=== PATIENT | female | born 1960 | race Caucasian/White ===

== ENCOUNTER 2018-10-18 09:00 | Outpatient (REF) | payer BC, SELFPAY ==
[2018-10-18 19:21] LABS: HCT 39.3 % (36.0-46.0); HGB 13.5 g/dL (12.0-15.5); Mean Corp. HGB Concentration 34.4 g/dL (32.0-36.0); Mean Corpuscular Hemoglobin 30.2 pg (27.0-33.0); Mean Corpuscular Volume 87.9 fL (80-95); Mean Platelet Volume 9.7 fL (8.0-11.0); Platelet Count 377 x1000/uL (130-400); RBC 4.47 m/cumm (4.00-5.20); RBC Distribution Width 13.1 % (11.7-14.6); White Blood Cell Count 4.04 k/cumm (4.4-10.8)
[2018-10-18 19:26] LABS: Bilirubin Negative (Negative); Blood Trace-intact (Negative); Clarity Clear; Glucose Negative (Negative); Ketones Negative (Negative); Leukocyte Esterase Negative (Negative); Nitrite Negative (Negative); Specific Gravity 1.015 (1.005-1.025); Urobilinogen 0.2 EU/dL (Up TO 0.2)
[2018-10-18 19:46] LABS: Bacteria Negative HPF (Negative); C & S Indicated? No; Casts Negative LPF (Negative); Crystals Negative HPF (Negative); Epithelial Cells Rare HPF (Negative); Mucus Negative (Negative); RBC 0-2 (0-2); WBC Negative HPF (0-5)
[2018-10-18 20:30] LABS: Anion Gap 7.3 mmol/L (3-11); BUN 14 mg/dL (7-18); CO2 30.7 mmol/L (21.0-32.0); CREATININE 0.82 mg/dL (0.55-1.02); Calcium 9.3 mg/dL (8.5-10.1); Chloride 95 mmol/L (98-107); Cholesterol 217 mg/dL (50-200); Glucose 93 mg/dL (70-100); HDL Cholesterol 117 mg/dL (40-60); LDL CHOLESTEROL 89 mg/dL (<100); Potassium 4.3 mmol/L (3.5-5.1); Sodium 133 mmol/L (136-145); Triglyceride 31 mg/dL (30-150)
[2018-10-18 21:10] LABS: Amylase 34 U/L (25-115); Lipase 85 U/L (73-393)
== END 2018-10-18 09:20 ==
LOC: NCHCN 09:00
PROVIDERS: PCP Physician Assistant Medical; Visit Provider Nurse Practitioner Family
DX: R10.9 Unspecified abdominal pain (principal); Z00.00 Encounter for general adult medical examination without abnormal findings
CPT/HCPCS: 80048; 80061; 83690; 83721; 85027; 81003; 81015; 82150

== ENCOUNTER 2019-07-10 14:26 | Outpatient (REF) | payer BC, SELFPAY ==
[2019-07-10 19:28] LABS: TSH (W/Ref FT4) 0.89 uIU/mL (0.36-3.74)
== END 2019-07-10 14:46 ==
LOC: NCHCN 14:26
PROVIDERS: PCP Physician Assistant Medical; Visit Provider Nurse Practitioner Family
DX: R00.2 Palpitations (principal)
CPT/HCPCS: 84443

== ENCOUNTER 2020-04-05 16:56 | Outpatient (REF) | payer BC, SELFPAY ==
[2020-04-05 20:00] LABS: HGB 12.5 g/dL (11.2-15.7); MCH 29.3 pg (27.0-33.0); MCHC 33.8 % (32.0-36.0); MCV 86.7 fL (80-95); MPV 9.9 fL (8.0-11.0); Platelet Count 375 10^3/uL (130-400); RBC 4.27 10^6/uL (3.93-5.22); RDW 13.1 % (11.7-14.6); RDW-SD 41.2 fL; WBC 6.78 10^3/uL (4.4-10.8)
[2020-04-05 20:32] LABS: TSH 0.72 uIU/mL (0.36-3.74)
[2020-04-05 20:55] LABS: ESR 9 mm/hr (0-30)
[2020-04-06 17:55] LABS: CRP, High Sensitivity 0.83 mg/L (See Note)
== END 2020-04-05 17:16 ==
LOC: NCHCN 16:56
PROVIDERS: PCP Physician Assistant Medical; Visit Provider Nurse Practitioner Family
DX: N64.4 Mastodynia (principal)
CPT/HCPCS: 85027; 85652; 86141; 84443

== ENCOUNTER 2020-10-21 15:14 | Outpatient (REF) | payer BC, SELFPAY ==
[2020-10-21 16:07] LABS: ALT 35 U/L (14-59); AST 23 U/L (15-37); Albumin 4.1 g/dL (3.4-5.0); Alkaline Phosphatase 88 U/L (46-116); Bilirubin, Direct 0.1 mg/dL (0.0-0.2); Bilirubin, Total 0.4 mg/dL (0.2-1.0); Total Protein 6.9 g/dL (6.4-8.2)
== END 2020-10-21 15:15 | disposition home or self-care (01) ==
LOC: NCHCN 15:14
PROVIDERS: PCP Physician Assistant Medical; Visit Provider Family Medicine
DX: R10.11 Right upper quadrant pain (principal)
CPT/HCPCS: 80076

== ENCOUNTER → 2022-05-26 00:33 | Outpatient (CLI) | payer BC, SELFPAY ==
--- OUTSIDE RECORDS SUMMARY | 2022-05-26 00:43 | XMS_ITS | Encounter Summary ---
:1960 Author Organization [facility] Address [address] [place] [address] Care Team Providers Name Role Phone Unavailable Primary Care Provider Unavailable Encounter Details Date Type Department Care Team Description 09/07/2000 Results Only [facility] - Baylee Gaffney MD conversion [address] [facility] [address] [facility] LAUREN [address] [place], [place] [id number] [place] [address] (Wo rk) Social History Tobacco Use Types Packs/Day Years Used Date Never Assessed Sex Assigned at Date Recorded Not on file documented as of this encounter Plan of Treatment Not on filedocumented as of this encounter Procedures Procedure Name Priority Date/Time Associated Diagnosis Comme nts CYTOPATHOLOGY Routine 09/07/2000 0:00 EST Results for this procedure are i n the results section . documented in this encounter Results CYTOPATHOLOGY (09/07/2000 0:00 EST) Pathology Report: CYTOPATHOLOGY REPORT [facility] Reports generated via electronic interface contain hina ginal data; however they are lacking the format of the original re port. Caution should be taken when reading/interpreting unfo rmatted reports. Name: ? BELEM HOLLIDAY ? Accession #: ? [id number] : ? 1960 (Age: 40) ??F ?Collect Date: ? 09/2000 Location: ? [facility] ? Receive Date : ? 09/11/2000 Provider: ?BAYLEE SERRA MD Copy to: ? Specimen/Source: ?ThinPrep Pap Test, Cervix/ Endocervix Last Menstrual Period: ? 09/04/00 Hormonal/Contraceptive Status: ? Yes ? SPECIMEN ADEQUACY ? Satisfactory for evaluation. GENERAL CATEGORIZATION ? Within Normal Limits ? Document reviewed and electronically signed by: ? MAURICE Gao(ASCP) ? Report Date: ??09/11/2000 13:02 End of Report Specimen Performing Organization Address City/State/ZIP Code Phon e Number [facility] [address] [phone] SERVICES [facility] [address] [place] [address] documented in this encounter Visit Diagnoses Not on filedocumented in this encounter
--- OUTSIDE RECORDS SUMMARY | 2022-05-26 00:43 | XMS_ITS | Encounter Summary ---
:1960 Author Organization [facility] [place] [address] Care Team Providers Name Role Phone Denis Hardy MD Primary Care Provider Encounter Details Date Type Department Care Team Description 03/27/2022 Ancillary Procedure Radiology Library at Denis Hardy MD [id number] [place] [phone] [address] [phone] Social History Tobacco Use Types Packs/Day Years Used Date Never Assessed Sex Assigned at Date Recorded Not on file documented as of this encounter Plan of Treatment Upcoming Encounters Date Type Specialty Care Team Description 06/14/2022 Office Visit Neurology Taylor Evans MD [facility] NEUROLOGY DEPT [place], [place] [address] (Wo rk) documented as of this encounter Procedures Procedure Name Priority Date/Time Associated Diagnosis Comme nts FILM LIBRARY Routine 03/27/2022 12:05 AM Results for this STORAGE ONLY CT EDT procedure ar e in HEAD the results section. documented in this encounter Results Film Library- Storage Only CT Head (03/27/2022 12:05 AM EDT) Specimen (Source) Anatomical Location Collection Method / Collectio n Time Received Time / Laterality Volume Narrative ROBIN DANIEL - 03/28/2022 11:31 AM EDT This exam is auto-finalizing. It's purpo se is for storage only. Denis Hardy MD IMG FILM LIBRARY ORDERABLES Performing Organization Address City/State/ZIP Code Phon e Number [facility] [place], [place] documented in this encounter Visit Diagnoses Not on filedocumented in this encounter Care Teams Seam Stay Stitcher Relationship Specialty Start Date End Date Denis Hardy MD PCP - General 06/28/10 03/27/[address] [place] [address] [place] [address] documented as of this encounter
--- OUTSIDE RECORDS SUMMARY | 2022-05-26 00:43 | XMS_ITS | Encounter Summary ---
:1960 Author Organization [facility] [place] [address] Care Team Providers Name Role Phone Sara Luke MANAGER OF PHOTOGRAPHY Primary Care Provider Encounter Details Date Type Department Care Team Description 03/29/2022 [facility]illary [facility] [address] [place] [phone] (Wo rk) Social History Tobacco Use Types Packs/Day Years Used Date Never Assessed Sex Assigned at Date Recorded Not on file documented as of this encounter Plan of Treatment Upcoming Encounters Date Type Specialty Care Team Description 06/14/2022 Office Visit Neurology Taylor Evans MD [facility] DR NEUROLOGY DEPT [place], [place] [address] (Wo rk) documented as of this encounter Procedures Procedure Name Priority Date/Time Associated Diagnosis Comme nts FILM LIBRARY Routine 03/29/2022 9:10 AM Results f or this STORAGE ONLY CT EDT procedure ar e in HEAD the results section. documented in this encounter Results Film Library- Storage Only CT Head (03/29/2022 9:10 AM EDT) Specimen (Source) Anatomical Location Collection Method / Collectio n Time Received Time / Laterality Volume Narrative MARÍA - 03/29/2022 9:10 AM EDT This exam is auto-finalizing. It's purpo se is for storage only. Sara Kiran Ti MANAGER OF PHOTOGRAPHY IMG FILM LIBRARY ORDERABLES Performing Organization Address City/State/ZIP Code Phon e Number [facility] [place], [place] documented in this encounter Visit Diagnoses Not on filedocumented in this encounter Care Teams Set And Exhibit Designer Relationship Specialty Start Date End Date Sara Luke APRN PCP - General Family Medicine 03/28/22 [address] [place] [address] documented as of this encounter
--- OUTSIDE RECORDS SUMMARY | 2022-05-26 00:43 | XMS_ITS | Encounter Summary ---
:1960 Author Organization [facility] Address [address] [place] [address] Care Team Providers Name Role Phone Unavailable Primary Care Provider Unavailable Encounter Details Date Type Department Care Team Description 11/30/2005 Results Only [facility] - Angie Chapman, conversion MEDIA EXECUTIVE [address] [place] [address] Social History Tobacco Use Types Packs/Day Years Used Date Never Assessed Sex Assigned at Date Recorded Not on file documented as of this encounter Plan of Treatment Not on filedocumented as of this encounter Procedures Procedure Name Priority Date/Time Associated Diagnosis Comme nts CYTOPATHOLOGY Routine 11/30/2005 0:00 EDT Results for this procedure are i n the results section . documented in this encounter Results CYTOPATHOLOGY (11/30/2005 0:00 EDT) Pathology Report: CYTOPATHOLOGY REPORT [facility] Reports generated via electronic interface contain hina ginal data; however they are lacking the format of the original re port. Caution should be taken when reading/interpreting unfo rmatted reports. Name: ? BELEM HOLLIDAY ? Accession #: ? [id number] : ? 1960 (Age: 45) ??F ?Collect Date: ? 11/05 Location: ? [facility] ? Receive Date : ? 12/04/2005 Provider: ?NUBIA RAMIREZ MEDIA EXECUTIVE Copy to: ? Specimen/Source: ? ThinPrep Pap Test, Cervix/Endocervix, processed on [employer] ThinPrep Imaging System, with manual evaluation Last Menstrual Period: ? Other: ? Additional clinical information: Previous paps WNL HPVA - HPV testing requested if ASC-US on the current ThinPrep Pap test. ? SPECIMEN ADEQUACY ? Satisfactory for Evaluation - transformation zone component present GENERAL CATEGORIZATION ? Negative for Intraepithelial Lesion or Malignan cy ? Document reviewed and electronically signed by: ? SANTANA Jimenez(ASCP) ? Report Date: ??12/05/2005 15:37 End of Report Specimen Performing Organization Address City/State/ZIP Code Phon e Number [facility] [address] [place] [address] SERVICES [facility] [address] [place] [address] documented in this encounter Visit Diagnoses Not on filedocumented in this encounter
--- OUTSIDE RECORDS SUMMARY | 2022-05-26 00:43 | XMS_ITS | Encounter Summary ---
:1960 Author Organization [facility] [place] [address] Care Team Providers Name Role Phone Sara Luke APRN Primary Care Provider Reason for Referral Consultation (Urgent) - Authorized Specialty Diagnoses / Procedures Referred By Contact Refer red To Contact Neurology Diagnoses Brain bleed ? stroke team Chris Pike MD [facility] Neurology [address] [address] [place] [address] Fax: Referral ID Status Reason Start Expiration Visits Visits Date Date Requested Authorized [id number] Authorized Consult, 03/28/2022 03/28/2023 6 6 Test & Treat PCP Updated and/or Approved Encounter Details Date Type Department Care Team Description 03/28/2022 Transcribe Orders eDH Incoming Referra ls Chris Pike, Brain bleed [phone] [address] [place], [place] [address] (Wo rk) Social History Tobacco Use Types Packs/Day Years Used Date Never Assessed Sex Assigned at Date Recorded Not on file documented as of this encounter Plan of Treatment Upcoming Encounters Date Type Specialty Care Team Description 06/14/2022 Office Visit Neurology Taylor Evans MD [facility] NEUROLOGY DEPT [place], [place] [address] (Wo rk) Scheduled Referrals Name Type Priority Associated Diagnoses Order S chedule Referral to Outpatient Referral STAT Brain bleed Ordered: Neurology 03/28/2022 documented as of this encounter Visit Diagnoses Diagnosis Brain bleed Intracerebral hemorrhage documented in this encounter Care Teams Insulation Board Back Tender Relationship Specialty Start Date End Date Sara Luke, PERSONNEL SPECIALIST PCP - General Family Medicine 03/28/[address] [place] [address] documented as of this encounter
--- OUTSIDE RECORDS SUMMARY | 2022-05-26 00:43 | XMS_ITS | Encounter Summary ---
:1960 Author Organization [facility] Address [address] [place] [address] Care Team Providers Name Role Phone Unavailable Primary Care Provider Unavailable Encounter Details Date Type Department Care Team Description 10/27/2010 Results Only [facility] Ty Gonsalez PA Laboratory Services - [facility] [address] [place] [address] 0 [facility] [place] [address] [phone] Social History Tobacco Use Types Packs/Day Years Used Date Never Assessed Sex Assigned at Date Recorded Not on file documented as of this encounter Plan of Treatment Not on filedocumented as of this encounter Procedures Procedure Name Priority Date/Time Associated Diagnosis Comme nts CYTOPATHOLOGY Routine 10/27/2010 0:00 EDT Results for this procedure are i n the results section . documented in this encounter Results CYTOPATHOLOGY (10/27/2010 0:00 EDT) Pathology Report: CYTOPATHOLOGY REPORT ? [facility] Reports generated via Veratect interface contain original data; ? however they are lacking the format of the original report. ? Caution should be taken when reading/interpreting unformatted reports. ? Name: ? Aleah HOLLIDAY CHERRIE ? Accession #: ? [id number] ? : ? 1960 (Age: 50) ??F ?Collect Date: ? 10/27/2010 ? Location: ? [facility] ? Receive Date: ? 10/31/2010 ? Provider: ? JONATHAN Bullock PA ? Copy to: ? CYTOLOGIC DIAGNOSIS: ? Urine, voided, cytolo gic evaluation: ? 1. ?Negative fo r malignant cells. ? 2. ? Vaginal contaminati on. ? Document reviewed and electr onically signed by: ? BAYRON DELGADO MD ? Report Date: ??11/01/2010 16 :37 ? By the signature above, the attending physician certifies that he/she has ? personally conducted a gross and/or microscopic examination of the described ? specimens and rendered or co nfirmed the above diagnosis. ? Specimen Type: ? Urine, Voided ? Clinical History: ? Hematuria ? Gross Description: ? 1 tube of Cytolyt was received and processed by cellular enhancement ? technique ? End of Report ? Specimen Performing Organization Address City/State/ZIP Code Phon e Number [facility] [address] [place] [address] SERVICES [facility] [address] [place] [address] documented in this encounter Visit Diagnoses Not on filedocumented in this encounter
--- OUTSIDE RECORDS SUMMARY | 2022-05-26 00:43 | XMS_ITS | Encounter Summary ---
:1960 Author Organization [facility] [place] [address] Care Team Providers Name Role Phone Sara Luke APRN Primary Care Provider Encounter Details Date Type Department Care Team Description 03/29/2022 Telehealth notes only [facility] Tele[facility], [place] [address] Social History Tobacco Use Types Packs/Day Years Used Date Never Assessed Sex Assigned at Date Recorded Not on file documented as of this encounter Plan of Treatment Upcoming Encounters Date Type Specialty Care Team Description 06/14/2022 Office Visit Neurology Taylor Evans MD [facility] NEUROLOGY DEPT [place], [place] [address] (Wo rk) documented as of this encounter Visit Diagnoses Not on filedocumented in this encounter Care Teams Copier Operator Relationship Specialty Start Date End Date Sara Luke APRN PCP - General Family Medicine 03/28/[address] [place] [address] documented as of this encounter
--- OUTSIDE RECORDS SUMMARY | 2022-05-26 00:43 | XMS_ITS | Encounter Summary ---
:1960 Author Organization [facility] [place] [address] Care Team Providers Name Role Phone Sara Luke APRN Primary Care Provider Encounter Details Date Type Department Care Team Description 03/28/2022 Telehealth notes only [facility] Telehealth, [place] [address] Social History Tobacco Use Types Packs/Day Years Used Date Never Assessed Sex Assigned at Date Recorded Not on file documented as of this encounter Plan of Treatment Upcoming Encounters Date Type Specialty Care Team Description 06/14/2022 Office Visit Neurology Taylor Evans MD [facility] NEUROLOGY DEPT [place], [place] [address] (Wo rk) documented as of this encounter Visit Diagnoses Not on filedocumented in this encounter Care Teams Behavior Therapist Relationship Specialty Start Date End Date Sara Luke APRN PCP - General Family Medicine 03/28/[address] [place] [address] documented as of this encounter
--- OUTSIDE RECORDS SUMMARY | 2022-05-26 00:43 | XMS_ITS | Encounter Summary ---
:1960 Author Organization [facility] [place] [address] Care Team Providers Name Role Phone Denis Hardy MD Primary Care Provider Encounter Details Date Type Department Care Team Description 03/27/2022 Ancillary Procedure Radiology Library at Denis Hardy MD [address] [place] [phone] [phone] Social History Tobacco Use Types Packs/Day Years Used Date Never Assessed Sex Assigned at Date Recorded Not on file documented as of this encounter Plan of Treatment Upcoming Encounters Date Type Specialty Care Team Description 06/14/2022 Office Visit Neurology Taylor Evans MD [facility] NEUROLOGY DEPT [place], [place] [address] (Wo rk) documented as of this encounter Procedures Procedure Name Priority Date/Time Associated Diagnosis Comme nts FILM LIBRARY Routine 03/27/2022 12:00 AM Results for this STORAGE ONLY MR EDT procedure ar e in HEAD the results section. documented in this encounter Results Film Library- Storage Only MR Head (03/27/2022 12:00 AM EDT) Specimen (Source) Anatomical Location Collection Method / Collectio n Time Received Time / Laterality Volume Narrative ROBIN DANIEL - 03/28/2022 8:47 AM EDT This exam is auto-finalizing. It's purpo se is for storage only. Denis Hardy MD IMG FILM LIBRARY ORDERABLES Performing Organization Address City/State/ZIP Code Phon e Number MAR[facility] [place], [place] documented in this encounter Visit Diagnoses Not on filedocumented in this encounter Care Teams Children'S Ministry Director Relationship Specialty Start Date End Date Denis Hardy MD PCP - General 06/28/10 03/27/[address] [place] [address] [place] [address] documented as of this encounter
--- OUTSIDE RECORDS SUMMARY | 2022-05-26 00:43 | XMS_ITS | Encounter Summary ---
:1960 Author Organization [facility] [place] [address] Care Team Providers Name Role Phone Denis Hardy MD Primary Care Provider Encounter Details Date Type Department Care Team Description 03/27/2022 Telehealth notes only TeleHealth Telehealth, [facility] [place] [address] Social History Tobacco Use Types Packs/Day Years Used Date Never Assessed Sex Assigned at Date Recorded Not on file documented as of this encounter Plan of Treatment Upcoming Encounters Date Type Specialty Care Team Description 06/14/2022 Office Visit Neurology Taylor Evans MD [facility] DR NEUROLOGY DEPT [place], [place] [address] (Wo rk) documented as of this encounter Visit Diagnoses Not on filedocumented in this encounter Care Teams Youth Care Worker Relationship Specialty Start Date End Date Denis Hardy MD PCP - General 06/28/10 03/27/[address] [place] [address] [place] [address] documented as of this encounter
--- OUTSIDE RECORDS SUMMARY | 2022-05-26 00:43 | XMS_ITS | Encounter Summary ---
:1960 Author Organization [facility] [place] [address] Care Team Providers Name Role Phone Sara Luke JELLY FILTER TENDER Primary Care Provider Encounter Details Date Type Department Care Team Description 03/28/2022 Ancillary Procedure [facility] [address] [place] [phone] (Wo rk) Social History Tobacco Use Types Packs/Day Years Used Date Never Assessed Sex Assigned at Date Recorded Not on file documented as of this encounter Plan of Treatment Upcoming Encounters Date Type Specialty Care Team Description 06/14/2022 Office Visit Neurology Taylor Evans MD [facility] DR NEUROLOGY DEPT [place], [place] [address] (Wo rk) documented as of this encounter Procedures Procedure Name Priority Date/Time Associated Diagnosis Comme nts FILM LIBRARY Routine 03/28/2022 12:00 AM Results for this STORAGE ONLY MR EDT procedure ar e in HEAD the results section. documented in this encounter Results Film Library- Storage Only MR Head (03/28/2022 12:00 AM EDT) Specimen (Source) Anatomical Location Collection Method / Collectio n Time Received Time / Laterality Volume Narrative [facility] - 03/29/2022 9:10 AM EDT This exam is auto-finalizing. It's purpo se is for storage only. Sara Kiran Ti JELLY FILTER TENDER IM FILM LIBRARY ORDERABLES Performing Organization Address City/State/ZIP Code Phon e Number [facility] [place], [place] documented in this encounter Visit Diagnoses Not on filedocumented in this encounter Care Teams Roundhouse Worker Relationship Specialty Start Date End Date Sara Luke APRN PCP - General Family Medicine 03/28/22 [address] [place] [address] documented as of this encounter
--- OUTSIDE RECORDS SUMMARY | 2022-05-26 00:43 | XMS_ITS | Encounter Summary ---
:1960 Author Organization [facility] Address [address] [place] [address] Care Team Providers Name Role Phone Unavailable Primary Care Provider Unavailable Encounter Details Date Type Department Care Team Description 12/24/2006 Results Only [facility] - Clinton Munoz MD conversion [address] [place] [address] Social History Tobacco Use Types Packs/Day Years Used Date Never Assessed Sex Assigned at Date Recorded Not on file documented as of this encounter Plan of Treatment Not on filedocumented as of this encounter Procedures Procedure Name Priority Date/Time Associated Diagnosis Comme nts CYTOPATHOLOGY Routine 12/24/2006 0:00 EDT Results for this procedure are i n the results section . documented in this encounter Results CYTOPATHOLOGY (12/24/2006 0:00 EDT) Pathology Report: CYTOPATHOLOGY REPORT [facility] Reports generated via electronic interface contain hina ginal data; however they are lacking the format of the original re port. Caution should be taken when reading/interpreting unfo rmatted reports. Name: ? BELEM HOLLIDAY ? Accession #: ? [id number] : ? 1960 (Age: 46) ??F ?Collect Date: ? 12/05 Location: ? [facility] ? Receive Date : ? 12/26/2006 Provider: ?CLINTON WAY MD Copy to: ? Specimen/Source: ? ThinPrep Pap Test, Cervix/Endocervix, processed on [employer] ThinPrep Imaging System, with manual evaluation Last Menstrual Period: ? Other: ? Additional clinical information: Previous paps wnl HPVDX - HPV testing requested regardless of diag nosis on current ThinPrep Pap test. ? SPECIMEN ADEQUACY ? Satisfactory for Evaluation - transformation zone component present GENERAL CATEGORIZATION ? Negative for Intraepithelial Lesion or Malignan cy ? Document reviewed and electronically signed by: ? SANTANA Christine(ASCP) ? Report Date: ??01/01/2007 10:04 End of Report Specimen Performing Organization Address City/State/ZIP Code Phon e Number [facility] [address] [place] [address] SERVICES [facility] [address] [place] [address] documented in this encounter Visit Diagnoses Not on filedocumented in this encounter
--- OUTSIDE RECORDS SUMMARY | 2022-05-26 00:43 | XMS_ITS | Encounter Summary ---
:1960 Author Organization [facility] Address [address] [place] [address] Care Team Providers Name Role Phone Unavailable Primary Care Provider Unavailable Encounter Details Date Type Department Care Team Description 11/22/2004 Results Only [facility] - Angie Chapman, conversion AGENT [address] [place] [address] Social History Tobacco Use Types Packs/Day Years Used Date Never Assessed Sex Assigned at Date Recorded Not on file documented as of this encounter Plan of Treatment Not on filedocumented as of this encounter Procedures Procedure Name Priority Date/Time Associated Diagnosis Comme nts CYTOPATHOLOGY Routine 11/22/2004 0:00 EDT Results for this procedure are i n the results section . documented in this encounter Results CYTOPATHOLOGY (11/22/2004 0:00 EDT) Pathology Report: CYTOPATHOLOGY REPORT [facility] Reports generated via electronic interface contain hina ginal data; however they are lacking the format of the original re port. Caution should be taken when reading/interpreting unfo rmatted reports. Name: ? BELEM HOLLIDAY ? Accession #: ? [id number] : ? 1960 (Age: 44) ??F ?Collect Date: ? 11/04 Location: ? [facility] ? Receive Date : ? 11/24/2004 Provider: ?NUBIA RAMIREZ AGENT Copy to: ? Specimen/Source: ?ThinPrep Pap Test, Cervix/ Endocervix Last Menstrual Period: ? 11/15/04 Hormonal/Contraceptive Status: ? Yes: Hormones Other: ? HPVA - HPV testing requested if ASC-US on the current ThinPrep Pap test. ? SPECIMEN ADEQUACY ? Satisfactory for Evaluation - transformation zone component absent - scant squamous epithelial component GENERAL CATEGORIZATION ? Negative for Intraepithelial Lesion or Malignan cy ? Document reviewed and electronically signed by: ? SANTANA Hurt(ASCP) ? Report Date: ??11/30/2004 09:11 End of Report Specimen Performing Organization Address City/State/ZIP Code Phon e Number [facility] [address] [place] [address] SERVICES [facility] [address] [place] [address] documented in this encounter Visit Diagnoses Not on filedocumented in this encounter
--- OUTSIDE RECORDS SUMMARY | 2022-05-26 00:43 | XMS_ITS | Clinical Summary ---
:1960 Author Organization [facility] [place] [address] Care Team Providers Name Role Phone Sara Luke APRN Primary Care Provider Encounters Date Type Specialty Care Team Description 04/24/2022 Telephone Neurology Grisel Evans MD Appo intment 03/29/2022 Telehealth notes only Telehealth Telehealth, Neurolo gy 03/29/2022 Ancillary Procedure Radiology Sara Luke AP RN 03/28/2022 Telehealth notes only Telehealth Telehealth, Neurolo gy 03/28/2022 Ancillary Procedure Radiology Denis Hardy MD 03/28/2022 Ancillary Procedure Radiology Sara Luke AP RN 03/28/2022 Transcribe Orders Primary Care Chris Pike MD B rain bleed 03/27/2022 Telehealth notes only Telehealth Telehealth, Neurolo gy 03/27/2022 Ancillary Procedure Radiology Denis Hardy MD 03/27/2022 Ancillary Procedure Denis Price MD 03/27/2022 Ancillary Procedure Radiology Denis Hardy MD from Last 3 Months Social History Tobacco Use Types Packs/Day Years Used Date Never Assessed Sex Assigned at Date Recorded Not on file Plan of Treatment Upcoming Encounters Date Type Specialty Care Team Description 06/14/2022 Office Visit Neurology Taylor Evans MD [facility] NEUROLOGY DEPT [place], [place] [address] (Wo rk) Health Maintenance Due Date Last Done Comments Covid-19 Vaccine (#1) 1960 HIV screen 1979 Hepatitis C Screening 1979 Tdap adult 1980 Tetanus vaccine 1980 HPV test 1991 PAP Smear 1991 Breast Cancer Share Decision Needed 2001 Colonoscopy 2006 Breast Cancer screening 2011 Zoster vaccine (1 of 2) 2011 Advance Directive 2016 Influenza (Flu) vaccine (1 of 1 - Influenza standard 04/06/2022 series) Procedures Procedure Name Priority Date/Time Associated Diagnosis Comme nts FILM LIBRARY Routine 03/29/2022 9:10 AM Results f or this STORAGE ONLY CT EDT procedure ar e in HEAD the results section. FILM LIBRARY Routine 03/28/2022 11:30 AM Results for this STORAGE ONLY CT EDT procedure ar e in HEAD the results section. FILM LIBRARY Routine 03/28/2022 12:00 AM Results for this STORAGE ONLY MR EDT procedure ar e in HEAD the results section. CT SCAN (SCAN) 03/28/2022 12:00 AM Result s for this EDT procedure are i n the results section. FILM LIBRARY Routine 03/27/2022 12:10 AM Results for this STORAGE ONLY CT EDT procedure ar e in HEAD the results section. FILM LIBRARY Routine 03/27/2022 12:05 AM Results for this STORAGE ONLY CT EDT procedure ar e in HEAD the results section. FILM LIBRARY Routine 03/27/2022 12:00 AM Results for this STORAGE ONLY MR EDT procedure ar e in HEAD the results section. MRI/MRA SCAN 03/27/2022 12:00 AM Results for this EDT procedure are i n the results section. CT SCAN (SCAN) 03/27/2022 12:00 AM Result s for this EDT procedure are i n the results section. CT SCAN (SCAN) 03/27/2022 12:00 AM Result s for this EDT procedure are i n the results section. from Last 3 Months Results Film Library- Storage Only CT Head (03/29/2022 9:10 AM EDT)Only the most recent of4 resultswithin the time period is included. Specimen (Source) Anatomical Location Collection Method / Collectio n Time Received Time / Laterality Volume Narrative [facility] - 03/29/2022 9:10 AM EDT This exam is auto-finalizing. It's purpo se is for storage only. Sara Luke APRN G FILM LIBRARY ORDERABLES Performing Organization Address City/State/ZIP Code Phon e Number [place], [place] SCAN DOC: CT SCAN (03/28/2022 12:00 AM EDT)Only the most recent of3 results within the time period is included. Narrative 03/28/2022 12:00 AM EDT This result has an attachment that is no t available. Ordered by an unspecified provider. Scanning Provider MEDIA MGR SCAN EXT ORDR/RSLT Film Library- Storage Only MR Head (03/28/2022 12:00 AM EDT)Only the most recent of2 resultswithin the time period is included. Specimen (Source) Anatomical Location Collection Method / Collectio n Time Received Time / Laterality Volume Narrative [facility] - 03/29/2022 9:10 AM EDT This exam is auto-finalizing. It's purpo se is for storage only. Sara Luke APRN IM FILM LIBRARY ORDERABLES Performing Organization Address City/State/ZIP Code Phon e Number [place], [place] SCAN DOC: MRI/MRA (03/27/2022 12:00 AM EDT) Narrative 03/27/2022 12:00 AM EDT This result has an attachment that is no t available. Ordered by an unspecified provider. Scanning Provider MEDIA MGR SCAN EXT ORDR/RSLT from Last 3 Months Insurance Payer Benefit Plan Subscriber ID Effective Dates Phone Address Type / Group [facility] [id number] 2022-Prese [phone] [address] [facility] [id number] Care Teams Events Specialist Relationship Specialty Start Date End Date Sara Luke APRN PCP - General Family Medicine 03/28/22 [address] [place] [address]
--- OUTSIDE RECORDS SUMMARY | 2022-05-26 00:43 | XMS_ITS | Encounter Summary ---
:1960 Author Organization [facility] Address [address] [place] [address] Care Team Providers Name Role Phone Unavailable Primary Care Provider Unavailable Encounter Details Date Type Department Care Team Description 09/11/2001 Results Only [facility] - Baylee Gaffney MD conversion [address] [facility] [address] [place], [place] [id number] [place] [address] (Wo rk) Social History Tobacco Use Types Packs/Day Years Used Date Never Assessed Sex Assigned at Date Recorded Not on file documented as of this encounter Plan of Treatment Not on filedocumented as of this encounter Procedures Procedure Name Priority Date/Time Associated Diagnosis Comme nts CYTOPATHOLOGY Routine 09/11/2001 0:00 EST Results for this procedure are i n the results section . documented in this encounter Results CYTOPATHOLOGY (09/11/2001 0:00 EST) Pathology Report: CYTOPATHOLOGY REPORT [facility] Reports generated via electronic interface contain hina ginal data; however they are lacking the format of the original re port. Caution should be taken when reading/interpreting unfo rmatted reports. Name: ? BELEM HOLLIDAY ? Accession #: ? [id number] : ? 1960 (Age: 41) ??F ?Collect Date: ? 01/2002 Location: ? [facility] ? Receive Date : ? 09/13/2001 Provider: ?BAYLEE SERRA MD Copy to: ? Specimen/Source: ?ThinPrep Pap Test, Cervix/ Endocervix Last Menstrual Period: ? 09/03/01 Hormonal/Contraceptive Status: ? Yes Other: ? Client ID#: [id number] ? SPECIMEN ADEQUACY ? Satisfactory for Evaluation - transformation zone component present GENERAL CATEGORIZATION ? Negative for Intraepithelial Lesion or Malignan cy ? Document reviewed and electronically signed by: ? SANTANA Thakkar(ASCP) ? Report Date: ??09/16/2001 14:52 End of Report Specimen Performing Organization Address City/State/ZIP Code Phon e Number [facility] [address] [place] [address] SERVICES [facility] [address] [place] [address] documented in this encounter Visit Diagnoses Not on filedocumented in this encounter
--- OUTSIDE RECORDS SUMMARY | 2022-05-26 00:43 | XMS_ITS | Encounter Summary ---
:1960 Author Organization [facility] Address [address] [place] [address] Care Team Providers Name Role Phone Fidencio Gonsalez Primary Care Provider Reason for Visit (Routine/Next Available) - Receiving Office to Obtain Authorization Specialty Diagnoses / Procedures Referred By Contact Refer red To Contact Procedures Unknown, Provider, CT OUTSIDE IMAGES NEURO Phone: Referral ID Status Reason Start Expiration Visits Visits Date Date Requested Authorized [id number] Receiving Office 03/27/2022 1 1 to Obtain Authorization Encounter Details Date Type Department Care Team Description 03/27/2022 Hospital Encounter [facility] Secondary Reads [place] Social History Tobacco Use Types Packs/Day Years Used Date Never Assessed Sex Assigned at Date Recorded Not on file documented as of this encounter Discharge Disposition Disposition Code Departure Means Destination Home or Self Care documented in this encounter Plan of Treatment Not on filedocumented as of this encounter Procedures Procedure Name Priority Date/Time Associated Diagnosis Comme nts CT OUTSIDE IMAGES Routine 03/27/2022 14:52 Result s for this NEURO EDT procedure are i n the results section. documented in this encounter Results CT OUTSIDE IMAGES NEURO (03/27/2022 14:52 EDT) Specimen Narrative 03/27/2022 14:52 EDT This is a non-reportable exam. documented in this encounter Visit Diagnoses Not on filedocumented in this encounter Care Teams Supply Chain Generalist Relationship Specialty Start Date End Date Fidencio Gonsalez PA PCP - General 11/01/[address] [place] [address] documented as of this encounter
--- OUTSIDE RECORDS SUMMARY | 2022-05-26 00:43 | XMS_ITS | Encounter Summary ---
:1960 Author Organization [facility] [place] [address] Care Team Providers Name Role Phone Sara Luke APRN Primary Care Provider Encounter Details Date Type Department Care Team Description 03/28/2022 Ancillary Procedure Radiology Library at Denis Hardy MD [id number] [place] [phone] Social History Tobacco Use Types Packs/Day Years Used Date Never Assessed Sex Assigned at Date Recorded Not on file documented as of this encounter Plan of Treatment Upcoming Encounters Date Type Specialty Care Team Description 06/14/2022 Office Visit Neurology Taylor Evans MD [facility] NEUROLOGY DEPT [place], [place] [address] (Wo rk) documented as of this encounter Procedures Procedure Name Priority Date/Time Associated Diagnosis Comme nts FILM LIBRARY Routine 03/28/2022 11:30 AM Results for this STORAGE ONLY CT EDT procedure ar e in HEAD the results section. documented in this encounter Results Film Library- Storage Only CT Head (03/28/2022 11:30 AM EDT) Specimen (Source) Anatomical Location Collection Method / Collectio n Time Received Time / Laterality Volume Narrative ROBIN DANIEL - 03/28/2022 11:30 AM EDT This exam is auto-finalizing. It's purpo se is for storage only. Denis Hardy MD IM FILM LIBRARY ORDERABLES Performing Organization Address City/State/ZIP Code Phon e Number [place], [place] documented in this encounter Visit Diagnoses Not on filedocumented in this encounter Care Teams Jackhammer Splitter Operator Relationship Specialty Start Date End Date Sara Luke APRN PCP - General Family Medicine 03/28/22 [address] [place] [address] documented as of this encounter
--- OUTSIDE RECORDS SUMMARY | 2022-05-26 00:43 | XMS_ITS | Encounter Summary ---
:1960 Author Organization [facility] Address [address] [place] [address] Care Team Providers Name Role Phone Fidencio Gonsalez Primary Care Provider Encounter Details Date Type Department Care Team Description 04/06/2020 Lab Requisition [facility] Outr Resulting Lab, Pathology & Laboratory Provider [facility] [address] [place] [address] Social History Tobacco Use Types Packs/Day Years Used Date Never Assessed Sex Assigned at Date Recorded Not on file documented as of this encounter Plan of Treatment Not on filedocumented as of this encounter Procedures Procedure Name Priority Date/Time Associated Comments Diagnosis HIGH SENSITIVITY Routine 04/05/2020 16:30 Results for this C-REACTIVE PROTEIN EDT procedure are in (CARDIOVASCULAR the results DISEASE) section. documented in this encounter Results HIGH SENSITIVITY C-REACTIVE PROTEIN (CARDIOVASCULAR DISEASE) (04/05/2020 16:30 EDT) High Sensitivity 0.83 See Note [facility] CRP Comment: mg/L [facility] Reference Range: SERVICES ??Source: [place] Hear t Association Clinical Practice Recommendations, 2003 ??Low Risk: ? <1.0 mg/L ??Average Risk: ?? 1.0 - 3.0 mg/L ??High Risk: ?>3.0 mg/L ??Indeterminate*: >10.0 mg/L ??*May be an indication of another source of inflamma tion or infection Specimen Blood - Venous blood (substance) Performing Organization Address City/State/ZIP Code Phon e Number [facility] [address] [place] [address] SERVICES documented in this encounter Visit Diagnoses Not on filedocumented in this encounter Care Teams Fnp Relationship Specialty Start Date End Date Fidencio Gonsalez PA PCP - General 11/01/[address] [place] [address] documented as of this encounter
--- OUTSIDE RECORDS SUMMARY | 2022-05-26 00:43 | XMS_ITS | Encounter Summary ---
:1960 Author Organization [facility] Address [address] [place] [address] Care Team Providers Name Role Phone Fidencio Gonsalez Primary Care Provider Reason for Visit (Routine/Next Available) - Receiving Office to Obtain Authorization Specialty Diagnoses / Procedures Referred By Contact Refer red To Contact Procedures Unknown, Provider, CT OUTSIDE IMAGES NEURO Phone: Referral ID Status Reason Start Expiration Visits Visits Date Date Requested Authorized [id number] Receiving Office 03/27/2022 1 1 to Obtain Authorization Encounter Details Date Type Department Care Team Description 03/27/2022 Hospital Encounter [facility] Secondary Reads [place] Social History Tobacco [...] Comme nts CT OUTSIDE IMAGES Routine 03/27/2022 14:51 Result s for this NEURO EDT procedure are i n the results section. documented in this encounter Results CT OUTSIDE IMAGES NEURO (03/27/2022 14:51 EDT) Specimen Narrative 03/27/2022 14:51 EDT This is a non-reportable exam. documented in this encounter Visit Diagnoses Not on filedocumented in this encounter Care Teams Gelatin Maker Utility Relationship Specialty Start Date End Date Fidencio Gonsalez PA PCP - General 11/01/[address] [place] [address] documented as of this encounter
--- OUTSIDE RECORDS SUMMARY | 2022-05-26 00:43 | XMS_ITS | Encounter Summary ---
:1960 Author Organization [facility] Address [address] [place] [address] Care Team Providers Name Role Phone Unavailable Primary Care Provider Unavailable Encounter Details Date Type Department Care Team Description 10/22/2002 Results Only [facility] - Angie Chapman, conversion PACKING MACHINE TENDER [address] [place] [address] Social History Tobacco Use Types Packs/Day Years Used Date Never Assessed Sex Assigned at Date Recorded Not on file documented as of this encounter Plan of Treatment Not on filedocumented as of this encounter Procedures Procedure Name Priority Date/Time Associated Diagnosis Comme nts CYTOPATHOLOGY Routine 10/22/2002 0:00 EST Results for this procedure are i n the results section . documented in this encounter Results CYTOPATHOLOGY (10/22/2002 0:00 EST) Pathology Report: CYTOPATHOLOGY REPORT [facility] Reports generated via electronic interface contain hina ginal data; however they are lacking the format of the original re port. Caution should be taken when reading/interpreting unfo rmatted reports. Name: ? BELEM HOLLIDAY ? Accession #: ? [id number] : ? 1960 (Age: 42) ??F ?Collect Date: ? 10/04 Location: ? [facility] ? Receive Date : ? 10/24/2002 Provider: ?NUBIA RAMIREZ PACKING MACHINE TENDER Copy to: ? Specimen/Source: ?ThinPrep Pap Test, Cervix/ Endocervix Last Menstrual Period: ? 09/30/02 Hormonal/Contraceptive Status: ? Yes Other: ? HPVA - HPV testing requested if ASC-US on the current ThinPrep Pap test. ? SPECIMEN ADEQUACY ? Satisfactory for Evaluation - transformation zone component present GENERAL CATEGORIZATION ? Negative for Intraepithelial Lesion or Malignan cy ? Document reviewed and electronically signed by: ? SANTANA Hurt(ASCP) ? Report Date: ??10/28/2002 10:30 End of Report Specimen Performing Organization Address City/State/ZIP Code Phon e Number [facility] [address] [place] [phone] SERVICES [facility] [address] [place] [address] documented in this encounter Visit Diagnoses Not on filedocumented in this encounter
--- NOTE | 2022-05-26 13:00 | DI.MRI_ITS ---
Exam(s) MR BRAIN WO/W EXAM: MR BRAIN WO/W CLINICAL HISTORY: F/U INTRACRANIAL HEMORRHAGE, I62.9 TECHNIQUE: Multiplanar multisequence MRI of the brain was performed. Both noninfused and contrast i nfused sequences were performed. IV Contrast injected was 12 cc Dotarem. COMPARISON: CT CT HEAD STROKE PROTOCOL from 03/27/2022 MR MR MRV HEAD ANGIO WO CONTRAST from 03/27/2022 MR MR BRAIN WO CONTRAST from 03/27/[address] CTA HEAD/NECK W/ AND/OR WO CONT from 03/27/2022 MR MR BRAIN W/ CONTRAST from 03/28/2022 FINDINGS: CEREBRAL PARENCHYMA: There are stable appearance of the previously described small area of hemorrhage in the upper vermis of the cerebellum. This was 1st evident on CT scan of 03/27/2022. There is no prominent surrounding edema. There is no abnormal enhancement evident in this region nor elsewhere i n the brain. No other areas of hemorrhage. No ring enhancing lesions. No abnormal meningeal enhanc ement, focal nor diffuse. Ventricles are not enlarged or shifted. Mild periventricular signal abnor mality is unchanged from prior study. Largest of these is above the posterior aspect the left latera l ventricle and measures approximately 10 x 5 millimeters. Also without enhancement this region. There is no significant focal signal abnormality in the cerebellar hemispheres nor within the yvonne, m idbrain, and thalami. There is no abnormal signal abnormality in the periventricular white matter. There are no ring enhancing lesions in the brain. There is no abnormal meningeal enhancement. PITUITARY GLAND: No mass nor parasellar abnormality. No obvious abnormality in the cavernous sinuses. FLOW VOIDS: The expected flow void are noted. No evidence of obvious aneurysm nor obvious vascular ma lformation. PARANASAL SINUSES: The visualized paranasal sinuses appear unremarkable. ORBITS: No obvious abnormal findings. IMPRESSION: 1. Stable appearance of the previously described small area of hemorrhage in the vermis of the cerebe llum. No new areas of hemorrhage. 2. Other findings as above, also stable. No ring enhancing lesions in the brain and no abnormal meni ngeal enhancement, focal nor diffuse. DATA REPOSITORY:
[2022-05-26 13:05] LABS: CREATININE 0.8 mg/dL (0.55-1.02); Estimated GFR 83.78 (mL/min/1.73m2)
[2022-05-26] MEDS: Normal Saline Flush 10 ML SYR IVP (13:16)
== END ==
PROVIDERS: PCP Physician Assistant Medical; Visit Provider Nurse Practitioner Family
DX: I62.9 Nontraumatic intracranial hemorrhage, unspecified (principal)
CPT/HCPCS: 70553; 82565

== ENCOUNTER 2022-09-07 16:23 | Outpatient (REF) | payer BC, SELFPAY ==
[2022-09-07 19:09] LABS: Bilirubin Negative (Negative); Blood Small (Negative); Clarity Clear (Clear); Glucose Negative (Negative); Ketones Negative (Negative); Leukocyte Esterase Negative (Negative); Nitrite Negative (Negative); Specific Gravity 1.025 (1.005-1.025); Urobilinogen 0.2 EU/dL (Up TO 0.2); WBC Negative HPF (0-5)
[2022-09-07 19:10] LABS: Bacteria Rare HPF (Negative); C & S Indicated? No; Casts Negative LPF (Negative); Crystals Negative HPF (Negative); Epithelial Cells Rare HPF (Negative); Mucus Negative (Negative)
== END 2022-09-07 16:24 | disposition home or self-care (01) ==
LOC: NCHCN 16:23
PROVIDERS: PCP Nurse Practitioner Family; Visit Provider Nurse Practitioner Family
DX: R31.9 Hematuria, unspecified (principal); R10.9 Unspecified abdominal pain
CPT/HCPCS: 81003; 81015

== ENCOUNTER 2022-09-14 16:06 | Outpatient (REF) | payer BC, SELFPAY ==
[2022-09-14 18:45] LABS: Anion Gap 6.7 mmol/L (3-11); BUN 17 mg/dL (7-18); CO2 28.3 mmol/L (21.0-32.0); CREATININE 0.8 mg/dL (0.55-1.02); Calcium 9.4 mg/dL (8.5-10.1); Chloride 99 mmol/L (98-107); Estimated GFR 83.78 (mL/min/1.73m2); Glucose 94 mg/dL (74-106); Potassium 4.7 mmol/L (3.5-5.1); Sodium 134 mmol/L (136-145)
== END 2022-09-14 16:07 | disposition home or self-care (01) ==
LOC: NCHCN 16:06
PROVIDERS: PCP Nurse Practitioner Family; Visit Provider Nurse Practitioner Family
DX: E87.1 Hypo-osmolality and hyponatremia (principal)
CPT/HCPCS: 80048

== ENCOUNTER 2022-09-27 15:53 | Outpatient (REF) | payer BC, SELFPAY ==
[2022-09-27 21:25] LABS: Anion Gap 6.1 mmol/L (3-11); BUN 18 mg/dL (7-18); CO2 31.9 mmol/L (21.0-32.0); CREATININE 0.8 mg/dL (0.55-1.02); Calcium 9.7 mg/dL (8.5-10.1); Chloride 99 mmol/L (98-107); Estimated GFR 83.78 (mL/min/1.73m2); Glucose 69 mg/dL (74-106); Potassium 4.4 mmol/L (3.5-5.1); Sodium 137 mmol/L (136-145); TSH 0.62 uIU/mL (0.36-3.74)
== END 2022-09-27 15:54 | disposition home or self-care (01) ==
LOC: NCHCN 15:53
PROVIDERS: PCP Nurse Practitioner Family; Visit Provider Nurse Practitioner Family
DX: E87.1 Hypo-osmolality and hyponatremia (principal)
CPT/HCPCS: 80048; 84443

== ENCOUNTER 2023-03-20 16:26 | Outpatient (REF) | payer BC, SELFPAY ==
[2023-03-20 21:01] LABS: Anion Gap 8.7 mmol/L (3-11); BUN 13 mg/dL (7-18); CO2 29.3 mmol/L (21.0-32.0); CREATININE 0.9 mg/dL (0.55-1.02); Calcium 9.4 mg/dL (8.5-10.1); Chloride 97 mmol/L (98-107); Estimated GFR 72.28 (mL/min/1.73m2); Glucose 94 mg/dL (74-106); Potassium 4.2 mmol/L (3.5-5.1); Sodium 135 mmol/L (136-145)
== END 2023-03-20 16:27 | disposition home or self-care (01) ==
LOC: NCHCN 16:26
PROVIDERS: PCP Nurse Practitioner Family; Visit Provider Nurse Practitioner Family
DX: E87.1 Hypo-osmolality and hyponatremia (principal)
CPT/HCPCS: 80048

== ENCOUNTER 2023-05-08 16:44 | Outpatient (REF) | payer BC, SELFPAY ==
[2023-05-08 20:10] LABS: Anion Gap 7.2 mmol/L (3-11); BUN 15 mg/dL (7-18); CO2 28.8 mmol/L (21.0-32.0); CREATININE 0.9 mg/dL (0.55-1.02); Calcium 9.2 mg/dL (8.5-10.1); Chloride 99 mmol/L (98-107); Estimated GFR 72.28 (mL/min/1.73m2); Glucose 94 mg/dL (74-106); Sodium 135 mmol/L (136-145)
== END 2023-05-08 16:45 | disposition home or self-care (01) ==
LOC: NCHCN 16:44
PROVIDERS: PCP Nurse Practitioner Family; Visit Provider Nurse Practitioner Family
DX: E87.1 Hypo-osmolality and hyponatremia (principal)
CPT/HCPCS: 80048

== ENCOUNTER 2024-04-08 18:27 | Outpatient (REF) | payer BC, SELFPAY ==
--- OUTSIDE RECORDS SUMMARY | 2024-04-08 18:32 | XMS_ITS | Encounter Summary ---
Author Organization [facility] Address [facility] [place] [address] Care Team Providers Care Environmental Health And Safety Manager Name Role Phone SaravananSara arellano BRIGIDO Primary Care Provider [phone] Encounter Details Date Type Department Care Team (Latest Contact Info) Description 07/06/2023 Travel Social History Tobacco Use Types Packs/Day Years Used Date Smoking Tobacco: Never Smokeless Tobacco: Never Alcohol Use Standard Drinks/Week Comments Yes 0 (1 standard drink = 0.6 oz pur e alcohol) occassionally Overall Financial Resource Strain (CARDIA) Answe r Date Recorded How hard is it for you to pa y for the very basics like food, housing, medical care, and heating? Not very hard 05/27/2023 Hunger Vital Sign Answer Date Recorded Within the past 12 months, y ou worried that your food would run out before you got the money to buy more. Never true 05/27/20 23 Within the past 12 months, t he food you bought just didn't last and you didn't have money to get more. Never true 05/27/2023 PRAPARE - Transportation Answer Date Re corded In the past 12 months, has l ack of transportation kept you from medical appointments or from getting medications? No 05/07 In the past 12 months, has l ack of transportation kept you from meetings, work, or from getting things needed for daily living? No 05/27/2023 Housing Stability Vital Sign Answer Shmuel e Recorded In the last 12 months, was t here a time when you were not able to pay the mortgage or rent on time? No 05/27/2023 In the last 12 months, how many places have you lived? 1 05/27/2023 In the last 12 months, was t here a time when you did not have a steady place to sleep or slept in a custodial (including now)? No 05/27/2023 Sex and Gender Information Value Date Recorded Sex Assigned at Not on file Gender Identity Not on file Sexual Orientation Not on file documented as of this encounter Plan of Treatment Not on file documented as of this encounter Visit Diagnoses Not on filedocumented in this encounter Care Teams Environmental Health And Safety Manager Relationship Specialty Start Date End Date Sara Luke APRN [address] [place] [address] PCP - General Family Medicine 03/28/22 documented as of this encounter
--- OUTSIDE RECORDS SUMMARY | 2024-04-08 18:32 | XMS_ITS | Encounter Summary ---
Author Organization [facility] Address [address] [place] [address] Care Team Providers Care Director Of Operations Home Health Name Role Phone Fidencio Gonsalez Primary Care Provider [phone] Reason for Visit * (Routine/Next Available) - Receiving Office to Obtain Authorization Specialty Diagnoses / Procedures Referred By Rajiv holcomb Referred To Contact Procedures CT OUTSIDE IMAGES NEURO Unknown, Provider, Referral ID Status Reason Start Date Expiration Date Visits Requested Visits Authorized [id number] Receiving Office to Obtain Authorization 03/27/2022 1 1 Encounter Details Date Type Department Care Team (Latest Contact Info) Description 03/27/2022 14:52 EDT - 03/27/2022 23:59 EDT Hospital Encounter [facility] Secondary Reads [place] Discharge Disposition: Home or Self Care Social History Tobacco Use Types Packs/Day Years Used Date Smoking Tobacco: Never Assessed Sex and Gender Information Value Date Recorded Sex Assigned at Not on file Gender Identity Not on file Sexual Orientation Not on file documented as of this encounter Discharge Disposition Disposition Code Departure Means Destination Home or Self Care documented in this encounter Plan of Treatment Not on file documented as of this encounter Procedures Procedure Name Priority Date/Time Associated Diagnosis Comments CT OUTSIDE IMAGES NEURO Routine 03/27/2022 14:52 EDT documented in this encounter Results * CT OUTSIDE IMAGES NEURO (03/27/2022 14:52 EDT) Narrative 03/27/2022 14:52 EDT This is a non-reportable exam. Provider Unknown MD CERVANTES OTHER IMAGING OR DERABLES documented in this encounter Visit Diagnoses Not on filedocumented in this encounter Care Teams Director Of Operations Home Health Relationship Specialty Start Date End Date Fidencio Gonsalez PA [address] [place] [address] PCP - General 11/01/10 documented as of this encounter
--- OUTSIDE RECORDS SUMMARY | 2024-04-08 18:32 | XMS_ITS | Encounter Summary ---
Author Organization [facility] Address [facility] [place] [address] Care Team Providers Care Patient Navigator Name Role Phone Ti Sara Beck APRN Primary Care Provider [phone] Reason for Referral * Diagnostic Test (Routine) - New Request Specialty Diagnoses / Procedures Referred By Rajiv holcomb Referred To Contact Radiology Diagnoses Arteriovenous malformation of brain Procedures CT Angiogram [place] Jose Manuel Guerrier MD [facility] [address] Referral ID Status Reason Start Date Expiration Date Visits Requested Visits Authorized [id number] New Request Specialty Service Requested 01/24/2024 07/25/2025 1 1 Encounter Details Date Type Department Care Team (Latest Contact Info) Description 01/17/2024 4:30 PM EDT Office Visit Radiation Oncology at [place] [phone] Jose Manuel Guerrier MD [facility] [place] [address] Arteriovenous malformation of brain Social History Tobacco Use Types Packs/Day Years [...] place to sleep or slept in a long term (including now)? No 05/27/2023 Sex and Gender Information Value Date Recorded Sex Assigned at Not on file Gender Identity Not on file Sexual Orientation Not on file documented as of this encounter Last Filed Vital Signs Vital Sign Reading Time Taken Comments Blood Pressure 142/82 01/17/2024 4:15 PM EDT Pulse 66 01/17/2024 4:15 PM EDT Temperature - - Respiratory Rate 16 01/17/2024 4:15 PM EDT Oxygen Saturation 97% 01/17/2024 4:15 PM EDT Inhaled Oxygen Concentration - - Weight 62.1 kg (136 lb 12.8 oz) 01/17/2024 4:15 PM EDT no shoes Height - - Body Mass Index 22.76 11/15/2022 2:05 PM EDT documented in this encounter Progress Notes * Jose Manuel Guerrier MD - 01/17/2024 4:30 PM EDT Images from the original note were not included. [facility] Medicine Radiation Oncology Radiation Oncology Follow-Up Report n Patient identifiers/demographics: Name: Belem Macias Date of : Primary oncologist: N/a Primary care physician: Sara Luke APRN Chief complaint/reason for visit: Cerebellar arteriovenous malformation n Clinical history/background: Treatment History: 07/07/2023 SRS for small cerebellar arteriovenous malformation Interval History: Belem Macias is seen today for in-person follow-up appointment. She is doing well. She hashad no problems after the SRS procedure in July. No reoccurence of headaches or other neurological symptoms. MRA done today that does not identify and residual nidus at the location of the AMV. I have personally reviewed the imaging studies referenced above. Medications/Allergies: Current Outpatient Medications: Bacillus coagulans/inulin (PROBIOTIC WITH PREBIOTIC ORAL), Take by mouth., Disp: , Rfl: polyethylene glycoL (Miralax) 17 gram oral powder packet, Take 17 g by mouth daily as needed., Disp: , Rfl: [id number] triamcinolone acetonide 0.1% cream, Apply topically as needed. Apply to affected area as directed by study team., Disp: , Rfl: UNABLE TO FIND, Smart Greens chew, Disp: , Rfl: propylene glycol/peg 400/PF (SYSTANE, PF, OPHT), Apply to eye daily., Disp: , Rfl: fluticasone propionate (Flonase) 50 mcg/actuation [place], Suspension, by Each Nare route as needed.,Disp: , Rfl: TURMERIC ORAL, Take 1 tablet by mouth daily., Disp: , Rfl: ergocalciferol, vitamin D2, (VITAMIN D ORAL), Take 1 tablet by mouth daily., Disp: , Rfl: vitamin B complex (VITAMINS B COMPLEX ORAL), Take 1 tablet by mouth daily., Disp: , Rfl: buPROPion SR (Wellbutrin SR) 150 mg tablet sustained-release 12 hr, Take 150 mg by mouth 2 times daily., Disp: , Rfl: omeprazole (PriLOSEC) 20 mg Capsule, Delayed Release(E.C.), Take 20 mg by mouth daily., Disp: , Rfl: Sodium Fluoride-Pot Nitrate (Fluoridex Sensitivity Relief) 1.1-5 % Paste, BRUSH TEETH AT NIGHT SWISH FOR 30 SECONDS THEN EXPECTORATE, Disp: , Rfl: EVENING PRIMROSE OIL ORAL, Take by mouth 2 times daily., Disp: , Rfl: GARLIC ORAL, Take 1 tablet by mouth daily., Disp: , Rfl: Allergies Allergen Reactions Amoxicillin Other reaction(s): swelling of face, tongue swollen Bactrim [Sulfamethoxazole-Trimethoprim] Penicillins Sulfa (Sulfonamide Antibiotics) Other reaction(s): pt doesn't remember Physical Exam: No data found. NAD NCAT Neuro exam is non-focal Performance status: KPS 90-100% ECOG 0 Fully active, able to carry on all pre-disease performance without restriction n Summary/Recommendations: Impression: Belem Macias is 6 mo s/p SRS for a small cerebellar AVM. She tolerated the treatment without problems. Today's MRA cannot identify the nidus. This could mean that it is resolved, or that it is too small to be seen. It is early for complete obliteration, typically this should take at least a year. Plan: CTA in 1 year and FU in clinic with me afterward. If that is reassuring then will discuss utility of confirmatory angiogram with Dr. Shaw. Jose Manuel Guerrier MD [facility] Radiation Oncology National Cancer [place] (NCI) Comprehensive Cancer Center [employer] Commission on Cancer (ACS Enrique) Accredited Cancer Program [employer] (ACR) Accredited Radiation Oncology Program documented in this encounter Plan of Treatment Scheduled Orders Name Type Priority Associated Diagnoses Orde r Schedule CT Angiogram [place] Imaging Routine Arteriovenous malformation of brain Expected: 01/23/2025, Expires: 07/25/2025 documented as of this encounter Visit Diagnoses Diagnosis 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
--- OUTSIDE RECORDS SUMMARY | 2024-04-08 18:32 | XMS_ITS | Clinical Summary ---
Author Organization [facility] Address [address] [place] [address] Care Team Providers Care Child Adolescent Care Name Role Phone Fidencio Gonsalez Primary Care Provider [phone] Social History Tobacco Use Types Packs/Day Years Used Date Smoking Tobacco: Never Assessed Sex and Gender Information Value Date Recorded Sex Assigned at Not on file Gender Identity Not on file Sexual Orientation Not on file Plan of Treatment Health Maintenance Due Date Last Done Comments Hepatitis C Screen 1960 RSV Immunization ( o r 60+ Years) (1 - 1-dose 60+ series) 2021 COVID-19 Vaccine ( season) 2023 Care Teams Child Adolescent Care Relationship Specialty Start Date End Date Fidencio Gonsalez PA [address] [place] [address] PCP - General 11/01/10
--- OUTSIDE RECORDS SUMMARY | 2024-04-08 18:32 | XMS_ITS | Encounter Summary ---
Author Organization [facility] Address [address] [place] [address] Care Team Providers Care Production Shift Supervisor Name Role Phone Unavailable Primary Care Provider Unavailabl e Encounter Details Date Type Department Care Team (Late st Contact Info) Description 12/24/2006 Results Only [facility] - Maple conversion [address] [place] [address] MD Social History Tobacco Use Types Packs/Day Years Used Date Smoking Tobacco: Never Assessed Sex and Gender Information Value Date Recorded Sex Assigned at Not on file Gender Identity Not on file Sexual Orientation Not on file documented as of this encounter Plan of Treatment Not on file documented as of this encounter Procedures Procedure Name Priority Date/Time Associated Diagnosis Comments CYTOPATHOLOGY Routine 12/24/2006 0:00 EDT documented in this encounter Results * CYTOPATHOLOGY (12/24/2006 0:00 EDT) Pathology Report: CYTOPATHOLOGY REPORT Reports generated via electronic interface contain original data; however they are lacking the format of the original report. Caution should be taken when reading/interpreti ng unformatted reports. Name: ? BELEM HOLLIDAY ? Accession #: ? [id number] : ? 1960 (Age: 46) ??F ?Collect Date: ? 12/24/2006 Location: ? [facility] ? Receive Date: ? 12/26/2006 Provider: ?CLINTON WAY MD Copy to: ? Specimen/Source: ?ThinPrep Pap Test, Cervix/Endocervix, processed on [employer] ThinPrep Imaging System, with manual evaluation Last Menstrual Period: ? Other: ? Additional clinical information: Previous paps wnl HPVDX - HPV testing requested regardless of diagnosis on current ThinPrep Pap test. ? SPECIMEN ADEQUACY ? Satisfactory for Evaluation - transformation zone component present GENERAL CATEGORIZATION ? Negative for Intraepithelial Lesion or Malignancy ? Document reviewed and electronically signed by: ? SANTANA Christine(ASCP) ? Report Date: ??01/01/2007 10:04 End of Report RADHA OROURKE 12/24/2006 12/26/[address] MD PATHOLOGY ORDERABLES RADHA OROURKE [address] [place] [address] documented in this encounter Visit Diagnoses Not on filedocumented in this encounter
--- OUTSIDE RECORDS SUMMARY | 2024-04-08 18:32 | XMS_ITS | Encounter Summary ---
Author Organization [facility] Address [facility] [place] [address] Care Team Providers Care Pharmacy Cashier Name Role Phone Saravananadan Sara Kiran FOFANA Primary Care Provider [phone] Reason for Referral * Diagnostic Test (Routine) - Closed Specialty Diagnoses / Procedures Referred By Contac t Referred To Contact Radiology Diagnoses Arteriovenous malformation of brain Procedures MRI Angiogram Head wo Contrast (Generic) MRI Angiogram Head wwo Contrast Jose Manuel Guerrier MD [facility] [place] [address] [place] [address] Referral ID Status Reason Start Date Expiration Date V isits Requested Visits Authorized [id number] Closed Specialty Service Requested 07/06/2023 01/04/2025 1 1 Reason for Visit * Reason Comments Procedure SRS Encounter Details Date Type Department Care Team (Latest Contact Info) Description 07/06/2023 3:15 PM EST Procedure visit [place] [address] Jose Manuel Guerrier MD [facility] [place] [address] Arteriovenous malformation of brain Social History Tobacco [...] place to sleep or slept in a alf (including now)? No 05/27/2023 Sex and Gender Information Value Date Recorded Sex Assigned at Not on file Gender Identity Not on file Sexual Orientation Not on file documented as of this encounter Last Filed Vital Signs Vital Sign Reading Time Taken Comments Blood Pressure 128/88 07/06/2023 2:56 PM EST Pulse 70 07/06/2023 2:56 PM EST Temperature 36.2 ??C (97.1 ??F) 07/06/2023 2:56 PM ES T Respiratory Rate - - Oxygen Saturation 97% 07/06/2023 2:56 PM EST Inhaled Oxygen Concentration - - Weight 61.2 kg (135 lb) 07/06/2023 2:56 PM EST Height - - Body Mass Index 22.47 11/15/2022 2:05 PM EDT documented in this encounter Progress Notes * Jose Manuel Guerrier MD - 07/06/2023 3:15 PM EST Images from the original note were not included. [facility] Medicine Radiation Oncology Radiation Oncology Stereotactic Radiosurgery (SRS) Procedure Note n Patient identifiers/demographics: Name: Belem Macias Date of : 1960 Chief complaint/reason for visit: Cerebellar Arteriovenous Malformation n Treatment details: Treatment intent: Curative/definitive Treatment site: Brain Treatment technique Stereotactic Radiosurgery (SRS) Technical details: Course: C1_BRAIN Treatment Site: SRS [id number] Ref. ID: [id number] Energy: 10X-FFF Dose/Fx (cGy): 2,000 #Fx: Dose Correction (cGy): 0 Total Dose (cGy): 2,000 Start Date: 07/06/2023 End Date: 07/06/2023 Elapsed Days: 0 n Procedure details: Ms. Kristina Macias was in the radiation oncology clinic today for stereotactic radiosurgery (SRS) totreat the above diagnosis. she was evaluated pre- treatment in the clinic including a physical examination, and has no contraindications for proceeding with treatment. she was brought to the treatment area and name and were verified as was the site of treatment. she was secured to the treatment table with the previously fashioned aquaplast head immobilizer (ie ope-face mask) per usual routine. IGRT was accomplished with CBCT pre- and intra- fraction as needed. she was monitored continuously with the Vision RT system for excessive motion. A member of our physics team was present to assist with interpretation of positioning data from the VisionRT system as it pertains to Ms. Kristina Macias's specific treatmentplan. Treatment was successfully delivered. I was personally present/supervising for the critical portions of the procedure. n Plan images: Site/Target: Cerebellar AVM Rx: 18Gy 1 fractions Treatment progress: Complete n Follow-up/plan: 6 months with MRA + contrast Asked to call the clinic with any questions/concerns in the meantime Jose Manuel Guerrier MD [facility] Radiation Oncology National Cancer [place] (NCI) Comprehensive Cancer Center [employer] Commission on Cancer (ACS Enrique) Accredited Cancer Program [employer] (ACR) Accredited Radiation Oncology Program documented in this encounter Plan of Treatment Not on file documented as of this encounter Results * MRI Angiogram Head wo Contrast (Generic) (01/17/2024 2:35 PM EDT) [employer] Signature WORKSTATION ID [id number] RAD Anatomical Region Laterality Modality Head Magnetic Resonan ce Impressions 01/18/2024 4:34 PM EDT Normal study. No specific evidence for AVM. Thank you for letting us participate in the care of this patient. ??If you are a health care provider and have any questions regarding this report, please contact the number below. ??For patients who have questions please contact the health child care associate that requested your imaging first. ? 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 3-D MIP reconstructions were created. COMPARISON: MRA head 06/20/23 FINDINGS: No aneurysm, vascular malformation, significant arterial stenosis, arterial cut off, or other significant arterial abnormality. 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 3-D MIP reconstructions were created. COMPARISON: MRA head 06/20/23 FINDINGS: No aneurysm, vascular malformation, significant arterial stenosis,arterial cut off, or other significant arterial abnormality. IMPRESSION Normal study. No specific evidence for AVM. Thank you for letting us participate in the care of this patient. If youare a health care provider and have any questions regarding this report,please contact the number below. For patients who have questions please contactthe health child care associate that requested your imaging first. 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
--- OUTSIDE RECORDS SUMMARY | 2024-04-08 18:32 | XMS_ITS | Encounter Summary ---
Author Organization [facility] Address [address] [place] [address] Care Team Providers Care Film Librarian Name Role Phone Fidencio Gonsalez Primary Care Provider [phone] Reason for Visit * (Routine/Next Available) - Receiving Office to Obtain Authorization Specialty Diagnoses / Procedures Referred By Rajiv holcomb Referred To Contact Procedures CT OUTSIDE IMAGES NEURO Unknown, Provider, Referral ID Status Reason Start Date Expiration Date Visits Requested Visits Authorized [id number] Receiving Office to Obtain Authorization 03/27/2022 1 1 Encounter Details Date Type Department Care Team (Latest Contact Info) Description 03/27/2022 14:51 EDT Hospital Encounter [facility] Secondary Reads [place] Discharge Disposition: Home [...] Comments CT OUTSIDE IMAGES NEURO Routine 03/27/2022 14:51 EDT documented in this encounter Results * CT OUTSIDE IMAGES NEURO (03/27/2022 14:51 EDT) Narrative 03/27/2022 14:51 EDT This is a non-reportable exam. Provider Unknown MD CERVANTES OTHER IMAGING OR DERABLES documented in this encounter Visit Diagnoses Not on filedocumented in this encounter Care Teams Film Librarian Relationship Specialty Start Date End Date Fidencio Gonsalez PA [address] [place] [address] PCP - General 11/01/10 documented as of this encounter
--- OUTSIDE RECORDS SUMMARY | 2024-04-08 18:32 | XMS_ITS | Encounter Summary ---
Author Organization [facility] Address [address] [place] [address] Care Team Providers Care Conservation Educator Name Role Phone Unavailable Primary Care Provider Unavailabl e Encounter Details Date Type Department Care Team (Late st Contact Info) Description 09/11/2001 Results Only [facility] - Maple conversion [address] [place] [address] Baylee Ren MD [address] [place] [address] [address] [place], [place] [id number] Social History Tobacco Use Types Packs/Day Years Used Date Smoking Tobacco: Never Assessed Sex and Gender Information Value Date Recorded Sex Assigned at Not on file Gender Identity Not on file Sexual Orientation Not on file documented as of this encounter Plan of Treatment Not on file documented as of this encounter Procedures Procedure Name Priority Date/Time Associated Diagnosis Comments CYTOPATHOLOGY Routine 09/11/2001 0:00 EST documented in this encounter Results * CYTOPATHOLOGY (09/11/2001 0:00 EST) Pathology Report: CYTOPATHOLOGY REPORT Reports generated via electronic interface contain original data; however they are lacking the format of the original report. Caution should be taken when reading/interpreti ng unformatted reports. Name: ? BELEM HOLLIDAY ? Accession #: ? [id number] : ? 1960 (Age: 41) ??F ?Collect Date: ? 09/11/2001 Location: ? [facility] ? Receive Date: ? 09/13/2001 Provider: ?BAYLEE REN MD Copy to: ? Specimen/Source: ?ThinPrep Pap Test, Cervix/Endocervix Last Menstrual Period: ? 09/03/01 Hormonal/Contracep tive Status: ? Yes Other: ? Client ID#: [id number] ? SPECIMEN ADEQUACY ? Satisfactory for Evaluation - transformation zone component present GENERAL CATEGORIZATION ? Negative for Intraepithelial Lesion or Malignancy ? Document reviewed and electronically signed by: ? SANTANA Thakkar(ASCP) ? Report Date: ??09/16/2001 14:52 End of Report RADHA OROURKE 09/11/2001 09/13/2001 Baylee Ren MD PATHOLOGY ORDERABLES RADHA OROURKE [address] [place] [address] documented in this encounter Visit Diagnoses Not on filedocumented in this encounter
--- OUTSIDE RECORDS SUMMARY | 2024-04-08 18:32 | XMS_ITS | Encounter Summary ---
Author Organization [facility] Address [address] [place] [address] Care Team Providers Care Journeyman Patternmaker Name Role Phone Fidencio Gonsalez Primary Care Provider [phone] Encounter Details Date Type Department Care Team (Late st Contact Info) Description 10/16/2022 Lab Requisition [facility] Pathology & Laboratory Medicine - [facility] [address] [place] [address] Michael Flanagan MD [address] [place] [phone] Encounter for other general examination Social History Tobacco Use Types Packs/Day Years Used Date Smoking Tobacco: Never Assessed Sex and Gender Information Value Date Recorded Sex Assigned at Not on file Gender Identity Not on file Sexual Orientation Not on file documented as of this encounter Plan of Treatment Not on file documented as of this encounter Procedures Procedure Name Priority Date/Time Associated Diagnosis Comments NON PIERCING SPECIALIST/FNA CYTOLOGY Today 10/16/2022 8:50 EDT documented in this encounter Results * NON PIERCING SPECIALIST/FNA CYTOLOGY (10/16/2022 8:50 EDT) Note to Patient The following pathology results have been interpreted by your pathologist and may be available to you before your health provider has had the opportunity to review them. Please allow time for your provider to receive these results and explore management options, if applicable. 10/18/2022 16:44 EDT [facility] Final Diagnosis URINE, BARBOTAGE, CYTOLOGIC EVALUATION: - Negative for high grade urothelial carcinoma. - Urothelial cells with reactive and degenerative changes and inflammatory cells present. 10/18/2022 16:44 EDT [facility] Attestation By the signature below, the attending physician certifies that they have personally conducted a gross and/or microscopic examination of the described specimens and rendered or confirmed the above diagnosis. 10/18/2022 16:44 EDT [facility] at 1644 Clinical History Chronic microcopic hematuria; negative cystoscopy. 10/18/2022 16:44 EDT [facility] Gross Description A. 100cc's of clear pale yellow fluid (cytoly added) were received and processed by selective cellular enhancement technique. 10/18/2022 16:44 EDT [facility] Performing Lab [facility] 10/18/2022 16:44 T [facility] Scanned Images 10/18/2022 16:44 T [facility] ZZUNK URINE SPECIMEN / Unknown 10/16/2022 8:50 EDT 10/17/2022 6:27 EDT Michael Flanagan MD PATHOLOGY ORDERABLES Performing Organization Address City/State/[facility] Co de Phone Number [facility] [address] [place] [address] documented in this encounter Visit Diagnoses Diagnosis Encounter for other general examination documented in this encounter Care Teams Journeyman Patternmaker Relationship Specialty Start Date End Date Fidencio Gonsalez PA [address] [place] [address] PCP - General 11/01/10 documented as of this encounter
--- OUTSIDE RECORDS SUMMARY | 2024-04-08 18:32 | XMS_ITS | Encounter Summary ---
Author Organization [facility] Address [facility] [place] [address] Care Team Providers Care Computer Forwarding System Markup Clerk Name Role Phone Sara Luke BRIGIDO Primary Care Provider [phone] Encounter Details Date Type Department Care Team (Latest Contact Info) Description 01/10/2024 Travel Social History Tobacco Use Types Packs/Day [...] place to sleep or slept in a jail (including now)? No 05/27/2023 Sex and Gender Information Value Date Recorded Sex Assigned at Not on file Gender Identity Not on file Sexual Orientation Not on file documented as of this encounter Plan of Treatment Not on file documented as of this encounter Visit Diagnoses Not on filedocumented in this encounter Care Teams Computer Forwarding System Markup Clerk Relationship Specialty Start Date End Date Sara Luke APRN [address] [place] [id number] PCP - General Family Medicine 03/28/22 documented as of this encounter
--- OUTSIDE RECORDS SUMMARY | 2024-04-08 18:32 | XMS_ITS | Continuity of Care Document ---
Author Organization [facility] Address [address] [place] [address] Assessment Encounter Date Assessment Date Assessment LastModified by Organization Details LastModified Time 04/08/2024 04/08/2024 The total time devoted to today's encounter, including both the jcpn-lu-cozu time with the patient and/or family/caregi jacob and vgk-zipp-nu-f magdaleno time I personally spent is 30 minutes. Not available 04/08/2024 16:59:25 Plan of Treatment Reminders Order Date Submit Date Provider Last Modified By Organization Details Last Modified Time Details Appointments Acute 30 2023 04:30P M Not available Not available Not available Lab CBC 2023 024 [facility] (Registration ), [address] [place] [address] [place], [address], 04/08/2024 17:05:22 BMP, serum or plasma 2023 024 [facility] (Registration ), [address] [place] [address] [place], [address], 04/08/2024 17:15:32 Referral None recorded . Procedures None recorded . Surgeries None recorded . Imaging None recorded . Medication Orders None recorded . Patient TargetsNo targets recorded. Patient Instructions Encounter Date Encounter Id Patient Instructions Last Modified By Organization Details Last Modified Time 04/08/2024 [id number] Someone will clint l you tomorrow with the results of your lab work. If you feel worse, return to the clinic or seek medical help. Stay on the clindamycin for now, let us know if you develop severe diarrhea. Ok to stay our of work if needed, we will give you a note Follow up with dentist glenys Not available 04/08/2024 16:47:41 Reason for Referral None Reported. Problems Name Problem SNOMED Code Status Onset Date Resolution Date Notes Provider Name and Address Organization Details Recorded Time Anxiety 30857374 Active 200403/20/20 23 - Comments only - Sara Coronado [employer] - Feeling a little bit more down lately, isn't sure if related to returnin g to work or family stressor s. Has been on bupropio n x 15 years. declines referral for counseli ng at this time, will let me know if sx don't improve on return to work. Problem Code: F41.8; Problem Code Type: ICD-10; Not Available [facility] 3 04:32:36 Allergic rhinitis 23757406 Active 2002 Problem Code: J30.9; Problem Code Type: ICD-10; Not Available [facility] 3 04:32:36 Acquired absence of cervix and uterus 732786418 Active 2007 Problem Code: Z90.710; Problem Code Type: ICD-10; Not Available [facility] 3 04:32:36 Acute sinusiti s 82742448 Completed 201401/26/2015 Problem Code: J01.90; Problem Code Type: ICD-10; Not Available [facility] 3 04:32:36 Verruca vulgaris 37309474 Completed 201401/26/2015 Problem Code: B07.9; Problem Code Type: ICD-10; Not Available [facility] 3 04:32:36 Pain 45470946 Completed 201602/19/2017 Problem Code: R52; Problem Code Type: ICD-10; Not Available [facility] 3 04:32:37 Fatigue 65342105 Active 201605/08/20 23 - Comments only - Sara Coronado [employer] - s/p episode of signfica nt fatigue yesterda y, with associat ed brain fog and difficul ty getting tasks done. Feeling signific antly better today after treating herself with some gatorade last night and this morning. Of note [place] does have a 9 mm tangle of abnormal vessels in the region of the posterio r superior cerebell um found on CT arterior gram 3 and hx of cerebell ar hemorrag e. As sx are signific antly improved will hold off on imaging at this time but [place] is aware to have low threshol d for ER visit with any increase in symptoms . She has zoom consult with neurosalix cerrato on . Will check bmp today as she has hx of hyponatr emia. Problem Code: R53.83; Problem Code Type: ICD-10; Not Available [facility] 4 05:35:36 Irritabl e bowel syndrome 08228130 Active 201604/20/20 22 - Comments only - Sara Chute [employer] - Chronic, no change, currentl y using probioti c and digestiv e enzymes. Colonosc opy due 07/05/20 23 Problem Code: K58.9; Problem Code Type: ICD-10; Not Available [facility] 3 04:32:37 Acute pharyngi tis 052649580 Completed 201607/20/2017 Problem Code: J02.9; Problem Code Type: ICD-10; Not Available [facility] 3 04:32:37 Disorder of respirat ory system 87311286 Completed 201709/24/2017 09/03/19 18 - Comments only - Kaylyn Wade [employer] - Duration of 12 days. Wheezing /rhonchi . Will rx. Doxy and Proair. Medicati ons reviewed with patient. F/U if not improvin g or if worsenin g. The patient is in good understa nding and agreemen t with the plan of care. 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 Recheck as needed. Problem Code: L25.9; Problem Code Type: ICD-10; Not Available [facility] 3 04:32:37 Acute maxillar y sinusiti s 19384351 Completed 201701/31/2018 01/18/20 18 - Comments only - Kaylyn Wade [employer] - Will treat with Z-pack. Given previous sensitiv ity of skin in sunlight on Doxycycl ine will avoid that for now, she would really rather not be unable to go outside this weekend with the warm nice weather. I told [place] if she gets another infectio n we will need to get a CT of her sinuses, given ongoing issues with allergie s, epistaxi s with cautery, and sinus infectio ns. She agrees. Problem Code: J01.00; Problem Code Type: ICD-10; Not Available [facility] 3 04:32:37 Adult health examinat ion Active 2017 Problem Code: Z00.00; Problem Code Type: ICD-10; Not Available [facility] 3 04:32:38 Breast signs and symptoms 055757671 Completed 201707/09/2018 06/18/20 18 - Comments only - Kaylyn Wade [employer] - One episode of breast heavines s (left) and tingling that resolved and has not returned . Wonders if there was a stress componen t as she was very worried about her having a cardiove rsion at that time. She also had some left pinky finger tingling when driving, one episode, that also resovled . She will monitor for any recurren ce or worsenin g symptoms and follow-u p PRN. She was reassure d and is comforta ble with the plan of care. Problem Code: N64.59; Problem Code Type: ICD-10; Not Available [facility] 3 04:32:38 Gastroes ophageal reflux disease without esophagi tis 841720975 Active 201708/10/19 23 - Comments only - Sara Coronado [employer] - Chronic reflux, unable to d/c her omeprazo le, would likely benefit from upper GI and is due for colonosc opy in 2022. Will refer to Dr. Velázquez or Dr. Álvarez. Problem Code: K21.9; Problem Code Type: ICD-10; Not Available [facility] 3 04:32:38 Raynaud' s disease 712940996 Active 201710/22/19 21 - Comments only - Megan Borja MD - Discusse d manageme nt strategi es. Problem Code: I73.00; Problem Code Type: ICD-10; Not Available [facility] 3 04:32:38 Acute conjunct ivitis of left eye 12569591799 9105 Completed 201810/03/2018 08/26/19 19 - Comments only - Rolando Graf PA-C - Most likely irritant conjunct ivitis from eye makeup. Recommen d 0 therapy. Overall has improved . Follow-u p as needed. No eye/visi on symptoms . Problem Code: H10.32; Problem Code Type: ICD-10; Not Available [facility] 3 04:32:38 Chronic sinusiti s 64644322 Completed 201812/12/2018 11/29/19 19 - Comments only - Kaylyn Wade [employer] - Start antibiot ics. Hold Flonase until noseblee ds resolve, if they do not she may need cautery again. She will let me know. Problem Code: J32.9; Problem Code Type: ICD-10; Not Available [facility] 3 04:32:38 Palpitat ions 86697356 Active 201807/19/20 19 - Comments only - Kaylyn Wade [employer] - Intermit tent, not new, EKG normal today. Check TSH. If persisti ng, will have her wear a holter. Problem Code: R00.2; Problem Code Type: ICD-10; Not Available [facility] 3 04:32:38 Family history of breast cancer 283834159 Active 2019 Problem Code: Z80.3; Problem Code Type: ICD-10; Not Available [facility] 3 04:32:39 Actinic keratosi s 842215612 Active 201906/29/20 20 - Comments only - Kaylyn Wade [employer] - Consent obtained , liquid nitrogen applied in a three freeze thaw fashion. Tolerate d well. If this does not take care of it she can come back and we can treat it again. If it still persists would recommen d excision . Problem Code: L57.0; Problem Code Type: ICD-10; Not Available [facility] 3 04:32:39 Melanocy tic nevus 330581576 Completed 202011/03/2020 10/22/19 21 - Comments only - Megan Borja MD - After review of options and obtainin g informed consent, shave biopsy tool used to excise lesion on posterio r neck. Sample not sent to patholog y due to very low suspicio n for malignan cy or precance meena lesion. Routine wound care reviewed . Problem Code: D22.9; Problem Code Type: ICD-10; Not Available [facility] 3 04:32:39 Lymphade nopathy 30081889 Completed 202011/03/2020 10/22/19 21 - Comments only - Megan Borja MD - Nonworri some., possibly mildly enlarged lymph node in posterio r neck region. Advised monitori ng and recheck if it seems to be getting larger Problem Code: R59.9; Problem Code Type: ICD-10; Not Available [facility] 3 04:32:39 Increase d frequenc y of urinatio n 793459986 Active 202004/20/20 22 - Comments only - Sara Coronado [employer] - Persists , discusse d Kimberlis and medicati on managmen t for OAB, she declines at this time Problem Code: R35.0; Problem Code Type: ICD-10; Not Available [facility] 3 04:32:39 Chest pain 18819851 Completed 202007/02/2021 Problem Code: R07.89; Problem Code Type: ICD-10; Not Available [facility] 3 04:32:39 Headache 10130705 Active 202006/27/20 21 - Comments only - Sara Coronado [employer] - Early am and unilater al left sided headache . Neuro exam intact, will check CT scan to be sure nhot missing another process. Problem Code: R51.9; Problem Code Type: ICD-10; Not Available [facility] 3 04:32:39 Low back pain 101118214 Active 2021 Problem Code: M54.59; Problem Code Type: ICD-10; Not Available [facility] 3 04:32:40 Paresthe thanh 16968740 Active 202101/06/20 22 - Comments only - Sara Coronado [employer] - Numbness , tingling under left eye and left side of face. Seems likely to be related to recent extensiv e dental work, less likely trigemin al neuralgi a as no associat ed shock like pain or ZAPATA. Recommen d continue to monitor if no gradual improvem ent or sx increase to RTC Problem Code: R20.2; Problem Code Type: ICD-10; Not Available [facility] 3 04:32:40 Screenin g for malignan t neoplasm of breast Completed 202103/08/2022 Problem Code: Z12.39; Problem Code Type: ICD-10; Not Available [facility] 3 04:32:40 Cerebral hemorrha ge 220016309 Active 202103/20/20 23 - Comments only - Sara Coronado [employer] - Has ov with neuro in [facility] for follow up. WIll be having CT angiogra m as well. No return of sx or signific ant ZAPATA Problem Code: I61.4; Problem Code Type: ICD-10; Not Available [facility] 3 04:32:40 Spontane ous intracra nial hemorrha ge 121806606 Active 2021 Problem Code: I62.9; Problem Code Type: ICD-10; Not Available [facility] 3 04:32:40 Screenin g for malignan t neoplasm of colon Active 2022 Problem Code: Z12.11; Problem Code Type: ICD-10; Not Available [facility] 3 04:32:40 Abdomina l pain 07576253 Active 02/02/ 2023 Problem Code: R10.9; Problem Code Type: ICD-10; Not Available [facility] 3 04:32:40 Blood in urine 34468195 Active 202209/14/19 23 - Comments only - Sara Coronado [employer] - Hx of complete hysterec berenice. Reports hematuri a in the past that has not ever been evaluate d. Recent CT showed no renal abnormal ities, no calculi. Refer to Dr. Flanagan Problem Code: R31.9; Problem Code Type: ICD-10; Not Available [facility] 3 04:32:41 Closed fracture lumbar vertebra , wedge 689612039 Active 2022 Problem Code: S32.010A ; Problem Code Type: ICD-10; Not Available [facility] 3 04:32:41 Hypo-osm olality and or hyponatr emia 820805691 Active 202203/20/20 23 - Comments only - Sara Coronado [employer] - will recheck sodium, bmp Problem Code: E87.1; Problem Code Type: ICD-10; Not Available [facility] 3 04:32:41 Diarrhea 27528038 Active 202203/20/20 23 - Comments only - Sara Coronado [employer] - Recurren t persista nt. [place] had difficul ty followin g the mesalami ne taper and due to an resurgen ce of symptoms started daily dosing of mesalami ne 9 days ago with an improvem ent in symptoms . Will restart taper, continui ng daily dosing x 5 more days to make a total of two weeks, then decrease as directed . Will also refer back to Dr. Velázquez for persista nt diarrhea . Stool studies negative except for lactofer rin positive Problem Code: R19.7; Problem Code Type: ICD-10; Not Available [facility] 3 04:32:41 Pain of left eye 97017594757 9104 Completed 201904/05/2020 Problem Code: H57.12; Problem Code Type: ICD-10; Not Available [facility] 3 04:32:41 Sleep disorder 81536537 Completed 201609/03/2017 Problem Code: G47.9; Problem Code Type: ICD-10; Not Available [facility] 3 04:32:42 Shoulder joint pain 403704100 Completed 201405/31/2017 Problem Code: M25.519; Problem Code Type: ICD-10; Not Available [facility] 3 04:32:42 Collagen ous colitis 40825128 Completed 200705/31/2017 Not Available [facility] 3 04:32:42 Pain of breast 81251980 Completed 201804/05/2020 Problem Code: N64.4; Problem Code Type: ICD-10; Not Available [facility] 3 04:32:42 Right upper quadrant pain 317690008 Completed 202008/10/2022 Problem Code: R10.11; Problem Code Type: ICD-10; Not Available [facility] 3 04:32:42 Jaw pain 326639663 Completed 201405/31/2017 Problem Code: R68.84; Problem Code Type: ICD-10; Not Available [facility] 3 04:32:42 Acquired absence of cervix and uterus 176967111 Completed 201605/31/2017 Problem Code: Z90.710; Problem Code Type: ICD-10; Not Available [facility] 3 04:32:43 Pain of breast 62247087 Completed 201904/05/2020 Problem Code: N64.4; Problem Code Type: ICD-10; Not Available [facility] 3 04:32:43 Pain of breast 48328318 Completed 201908/10/2022 Problem Code: N64.4; Problem Code Type: ICD-10; Not Available [facility] 3 04:32:43 Ligation of bilatera l fallopia n tubes Completed 200205/31/2017 Not Available [facility] 3 04:32:43 Disorder of nail 45976611 Completed 201706/26/2018 12/25/19 18 - Comments only - Rolando Graf PA-C - Posttrau matic nail abnormal ity left great toe. Referral to podiatry . Patient would like to keep her nail for cosmetic reasons. Problem Code: L60.9; Problem Code Type: ICD-10; Not Available [facility] 3 04:32:43 Bleeding from nose 588756183 Completed 201701/17/2018 Problem Code: R04.0; Problem Code Type: ICD-10; Not Available [facility] 3 04:32:44 Abdomina l pain 69403102 Completed 201501/15/2023 Problem Code: R10.9; Problem Code Type: ICD-10; Not Available [facility] 3 04:32:44 Chronic rhinitis 20740601 Completed 200205/02/2023 05/31/20 17 - Comments only - Kaylyn Poginminerva [employer] - Refilled Flonase. Patient uses more during season changes and in the winter. Not Available [facility] 3 04:32:44 Dyspareu bakari 28112164 Completed 202008/10/2022 Problem Code: N94.10; Problem Code Type: ICD-10; Not Available [facility] 3 04:32:44 Depressi ve disorder 56373382 Completed 200405/02/2023 Not Available [facility] 3 04:32:44 Elevated blood-pr essure reading without diagnosi s of hyperten royer 267897200 Completed 202004/20/2022 Problem Code: R03.0; Problem Code Type: ICD-10; Not Available [facility] 3 04:32:45 Hyperlip idemia screenin g Completed 202108/10/2022 Problem Code: Z13.220; Problem Code Type: ICD-10; Not Available [facility] 3 04:32:45 Disorder of skin and/or subcutan eous tissue 49503146 Completed 201704/05/2020 Problem Code: L98.8; Problem Code Type: ICD-10; Not Available [facility] 3 04:32:45 Abnormal weight loss 523078455 Completed 202104/20/2022 Problem Code: R63.4; Problem Code Type: ICD-10; Not Available [facility] 3 04:32:45 Adult health examinat ion Completed 201601/17/2018 Problem Code: Z00.00; Problem Code Type: ICD-10; Not Available [facility] 3 04:32:45 Disorder of eye region 986413596 Completed 202004/20/2022 Problem Code: H57.9; Problem Code Type: ICD-10; Not Available [facility] 3 04:32:46 Adult health examinat ion Completed 201808/10/2022 Problem Code: Z00.00; Problem Code Type: ICD-10; Not Available [facility] 3 04:32:46 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 4 15:49:36 Infectio n of tooth 869859325 Active [address], [facility] [address] , [facility]. 4 16:45:27 Nausea 952994658 Active [address], [facility] [address] , [facility]. 4 16:45:47 Notes:*Problem Name: Laparos c.hysterectomy,bso 07/08 *Problem Status: inactive *Comments: *Problem Code: 68.9 *Problem Code Type: ICD-9 *Note Date: 05/08/2008 Problem Notes None recorded. Medical Equipment None Reported. Allergies Allergen ID Allergen Name Allergen Category Reaction Reaction Severity Criticality Documentation Date Start Date Code Code System Note Provider Name and Address Organization Details Recorded Time 53731 Medicinal product containin g penicilli n and acting as antibacte rial agent (product) medicatio n rash Not available Not available 08/17/20232022 68591 05 SNOMED Aller gyCod e: '8340 61'; Aller gyNam e: 'PENI CILLI N'; Aller gyCon ceptT ype: 'RX Norm' ; Aller gyRea ction : 'Rash , Short ness of Breat h,'; Not Available [facility] 05:09:59 Medications Name Sig Start Date Stop Date Status Note LastModified by Organization Details LastModified Time Miralax 17 gram/dose oral powder 17 gram by mouth once a day 03/20 completed Not Available Not Available Not Available bupropion HCl SR 150 mg tablet,12 hr sustained -release TAKE ONE TABLET BY MOUTH TWICE A DAY active Not Available Not Available No t Available clindamyc in HCl 300 mg capsule TAKE ONE CAPSULE BY MOUTH EVERY 8 HOURS FOR 7 DAYS UNTIL GONE active Not Available Not Available No t Available evening primrose oil 500 mg capsule Take 1 capsule twice a day 2018 active Not Available Not Available Not Avai lable Vitamin C 500 mg tablet 1 qd 05/31 completed Not Available Not Available Not Available azithromy nani 250 mg tablet Take two tablets by mouth now then one each day for four days 12/03 completed Not Available Not Available Not Available senna 8.6 mg tablet take 3 tablets at bedtime 2016 active Not Available Not Available Not Avai lable Flonase 50 mcg/DOSE nasal inhaler 2 SPRAY daily 11/20 completed Not Available Not Available Not Available Pyridium 200 mg tablet 1 TAB TID 10/18 completed Not Available Not Available Not Available Wellbutri n SR 100 mg tablet, 12 hr sustained -release Take 1 by mouth twice daily 03/03 completed Not Available Not Available Not Available triamcino lone acetonide 0.1 % topical cream APPLY TO AFFECTED AREA TWICE A DAY 2019 active Not Available Not Available Not Avai lable Aerochamb er MV spacer use with inhaler 10/18 completed Not Available Not Available Not Available garlic 500 mg capsule Take 1 capsule by mouth single dose 01/22 completed Not Available Not Available Not Available estradiol 1 mg tablet Take 1 tab by mouth daily 01/15 completed Not Available Not Available Not Available dicyclomi ne 20 mg tablet Take 1 tablet by mouth four times a day From Dr Velázquez 08/29 completed Not Available Not Available Not Available garlic 1 mg capsule Take 2 tablet by mouth daily 08/22 completed Not Available Not Available Not Available Premarin 0.3 mg tablet 1 qd 06/17 completed Not Available Not Available Not Available Valtrex 1 gram tablet 1 tablet by mouth three times a day 08/10 completed Not Available Not Available Not Available omeprazol e 20 mg capsule,d elayed release TAKE ONE CAPSULE BY MOUTH EVERY DAY active Not Available Not Available No t Available Aspir-81 mg tablet,de layed release take 1 tab daily 06/29 completed Not Available Not Available Not Available Nasonex 50 mcg/actua tion [place] 2 sprays each nare daily 2014 active Not Available Not Available Not Avai lable fluocinon jodie 0.05 % topical solution apply bid 06/28 completed Not Available Not Available Not Available Cipro 250 mg tablet 1 tab BID 10/19 completed Not Available Not Available Not Available fluticaso ne propionat e 50 mcg/actua tion nasal spray,karely pension SPRAY TWO SPRAYS IN EACH NOSTRIL EVERY DAY active Not Available Not Available No t Available Ambien 5 mg tablet 1 TAB QHS 06/17 completed Not Available Not Available Not Available doxycycli ne hyclate 100 mg tablet Take one tablet twice daily 09/13 completed Not Available Not Available Not Available loratadin e 10 mg tablet 1tab qd 07/05 completed Not Available Not Available Not Available Flexeril 10 mg tablet 1 TAB at bedtime 07/05 completed Not Available Not Available Not Available Flax Seed Oil 1,000 mg capsule 1 qd 08/12 completed Not Available Not Available Not Available Vitamin D3 25 mcg (1,000 unit) tablet Take 1 capsule by mouth daily 08/22 completed Not Available Not Available Not Available cyclobenz aprine 5 mg tablet TAKE ONE TABLET BY MOUTH THREE TIMES A DAY NEEDED FOR MUSCLE SPASM 03/03 completed pt reports not taking Not Available Not Available Not Available Fish Oil 1,000 mg capsule Take 1 capsule daily 08/22 completed Not Available Not Available Not Available Cinnamon 500 mg capsule Take 2 capsule by mouth once a day 01/22 completed Not Available Not Available Not Available mesalamin e 1,000 mg rectal supposito ry Insert 1 supposit ory into rectum once a day x 5 more days, then 3 x weekly for four weeks, then decrease by one capsule weekly until gone 05/08 completed Not Available Not Available Not Available magnesium 1TAB daily 08/12 completed Not Available Not Available Not Available evening primrose oil take one capsule twice daily 2018 active Not Available Not Available Not Avai lable garlic 2012 active Not Available Not Available Not Avai lable Fish Oil 1 qd 2010 active Not Available Not Available Not Avai lable Vitamin D 1 qd 09/03 completed Not Available Not Available Not Available Estrace 2012 active Not Available Not Available Not Avai lable B Complex 1 qd qd 06/28 completed Not Available Not Available Not Available Multivita min-Senior Android Software Engineer als 1TAB daily 08/12 completed Not Available Not Available Not Available Cinnamon 2012 active Not Available Not Available Not Avai lable sodium fluoride 1.1 %-potassi um nitrate 5 % dental paste BRUSH TEETH EVERY EVENING, SWISH FOR 30 SECONDS, THEN EXPECTOR ATE active Not Available Not Available No t Available ProAir HFA 90 mcg/actua tion aerosol inhaler 2 inhalati ons every 4-6 hours 12/24 completed Not Available Not Available Not Available NAC 600 mg capsule Take 2 capsule by mouth twice a day Take two capsules po Q AM with two addition al capsules in the afternoo n/early evening PRN for mood 08/10 completed Not Available Not Available Not Available omeprazol e 20 mg tablet,de layed release Take 1 by mouth daily 09/23 completed Not Available Not Available Not Available vitamin B12 500 mcg-folic acid 400 mcg tablet Take 1 tablet by mouth single dose active Not Available Not Available No t Available Vitamin D3 125 mcg (5,000 unit) tablet Take 1 tablet by mouth once a day active Not Available Not Available No t Available chromium picolinat e 1,000 mcg tablet Take 1 tablet by mouth daily 2016 active Not Available Not Available Not Avai lable Linzess 145 mcg capsule take 1 tablet daily 09/03 completed Not Available Not Available Not Available Probiotic 5 billion cell sprinkle capsule Take 1 capsule by mouth daily 2017 active Not Available Not Available Not Avai lable turmeric 450 mg-turmer ic root extract 50 mg capsule Take 1 capsule by mouth once a day 01/22 completed Not Available Not Available Not Available cannabidi ol (CBD) oral oil 06/29 completed Not Available Not Available Not Available calcium acetate 667 mg tablet Take 1 tablet by mouth once a day 1200mg active Not Available Not Available No t Available Vitals Date Recorded Body height Oxygen saturation Oxygen saturation in Arterial blood by Pulse oximetry Heart rate Body temperature Systolic blood pressure Diastolic blood pressure Provider Name and Address Organization Details Last Updated DateTime 4 161.925 cm 97 % 97 % 83 /min 98 [degF] 122 mm[Hg] 86 mm[Hg] Cyrus Cotter RN [place] - [facility] 4 16:25:15 Social History None recorded. Functional Status None recorded. Mental Status None recorded. Family History Relationship Description Onset Age of this Age Resolved Age Notes Brother Family history of Hypertension Brother Family history of di abetes mellitus type 1 Father Family history of Hypertension Father Family history of he art failure Mother Family history of hyperthyroidism Mother Family history of br east cancer 1 gene mutation Notes:*Problem: FAMILY HX: M other and father both living, age 68. Father has high BP and a pacemaker. Mother has thyroid problems. She has one brother who has diabetes. 11/28/04 Family History: Father living, age 70, has a pace maker and bypass, high BP. Mother living, age 70 is hypothyroid, she has a brother w/ diabetes and high BP. 07/12/07 FAMILY HX: Parents living, 72 or 73. Father has had a CABG and mother in good health. There s no cancers or bowel problems except for a grandmother that had constipation. Medical History No medical history recorded. Gynecological HistoryNo gynecological history recorded. Obstetrics History GPAL:G 0 P 0 0 0 0 Immunizations Vaccine Type Date Status Provider Name and Address Organization Details Recorded Time Td (adult), 2 Lf tetanus toxoid, preservative free, adsorbed 01/15/2018 completed Not Available [facility] 06/15/2023 06:16:36 Tdap 05/06/2008 completed Not Available [facility] 06:16:36 Td(adult) unspecified formulation 06/06/1999 completed Not Available [facility] 06/15/2023 06:16:36 Influenza, split virus, quadrivalent, PF 05/28/2015 completed Not Available [facility] 06/15/2023 06:16:36 Influenza, split virus, quadrivalent, preservative 05/06/2018 completed Not Available [facility] 06/15/2023 06:16:36 Influenza, split virus, quadrivalent, preservative 05/31/2017 completed Not Available [facility] 06/15/2023 06:16:36 zoster recombinant 05/06/2018 completed Not Available [facility] 06/15/2023 06:16:36 zoster recombinant 07/08/2018 completed Not Available [facility] 06/15/2023 06:16:37 COVID-19, mRNA, LNP-S, PF, 100 mcg/0.5mL dose or 50 mcg/0.25mL dose 06/02/2021 completed Not Available [facility] 06/15/20 06:16:37 SARS-COV-2 (COVID-19) vaccine, UNSPECIFIED 10/13/2020 completed Not Available [facility] 06/15/2023 06:16:37 Hep B, unspecified formulation 12/14/2001 completed Not Available [facility] 06/15/2023 06:16:37 Hep B, unspecified formulation 05/29/2001 completed Not Available [facility] 06/15/2023 06:16:37 Hep B, unspecified formulation 07/03/2001 completed Not Available [facility] 06/15/2023 06:16:37 influenza, unspecified formulation 05/06/2020 completed Not Available [facility] 06/15/2023 06:16:37 influenza, unspecified formulation 05/22/2016 completed Not Available [facility] 06/15/2023 06:16:37 influenza, unspecified formulation 05/23/2019 completed Not Available [facility] 06/15/2023 06:16:37 influenza, unspecified formulation 06/02/2021 completed Not Available [facility] 06/15/2023 06:16:37 Influenza, split virus, quadrivalent, PF 05/08/2023 completed Not Available [facility] 08/17/2023 05:33:20 Past Encounters Encounter ID Performer Location Encounter Start Date Encounter Closed Date Diagnosis/Indication Diagnosis SNOMED-CT Code Diagnosis ICD10 Code [id number] [address] [address] 04/08/2024 16:17:56 04/08/2024 16:58:06 Infection of tooth 057513245 K04.7 Nausea 040354956 R11.0 Hypo-osmol ality and or hyponatremia 773282723 E87.1 Health Concerns Section Related Observation LastModified by Organization Detai ls LastModified Time None Recorded Concern Status LastModified by Organization Details LastModified Time None Recorded Payers Encounter Date Sequence Insurance Name Policy Number Policy Robles Covered Member ID Robles Member ID Guarantor Name 04/08/2024 1 [place] [facility] [id number] Belem Macias [id number] Belem Macias Notes Date Note Type Note Provider Name and Address Organization Details Recorded Time 04/08/2024 text/html HPI Notes: cc le ft lower jaw pain, nausea, ZAPATA, not feeling well dentist on 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 Nothing severe. Also having fatigue neck pain is better, scalp tenderness has improved No fever or chills, no diarrhea, no belly pain Missed work today and is considering staying out tomorrow. Wonders about low sodium. Has been urinating a lot, appetite is decreased, yesterday ate small rolls, two slices of pizza, popcorn, today had [place] muffin and left over pizza, amara CORONADO, [employer] [address], [place], [address], [facility], [facility]. 04/08/2024 17:02:55 OBGyn Episode No OBEpisode recorded.
--- OUTSIDE RECORDS SUMMARY | 2024-04-08 18:32 | XMS_ITS | Encounter Summary ---
Author Organization [facility] Address [place] [address] Care Team Providers Care Rn Cardiac Cath Name Role Phone Saravananadan Sara Beck APRN Primary Care Provider [phone] Reason for Referral * Diagnostic Test (Routine) - Closed Specialty Diagnoses / Procedures Referred By Rajiv t Referred To Contact Radiology Diagnoses Arteriovenous malformation of brain Procedures MRI Venogram Head W Contrast Jose Manuel Guerrier MD [facility] [address] [place] [address] [place] [address] Referral ID Status Reason Start Date Expiration Date V isits Requested Visits Authorized [id number] Closed Specialty Service Requested 01/06/2024 07/07/2025 1 1 * Diagnostic Test (Routine) - Closed Specialty Diagnoses / Procedures Referred By Contac t Referred To Contact Radiology Diagnoses Arteriovenous malformation of brain Procedures MRI Angiogram Head wo Contrast (Generic) MRI Angiogram Head wwo Contrast Jose Manuel Guerrier MD [facility] [place] [address] [place] [address] Referral ID Status Reason Start Date Expiration Date V isits Requested Visits Authorized [id number] Closed Specialty Service Requested 07/06/2023 01/04/2025 1 1 Reason for Visit * Diagnostic Test (Routine) - Closed Specialty Diagnoses / Procedures Referred By Contac t Referred To Contact Radiology Diagnoses Arteriovenous malformation of brain Procedures MRI Angiogram Head wo Contrast (Generic) MRI Angiogram Head wwo Contrast Jose Manuel Guerrier MD [facility] [address] [facility] [place] [address] Referral ID Status Reason Start Date Expiration Date V isits Requested Visits Authorized [id number] Closed Specialty Service Requested 07/06/2023 01/04/2025 1 1 Encounter Details Date Type Department Care Team (Latest Contact Info) Description 01/17/2024 1:21 PM EDT - 01/17/2024 11:59 PM EDT Hospital [place] [address] Jose Manuel Guerrier MD [facility] RAD[facility] [address] Arteriovenous malformation of brain Discharge Disposition: Home Social History Tobacco Use Types Packs/Day Years [...] place to sleep or slept in a usp (including now)? No 05/27/2023 Sex and Gender Information Value Date Recorded Sex Assigned at Not on file Gender Identity Not on file Sexual Orientation Not on file documented as of this encounter Medications at Time of Discharge Medication Sig Dispensed Refills Start Date End Date Bacillus coagulans/inulin (PROBIOTIC WITH PREBIOTIC ORAL) Take by mouth. polyethylene glycoL (Miralax) 17 gram oral powder packet Take 17 g by mouth daily as needed. [id number] triamcinolone acetonide 0.1% cream Apply topically as needed. Apply to affected area as directed by study team. UNABLE TO FIND Smart Greens chew propylene glycol/peg 400/PF (SYSTANE, PF, OPHT) Apply to eye daily. fluticasone propionate (Flonase) 50 mcg/actuation [place], Suspension by Each Nare route as needed. 08/22/2022 EVENING PRIMROSE OIL ORAL Take by mouth 2 times daily. 09/06/2022 TURMERIC ORAL Take 1 tablet by mouth daily. ergocalciferol, vitamin D2, (VITAMIN D ORAL) Take 1 tablet by mouth daily. GARLIC ORAL Take 1 tablet by mouth daily. vitamin B complex (VITAMINS B COMPLEX ORAL) Take 1 tablet by mouth daily. buPROPion SR (Wellbutrin SR) 150 mg tablet sustained-release 12 hr Take 150 mg by mouth 2 times daily. 05/23/2022 omeprazole (PriLOSEC) 20 mg Capsule, Delayed Release(E.C.) Take 20 mg by mouth daily. 05/02/2022 Sodium Fluoride-Pot Nitrate (Fluoridex Sensitivity Relief) 1.1-5 % Paste BRUSH TEETH AT NIGHT SWISH FOR 30 SECONDS THEN EXPECTORATE 01/20/2022 documented as of this encounter Plan of Treatment Not on file documented as of this encounter Procedures Procedure Name Priority Date/Time Associated Diagnosis Comments MR VENOGRAM HEAD W CONTRAST Routine 01/17/2024 2:35 PM EDT Arteriovenous malformation of brain MRI HEAD ANGIOGRAM WO CONTRAST Routine 01/17/2024 2:35 PM EDT Arteriovenous malformation of brain documented in this encounter Results * MRI Venogram Head W Contrast (01/17/2024 2:35 PM EDT) WORKSTATION ID [id number] RAD Anatomical Region Laterality Modality Head Magnetic Resonan ce Impressions 01/18/2024 4:52 PM EDT No evidence of arterial venous malformation. Thank you for letting us participate in the care of this patient. ??If you are a health care provider and have any questions regarding this report, please contact the number below. ??For patients who have questions please contact the health resident care provider that requested your imaging first. ? Electronically signed by: Subhash Mitchell MD, [facility] ([phone]), at 01/18/2024 4:52 PM Narrative 01/18/2024 4:52 PM EDT EXAMINATION: MRI VENOGRAM HEAD W CONTRAST CLINICAL HISTORY: AVM TECHNIQUE: Vestibular images were obtained without contrast. MRV images were then obtained after the intravenous injection of 12 mL of Dotarem. COMPARISON: None FINDINGS: Normal variant arachnoid granulation in the midportion of each transverse sinus which mildly narrows each sinus. The remainder of the dural venous sinuses and visualized deep cerebral veins are patent. The SWI images show no intracranial hemorrhage. Procedure Note Subhash Mitchell MD - 01/18/2024 EXAMINATION: MRI VENOGRAM HEAD W CONTRAST CLINICAL HISTORY: AVM TECHNIQUE: Vestibular images were obtained without contrast. MRV images were thenobtained after the intravenous injection of 12 mL of Dotarem. COMPARISON: None FINDINGS: Normal variant arachnoid granulation in the midportion of each transversesinus which mildly narrows each sinus. The remainder of the dural venous sinusesand visualized deep cerebral veins are patent. The SWI images show no intracranial hemorrhage. IMPRESSION No evidence of arterial venous malformation. Thank you for letting us participate in the care of this patient. If youare a health care provider and have any questions regarding this report,please contact the number below. For patients who have questions please contactthe health resident care provider that requested your imaging first. Electronically signed by: Subhash Mitchell MD, [facility]([phone]), at 01/18/2024 4:52 PM Jose Manuel Guerrier MD IMG MRI ORDERABLES * MRI Angiogram Head wo Contrast (Generic) (01/17/2024 2:35 PM EDT) VitalsGuard WORKSTATION ID [id number] RAD Anatomical Region Laterality Modality Head Magnetic Resonan ce Impressions 01/18/2024 4:34 PM EDT Normal study. No specific evidence for AVM. Thank you for letting us participate in the care of this patient. ??If you are a health care provider and have any questions regarding this report, please contact the number below. ??For patients who have questions please contact the health resident care provider that requested your imaging first. ? Electronically signed by: Subhash Mitchell MD, [facility] ([phone]), at 01/18/2024 4:34 PM Narrative 01/18/2024 4:34 [...] patients who have questions please contactthe health resident care provider that requested your imaging first. 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 documented in this encounter Administered Medications Inactive Administered Medications - up to 3 most recent administrations Medication Order MAR Action Action Date Dose Rate Site gadoterate meglumine (Dotarem) (0.5 mMol/mL) injection solution 0-100 mL 0-100 mL, Intravenous, ONCE PRN, 1 dose, Starting on Katey 01/17/24 at 1403, Until Katey 01/17/24 at 1404, Per Protocol, Radiology Contrast, Routine Given 01/17/2024 2:04 PM EDT 12 mLs documented in this encounter Care Teams Rn Cardiac Cath Relationship Specialty Start Date End Date Sara Luke APRN [address] [place] [id number] PCP - General Family Medicine 03/28/22 documented as of this encounter
--- OUTSIDE RECORDS SUMMARY | 2024-04-08 18:32 | XMS_ITS | Encounter Summary ---
Author Organization [facility] Address [address] [place] [address] Care Team Providers Care Truck Repair Supervisor Name Role Phone Fidencio Gonsalez Primary Care Provider [phone] Encounter Details Date Type Department Care Team (Late st Contact Info) Description 04/06/2020 Lab Requisition [facility] - [address] [address] Outr Resulting Lab, Provider Social History Tobacco Use Types Packs/Day Years Used Date Smoking Tobacco: Never Assessed Sex and Gender Information Value Date Recorded Sex Assigned at Not on file Gender Identity Not on file Sexual Orientation Not on file documented as of this encounter Plan of Treatment Not on file documented as of this encounter Procedures Procedure Name Priority Date/Time Associated Diagnosis Comments HIGH SENSITIVITY C-REACTIVE PROTEIN (CARDIOVASCULAR DISEASE) Routine 04/05/2020 16:30 EDT documented in this encounter Results * HIGH SENSITIVITY C-REACTIVE PROTEIN (CARDIOVASCULAR DISEASE) (04/05/2020 16:30 EDT) High Sensitivity CRP 0.83 See Note mg/L 04/06/2020 17:[address] [facility] Comment: Reference Range: ??Source: The [place] [employer] Clinical Practice Recommendations, 2003 ??Low Risk: ? <1.0 mg/L ??Average Risk: ?? 1.0 - 3.0 mg/L ??High Risk: ?>3.0 mg/L ??Indeterminate*: >10.0 mg/L ??*May be an indication of another source of inflammation or infection Blood VENOUS BLOOD / Unknown 04/05/2020 16:30 EDT 04/06/2020 17:33 EDT Provider Outr Resulting Lab CHEMISTRY & BLOOD GAS ORDERABLES [facility] [address] [place] [address] documented in this encounter Visit Diagnoses Not on filedocumented in this encounter Care Teams Truck Repair Supervisor Relationship Specialty Start Date End Date Fidencio Gonsalez PA [address] [place] [id number] PCP - General 11/01/10 documented as of this encounter
--- OUTSIDE RECORDS SUMMARY | 2024-04-08 18:32 | XMS_ITS | Encounter Summary ---
Author Organization [facility] Address [address] [place] [address] Care Team Providers Care Choke Reamer Name Role Phone Unavailable Primary Care Provider Unavailabl e Encounter Details Date Type Department Care Team (Late st Contact Info) Description 11/04/2003 Results Only [facility] - [facility] [address] [place] [address] Nubia Ramirez, DIRECTOR MEDIA Social History Tobacco Use Types Packs/Day Years Used Date Smoking Tobacco: Never Assessed Sex and Gender Information Value Date Recorded Sex Assigned at Not on file Gender Identity Not on file Sexual Orientation Not on file documented as of this encounter Plan of Treatment Not on file documented as of this encounter Procedures Procedure Name Priority Date/Time Associated Diagnosis Comments CYTOPATHOLOGY Routine 11/04/2003 0:00 EST documented in this encounter Results * CYTOPATHOLOGY (11/04/2003 0:00 EST) Pathology Report: CYTOPATHOLOGY REPORT Reports generated via electronic interface contain original data; however they are lacking the format of the original report. Caution should be taken when reading/interpreti ng unformatted reports. Name: ? BELEM HOLLIDAY ? Accession #: ? [id number] : ? 1960 (Age: 43) ??F ?Collect Date: ? 11/04/2003 Location: ? [facility] ? Receive Date: ? 11/09/2003 Provider: ?NUBIA RAMIREZ APRN Copy to: ? Specimen/Source: ?ThinPrep Pap Test, Cervix/Endocervix Last Menstrual Period: ? 10/27/03 Hormonal/Contracep tive Status: ? Yes Other: ? HPVA - HPV testing requested if ASC-US on the current ThinPrep Pap test. ? SPECIMEN ADEQUACY ? Satisfactory for Evaluation - transformation zone component present GENERAL CATEGORIZATION ? Negative for Intraepithelial Lesion or Malignancy ? Document reviewed and electronically signed by: ? SANTANA Christine(ASCP) ? Report Date: ??11/11/2003 08:35 End of Report RADHA OROURKE 11/04/2003 11/09/2003 Nubia Ramirez APRN PATHOLOGY ORDER CHAVA RADHA OROURKE [address] [place] [address] documented in this encounter Visit Diagnoses Not on filedocumented in this encounter
--- OUTSIDE RECORDS SUMMARY | 2024-04-08 18:32 | XMS_ITS | Encounter Summary ---
Author Organization [facility] Address [facility] [place] [address] Care Team Providers Care Stained Glass Artist Name Role Phone SaravananSara arellano BRIGIDO Primary Care Provider [phone] Encounter Details Date Type Department Care Team (Latest Contact Info) Description 01/17/2024 Travel Social History Tobacco Use Types Packs/Day [...] place to sleep or slept in a group home (including now)? No 05/27/2023 Sex and Gender Information Value Date Recorded Sex Assigned at Not on file Gender Identity Not on file Sexual Orientation Not on file documented as of this encounter Plan of Treatment Not on file documented as of this encounter Visit Diagnoses Not on filedocumented in this encounter Care Teams Stained Glass Artist Relationship Specialty Start Date End Date Sara Luke APRN [address] [place] [id number] PCP - General Family Medicine 03/28/22 documented as of this encounter
--- OUTSIDE RECORDS SUMMARY | 2024-04-08 18:32 | XMS_ITS | Encounter Summary ---
Author Organization [facility] Address [address] [place] [address] Care Team Providers Care Machine Operator Replanter Name Role Phone Unavailable Primary Care Provider Unavailabl e Encounter Details Date Type Department Care Team (Late st Contact Info) Description 10/22/2002 Results Only [facility] - [facility] [address] [place] [address] Nubia Ramirez, CLOUD SOLUTIONS ARCHITECT Social History Tobacco Use Types Packs/Day Years Used Date Smoking Tobacco: Never Assessed Sex and Gender Information Value Date Recorded Sex Assigned at Not on file Gender Identity Not on file Sexual Orientation Not on file documented as of this encounter Plan of Treatment Not on file documented as of this encounter Procedures Procedure Name Priority Date/Time Associated Diagnosis Comments CYTOPATHOLOGY Routine 10/22/2002 0:00 EST documented in this encounter Results * CYTOPATHOLOGY (10/22/2002 0:00 EST) Pathology Report: CYTOPATHOLOGY REPORT Reports generated via electronic interface contain original data; however they are lacking the format of the original report. Caution should be taken when reading/interpreti ng unformatted reports. Name: ? BELEM HOLLIDAY ? Accession #: ? [id number] : ? 1960 (Age: 42) ??F ?Collect Date: ? 10/22/2002 Location: ? [facility] ? Receive Date: ? 10/24/2002 Provider: ?NUBIA RAMIREZ CLOUD SOLUTIONS ARCHITECT Copy to: ? Specimen/Source: ?ThinPrep Pap Test, Cervix/Endocervix Last Menstrual Period: ? 09/30/02 Hormonal/Contracep tive Status: ? Yes Other: ? HPVA - HPV testing requested if ASC-US on the current ThinPrep Pap test. ? SPECIMEN ADEQUACY ? Satisfactory for Evaluation - transformation zone component present GENERAL CATEGORIZATION ? Negative for Intraepithelial Lesion or Malignancy ? Document reviewed and electronically signed by: ? SANTANA Hurt(ASCP) ? Report Date: ??10/28/2002 10:30 End of Report RADHA OROURKE 10/22/2002 10/24/2002 Nubia Ramirez CLOUD SOLUTIONS ARCHITECT PATHOLOGY ORDER CHAVA RADHA OROURKE [address] [place] [address] documented in this encounter Visit Diagnoses Not on filedocumented in this encounter
--- OUTSIDE RECORDS SUMMARY | 2024-04-08 18:32 | XMS_ITS | Encounter Summary ---
Author Organization [facility] Address [address] [place] [address] Care Team Providers Care Program Management Manager Name Role Phone Unavailable Primary Care Provider Unavailabl e Encounter Details Date Type Department Care Team (Late st Contact Info) Description 11/22/2004 Results Only [facility] - Maple conversion [address] [place] [address] Nubia Ramirez, STRATE[employer]IC BUSINESS DEVELOPMENT Social History Tobacco Use Types Packs/Day Years Used Date Smoking Tobacco: Never Assessed Sex and Gender Information Value Date Recorded Sex Assigned at Not on file Gender Identity Not on file Sexual Orientation Not on file documented as of this encounter Plan of Treatment Not on file documented as of this encounter Procedures Procedure Name Priority Date/Time Associated Diagnosis Comments CYTOPATHOLOGY Routine 11/22/2004 0:00 EDT documented in this encounter Results * CYTOPATHOLOGY (11/22/2004 0:00 EDT) Pathology Report: CYTOPATHOLOGY REPORT Reports generated via electronic interface contain original data; however they are lacking the format of the original report. Caution should be taken when reading/interpreti ng unformatted reports. Name: ? BELEM HOLLIDAY ? Accession #: ? [id number] : ? 1960 (Age: 44) ??F ?Collect Date: ? 11/22/2004 Location: ? [facility] ? Receive Date: ? 11/24/2004 Provider: ?NUBIA RAMIREZ APRN Copy to: ? Specimen/Source: ?ThinPrep Pap Test, Cervix/Endocervix Last Menstrual Period: ? 11/15/04 Hormonal/Contracep tive Status: ? Yes: Hormones Other: ? HPVA - HPV testing requested if ASC-US on the current ThinPrep Pap test. ? SPECIMEN ADEQUACY ? Satisfactory for Evaluation - transformation zone component absent - scant squamous epithelial component GENERAL CATEGORIZATION ? Negative for Intraepithelial Lesion or Malignancy ? Document reviewed and electronically signed by: ? SANTANA Hurt(ASCP) ? Report Date: ??11/30/2004 09:11 End of Report RADHA OROURKE 11/22/2004 11/24/2004 Nubia Ramirez APRN PATHOLOGY ORDER CHAVA RADHA OROURKE [address] [place] [address] documented in this encounter Visit Diagnoses Not on filedocumented in this encounter
--- OUTSIDE RECORDS SUMMARY | 2024-04-08 18:32 | XMS_ITS | Clinical Summary ---
Author Organization [facility] Address [facility] [place] [address] Care Team Providers Care Tooth Cutter Spur Name Role Phone Ti Sara Beck APRN Primary Care Provider [phone] Allergies Active Allergy Reactions Criticality Noted Date Comments Amoxicillin 09/20/2022 Other reaction(s): swelling of face, tongue swollen Sulfamethoxazole-Trimethopri m 06/14/2022 Penicillins 06/14/2022 Sulfa (Sulfonamide Antibiotics) 09/20/2022 Other reaction(s): pt doesn't remember Medications Medication Sig Dispensed Refills Start Date End Date Status buPROPion SR (Wellbutrin SR) 150 mg tablet sustained-release 12 hr Take 150 mg by mouth 2 times daily. 05/23/2022 Active omeprazole (PriLOSEC) 20 mg Capsule, Delayed Release(E.C.) Take 20 mg by mouth daily. 05/02/2022 Active Sodium Fluoride-Pot Nitrate (Fluoridex Sensitivity Relief) 1.1-5 % Paste BRUSH TEETH AT NIGHT SWISH FOR 30 SECONDS THEN EXPECTORATE 01/20/2022 Active fluticasone propionate (Flonase) 50 mcg/actuation Romeo, Suspension by Each Nare route as needed. 08/22/2022 Active EVENING PRIMROSE OIL ORAL Take by mouth 2 times daily. 09/06/2022 Active TURMERIC ORAL Take 1 tablet by mouth daily. Active ergocalciferol, vitamin D2, (VITAMIN D ORAL) Take 1 tablet by mouth daily. Active GARLIC ORAL Take 1 tablet by mouth daily. Active vitamin B complex (VITAMINS B COMPLEX ORAL) Take 1 tablet by mouth daily. Active Bacillus coagulans/inulin (PROBIOTIC WITH PREBIOTIC ORAL) Take by mouth. Activ e polyethylene glycoL (Miralax) 17 gram oral powder packet Take 17 g by mouth daily as needed. Active [id number] triamcinolone acetonide 0.1% cream Apply topically as needed. Apply to affected area as directed by study team. Active UNABLE TO FIND Smart Greens chew Act eddie propylene glycol/peg 400/PF (SYSTANE, PF, OPHT) Apply to eye daily. 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 No 05/27/2023 Sex and Gender Information Value Date Recorded Sex Assigned at Not on file Gender Identity Not on file Sexual Orientation Not on file Last Filed Vital Signs Vital Sign Reading Time Taken Comments Blood Pressure 142/82 01/17/2024 4:15 PM EDT Pulse 66 01/17/2024 4:15 PM EDT Temperature 36.2 ??C (97.1 ??F) 07/06/2023 2:56 PM ES T Respiratory Rate 16 01/17/2024 4:15 PM EDT Oxygen Saturation 97% 01/17/2024 4:15 PM EDT Inhaled Oxygen Concentration - - Weight 62.1 kg (136 lb 12.8 oz) 01/17/2024 4:15 PM EDT no shoes Height 165.1 cm (5' 5) 11/15/2022 2:05 PM EDT Body Mass Index 22.76 11/15/2022 2:05 PM EDT Plan of Treatment Health Maintenance Due Date Last Done Comments CT Colonography 1960 Colonoscopy 1960 Colorectal Cancer Screening 1960 FIT DNA 1961 FIT 1961 Sigmoidoscopy (10 year) with FIT yearly 1961 Sigmoidoscopy 1960 HIV screen 1979 Hepatitis C Screening 1979 Tdap adult 1980 Tetanus vaccine 1980 HPV test 1991 PAP Smear 1991 Breast Cancer Share Decision Needed 2001 Breast Cancer screening 2001 Zoster vaccine (1 of 2) 2011 Advance Directive 2016 Covid-19 Vaccine ( season) 2023 Influenza (Flu) vaccine (1 o f 1 - Influenza standard series) 04/06/2024 Procedures Procedure Name Priority Date/Time Associated Diagnosis Comments MR VENOGRAM HEAD W CONTRAST Routine 01/17/2024 2:35 PM EDT Arteriovenous malformation of brain MRI HEAD ANGIOGRAM WO CONTRAST Routine 01/17/2024 2:35 PM EDT Arteriovenous malformation of brain from Last 3 Months Results * MRI Venogram Head W Contrast (01/17/2024 2:35 PM EDT) [facility] WORKSTATION ID [id number] RAD Anatomical Region Laterality Modality Head Magnetic Resonan ce Impressions 01/18/2024 4:52 PM EDT No evidence of arterial venous malformation. Thank you for letting us participate in the care of this patient. ??If you are a health care provider and have any questions regarding this report, please contact the number below. ??For patients who have questions please contact the health manager respiratory care that requested your imaging first. ? Electronically signed by: Subhash Mitchell MD, [facility] ([phone]), at 01/18/2024 4:52 PM Narrative 01/18/2024 4:52 [...] patients who have questions please contactthe health manager respiratory care that requested your imaging first. Electronically signed by: Subhash Mitchell MD, [facility]([phone]), at 01/18/2024 4:52 PM Jose Manuel Guerrier MD IMG MRI ORDERABLES * MRI Angiogram Head wo Contrast (Generic) (01/17/2024 2:35 PM EDT) [facility] [facility] WORKSTATION ID [id number] RAD Anatomical Region Laterality Modality Head Magnetic Resonan ce Impressions 01/18/2024 4:34 PM EDT Normal study. No specific evidence for AVM. Thank you for letting us participate in the care of this patient. ??If you are a health care provider and have any questions regarding this report, please contact the number below. ??For patients who have questions please contact the health manager respiratory care that requested your imaging first. ? Electronically signed by: Subhash Mitchell MD, [facility] ([phone]), at 01/18/2024 4:34 PM Narrative 01/18/2024 4:34 [...] patients who have questions please contactthe health manager respiratory care that requested your imaging first. Electronically signed by: Subhash Mitchell MD, [facility]([phone]), at 01/18/2024 4:34 PM Jose Manuel Guerrier MD IMG MRI ORDERABLES from Last 3 Months Advance Directives * Attempt Cardiopulmonary Resuscitation - Inpatient (Latest Code Status on File) Date Activated Date Inactivated Comments 04/27/2023 9:00 AM 04/28/2023 4:34 AM Question Answer Comments Code Status decision made by: Patient Care Teams Tooth Cutter Spur Relationship Specialty Start Date End Date Sara Luke APRN [address] [address] PCP - General Family Medicine 03/28/22
--- OUTSIDE RECORDS SUMMARY | 2024-04-08 18:32 | XMS_ITS | Encounter Summary ---
Author Organization [facility] Address [address] [place] [address] Care Team Providers Care Extruder Operator Helper Name Role Phone Unavailable Primary Care Provider Unavailabl e Encounter Details Date Type Department Care Team (Late st Contact Info) Description 10/27/2010 Results Only [facility] ([facility] [address], [place] [address] Jonathan Gonslaez PA [address] [place], [place] [id number] Social History Tobacco Use Types Packs/Day Years Used Date Smoking Tobacco: Never Assessed Sex and Gender Information Value Date Recorded Sex Assigned at Not on file Gender Identity Not on file Sexual Orientation Not on file documented as of this encounter Plan of Treatment Not on file documented as of this encounter Procedures Procedure Name Priority Date/Time Associated Diagnosis Comments CYTOPATHOLOGY Routine 10/27/2010 0:00 EDT documented in this encounter Results * CYTOPATHOLOGY (10/27/2010 0:00 EDT) Pathology Report: CYTOPATHOLOGY REPORT ? Reports generated via electronic interface contain original data; ? however they are lacking the format of the original report. ? Caution should be taken when reading/interpreti ng unformatted reports. ? Name: ? MIYA, GRAYSON ? Accession #: ? [id number] ? : ? 1960 (Age: 50) ??F ?Collect Date: ? 10/27/2010 ? Location: ? [facility] ? Receive Date: ? 10/31/2010 ? Provider: ? JONATHAN LONTINE PA ? Copy to: ? CYTOLOGIC DIAGNOSIS: ? Urine, voided, cytologic evaluation: ? 1. ?Negative for malignant cells. ? 2. ? Vaginal contamination. ? Document reviewed and electronically signed by: ? BAYRON DELGADO MD ? Report Date: ??11/01/2010 16:37 ? By the signature above, the attending physician certifies that he/she has ? personally conducted a gross and/or microscopic examination of the described ? specimens and rendered or confirmed the above diagnosis. ? Specimen Type: ? Urine, Voided ? Clinical History: ? Hematuria ? Gross Description: ? 1 tube of Cytolyt was received and processed by cellular enhancement ? technique ? End of Report ? RADHA OROURKE 10/27/2010 10/31/2010 10: 06 EDT Jonathan STRATTON PATHOLOGY ORDERABLES RADHA OROURKE [address] [place] [address] documented in this encounter Visit Diagnoses Not on filedocumented in this encounter
--- OUTSIDE RECORDS SUMMARY | 2024-04-08 18:32 | XMS_ITS | Encounter Summary ---
Author Organization [facility] Address [address] [place] [address] Care Team Providers Care Buffing Machine Operator Semiautomatic Name Role Phone Unavailable Primary Care Provider Unavailabl e Encounter Details Date Type Department Care Team (Late st Contact Info) Description 09/07/2000 Results Only [facility] - Maple conversion [address] [place] [address] Baylee Ren MD [address] [place] [address] [address] [place], [place] [id number] Social History Tobacco Use Types Packs/Day Years Used Date Smoking Tobacco: Never Assessed Sex and Gender Information Value Date Recorded Sex Assigned at Not on file Gender Identity Not on file Sexual Orientation Not on file documented as of this encounter Plan of Treatment Not on file documented as of this encounter Procedures Procedure Name Priority Date/Time Associated Diagnosis Comments CYTOPATHOLOGY Routine 09/07/2000 0:00 EST documented in this encounter Results * CYTOPATHOLOGY (09/07/2000 0:00 EST) Pathology Report: CYTOPATHOLOGY REPORT Reports generated via electronic interface contain original data; however they are lacking the format of the original report. Caution should be taken when reading/interpreti ng unformatted reports. Name: ? BELEM HOLLIDAY ? Accession #: ? [id number] : ? 1960 (Age: 40) ??F ?Collect Date: ? 09/07/2000 Location: ? [facility] ? Receive Date: ? 09/11/2000 Provider: ?BAYLEE REN MD Copy to: ? Specimen/Source: ?ThinPrep Pap Test, Cervix/Endocervix Last Menstrual Period: ? 09/04/00 Hormonal/Contracep tive Status: ? Yes ? SPECIMEN ADEQUACY ? Satisfactory for evaluation. GENERAL CATEGORIZATION ? Within Normal Limits ? Document reviewed and electronically signed by: ? MAURICE Gao(ASCP) ? Report Date: ??09/11/2000 13:02 End of Report RADHA OROURKE 09/07/2000 09/11/2000 Baylee Ren MD PATHOLOGY ORDERABLES RADHA OROURKE [address] [place] [address] documented in this encounter Visit Diagnoses Not on filedocumented in this encounter
--- OUTSIDE RECORDS SUMMARY | 2024-04-08 18:32 | XMS_ITS | Encounter Summary ---
Author Organization [facility] Address [address] [place] [address] Care Team Providers Care Cop Winder Name Role Phone Unavailable Primary Care Provider Unavailabl e Encounter Details Date Type Department Care Team (Late st Contact Info) Description 11/30/2005 Results Only [facility] - Maple conversion [address] [place] [address] Nubia Ramirez, TIRE CENTER SUPERVISOR Social History Tobacco Use Types Packs/Day Years Used Date Smoking Tobacco: Never Assessed Sex and Gender Information Value Date Recorded Sex Assigned at Not on file Gender Identity Not on file Sexual Orientation Not on file documented as of this encounter Plan of Treatment Not on file documented as of this encounter Procedures Procedure Name Priority Date/Time Associated Diagnosis Comments CYTOPATHOLOGY Routine 11/30/2005 0:00 EDT documented in this encounter Results * CYTOPATHOLOGY (11/30/2005 0:00 EDT) Pathology Report: CYTOPATHOLOGY REPORT Reports generated via electronic interface contain original data; however they are lacking the format of the original report. Caution should be taken when reading/interpreti ng unformatted reports. Name: ? BELEM HOLLIDAY ? Accession #: ? [id number] : ? 1960 (Age: 45) ??F ?Collect Date: ? 11/30/2005 Location: ? [facility] ? Receive Date: ? 12/04/2005 Provider: ?NUBIA RAMIREZ APRN Copy to: ? Specimen/Source: ?ThinPrep Pap Test, Cervix/Endocervix, processed on [employer] ThinPrep Imaging System, with manual evaluation Last [...] Report Date: ??12/05/2005 15:37 End of Report RADHA OROURKE 11/30/2005 12/04/2005 Nubia Ramirez APRN PATHOLOGY ORDER CHAVA RADHA OROURKE [address] [place] [address] documented in this encounter Visit Diagnoses Not on filedocumented in this encounter
--- OUTSIDE RECORDS SUMMARY | 2024-04-08 18:32 | XMS_ITS | Data Portability ---
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 left over pizza, ravioli OUMAR Samson [address], [place], [address], [facility], [facility]. 04/08/2024 17:02:55 OBGyn Episode No OBEpisode recorded.
--- OUTSIDE RECORDS SUMMARY | 2024-04-08 18:32 | XMS_ITS | Continuity of Care Document ---
Author Organization [place] [facility] Address [address] [place] [address] Assessment No assessment recorded. Plan of Treatment Reminders Order Date Submit Date Provider Last Modified By Organization Details Last Modified Time Details Appointments Acute 30 2023 04:30P M Not available Not available Not available Lab None recorded. Referral None recorded. Procedures None recorded. Surgeries None recorded. Imaging MAMMO, screening , bilateral [address] [facility], [address], [place], [address], 04/02/2024 08:20:02 Medication Orders None recorded. Patient TargetsNo targets recorded. Patient Instructions Encounter Date Encounter Id Patient Instructions Last Modified By Organization Details Last Modified Time 03/03/2024 [id number] Please let me kn ow if no continued improvement in your symptoms. We will do some lab work. I think your symptoms are musculoskeletal and should continue to improve I ordered mammogram you should be hearing from [facility] to have that scheduled Not available 03/03/2024 15:54:59 Reason for Referral None Reported. Problems Name Problem SNOMED Code Status Onset Date Resolution Date Notes Provider Name and Address Organization Details Recorded Time Anxiety 53609933 Active 200403/20/20 23 - Comments only - Sara Luke [employer] - Feeling a little bit more down lately, isn't sure if related to returnin g to work or family stressor s. Has been on bupropio n x 15 years. declines referral for counseli inocencia at this time, will let me know if sx don't improve on return to work. Problem Code: F41.8; Problem Code Type: ICD-10; Not Available [facility] 3 04:32:36 Allergic rhinitis 46142860 Active 2002 Problem Code: J30.9; Problem Code Type: ICD-10; Not Available [facility] 3 04:32:36 Acquired absence of cervix and uterus 324267336 Active 2007 Problem Code: Z90.710; Problem Code Type: ICD-10; Not Available [facility] 3 04:32:36 Acute sinusiti s 27896790 Completed 201401/26/2015 Problem Code: J01.90; Problem Code Type: ICD-10; Not Available [facility] 3 04:32:36 Verruca vulgaris 11284837 Completed 201401/26/2015 Problem Code: B07.9; Problem Code Type: ICD-10; Not Available [facility] 3 04:32:36 Pain 41482683 Completed 201602/19/2017 Problem Code: R52; Problem Code Type: ICD-10; Not Available [facility] 3 04:32:37 Fatigue 55952240 Active 201605/08/20 23 - Comments only - Sara Luke [employer] - s/p episode of signfica nt fatigue [...] R53.83; Problem Code Type: ICD-10; Not Available [facility] 4 05:35:36 Irritabl e bowel syndrome 06249794 Active 201604/20/20 22 - Comments only - Sara Luke [employer] - Chronic, no change, currentl y using probioti c and digestiv e enzymes. Colonosc opy due 07/05/20 Problem Code: K58.9; Problem Code Type: ICD-10; Not Available [facility] 3 04:32:37 Acute pharyngi tis 991859173 Completed 201607/20/2017 Problem Code: J02.9; Problem Code Type: ICD-10; Not Available [facility] 3 04:32:37 Disorder of respirat ory system 03052060 Completed 201709/24/2017 09/03/19 18 - Comments only - Kaylyn Wade [employer] - Duration of 12 days. Wheezing /rhonchi . Will rx. Doxy and Proair. Medicati ons reviewed with patient. F/U if not improvin g or if worsenin g. The patient is in good understa nding and agreemen t with the plan of care. Problem Code: J98.8; Problem Code Type: ICD-10; Not Available [facility] 3 04:32:37 Onychomy cosis due to dermatop hyte 618047724 Active 2017 Problem Code: B35.1; Problem Code Type: ICD-10; Not Available [facility] 3 04:32:37 Contact dermatit is 09444187 Completed 201702/04/2018 12/25/19 18 - Comments only - Rolando Graf PA-C - Continue d topical steroids . Recheck as needed. Problem Code: L25.9; Problem Code Type: ICD-10; Not Available [facility] 3 04:32:37 Acute maxillar y sinusiti s 04580920 Completed 201701/31/2018 01/18/20 18 - Comments only - Kaylyn Wade [employer] - Will treat with Z-pack. Given previous [...] J01.00; Problem Code Type: ICD-10; Not Available [facility] 3 04:32:37 Adult health examinat ion Active 2017 Problem Code: Z00.00; Problem Code Type: ICD-10; Not Available [facility] 3 04:32:38 Breast signs and symptoms 937278300 Completed 201707/09/2018 06/18/20 18 - Comments only - Kaylyn Wade [employer] - One episode of breast heavines s [...] N64.59; Problem Code Type: ICD-10; Not Available [facility] 3 04:32:38 Gastroes ophageal reflux disease without esophagi tis 488663244 Active 201708/10/19 23 - Comments only - Sara Luke [employer] - Chronic reflux, unable to d/c her omeprazo le, would likely benefit from upper GI and is due for colonosc opy in 2022. Will refer to Dr. Velázquez or Dr. Álvarez. Problem Code: K21.9; Problem Code Type: ICD-10; Not Available [facility] 3 04:32:38 Raynaud' s disease 215817072 Active 201710/22/19 21 - Comments only - Megan Borja MD - Discusse d manageme nt strategi es. Problem Code: I73.00; Problem Code Type: ICD-10; Not Available [facility] 3 04:32:38 Acute conjunct ivitis of left eye 68798491184 9105 Completed 201810/03/2018 08/26/19 19 - Comments only - Rolando Graf PA-C - Most likely irritant conjunct ivitis from eye makeup. Recommen d 0 therapy. Overall has improved . Follow-u p as needed. No eye/visi on symptoms . Problem Code: H10.32; Problem Code Type: ICD-10; Not Available [facility] 3 04:32:38 Chronic sinusiti s 99932099 Completed 201812/12/2018 11/29/19 19 - Comments only - Kaylyn Wade [employer] - Start antibiot ics. Hold Flonase until noseblee ds resolve, if they do not she may need cautery again. She will let me know. Problem Code: J32.9; Problem Code Type: ICD-10; Not Available [facility] 3 04:32:38 Palpitat ions 07740192 Active 201807/19/20 19 - Comments only - Kaylyn Wade [employer] - Intermit tent, not new, EKG normal today. Check TSH. If persisti ng, will have her wear a holter. Problem Code: R00.2; Problem Code Type: ICD-10; Not Available [facility] 3 04:32:38 Family history of breast cancer 580376388 Active 2019 Problem Code: Z80.3; Problem Code Type: ICD-10; Not Available [facility] 3 04:32:39 Actinic keratosi s 705387370 Active 201906/29/20 20 - Comments only - Kaylyn Wade [employer] - Consent obtained , liquid nitrogen applied in a three freeze thaw fashion. Tolerate d well. If this does not take care of it she can come back and we can treat it again. If it still persists would recommen d excision . Problem Code: L57.0; Problem Code Type: ICD-10; Not Available [facility] 3 04:32:39 Melanocy tic nevus 170315992 Completed 202011/03/2020 10/22/19 21 - Comments only [...] D22.9; Problem Code Type: ICD-10; Not Available [facility] 3 04:32:39 Lymphade nopathy 13491882 Completed 202011/03/2020 10/22/19 21 - Comments only - Megan Borja MD - Nonworri some., possibly mildly enlarged lymph node in posterio r neck region. Advised monitori ng and recheck if it seems to be getting larger Problem Code: R59.9; Problem Code Type: ICD-10; Not Available [facility] 3 04:32:39 Increase d frequenc y of urinatio n 042075731 Active 202004/20/20 22 - Comments only - Sara Ti [employer] - Persists , discusse lisa Norton and medicati on managmen t for OAB, she declines at this time Problem Code: R35.0; Problem Code Type: ICD-10; Not Available [facility] 3 04:32:39 Chest pain 32552887 Completed 202007/02/2021 Problem Code: R07.89; Problem Code Type: ICD-10; Not Available [facility] 3 04:32:39 Headache 21793206 Active 202006/27/20 21 - Comments only - Sara Saravanante [employer] - Early am and unilater al left sided headache . Neuro exam intact, will check CT scan to be sure nhot missing another process. Problem Code: R51.9; Problem Code Type: ICD-10; Not Available [facility] 3 04:32:39 Low back pain 252462305 Active 2021 Problem Code: M54.59; Problem Code Type: ICD-10; Not Available [facility] 3 04:32:40 Paresthe thanh 76792857 Active 202101/06/20 22 - Comments only - Sara Chute [employer] - Numbness , tingling under left eye and left side of face. Seems likely to be related to recent extensiv e dental work, less likely trigemin al neuralgi a as no associat ed shock like pain or ZAPATA. Recommen d continue to monitor if no gradual improvem ent or sx increase to RTC Problem Code: R20.2; Problem Code Type: ICD-10; Not Available [facility] 3 04:32:40 Screenin g for malignan t neoplasm of breast Completed 202103/08/2022 Problem Code: Z12.39; Problem Code Type: ICD-10; Not Available [facility] 3 04:32:40 Cerebral hemorrha ge 398812140 Active 202103/20/20 23 - Comments only - Sara Luke [employer] - [facility]. WIll be having CT angiogra m as well. No return of sx or signific ant ZAPATA Problem Code: I61.4; Problem Code Type: ICD-10; Not Available [facility] 3 04:32:40 Spontane ous intracra nial hemorrha ge 390018227 Active 2021 Problem Code: I62.9; Problem Code Type: ICD-10; Not Available [facility] 3 04:32:40 Screenin g for malignan t neoplasm of colon Active 2022 Problem Code: Z12.11; Problem Code Type: ICD-10; Not Available [facility] 3 04:32:40 Abdomina l pain 16588657 Active 2022 Problem Code: R10.9; Problem Code Type: ICD-10; Not Available [facility] 3 04:32:40 Blood in urine 94824569 Active 202209/14/19 23 - Comments only - Sara Luke [employer] - Hx of complete hysterec berenice. Reports hematuri a in the past that has not ever been evaluate d. Recent CT showed no renal abnormal ities, no calculi. Refer to Dr. Flanagan Problem Code: R31.9; Problem Code Type: ICD-10; Not Available [facility] 3 04:32:41 Closed fracture lumbar vertebra , wedge 069240905 Active 2022 Problem Code: S32.010A ; Problem Code Type: ICD-10; Not Available [facility] 3 04:32:41 Hypo-osm olality and or hyponatr emia 264624008 Active 202203/20/20 23 - Comments only - Sara Luke [employer] - will recheck sodium, bmp Problem Code: E87.1; Problem Code Type: ICD-10; Not Available [facility] 3 04:32:41 Diarrhea 41713083 Active 202203/20/20 23 - Comments only - Sara Luke [employer] - Recurren t persista nt. [place] had [...] R19.7; Problem Code Type: ICD-10; Not Available [facility] 3 04:32:41 Pain of left eye 65619154761 9104 Completed 201904/05/2020 Problem Code: H57.12; Problem Code Type: ICD-10; Not Available [facility] 3 04:32:41 Sleep disorder 86193603 Completed 201609/03/2017 Problem Code: G47.9; Problem Code Type: ICD-10; Not Available [facility] 3 04:32:42 Shoulder joint pain 781697238 Completed 201405/31/2017 Problem Code: M25.519; Problem Code Type: ICD-10; Not Available [facility] 3 04:32:42 Collagen ous colitis 18129342 Completed 200705/31/2017 Not Available [facility] 3 04:32:42 Pain of breast 88864512 Completed 201804/05/2020 Problem Code: N64.4; Problem Code Type: ICD-10; Not Available [facility] 3 04:32:42 Right upper quadrant pain 194333608 Completed 202008/10/2022 Problem Code: R10.11; Problem Code Type: ICD-10; Not Available [facility] 3 04:32:42 Jaw pain 303969815 Completed 201405/31/2017 Problem Code: R68.84; Problem Code Type: ICD-10; Not Available [facility] 3 04:32:42 Acquired absence of cervix and uterus 887582141 Completed 201605/31/2017 Problem Code: Z90.710; Problem Code Type: ICD-10; Not Available [facility] 3 04:32:43 Pain of breast 67589809 Completed 201904/05/2020 Problem Code: N64.4; Problem Code Type: ICD-10; Not Available [facility] 3 04:32:43 Pain of breast 23407003 Completed 201908/10/2022 Problem Code: N64.4; Problem Code Type: ICD-10; Not Available [facility] 3 04:32:43 Ligation of bilatera l fallopia n tubes Completed 200205/31/2017 Not Available [facility] 3 04:32:43 Disorder of nail 66049225 Completed 201706/26/2018 12/25/19 18 - Comments only - Rolando Graf PA-C - Posttrau matic nail abnormal ity left great toe. Referral to podiatry . Patient would like to keep her nail for cosmetic reasons. Problem Code: L60.9; Problem Code Type: ICD-10; Not Available [facility] 3 04:32:43 Bleeding from nose 767346281 Completed 201701/17/2018 Problem Code: R04.0; Problem Code Type: ICD-10; Not Available [facility] 3 04:32:44 Abdomina l pain 07842442 Completed 201501/15/2023 Problem Code: R10.9; Problem Code Type: ICD-10; Not Available [facility] 3 04:32:44 Chronic rhinitis 57788146 Completed 200205/02/2023 05/31/20 17 - Comments only - Kaylyn Wade [employer] - Refilled Flonase. Patient uses more during season changes and in the winter. Not Available [facility] 3 04:32:44 Dyspareu bakari 62127275 Completed 202008/10/2022 Problem Code: N94.10; Problem Code Type: ICD-10; Not Available [facility] 3 04:32:44 Depressi ve disorder 19611860 Completed 200405/02/2023 Not Available [facility] 3 04:32:44 Elevated blood-pr essure reading without diagnosi s of hyperten royer 257229316 Completed 202004/20/2022 Problem Code: R03.0; Problem Code Type: ICD-10; Not Available [facility] 3 04:32:45 Hyperlip idemia screenin g Completed 202108/10/2022 Problem Code: Z13.220; Problem Code Type: ICD-10; Not Available [facility] 3 04:32:45 Disorder of skin and/or subcutan eous tissue 31875217 Completed 201704/05/2020 Problem Code: L98.8; Problem Code Type: ICD-10; Not Available [facility] 3 04:32:45 Abnormal weight loss 172412109 Completed 202104/20/2022 Problem Code: R63.4; Problem Code Type: ICD-10; Not Available [facility] 3 04:32:45 Adult health examinat ion Completed 201601/17/2018 Problem Code: Z00.00; Problem Code Type: ICD-10; Not Available [facility] 3 04:32:45 Disorder of eye region 642830624 Completed 202004/20/2022 Problem Code: H57.9; Problem Code Type: ICD-10; Not Available [facility] 3 04:32:46 Adult health examinat ion Completed 201808/10/2022 Problem Code: Z00.00; Problem Code Type: ICD-10; Not Available [facility] 3 04:32:46 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 Problem Code: Q27.9; Problem Code Type: ICD-10; Not Available [facility] 4 05:35:36 Lumbar radiculo shukri 416350070 Active [address], [facility] [address] [place] [address] 4 14:57:52 Muscle pain 89572638 Active [address], [facility] [address] [place] [address] 4 15:49:36 Infectio n of tooth 131246741 Active [address], [facility] [address] [place] [address] 4 16:45:27 Nausea 255464538 Active [address], [facility] [address] [place] [address] 4 16:45:47 Notes:*Problem Name: Laparos c.hysterectomy,bso 02/10 *Problem Status: inactive *Comments: *Problem Code: 68.9 *Problem Code Type: ICD-9 *Note Date: 05/08/2008 Problem Notes None recorded. Medical Equipment None Reported. Allergies Allergen ID Allergen Name Allergen Category Reaction Reaction Severity Criticality Documentation Date Start Date Code Code System Note Provider Name and Address Organization Details Recorded Time 00450 Medicinal product containin g penicilli n and acting as antibacte rial agent (product) medicatio n rash Not available Not available 08/17/20232022 33948 05 SNOMED Aller gyCod e: '8340 61'; Aller gyNam e: 'PENI CILLI N'; Aller gyCon ceptT ype: 'RX Norm' ; Aller gyRea ction : 'Rash , Short ness of Breat h,'; Not Available [facility] 4 05:09:59 Medications Name Sig Start [...] Available Not Available Nasonex 50 mcg/actua tion [place] 2 sprays each nare daily 2014 active [...] Not Available Not Available Not Available Mult[employer] min[employer] als 1TAB daily 08/12 completed Not Available [...] Updated DateTime 4 161.925 cm 23.4 kg/m2 68576.4 1 g 95 % 95 % 89 /min 104 mm[Hg] 66 mm[Hg] ELENI MADDOX MA [facility] 4 15:22:50 Social History None recorded. Functional Status None [...] preservative free, adsorbed 01/15/2018 completed Not Available [facility] 06/15/2023 06:16:36 Tdap 05/06/2008 completed Not Available [facility] 06:16:36 Td(adult) unspecified formulation 06/06/1999 completed Not Available [facility] 06/15/2023 06:16:36 Influenza, split virus, quadrivalent, PF 05/28/2015 completed Not Available [facility] 06/15/2023 06:16:36 Influenza, split virus, quadrivalent, preservative 05/06/2018 completed Not Available [facility] 06/15/2023 06:16:36 Influenza, split virus, quadrivalent, preservative 05/31/2017 completed Not Available [facility] 06/15/2023 06:16:36 zoster recombinant 05/06/2018 completed Not Available [facility] 06/15/2023 06:16:36 zoster recombinant 07/08/2018 completed Not Available [facility] 06/15/2023 06:16:37 COVID-19, mRNA, LNP-S, PF, 100 mcg/0.5mL dose or 50 mcg/0.25mL dose 06/02/2021 completed Not Available [facility] 06/15/20 06:16:37 SARS-COV-2 (COVID-19) vaccine, UNSPECIFIED 10/13/2020 completed Not Available [facility] 06/15/2023 06:16:37 Hep B, unspecified formulation 12/14/2001 completed Not Available [facility] 06/15/2023 06:16:37 Hep B, unspecified formulation 05/29/2001 completed Not Available [facility] 06/15/2023 06:16:37 Hep B, unspecified formulation 07/03/2001 completed Not Available [facility] 06/15/2023 06:16:37 influenza, unspecified formulation 05/06/2020 completed Not Available [facility] 06/15/2023 06:16:37 influenza, unspecified formulation 05/22/2016 completed Not Available [facility] 06/15/2023 06:16:37 influenza, unspecified formulation 05/23/2019 completed Not Available [facility] 06/15/2023 06:16:37 influenza, unspecified formulation 06/02/2021 completed Not Available [facility] 06/15/2023 06:16:37 Influenza, split virus, quadrivalent, PF 05/08/2023 completed Not Available [facility] 08/17/2023 05:33:20 Past Encounters Encounter ID Performer Location Encounter Start Date Encounter Closed Date Diagnosis/Indication Diagnosis SNOMED-CT Code Diagnosis ICD10 Code [id number] OUMAR ALICEA [facility] [address] [place] [address] 03/03/2024 15:17:58 03/03/2024 15:58:58 Muscle pain 14573240 M79.10 Screening mammography 24 634143 Z12.31 Health Concerns Section Related Observation LastModified by Organization Detai ls LastModified Time None Recorded Concern Status LastModified by Organization Details LastModified Time None Recorded Payers Encounter Date Sequence Insurance Name Policy Number Policy Robles Covered Member ID Robles Member ID Guarantor Name 03/03/2024 1 [place] [facility] [id number] Belem Macias [id number] Belem Refugio Macias Notes Date Note Type Note Provider Name and Address Organization Details Recorded Time 03/03/2024 text/html HPI Notes: cc Axillary and [...] in 6 months, has been following with [facility] Back pain has been ok OUMAR ALICEA [address], [place], [address], [place] - [facility], [facility]. 03/03/2024 16:11:34 OBGyn Episode No OBEpisode recorded.
--- OUTSIDE RECORDS SUMMARY | 2024-04-08 18:32 | XMS_ITS | Encounter Summary ---
Author Organization [facility] Address [address] [place] [address] Care Team Providers Care Fixture Builder Name Role Phone Fidencio Gonsalez Primary Care Provider [phone] Encounter Details Date Type Department Care Team (Late st Contact Info) Description 10/16/2022 Lab Requisition [facility] Pathology & Laboratory Medicine - [facility] [address] [place] [address] Fred Velázquez MD [address] [place] [id number] Encounter for other general examination Social History [...] Procedure Name Priority Date/Time Associated Diagnosis Comments SURGICAL PATHOLOGY Today 10/16/2022 8:43 EDT documented in this encounter Results * SURGICAL PATHOLOGY (10/16/2022 8:43 EDT) Note to Patient The following pathology results have been interpreted by your pathologist and may be available to you before your health provider has had the opportunity to review them. Please allow time for your provider to receive these results and explore management options, if applicable. 10/20/2022 13:00 EDT [facility] Final Diagnosis A. STOMACH, BIOPSY: - Hyperplastic / inflammatory polyp - Mild focal reactive inflammatory atypia - Negative for dysplasia 10/20/2022 13:00 [facility] Diagnosis Comment This case was seen in consultation with Dr. Flako Adams who concurs. 10/20/2022 13:00 [facility] Attestation By the signature below, the attending physician certifies that they have 1) personally conducted a gross and/or microscopic examination of the described specimen(s), and/or personally interpreted the results of laboratory testing of the described specimen(s), and 2) personally rendered or confirmed the above diagnosis. 10/20/2022 13:00 [facility] at 1300 Clinical History GERD, colon screening; gastric polyps, internal hemorrhoids 10/20/2022 13:00 [facility] Gross Description A. Received in formalin labelled with proper patient identification (initials B, J) and gastric polyp biopsy are 2 last tissue fragments (0.5 x 0.2 x 0.1 cm in aggregate). Entirely submitted in A1. CHAYITO LEVIN(ASCP) 10/17/2022 9:14 10/20/2022 13:00 [facility] Performing Lab [facility] 10/20/2022 13:00 [facility] Scanned Images 10/20/2022 13:00 [facility] Tissue SPECIMEN FROM STOMACH OBTAINED BY TOTAL GASTRECTOMY / Unknown 10/16/2022 8:43 EDT 10/17/2022 8:08 EDT Fred Velázquez MD PATHOLOGY ORDERA GENA [facility] [address] [place] [address] documented in this encounter Visit Diagnoses Diagnosis Encounter for other general examination documented in this encounter Care Teams Fixture Builder Relationship Specialty Start Date End Date Fidencio Gonsalez PA [address] [place] [address] PCP - General 11/01/10 documented as of this encounter
--- OUTSIDE RECORDS SUMMARY | 2024-04-08 18:32 | XMS_ITS | Encounter Summary ---
Author Organization [facility] Address [address] [place] [address] Care Team Providers Care Fiber Optic Splicer Name Role Phone Fidencio Gonsalez Primary Care Provider [phone] Encounter Details Date Type Department Care Team (Late st Contact Info) Description 01/15/2023 Lab Requisition [facility] Pathology & Laboratory Medicine - [facility] [address] [place] [address] Outr Resulting Lab, Provider Social History Tobacco [...] Procedure Name Priority Date/Time Associated Diagnosis Comments FECAL BACTERIAL PATHOGENS BY PCR Routine 01/15/2023 17:30 EDT OVA/PARASITE EXAM Routine 01/15/2023 17: 30 EDT documented in this encounter Results * OVA/PARASITE EXAM (01/15/2023 17:30 EDT) Parasite No ova and parasites seen. 01/17/2023 12:03 EDT [facility] Feces SPECIMEN FROM RECTUM / Unknown 01/15/2023 17:30 EDT 01/16/2023 22:39 EDT Narrative [facility] - 01/17/2023 12:03 EDT (If Cryptosporidium, Cyclospora, or Microsporidium are suspected, specific tests must be requested.) Single negative specimen does not rule out the possibility of a parasitic infection. Provider Outr Resulting Lab MICROBIOLOGY - GENERAL ORDERABLES Performing Organization Address [facility] Co de Phone Number [facility] [address] [place] [address] * FECAL BACTERIAL PATHOGENS BY PCR (01/15/2023 17:30 EDT) Salmonella PCR Negative Negative 01/17/2023 11:52 EDT [facility] Shigella/Enteroin vasive E. coli Negative Negative 01/17/2023 11:52 EDT [facility] HN LAB CAMPYLOBACTER PCR Negative Negative 01/17/2023 11:52 EDT [facility] Shiga Toxin PCR Negative Negative 11:52 EDT [facility] Feces SPECIMEN FROM RECTUM / Unknown 01/15/2023 17:30 EDT 01/16/2023 22:39 EDT Provider Outr Resulting Lab MICROBIOLOGY - GENERAL ORDERABLES Performing Organization Address [facility] de Phone Number [facility] [address] [place] [address] documented in this encounter Visit Diagnoses Not on filedocumented in this encounter Care Teams Fiber Optic Splicer Relationship Specialty Start Date End Date Fidencoi Gonsalez PA [address] [place] [id number] PCP - General 11/01/10 documented as of this encounter
--- OUTSIDE RECORDS SUMMARY | 2024-04-08 18:32 | XMS_ITS | Encounter Summary ---
Author Organization [facility] Address [address] [place] [address] Care Team Providers Care Overnight Houseperson Name Role Phone Unavailable Primary Care Provider Unavailabl e Encounter Details Date Type Department Care Team (Late st Contact Info) Description 12/25/2006 Results Only [facility] [address] [place] [address] Clinton Covington MD Social History Tobacco Use Types Packs/Day Years Used Date Smoking Tobacco: Never Assessed Sex and Gender Information Value Date Recorded Sex Assigned at Not on file Gender Identity Not on file Sexual Orientation Not on file documented as of this encounter Plan of Treatment Not on file documented as of this encounter Procedures Procedure Name Priority Date/Time Associated Diagnosis Comments HPV DETECTION, HIGH RISK TYPES Routine 12/25/2006 22:41 EDT documented in this encounter Results * HUMAN PAPILLOMA VIRUS DNA TEST (12/25/2006 22:41 EDT) Specimen Description Cervix, ThinPrep vial [facility] Result Negative for HPV types 16, 18, 31, 33, 35, 39, 45, 51, 52, 56, 58, 59, and 68. [facility] Report Status Final [id number] [facility] 12/25/2006 22:4 1 EDT 01/01/2007 22:41 EDT Clinton Covington MD MICROBIOLOGY - GENER AL ORDERABLES [facility] [address] [place] [address] documented in this encounter Visit Diagnoses Not on filedocumented in this encounter
--- OUTSIDE RECORDS SUMMARY | 2024-04-08 18:32 | XMS_ITS | Referral Summary ---
Author Organization [facility] Address [address] [place] [address] Care Team Providers Care Middleware Systems Architect Name Role Phone Fidencio Gonsalez Primary Care Provider [phone] Social History Tobacco Use Types Packs/Day Years Used Date Smoking Tobacco: Never Assessed Sex and Gender Information Value Date Recorded Sex Assigned at Not on file Gender Identity Not on file Sexual Orientation Not on file Plan of Treatment Not on file Care Teams Middleware Systems Architect Relationship Specialty Start Date End Date Fidencio Gonsalez PA [address] [place] [id number] PCP - General 11/01/10
--- OUTSIDE RECORDS SUMMARY | 2024-04-08 18:33 | XMS_ITS | Encounter Summary ---
[place] [address] Care Team Providers Care Conservation Worker Name Role Phone Sara Luke BRIGIDO Primary Care Provider [phone] Reason for Referral * Consultation (Urgent) - Closed Specialty Diagnoses / Procedures Referred By Contchadwick t Referred To Contact Neurology Diagnoses Brain bleed ? stroke team Chris Pike MD [address] [place] [address] [facility] [address] [place] [phone] Referral ID Status Reason Start Date Expiration Date V isits Requested Visits Authorized [id number] Closed Consult, Test & Treat PCP Updated and/or Approved 03/28/2022 03/28/2023 6 6 Encounter Details Date Type Department Care Team (Late st Contact Info) Description 03/28/2022 Transcribe Orders eDH Incoming Referrals [phone] Chris Pike MD [address] [place] [id number] Brain bleed Social History Tobacco Use Types Packs/Day Years Used Date Smoking Tobacco: Never Assessed Sex and Gender Information Value Date Recorded Sex Assigned at Not on file Gender Identity Not on file Sexual Orientation Not on file documented as of this encounter Plan of Treatment Scheduled Referrals Name Type Priority Associated Diagnoses Orde r Schedule Referral to Neurology Outpatient Referral STAT Brain bleed Ordered: 03/28/2022 documented as of this encounter Visit Diagnoses Diagnosis Brain bleed Intracerebral hemorrhage documented in this encounter Care Teams Conservation Worker Relationship Specialty Start Date End Date Sara Luke, BRIGIDO [address] [place] [id number] PCP - General Family Medicine 03/28/22 documented as of this encounter
--- OUTSIDE RECORDS SUMMARY | 2024-04-08 18:33 | XMS_ITS | Encounter Summary ---
Author Organization [facility] [place] [address] Care Team Providers Care Reel Hooker Name Role Phone Sara Luke APRN Primary Care Provider [phone] Encounter Details Date Type Department Care Team (Late st Contact Info) Description 09/07/2022 9:10 PM EST Ancillary [place] [phone] Sara Luke APRN [address] [place] [address] Social History Tobacco Use Types Packs/Day Years Used Date Smoking Tobacco: Never Smokeless Tobacco: Never Alcohol Use Standard Drinks/Week Comments Yes 0 (1 standard drink = 0.6 oz pur e alcohol) occassionally Sex and Gender Information Value Date Recorded Sex Assigned at Not on file Gender Identity Not on file Sexual Orientation Not on file documented as of this encounter Plan of Treatment Not on file documented as of this encounter Procedures Procedure Name Priority Date/Time Associated Diagnosis Comments FILM LIBRARY STORAGE ONLY CT SPINE Routine 09/07/2022 9:03 PM EST documented in this encounter Results * Film Library- Storage Only CT Spine (09/07/2022 9:03 PM EST) Narrative [facility] - 09/07/2022 9:03 PM EST This exam is auto-finalizing. It's purpose is for storage only. Sara Luke APRN IMG FILM LIBRARY O RDERABLES [facility] [place] documented in this encounter Visit Diagnoses Not on filedocumented in this encounter Care Teams Reel Hooker Relationship Specialty Start Date End Date Sara Luke, BRIGIDO [address] [place] [id number] PCP - General Family Medicine 03/28/22 documented as of this encounter
--- OUTSIDE RECORDS SUMMARY | 2024-04-08 18:33 | XMS_ITS | Encounter Summary ---
Author [facility] [place] [address] Care Team Providers Care Panel Cutter Name Role Phone Denis Hardy MD Primary Care Provider [phone] Encounter Details Date Type Department Care Team (Late st Contact Info) Description 03/27/2022 12:05 AM EDT Ancillary Procedure [place] [phone] Denis Hardy MD [address] [place] [id number] Social History Tobacco Use Types Packs/Day Years [...] Diagnosis Comments FILM LIBRARY STORAGE ONLY CT HEAD Routine 03/27/2022 12:05 AM EDT documented in this encounter Results * Film Library- Storage Only CT Head (03/27/2022 12:05 AM EDT) Narrative [facility] - 03/28/2022 11:31 AM EDT This exam is auto-finalizing. It's purpose is for storage only. Denis Hardy MD G FILM LIBRARY ORD ERABLES [place], [place] documented in this encounter Visit Diagnoses Not on filedocumented in this encounter Care Teams Panel Cutter Relationship Specialty Start Date End Date Denis Hardy MD [address] [place] [address] [place] [address] PCP - General 06/28/10 03/27/22 documented as of this encounter
--- OUTSIDE RECORDS SUMMARY | 2024-04-08 18:33 | XMS_ITS | Encounter Summary ---
Author Organization [facility] Address [facility] [place] [address] Care Team Providers Care Byproducts Pump Operator Name Role Phone Ti Sara Beck APRN Primary Care Provider [phone] Encounter Details Date Type Department Care Team (Late st Contact Info) Description 04/30/2023 Telephone Neurosurgery at [facility] [place] [phone] Skye Miranda DIRECTOR OF SPECIAL EVENTS [facility] [place] [address] Social History Tobacco Use Types Packs/Day Years [...] place to sleep or slept in a senior living (including now)? No 05/27/2023 Sex and Gender Information Value Date Recorded Sex Assigned at Not on file Gender Identity Not on file Sexual Orientation Not on file documented as of this encounter Miscellaneous Notes * Telephone Encounter - Beba Alfonso - 04/30/2023 9:08 AM EDT Called pt scheduled Televideo visit for 05/10 with Belem Agosto - 04/27/23 Skye Miranda APRN Sent: Sat April 28, 2023 8:56 AM To: P [facility] Neurosurgery Cloth Mercerizer Back Tender Message Can you please set up a new patient consult (telehealth would be best unless patient prefers other)with AM to discuss treatment of cerebellar AVM? Thanks! documented in this encounter Plan of Treatment Not on file documented as of this encounter Visit Diagnoses Not on filedocumented in this encounter Care Teams Byproducts Pump Operator Relationship Specialty Start Date End Date Sara Luke APRN [address] [place] [id number] PCP - General Family Medicine 03/28/22 documented as of this encounter
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
--- OUTSIDE RECORDS SUMMARY | 2024-04-08 18:33 | XMS_ITS | Encounter Summary ---
Author Organization [facility] Address [facility] [address] Care Team Providers Care Manager Audit Name Role Phone SaravananSara arellano Kiran FOFANA Primary Care Provider [phone]- [phone] Reason for Referral * Diagnostic Test (Routine) - Closed Specialty Diagnoses / Procedures Referred By Contac t Referred To Contact Radiology Diagnoses Arteriovenous malformation of brain Procedures MRI Angiogram Head wo Contrast (Generic) Jose Manuel Guerrier MD [facility] [place] [address] [facility] Rad Mri [address] [place] [address] Referral ID Status Reason Start Date Expiration Date V isits Requested Visits Authorized [id number] Closed Specialty Service Requested 05/28/2023 11/26/2024 1 1 Reason for Visit * Diagnostic Test (Routine) - Closed Specialty Diagnoses / Procedures Referred By Contac t Referred To Contact Radiology Diagnoses Arteriovenous malformation of brain Procedures MRI Angiogram Head wo Contrast (Generic) Jose Manuel Guerrier MD [facility] [place] [address] [facility] Rad Mri [address] [place] [address] Referral ID Status Reason Start Date Expiration Date V isits Requested Visits Authorized [id number] Closed Specialty Service Requested 05/28/2023 11/26/2024 1 1 Encounter Details Date Type Department Care Team (Latest Contact Info) Description 06/20/2023 12:42 PM EST - 06/20/2023 11:59 PM EST Hospital Encounter Radiology MRI at [facility] [address] Jose Manuel Guerrier MD [facility] [place] [address] Arteriovenous malformation of brain Discharge Disposition: Home [...] place to sleep or slept in a fpc (including now)? No 05/27/2023 Sex and Gender [...] 17 g by mouth daily as needed. [id number] triamcinolone acetonide 0.1% cream Apply topically as needed. Apply to affected area as directed by study team. UNABLE TO FIND Smart Greens chew propylene glycol/peg 400/PF (SYSTANE, PF, OPHT) Apply to eye daily. fluticasone propionate (Flonase) 50 mcg/actuation [place], Suspension by Each Nare route as needed. [...] Procedure Name Priority Date/Time Associated Diagnosis Comments MRI HEAD ANGIOGRAM WO CONTRAST Routine 06/20/2023 1:11 PM EST Arteriovenous malformation of brain documented in this encounter Results * MRI Angiogram Head wo Contrast (Generic) (06/20/2023 1:11 PM EST) Anatomical Region Laterality Modality Head Magnetic Resonan ce Impressions 06/21/2023 9:24 AM EST Subtle increased vascular density in the subarachnoid space along the superior surface of the cerebellar vermis, the site of arteriovenous shunting on catheter angiography. No intracerebral nidus is evident. Pial fistula should be considered as an alternative to the diagnosis of arteriovenous malformation. Thank you for letting us participate in the care of this patient. ??If you are a health care provider and have any questions regarding this report, please contact the number below. ??For patients who have questions please contact the health coronary care unit nurse that requested your imaging first. ? Narrative 06/21/2023 9:24 AM EST EXAMINATION: MRI ANGIOGRAM HEAD WO CONTRAST (GENERIC) CLINICAL HISTORY: AVM, cerebral; small cerebellar vermis AVM; for assistance with treatment planning for SRS small cerebellar vermis AVM; for assistance with treatment planning for SRS TECHNIQUE: MRA of the head performed without contrast. 3-D MIP reconstructions were created. COMPARISON: Cerebral angiogram of 04/27/2023. MRI of 05/26/2022 FINDINGS: There is subtle increased density of vascular structures about the site of the fistulous connection along the upper aspect of the cerebellum. No parenchymal nidus is identified on this MRA. There is no aneurysm or intracranial stenosis. Procedure Note Isaiah Orozco MD - 06/21/2023 EXAMINATION: MRI ANGIOGRAM HEAD WO CONTRAST (GENERIC) CLINICAL HISTORY: AVM, cerebral; small cerebellar vermis AVM; forassistance with treatment planning for SRS small cerebellar vermis AVM; for assistance with treatment planning forSRS TECHNIQUE: MRA of the head performed without contrast. 3-D MIP reconstructions were created. COMPARISON: Cerebral angiogram of 04/27/2023. MRI of 05/26/2022 FINDINGS: There is subtle increased density of vascular structures about the site ofthe fistulous connection along the upper aspect of the cerebellum. Noparenchymal nidus is identified on this MRA. There is no aneurysm or intracranialstenosis. IMPRESSION Subtle increased vascular density in the subarachnoid space along thesuperior surface of the cerebellar vermis, the site of arteriovenous shunting oncatheter angiography. No intracerebral nidus is evident. Pial fistula should be considered as an alternative to the diagnosis of arteriovenousmalformation. Thank you for letting us participate in the care of this patient. If youare a health care provider and have any questions regarding this report,please contact the number below. For patients who have questions please contactthe health coronary care unit nurse that requested your imaging first. 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
--- OUTSIDE RECORDS SUMMARY | 2024-04-08 18:33 | XMS_ITS | Encounter Summary ---
Author Organization Formerly [facility] [place] [address] Care Team Providers Care Neon Pumper Name Role Phone Sara Luke APRN Primary Care Provider +1- [phone] Encounter Details Date Type Department Care Team (Late st Contact Info) Description 03/29/2022 1:45 PM EDT Telehealth [place] [address] Telehealth, Neurology None Social History Tobacco Use Types Packs/Day Years Used Date Smoking Tobacco: Never Assessed Sex and Gender Information Value Date Recorded Sex Assigned at Not on file Gender Identity Not on file Sexual Orientation Not on file documented as of this encounter Plan of Treatment Not on file documented as of this encounter Visit Diagnoses Not on filedocumented in this encounter Care Teams Neon Pumper Relationship Specialty Start Date End Date Sara Luke APRN [address] [facility] [place] [address] PCP - General Family Medicine 03/28/22 documented as of this encounter
--- OUTSIDE RECORDS SUMMARY | 2024-04-08 18:33 | XMS_ITS | Encounter Summary ---
Author Organization [facility] [place] [address] Care Team Providers Care As400 Consultant Name Role Phone Sara Luke APRN Primary Care Provider +1- [phone] Encounter Details Date Type Department Care Team (Late st Contact Info) Description 09/04/2022 Ancillary Procedure [place] [address] Sara Luke APRN [address] [place] [address] Social History Tobacco Use Types Packs/Day Years [...] Associated Diagnosis Comments FILM LIBRARY STORAGE ONLY DX SPINE Routine 09/04/2022 12:00 AM EST documented in this encounter Results * Film Library- Storage Only DX Spine (09/04/2022 12:00 AM EST) Narrative [facility] - 09/11/2022 3:00 PM EST This exam is auto-finalizing. It's purpose is for storage only. Sara Luke APRN IMG FILM LIBRARY O RDERABLES [facility] [place] documented in this encounter Visit Diagnoses Not on filedocumented in this encounter Care Teams As400 Consultant Relationship Specialty Start Date End Date Sara Luke APRN [address] [place] [id number] PCP - General Family Medicine 03/28/22 documented as of this encounter
--- OUTSIDE RECORDS SUMMARY | 2024-04-08 18:33 | XMS_ITS | Encounter Summary ---
Author [facility] [place] [address] Care Team Providers Care E Commerce Strategist Name Role Phone Saravananadan Sara Kiarn FOFANA Primary Care Provider +1- [phone] Reason for Referral * Consultation (Routine) - Closed Specialty Diagnoses / Procedures Referred By Contac t Referred To Contact Radiation Oncology Diagnoses Arteriovenous malformation of brain Cheyenne Shaw MD [facility] [place] [address] Jose Manuel Guerrier MD [facility] [place] [address] Referral ID Status Reason Start Date Expiration Date V isits Requested Visits Authorized [id number] Closed Consult, Test & Treat 05/17/2023 05/16/2024 1 1 Encounter Details Date Type Department Care Team (Late st Contact Info) Description 05/10/2023 10:00 AM EDT TH Visit (TeleHealth) [place] [address] Cheyenne Shaw MD [facility] [place] [address] Arteriovenous malformation of brain Social History Tobacco [...] on file documented as of this encounter Progress Notes * Cheyenne Shaw MD - 05/10/2023 10:00 AM EDT Cerebrovascular & Neurosurgery Telehealth Note Patient Belem Macias 1960 DATE OF VISIT: 05/10/2023 MODALITY: Virtual RELEVANT HISTORY: Belem Macias is a 63 y.o. woman referred by Dr. Hartman for evaluation for AVM treatment, SRS versus surgical resection. She had a cerebellar hemorrhage in March 2022. She got a severe, acute onset headache driving home from [place]. She did not have any balance or coordination problems. She has recovered well from the hemorrhage. 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 The case was discussed at cerebrovascular case conference and SRS > surgical resection was recommended, final decision pending discussion with the patient today. PAST MEDICAL HISTORY: History reviewed. No pertinent past medical history. PAST SURGICAL HISTORY: Past Surgical History: Procedure Laterality Date IR ARTERIOGRAM CEREBRAL 04/27/2023 IR Arteriogram Cerebral 04/27/2023 Yung Hartman MD [facility] INTERVENTIONL RAD RELEVANT FINDINGS ON TELE-NEUROLOGIC EXAMINATION: Well-appearing, NAD Speech fluent without dysarthria or aphasia Asks and answers questions appropriately Face symmetric, moves symmetrically Moves all visible extremities without apparent deficit CURRENT MEDICATIONS: Sodium Fluoride-Pot Nitrate, buPROPion SR, cinnamon bark, cyclobenzaprine, ergocalciferol (vitamin D2), evening primrose oil, fluticasone propionate, garlic, omeprazole, polyethylene glycoL, turmeric, and vitamin B complex IMAGING & STUDIES PERSONALLY INTERPRETED: Cerebral angiogram 04/27/2023: as per HPI ASSESSMENT & PLAN: Problem List Items Addressed This Visit Arteriovenous malformation of brain The patient and I had a prolonged discussion during this visit regarding the management options forher diagnosed AVM, which I would grade as a Spetzler- Bennett Grade 1, 1 point(s) for size, 0 point for eloquence, and 0 point(s) for deep venous drainage. These lesions carry a rupture risk of 2-4% yearly. If the AVM ruptures, the risk of neurologic injury, which could be severe and permanent, or is significant. As with all AVMs, the options for management are 1) observation, 2) open surgical resection, or 3) stereotactic radiosurgery. Endovascular embolization can be used as an adjunct therapy for surgery or SRS, but has not been shown to treat these lesions when used alone. We discussed that observation is not recommended for lesions that have previously hemorrhaged, and that I recommend treatment. We discussed the options of SRS and surgical resection, the expected course of each and relative risks and benefits. She is an active person who would like to minimize recovery time, so SRS fits her goals best. I will refer her to radiation oncology for consultation. She has already h ad a 3D angiogram that we will use for SRS planning. The patient understands to contact neurosurgery or seek emergent help with any acute worsening of neurologic symptoms. PLAN SUMMARY: Radiation oncology referral for SRS to AVM I spent a total of 60 minutes in the care of this patient today including review of prior notes, review of prior images, interval history, physical exam as outlined above, personal review and independent interpretation of studies outlined above, patient counseling, documentation in the medical record, and coordination of care. -- 05/10/2023 10:14 AM Cheyenne Shaw MD Open cerebrovascular and endovascular neurosurgery attending Section of Neurosurgery Department of Surgery [facility] Please note that due to the virtual nature of the visit, no vital signs were obtained and physical examination is limited. 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
--- OUTSIDE RECORDS SUMMARY | 2024-04-08 18:33 | XMS_ITS | Encounter Summary ---
Author Organization [facility] [place] [address] Care Team Providers Care Machine Set Up Operator Name Role Phone Sara Luke APRN Primary Care Provider +1- [phone] Encounter Details Date Type Department Care Team (Late st Contact Info) Description 09/07/2022 Ancillary Procedure [place] [id number] Sara Luke APRN [address] [place] [address] Social History Tobacco Use Types Packs/Day Years [...] FILM LIBRARY STORAGE ONLY DX SPINE Routine 09/07/2022 12:00 AM EST documented in this encounter Results * Film Library- Storage Only DX Spine (09/07/2022 12:00 AM EST) Narrative [facility] - 09/11/2022 3:00 PM EST This exam is auto-finalizing. It's purpose is for storage only. Sara Luke APRN IMG FILM LIBRARY O RDERABLES [facility] RAD [place], [place] documented in this encounter Visit Diagnoses Not on filedocumented in this encounter Care Teams Machine Set Up Operator Relationship Specialty Start Date End Date Sara Luke APRN [address] [place] [id number] PCP - General Family Medicine 03/28/22 documented as of this encounter
--- OUTSIDE RECORDS SUMMARY | 2024-04-08 18:33 | XMS_ITS | Encounter Summary ---
Author Organization [place] [address] Care Team Providers Care Jewel Hole Cornerer Name Role Phone Sara Luke APRN Primary Care Provider +1- [phone] Encounter Details Date Type Department Care Team (Latest Contact Info) Description 04/27/2023 Travel Social History Tobacco Use Types Packs/Day [...] on filedocumented in this encounter Care Teams Jewel Hole Cornerer Relationship Specialty Start Date End Date Sara Luke APRN [address] [facility] [place] [address] PCP - General Family Medicine 03/28/22 documented as of this encounter
--- OUTSIDE RECORDS SUMMARY | 2024-04-08 18:33 | XMS_ITS | Encounter Summary ---
Author Organization [facility] [place] [address] Care Team Providers Care Medical Liaison Name Role Phone Sara Luke APRN Primary Care Provider +1- [phone] Encounter Details Date Type Department Care Team (Late st Contact Info) Description 03/29/2022 9:15 AM EDT Ancillary Procedure [place] [address] Sara uLke APRN [address] [place] [address] Social History Tobacco Use Types Packs/Day Years [...] FILM LIBRARY STORAGE ONLY CT HEAD Routine 03/29/2022 9:10 AM EDT documented in this encounter Results * Film Library- Storage Only CT Head (03/29/2022 9:10 AM EDT) Narrative [facility] - 03/29/2022 9:10 AM EDT This exam is auto-finalizing. It's purpose is for storage only. Sara Luke PEARL RESTORER IMG FILM LIBRARY O RDERABLES [place], [place] documented in this encounter Visit Diagnoses Not on filedocumented in this encounter Care Teams Medical Liaison Relationship Specialty Start Date End Date Sara Luke APRN [address] [place] [address] PCP - General Family Medicine 03/28/22 documented as of this encounter
--- OUTSIDE RECORDS SUMMARY | 2024-04-08 18:33 | XMS_ITS | Encounter Summary ---
Author Organization [facility] [place] [address] Care Team Providers Care Truck Manager Name Role Phone Ti Sara Beck APRN Primary Care Provider +1- [phone] Reason for Visit * Reason Onset Date Comments Referral 11/16/2022 Encounter Details Date Type Department Care Team (Late st Contact Info) Description 11/16/2022 Telephone Neurosurgery at [facility] [place] [phone] Adrian Duckworth WEIGHER ALLOY [facility] [place] [address] Referral Social History Tobacco Use Types Packs/Day Years [...] encounter Miscellaneous Notes * Telephone Encounter - Judy Fernandez - 11/16/2022 3:33 PM EDT Sent PT referral to [facility] through eD Closing encounter * Telephone Encounter - Don Donis - 11/16/2022 3:19 PM EDT Patient returned call. Patient provided new facility contact information. [facility] Physical Therapy * Telephone Encounter - Beba Alfonso - 11/16/2022 8:40 AM EDT LMOM for patient asking where she would like her Physical Therapy referral faxed to then Fax referral and most recent office note. [facility] are no [facility] offering [facility] they had to close this service down on 10/04. Belem Azar - 11/15/22 Adrian Duckworth APRN Sent: SunNovember 15, 2022 ??2:50 PM To: P [facility] Neurosurgery Room Manager ?? Message [facility] [place], [place] documented in this encounter Plan of Treatment Not on file documented as of this encounter Visit Diagnoses Not on filedocumented in this encounter Care Teams Truck Manager Relationship Specialty Start Date End Date Sara Luke, WEIGHER ALLOY [address] [place] [address] PCP - General Family Medicine 03/28/22 documented as of this encounter
--- OUTSIDE RECORDS SUMMARY | 2024-04-08 18:33 | XMS_ITS | Encounter Summary ---
Author Organization [facility] [place] [address] Care Team Providers Care College Hire Name Role Phone Sara Luke APRN Primary Care Provider +1- [phone] Encounter Details Date Type Department Care Team (Late st Contact Info) Description 03/28/2022 11:35 AM EDT Ancillary Procedure [place] [address] Denis Hardy MD [address] [place] [address] Social History Tobacco Use Types Packs/Day Years [...] FILM LIBRARY STORAGE ONLY CT HEAD Routine 03/28/2022 11:30 AM EDT documented in this encounter Results * Film Library- Storage Only CT Head (03/28/2022 11:30 AM EDT) Narrative [facility] - 03/28/2022 11:30 AM EDT This exam is auto-finalizing. It's purpose is for storage only. Denis Hardy MD G FILM LIBRARY ORD ERABLES [place], [place] documented in this encounter Visit Diagnoses Not on filedocumented in this encounter Care Teams College Hire Relationship Specialty Start Date End Date Sara Luke APRN [address] [place] [address] PCP - General Family Medicine 03/28/22 documented as of this encounter
--- OUTSIDE RECORDS SUMMARY | 2024-04-08 18:33 | XMS_ITS | Encounter Summary ---
Author Organization [facility] [place] [address] Care Team Providers Care Funeral Home Makeup Artist Name Role Phone Sara Luke APRN Primary Care Provider +1- [phone] Encounter Details Date Type Department Care Team (Late st Contact Info) Description 09/08/2022 Ancillary Procedure [place] [phone] Sara Luke APRN [address] [place] [address] Social History Tobacco Use Types Packs/Day Years [...] Associated Diagnosis Comments FILM LIBRARY STORAGE ONLY MR SPINE Routine 09/08/2022 12:00 AM EST documented in this encounter Results * Film Library- Storage Only MR Spine (09/08/2022 12:00 AM EST) Narrative [facility] - 09/11/2022 2:59 PM EST This exam is auto-finalizing. It's purpose is for storage only. Sara Luke APRN IMG FILM LIBRARY O RDERABLES DH RAD [place], [place] documented in this encounter Visit Diagnoses Not on filedocumented in this encounter Care Teams Funeral Home Makeup Artist Relationship Specialty Start Date End Date Sara Luke APRN [address] [place] [phone] PCP - General Family Medicine 03/28/22 documented as of this encounter
--- OUTSIDE RECORDS SUMMARY | 2024-04-08 18:33 | XMS_ITS | Encounter Summary ---
Author Organization [facility] Address [facility] [place] [address] Care Team Providers Care Recruiting Operations Consultant Name Role Phone Sara Luke APRN Primary Care Provider +1- [phone] Encounter Details Date Type Department Care Team (Late st Contact Info) Description 05/26/2022 Ancillary Procedure [place] [address] Grisel Evans MD [facility] [place] [address] Social History Tobacco Use Types Packs/Day Years [...] Diagnosis Comments FILM LIBRARY STORAGE ONLY MR HEAD Routine 05/26/2022 12:00 AM EDT documented in this encounter Results * Film Library- Storage Only MR Head (05/26/2022 12:00 AM EDT) Narrative [facility] - 05/30/2022 7:14 AM EDT This exam is auto-finalizing. It's purpose is for storage only. Grisel Evans MD IMG FILM LIBRARY O RDERABLES [place], [place] documented in this encounter Visit Diagnoses Not on filedocumented in this encounter Care Teams Recruiting Operations Consultant Relationship Specialty Start Date End Date Sara Luke APRN [address] [place] [address] PCP - General Family Medicine 03/28/22 documented as of this encounter
--- OUTSIDE RECORDS SUMMARY | 2024-04-08 18:33 | XMS_ITS | Encounter Summary ---
Author Organization [facility] Address [facility] [place] [address] Care Team Providers Care Tray Delivery Aide Name Role Phone SaravananSara arellano BRIGIDO Primary Care Provider +1- [phone] Encounter Details Date Type Department Care Team (Latest Contact Info) Description 06/20/2023 Travel Social History Tobacco Use Types Packs/Day [...] place to sleep or slept in a detention (including now)? No 05/27/2023 Sex and Gender Information Value Date Recorded Sex Assigned at Not on file Gender Identity Not on file Sexual Orientation Not on file documented as of this encounter Plan of Treatment Not on file documented as of this encounter Visit Diagnoses Not on filedocumented in this encounter Care Teams Tray Delivery Aide Relationship Specialty Start Date End Date Sara Luke APRN [address] [place] [address] PCP - General Family Medicine 03/28/22 documented as of this encounter
--- OUTSIDE RECORDS SUMMARY | 2024-04-08 18:33 | XMS_ITS | Encounter Summary ---
Author Organization [facility] Address [facility] [place] [address] Care Team Providers Care Correction Worker Name Role Phone Saravananadan Sarajodie Beck APRN Primary Care Provider +1- [phone] Encounter Details Date Type Department Care Team (Latest Contact Info) Description 06/20/2023 11:00 AM EST Ancillary Procedure [place] [address] Jose Manuel Guerrier MD [facility] [address] Arteriovenous malformation of precerebral vessels Social History Tobacco Use Types Packs/Day Years [...] as of this encounter Plan of Treatment Pending Results Name Type Priority Associated Diagnoses Date /Time Film Library Radiation Oncology Studies Imaging Storage Only Routine Arteriovenous malformation of precerebral vessels 06/20/2023 11:44 AM EST documented as of this encounter Visit Diagnoses Diagnosis 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 documented in this encounter Administered Medications Inactive Administered Medications - up to 3 most recent administrations Medication Order MAR Action Action Date Dose Rate Site iohexoL (Omnipaque) (300 mg/mL) solution 100 mL 100 mL, Intravenous, ONCE PRN, 1 dose, Starting on Sun06/20/23 at 1100, Until Sun06/20/23 at 1131, Per Protocol, Warning Vesicant/Irritant Medication , Routine Given 06/20/2023 11:31 AM EST 100 mLs Left Arm documented in this encounter Care Teams Correction Worker Relationship Specialty Start Date End Date Sara Luke APRN [address] [place] [id number] PCP - General Family Medicine 03/28/22 documented as of this encounter
--- OUTSIDE RECORDS SUMMARY | 2024-04-08 18:33 | XMS_ITS | Encounter Summary ---
Author Organization [facility] [place] [address] Care Team Providers Care Manager Gyn Name Role Phone SaravananSara arellano BRIGIDO Primary Care Provider +1- [phone] Encounter Details Date Type Department Care Team (Late st Contact Info) Description 04/17/2023 Notes Only Neurosurgery at [facility] [place] [address] Skye Miranda APRN [place] [address] Social History Tobacco Use Types Packs/Day Years Used Date Smoking Tobacco: Never Smokeless Tobacco: Never Alcohol Use Standard Drinks/Week Comments Yes 0 (1 standard drink = 0.6 oz pur e alcohol) occassionally Sex and Gender Information Value Date Recorded Sex Assigned at Not on file Gender Identity Not on file Sexual Orientation Not on file documented as of this encounter Progress Notes * Skye Miranda APRN - 04/17/2023 9:10 AM EDT NEURORADIOLOGY BRIEF PRE-PROCEDURE NOTE Name: Belem Macias Date of : 1960 Referring provider: Skye Miranda APRN Indication: Idiopathic cerebellar intraparenchymal hemorrhage Planned Procedure: diagnostic cerebral angiogram, Dr. Shaw Chief Complaint/HPI: Belem Macias is a 63 y.o. female Allergies: Allergies Allergen Reactions Amoxicillin Other reaction(s): swelling of face, tongue swollen Bactrim [Sulfamethoxazole-Trimethoprim] Penicillins Sulfa (Sulfonamide Antibiotics) Other reaction(s): pt doesn't remember Medications: Current Outpatient Medications: fluticasone propionate (Flonase) 50 mcg/actuation [place], Suspension, by Each Nare route as needed.,Disp: , Rfl: cinnamon bark 500 mg Capsule, Take 1,000 mg by mouth daily., Disp: , Rfl: cyclobenzaprine (Flexeril) 5 mg Tablet, Take 5 mg by mouth daily., Disp: , Rfl: EVENING PRIMROSE OIL ORAL, Take by mouth 2 times daily., Disp: , Rfl: polyethylene glycoL (Miralax) 17 gram oral powder packet, Take 17 g by mouth daily., Disp: , Rfl: TURMERIC ORAL, Take 1 tablet by mouth daily., Disp: , Rfl: ergocalciferol, vitamin D2, (VITAMIN D ORAL), Take 1 tablet by mouth daily., Disp: , Rfl: GARLIC ORAL, Take [...] 30 SECONDS THEN EXPECTORATE, Disp: , Rfl: Labs: No results found for: PLATELET, CREATININE Imaging: in edh Assessment: 63 y.o. female with the above history. No contraindications to procedure. Labs to be performed day of procedure: platelets Medications to discontinue: none Position: supine Sedation: moderate Additional medications for procedure: Lidocaine 1% Consent: day of procedure Skye Miranda APRN 04/17/2023 9:11 AM documented in this encounter Plan of Treatment Not on file documented as of this encounter Results * (ABNORMAL) Platelet count (04/27/2023 8:04 AM EDT) Platelet 469(H) 145 - 357 x10(3)/mc L [facility] Immature Plt % 1.7 0.0 - 7.4 % [facility] Comment: Limitation of the Immature Platelet Fraction (IPF)-May be less reliable when the platelet count is less than 80c538/uL due to statistical imprecision. The IPF value provides an assessment of the Bone Marrow production status. ??It is useful in differentiating Thrombocytopenia caused by platelet destruction/consumption versus decreased production. It also helps to determine the imminent release of platelets and can be therefore a helpful parameter in Chemotherapy and Bone marrow transplant patients. ELEVATED IPF value: ?? When the bone marrow is in a state of over production such as when increased destruction and consumption are the underlying issue. ?? When the marrow is recovering post chemotherapy or bone marrow transplant. LOW to NORMAL IPF value: ?? When the bone marrow in not responding and is in a decreased state of production. References: [employer] The Clinical Value of the Immature Platelet Fraction (IPF) in Cell Recovery Document Number [id number] 01/2011 [employer] The Role of the Immature Platelet Fraction (IPF) in the Differential Diagnosis of Thrombocytopenia, Document [id number] V05/07/19 P05/14 Blood 04/27/2023 8:04 AM EDT 04/27/2023 8:44 AM EDT Narrative Resulting Agency Comment Spec In Lab Skye Miranda RAIL SPECIALIST HEMATOLOGY ORDERABLE S Performing Organization Address City/State/[facility] Co de Phone Number [facility] [place] [address] documented in this encounter Visit Diagnoses Diagnosis Intracranial bleed Unspecified intracranial hemorrhage documented in this encounter Care Teams Manager Gyn Relationship Specialty Start Date End Date Sara Luke APRN [address] [place] [address] PCP - General Family Medicine 03/28/22 documented as of this encounter
--- OUTSIDE RECORDS SUMMARY | 2024-04-08 18:33 | XMS_ITS | Encounter Summary ---
[place] [address] Care Team Providers Care Flat Knitter Helper Name Role Phone Sara Luke APRN Primary Care Provider [phone]- [phone] Reason for Referral * Diagnostic Test (Routine) - Closed Specialty Diagnoses / Procedures Referred By Contac t Referred To Contact Radiology Diagnoses Intracranial bleed Procedures IR Arteriogram Cerebral Skye Miranda [facility] [place] [address] [place] [address] Referral ID Status Reason Start Date Expiration Date V isits Requested Visits Authorized [id number] Closed Specialty Service Requested 01/24/2023 07/26/2024 1 1 Reason for Visit * Diagnostic Test (Routine) - Closed Specialty Diagnoses / Procedures Referred By Contac t Referred To Contact Radiology Diagnoses Intracranial bleed Procedures IR Arteriogram Cerebral Skye Miranda [facility] [place] [address] [place] [address] Referral ID Status Reason Start Date Expiration Date V isits Requested Visits Authorized [id number] Closed Specialty Service Requested 01/24/2023 07/26/2024 1 1 Encounter Details Date Type Department Care Team (Latest Contact Info) Description 04/27/2023 8:12 AM EDT - 04/27/2023 11:59 PM EDT Hospital Encounter Radiology at [facility], [place] [address] Skye Miranda APRN [facility] [place] [address] Intracranial bleed Discharge Disposition: Home Social History Tobacco Use [...] Sign Reading Time Taken Comments Blood Pressure 115/62 04/27/2023 1:45 PM EDT Pulse 73 04/27/2023 10:50 AM EDT Temperature 36.2 ??C (97.2 ??F) 04/27/2023 11:06 AM E DT Respiratory Rate 18 04/27/2023 1:45 PM EDT Oxygen Saturation 99% 04/27/2023 1:45 PM EDT Inhaled Oxygen Concentration - - Weight - - Height - - Body Mass Index - - documented in this encounter Discharge Instructions * Discharge Instructions* Eric Salguero LPN - 04/27/2023 9:54 AM EDT Radial Artery Instructions Procedure: Cerbral angiogram Puncture Site: right radial Date: @DATE@ 1. At home we advise you to rest quietly in bed or on the couch until the next morning. You may getup and walk around but keep your activity to a minimum. DO NOT USE WRIST OF AFFECTED SIDE TO PUSH YOURSELF UP IN BED OR CHAIR TO SHIFT POSITION FOR 12 HOURS POST PROCEDURE. 2. Resume your previous diet. Drink 6-8 ounces of fluid per hour for the next 8 hours. Avoid alcoholic or caffeinated beverages for 24 hours. If you are a diabetic and take Metformin or Janumet or the combination med's that include Metformin, DO NOT take for 2 days after the procedure. 3. Avoid strenuous activity for the next 48 hours, particularly in the next 24 hours. Do not lift anything for the next 48 hours or engage in any sports activity for 48 hours. You may engage in sexual activity after 48 hours. Problems to watch for: 1. If you develop bleeding at the puncture site, put direct pressure on the site for 15 minutes andcall your doctor. Call for help. If the bleeding persists, reapply firm pressure, call 911 for an ambulance and go to your local Emergency Department. 2. If you notice a sudden change in the feeling (numbness, tingling and/or pain) of your hand on the side of the puncture call your doctor. 3. You may develop a bruise and swelling at the catheter insertion site. If you develop a bulge, you may have bleeding inside. Contact your doctor or the Radiology/Vascular Department here. Report signs of infection (redness, swelling, discharge, soreness, or fever) to your doctor. 4. Leave the bandage on for 24-48 hours. A little spot of blood at the catheter insertion site is normal. A small lump or bruise under the skin is normal. They generally disappear in 3-4 days. You may shower the following day after the procedure. You should NOT swim or tub bathe for 48 hours. 5. Expect some mild tenderness over the catheter insertion area. You will notice this after the local anesthetic wears off. This should improve during the 24-48 hours after the procedure. Take tylenol if needed. Contact your doctor is the discomfort worsens. 6. Watch for signs for infection at the catheter site for the first few days at home. Signs include: Redness, swelling with increased soreness, yellow, green or brown fowl smelling drainage. If you think you may have these symptoms, take your temperature, then call your doctor. 7. You have received medication during your procedure to help lessen anxiety and keep you comfortable and which affects judgement and reaction time. We recommend that you do not drive, operate equipment, sign any important documents, or smoke unattended for 24 hours following your procedure. Because of the sedation please be careful on stairs, as you may be unsteady on your feet. You may return to work with the above restrictions on . The limb where the catheter was inserted should look and feel normal in color, sensation, and temperature. If your arm/hand becomes cool, pale, blue or changing color with numbess and tingling, CALL YOUR DOCTOR. If you have any questions or concerns, please call Interventional Radiology Department at until 6pm. After 6pm, or on weekends or hoildays, clint and ask for the Radiologyresident retention manager. OR Peripheral IV site -- slight redness, or tenderness is normal, you can use a warm compress. If tenderness and redness increases or foul drainage occurs, please contact your M. D. Revised 05/22/19 documented in this encounter Medications at Time of Discharge Medication Sig Dispensed Refills Start Date End Date fluticasone propionate (Flonase) 50 mcg/actuation [place], Suspension by Each Nare route as needed. [...] SWISH FOR 30 SECONDS THEN EXPECTORATE 01/20/2022 cinnamon bark 500 mg Capsule Take 1,000 mg by mouth daily. 09/06/2022 05/17/2023 cyclobenzaprine (Flexeril) 5 mg Tablet Take 5 mg by mouth daily. 09/15/2022 05/17/2023 polyethylene glycoL (Miralax) 17 gram oral powder packet Take 17 g by mouth daily. 05/17/2023 documented as of this encounter Progress Notes * Zac Tobar RN - 04/27/2023 9:21 AM EDT ANGIO NURSING DATABASE Name: Belem Macias Date of : 1960 AGE: 63 y.o. Address: [address] [address] (home) Mobile: Telephone Information: Referring Provider: Skye Miranda REASON FOR VISIT: Order Questions Answers Where will study be performed? [facility] Radiology [120] Is the patient on anticoagulant / antiplatelet therapy ? No Reason for exam and clinical history: intracranial hemorrhage, unknown cause, delayed angiogram to evaluate further Exam/Procedure requested: diagnostic cerebral angiogram, Dr. Hartman Does patient require sedation? IV Please ensure a History and Physical exam is completed within 30 days of the Radiology Procedure OK Labs to be performed day of procedure: Platelet count Medications to discontinue: none Position: supine Sedation: moderate Additional medications for procedure: Lidocaine 1%, radial access Consent: day of procedure Allergies Allergen Reactions Amoxicillin Other reaction(s): swelling of face, tongue swollen Bactrim [Sulfamethoxazole-Trimethoprim] Penicillins Sulfa (Sulfonamide Antibiotics) Other reaction(s): pt doesn't remember Pertinent PMH: Patient Active Problem List Diagnosis Code History of depression Z86.59 Intracranial bleed I62.9 0920 to procedure room IR 1 via stretcher. Onto table Supine. All monitors, O2, safety strap in place. Meds per protocol. Date/Procedure Meds Given/Comments 919 Cerebral Angiogram --Right Radial TR band 11 mls air local, 1 mg Versed, 50 mcg Fentanyl, Heparin 3000units, nitroglycerin 200mcg, verapamil 2.5mg, Zofran 4mg documented in this encounter H&P Notes * Skye Miranda APRN - 04/26/2023 5:08 PM EDT NEURORADIOLOGY BRIEF PRE-PROCEDURE NOTE Name: Belem Macias Date of : 1960 Indication: Idiopathic intracranial hemorrhage Planned Procedure: diagnostic cerebral angiogram Chief Complaint/HPI: Belem Macias is a 63 y.o. female Current Outpatient Medications: fluticasone propionate (Flonase) 50 mcg/actuation [place], Suspension, by Each Nare route as needed.,Disp: [...] 30 SECONDS THEN EXPECTORATE, Disp: , Rfl: Allergies Allergen Reactions Amoxicillin Other reaction(s): swelling of face, tongue swollen Bactrim [Sulfamethoxazole-Trimethoprim] Penicillins Sulfa (Sulfonamide Antibiotics) Other reaction(s): pt doesn't remember Physical Exam: A&Ox3, in NAD. HR reg, s1/s2 RR reg, nonlabored, symmetric chest expansion, lungs CTA. BS active x4, soft, nondistended Fluent speech Face symmetric, tongue midline EOMs full Finger to nose smooth and accurate UE/LE strength full No pronator drift Light touch sensation intact ASA/Mallampati: ASA II, Mallampati II Labs: Platelets Date Value Ref Range Status 04/27/2023 469 (H) 145 - 357 x10(3)/mcL Final Assessment: 63 y.o. female with the above history. No contraindications to procedure. Position: supine Prophylaxis: n/a Pathology: n/a Sedation: moderate Additional medications for procedure: radial access Consent: day of procedure Skye Miranda APRN 04/26/2023 5:09 PM documented in this encounter Miscellaneous Notes * Brief Op Note - Yung Hartman MD - 04/27/2023 10:58 AM EDT INTERVENTIONAL RADIOLOGY BRIEF PROCEDURE NOTE Patient Name: Belem Macias : 1960 Case Date: 04/27/2023 Operators: Attending: Yung Hartman MD All Staff: Staff Role Yung Hartman MD Attending Zac Tobar housekeeper hospital Nurse Jaswant Miner, housekeeper hospital Nurse Mary Ann Martell Driver Engineer Post-operative diagnosis/Indication: Intracranial bleed Name of Procedure Performed: Cerebral angiogram Description of the procedure: Right radial access (5fr) Angiography of L ICA, L ECA, R ICA, R ECA, R vertebral artery Findings of the procedure: Small superior cerebellar AVM EBL: <10 mL Specimens: None Complications: No immediate Plan/Disposition: Angio recovery per protocol. 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 Thank you for letting us participate in the care of this patient. ??If you are a health care provider and have any questions regarding this report, please contact the number below. ??For patients who have questions please contact the health career coach that requested your imaging first. ? Narrative 04/27/2023 1:27 PM EDT EXAMINATION: IR ARTERIOGRAM CEREBRAL CLINICAL HISTORY: intracranial hemorrhage, unknown cause, delayed angiogram to evaluate further; Exam/Procedure requested: diagnostic cerebral angiogram, Dr. Hartman OPERATORS: Dr. Yung Hartman. I, Yung Hartman, was present for the entire procedure. PROCEDURE: 1. Cerebral angiogram. ANESTHESIA: Moderate sedation provided with split doses of Versed and fentanyl administered during continuous monitoring of patient vital signs by angiography nursing. I was present during the intraservice time as documented by the IR Nurse. EBL: <20 ml CONTRAST: Approximately 65 mL Visipaque-320. RADIATION EXPOSURE: A-plane 150 mGy; B plane 62 mGy. MATERIALS: 5 [place] glide sheath slender, Krishna 2 5 [place] glide catheter, 0.035 inch Glidewire. TECHNIQUE: The patient was brought to the angiography suite. The right wrist was sterilely prepped and draped. With ultrasound guidance, the right radial artery was accessed and the 5 [place] glide sheath placed, and double flushed. Spasmolytic cocktail containing 2.5 mg verapamil, and 200 mcg nitroglycerin, and 3000 units of heparin was hemodiluted and slowly injected. Roadmap angiogram of the brachial bifurcation was performed. The Krishna 2 glide catheter was positioned in the lateral subclavian artery, double flushed, and connected to continuous heparinized saline fusion. Catheter tip was directed to the descending aorta using the Glidewire, and Krishna shape formed in the arch. The left common carotid artery, left internal carotid artery, left external carotid artery, right common carotid artery, right internal carotid artery, right external carotid artery, and right vertebral artery were selected and biplane angiogram performed. Sheath was removed with TR band applied for hemostasis. FINDINGS: LEFT COMMON CAROTID ARTERY ROADMAP INJECTION: Visualized common carotid, carotid bifurcation, and cervical ICA are normal in caliber. LEFT INTERNAL CAROTID ARTERY INJECTION: Intracranial internal carotid artery is normal in caliber. MCA, MATEUS, and branches are normal. No evidence of aneurysm or vascular malformation. LEFT EXTERNAL CAROTID ARTERY INJECTION: External carotid artery branches are normal. No evidence of fistula or vascular malformation. RIGHT ??COMMON CAROTID ARTERY ROADMAP INJECTION: Visualized common carotid, carotid bifurcation, and cervical ICA are normal in caliber. RIGHT INTERNAL CAROTID ARTERY INJECTION: Intracranial internal carotid artery is normal in caliber. MCA, MATEUS, and branches are normal. No evidence of aneurysm or vascular malformation. RIGHT EXTERNAL CAROTID ARTERY INJECTION: External carotid artery branches are normal. No evidence of fistula or vascular malformation. RIGHT VERTEBRAL ARTERY INJECTION: There is an approximately 9 mm tangle of abnormal vessels in the region of the posterior superior cerebellum supplied primarily via superior cerebellar artery branches. Transient is superficial and extends ventricular and right transverse sinus. There is no nodule or feeding vessel aneurysm identified. Procedure Note Yung Hartman MD - 04/27/2023 EXAMINATION: IR ARTERIOGRAM CEREBRAL CLINICAL HISTORY: intracranial hemorrhage, unknown cause, delayedangiogram to evaluate further; Exam/Procedure requested: diagnostic cerebral angiogram,Dr. Hartman OPERATORS: Dr. Yung Hartman. I, Yung Hartman, was present for theentire procedure. PROCEDURE: 1. Cerebral angiogram. ANESTHESIA: Moderate sedation provided with split doses of Versed andfentanyl administered during continuous monitoring of patient vital signs byangiography nursing. I was present during the intraservice time as documented by theIR Nurse. EBL: <20 ml CONTRAST: Approximately 65 mL Visipaque-320. RADIATION EXPOSURE: A-plane 150 mGy; B plane 62 mGy. MATERIALS: 5 [place] glide sheath slender, Krishna 2 5 [place] glidecatheter, 0.035 inch Glidewire. TECHNIQUE: The patient was brought to the angiography suite. The rightwrist was sterilely prepped and draped. With ultrasound guidance, the right radialartery was accessed and the 5 [place] glide sheath placed, and double flushed. Spasmolytic cocktail containing 2.5 mg verapamil, and 200 mcgnitroglycerin, and 3000 units of heparin was hemodiluted and slowly injected. Roadmapangiogram of the brachial bifurcation was performed. The Krishna 2 glide catheter was positioned in the lateral subclavian artery, double flushed, and connectedto continuous heparinized saline fusion. Catheter tip was directed to the descending aorta using the Glidewire, and Krishna shape formed in thearch. The left common carotid artery, left internal carotid artery, left externalcarotid artery, right common carotid artery, right internal carotid artery,right external carotid artery, and right vertebral artery were selected andbiplane angiogram performed. Sheath was removed with TR band applied forhemostasis. FINDINGS: LEFT COMMON CAROTID ARTERY ROADMAP INJECTION: Visualized common carotid,carotid bifurcation, and cervical ICA are normal in caliber. LEFT INTERNAL CAROTID ARTERY INJECTION: Intracranial internal carotidartery is normal in caliber. MCA, MATEUS, and branches are normal. No evidence ofaneurysm or vascular malformation. LEFT EXTERNAL CAROTID ARTERY INJECTION: External carotid artery branchesare normal. No evidence of fistula or vascular malformation. RIGHT COMMON CAROTID ARTERY ROADMAP INJECTION: Visualized commoncarotid, carotid bifurcation, and cervical ICA are normal in caliber. RIGHT INTERNAL CAROTID ARTERY INJECTION: Intracranial internal carotidartery is normal in caliber. MCA, MATEUS, and branches are normal. No evidence ofaneurysm or vascular malformation. RIGHT EXTERNAL CAROTID ARTERY INJECTION: External carotid artery branchesare normal. No evidence of fistula or vascular malformation. RIGHT VERTEBRAL ARTERY INJECTION: There is an approximately 9 mm tangleof abnormal vessels in the region of the posterior superior cerebellumsupplied primarily via superior cerebellar artery branches. Transient issuperficial and extends ventricular and right transverse sinus. There is no nodule orfeeding vessel aneurysm identified. 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 Thank you for letting us participate in the care of this patient. If youare a health care provider and have any questions regarding this report,please contact the number below. For patients who have questions please contactthe health career coach that requested your imaging first. Skye Miranda AQUACULTURE DIRECTOR IMG IR ORDERABLES documented in this encounter Visit Diagnoses Diagnosis Intracranial bleed Unspecified intracranial hemorrhage documented in this encounter Administered Medications Inactive Administered Medications - up to 3 most recent administrations Medication Order MAR Action Action Date Dose Rate Site fentaNYL (pf) (50 mcg/mL) multi-dose injection 25-50 mcg 25-50 mcg, Intravenous, EVERY 3 MIN PRN, Starting on Sun04/27/23 at 0835, Until Sun04/27/23 at 1400, Pain, per unit protocol, For use in Interventional Radiology (IR) only for procedural sedation with direct provider supervision and verbal order. - Start dose: 50 mcg (reduce dose to 25 mcg if history of sedation sensitivity). - Titration dose: 25-50 mcg IV, (based on patient response) every 3 minutes PRN to maintain procedural pain less than 2 per Pain Scale. Maximum dose: 50 mcg/dose, 250 mcg/hour, Angio/IR (Intra-Procedure), Routine Given 04/27/2023 9:59 AM EDT 25 mcg Given 04/27/2023 9:29 AM EDT 25 mcg heparin (porcine) (1,000 units/mL) injection 3,000 Units 3,000 Units, Intra-arterial, ONCE, 1 dose, On Sun04/27/23 at 0900, For radial artery access. For use in Interventional Radiology (IR) only for procedure with direct provider supervision and verbal order., Angio/IR (Intra-Procedure), Routine Given 04/27/2023 9:00 AM EDT 3,000 Units midazolam (pf) (Versed) (1 mg/mL) multi-dose injection 0.5-1 mg 0.5-1 mg, Intravenous, EVERY 3 MIN PRN, Starting on Sun04/27/23 at 0835, Until Sun04/27/23 at 1400, Sedation, For use in Interventional Radiology (IR) only for procedural sedation with direct provider supervision and verbal order. - Start dose: 1 mg (Reduce dose to 0.5 mg if history of sedation sensitivity). - Titration dose: 0.5 mg - 1 mg (based on patient response) every 3 minutes PRN to obtain RASS score of -3. Maximum dose: 1 mg/dose, 5 mg/hour., Angio/IR (Intra-Procedure), Routine Given 04/27/2023 9:29 AM EDT 1 mg nitroGLYcerin 100 mcg/mL intracoronary dilution 200 mcg 200 mcg, Intra-arterial, ONCE, 1 dose, On Sun04/27/23 at 0900, For radial artery access. For use in Interventional Radiology (IR) only for procedure with direct provider supervision and verbal order., Angio/IR (Intra-Procedure), Routine Given 04/27/2023 9:00 AM EDT 200 mcg ondansetron (pf) (Zofran) (2 mg/mL) injection 4 mg 4 mg, Intravenous, ONCE PRN, 1 dose, Starting on Sun04/27/23 at 0835, Until Sun04/27/23 at 1057, Nausea, May repeat 4 mg dose 15 minutes after first dose, for unrelieved nausea, for a total of 2 doses., Angio/IR (Intra-Procedure) Given 04/27/2023 10:57 AM EDT 4 mg verapamiL (Isoptin) (2.5 mg/mL) injection 2.5 mg 2.5 mg, Intra-arterial, ONCE, 1 dose, On Sun04/27/23 at 0900, Administer over 2 Minutes, For radial artery access. For use in Interventional Radiology (IR) only for procedure with direct provider supervision and verbal order., Angio/IR (Intra-Procedure) Given 04/27/2023 9:00 AM EDT 2.5 mg 30 m L/hr documented in this encounter Care Teams Flat Knitter Helper Relationship Specialty Start Date End Date Sara Luke, AQUACULTURE DIRECTOR [address] [address] PCP - General Family Medicine 03/28/22 documented as of this encounter
--- OUTSIDE RECORDS SUMMARY | 2024-04-08 18:33 | XMS_ITS | Encounter Summary ---
[place] [address] Care Team Providers Care Mold Car Pusher Name Role Phone Sara Luke APRN Primary Care Provider [phone] Encounter Details Date Type Department Care Team (Latest Contact Info) Description 06/14/2022 Travel Social History Tobacco Use Types Packs/Day [...] on filedocumented in this encounter Care Teams Mold Car Pusher Relationship Specialty Start Date End Date Sara Luke APRN [address] [place] [address] PCP - General Family Medicine 03/28/22 documented as of this encounter
--- OUTSIDE RECORDS SUMMARY | 2024-04-08 18:33 | XMS_ITS | Encounter Summary ---
Author Organization [facility] [place] [address] Care Team Providers Care Web Operations Lead Name Role Phone Denis Hardy MD Primary Care Provider [phone] Encounter Details Date Type Department Care Team (Late st Contact Info) Description 03/27/2022 11:35 AM EDT Telehealth [place] [id number] Telehealth, Neurology None Social History Tobacco Use [...] on filedocumented in this encounter Care Teams Web Operations Lead Relationship Specialty Start Date End Date Denis Hardy MD [address] [place] [address] [place] [address] PCP - General 06/28/10 03/27/22 documented as of this encounter
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
--- OUTSIDE RECORDS SUMMARY | 2024-04-08 18:33 | XMS_ITS | Encounter Summary ---
Author Organization [facility] [place] [address] Care Team Providers Care Pulp Grinder Name Role Phone Sara Luke APRN Primary Care Provider +1- [phone] Encounter Details Date Type Department Care Team (Late st Contact Info) Description 03/28/2022 12:55 PM EDT Telehealth [place] [address] Telehealth, Neurology None Social History Tobacco Use [...] on filedocumented in this encounter Care Teams Pulp Grinder Relationship Specialty Start Date End Date Sara Luke APRN [address] [facility] [place] [address] PCP - General Family Medicine 03/28/22 documented as of this encounter
--- OUTSIDE RECORDS SUMMARY | 2024-04-08 18:33 | XMS_ITS | Encounter Summary ---
[place] [address] Care Team Providers Care Maple Syrup Maker Name Role Phone Sara Luke BRIGIDO Primary Care Provider +1- [phone] Encounter Details Date Type Department Care Team (Latest Contact Info) Description 04/27/2023 8:05 AM EDT Laboratory Appointment Lab [address] [place] [id number] Intracranial bleed Social History Tobacco Use Types Packs/Day [...] Procedure Name Priority Date/Time Associated Diagnosis Comments HC VENIPUNCTURE STAT 04/27/2023 8:04 AM EDT Intracranial bleed documented in this encounter Results * (ABNORMAL) Platelet count (04/27/2023 8:04 AM EDT) Platelet 469(H) 145 - 357 x10(3)/mc L [facility] Immature Plt % 1.7 0.0 - 7.4 % [facility] Comment: Limitation of the Immature Platelet Fraction (IPF)-May be less reliable when the platelet count is less than 79w878/uL due to statistical imprecision. The IPF value [...] in a decreased state of production. References: [employer] The Clinical Value of the Immature Platelet Fraction (IPF) in Cell Recovery Document Number 10-1143 01/2011 [employer] The Role of the Immature Platelet Fraction (IPF) in the Differential Diagnosis of Thrombocytopenia, Document MKT-10-1209 V05 P012/17 Blood 04/27/2023 8:04 AM EDT 04/27/2023 8:44 AM EDT Narrative Resulting Agency Comment Spec In Lab Skye Miranda [facility] [place] [address] documented in this encounter Visit Diagnoses Diagnosis Intracranial bleed Unspecified intracranial hemorrhage documented in this encounter Care Teams Maple Syrup Maker Relationship Specialty Start Date End Date Sara Luke APRN [address] [place] [address] PCP - General Family Medicine 03/28/22 documented as of this encounter
--- OUTSIDE RECORDS SUMMARY | 2024-04-08 18:33 | XMS_ITS | Encounter Summary ---
Author Organization [facility] [place] [address] Care Team Providers Care Composition Stone Applicator Name Role Phone Sara Luke BRIGIDO Primary Care Provider +1- [phone] Reason for Visit * Reason Onset Date Comments Appointment 05/17/2023 Encounter Details Date Type Department Care Team (Late st Contact Info) Description 05/17/2023 Telephone [place] [phone] Beba Alfonso Appointment Social History Tobacco Use Types Packs/Day Years [...] * Telephone Encounter - Beba Alfonso - 05/17/2023 2:[address] Shaw, Your office note from 05/10 is not completed yet so I am not sure what the next steps are. See note below from patient and let me know, I am happy to assist. Thank you, Beba ~~~~~~~~~~~~~~~~~~~~~~~~~~~~~~~~~~ Source Subject Topic Belem Azar [[id number]] (Patient) Belem Azar [[id number]] (Patient) Specialty Dept CRMs - Generic Call Summary: Questions SelfSpecialist: Valeria Relationship (if other than patient-full name): Self Reason for Call: Patient states they were advised by Dr. Shaw that they would get a call to schedule a telehealth appointment or office visit with Dr. Shaw, schedule a mask fitting, and start radiation treatment. Patient they are concerned they have not heard back yet. This rep did not find note with scheduling advisement. Please call to assist. documented in this encounter Plan of Treatment Not on file documented as of this encounter Visit Diagnoses Not on filedocumented in this encounter Care Teams Composition Stone Applicator Relationship Specialty Start Date End Date Sara Luke, BRIGIDO [address] [place] [address] PCP - General Family Medicine 03/28/22 documented as of this encounter
--- OUTSIDE RECORDS SUMMARY | 2024-04-08 18:33 | XMS_ITS | Encounter Summary ---
Author Organization [facility] [place] [address] Care Team Providers Care Health Outcomes Liaison Name Role Phone Sara Luke APRN Primary Care Provider +1- [phone] Encounter Details Date Type Department Care Team (Late st Contact Info) Description 09/07/2022 9:05 PM EST Ancillary Procedure [place] [phone] Sara Luke APRN [address] [place] [address] Social History Tobacco Use Types Packs/Day Years [...] Diagnosis Comments FILM LIBRARY STORAGE ONLY CT ABDOMEN AND PELVIS Routine 09/07/2022 9:03 PM EST documented in this encounter Results * Film Library- Storage Only CT Abdomen & Pelvis (09/07/2022 9:03 PM EST) Narrative [facility] - 09/07/2022 9:03 PM EST This exam is auto-finalizing. It's purpose is for storage only. Sara H Chute SOAP WORKER IMG FILM LIBRARY O RDERABLES [facility] [place], [place] documented in this encounter Visit Diagnoses Not on filedocumented in this encounter Care Teams Health Outcomes Liaison Relationship Specialty Start Date End Date Sara Luke, BRIGIDO [address] [place] [address] PCP - General Family Medicine 03/28/22 documented as of this encounter
--- OUTSIDE RECORDS SUMMARY | 2024-04-08 18:33 | XMS_ITS | Encounter Summary ---
Author Organization [facility] Address [facility] [place] [address] Care Team Providers Care Baller Tender Name Role Phone Sara Luke APRN Primary Care Provider +1- [phone] Encounter Details Date Type Department Care Team (Late st Contact Info) Description 12/13/2022 Notes Only Radiology at [facility] [place] [address] [facility] [place] [address] Social History Tobacco Use Types Packs/Day Years [...] Progress Notes * Skye Miranda APRN - 12/13/2022 11:59 PM EDT Case reviewed at CV rounds. Recommendation for cerebral angiogram. documented in this encounter Plan of Treatment Not on file documented as of this encounter Visit Diagnoses Not on filedocumented in this encounter Care Teams Baller Tender Relationship Specialty Start Date End Date Sara Luke APRN [address] [place], [place] [address] PCP - General Family Medicine 03/28/22 documented as of this encounter
--- OUTSIDE RECORDS SUMMARY | 2024-04-08 18:33 | XMS_ITS | Encounter Summary ---
Author Organization [facility] Address [facility] [place] [address] Care Team Providers Care Payroll Consultant Name Role Phone Sara Luke APRN Primary Care Provider +1- [phone] Reason for Referral * Physical Therapy (Routine) - Closed Specialty Diagnoses / Procedures Referred By Contac t Referred To Contact Diagnoses T12 compression fracture, with routine healing, subsequent encounter Adrian Duckworth APRN [facility] [address] Rehab, [address] [place] [address] Referral ID Status Reason Start Date Expiration Date V isits Requested Visits Authorized [id number] Closed Evaluate and Treat 11/15/2022 05/14/2023 12 12 Encounter Details Date Type Department Care Team (Late st Contact Info) Description 11/15/2022 2:20 PM EDT Office [place] [address] Adrian Duckworth [employer] [facility] [place] [address] T12 compression fracture, with routine healing, subsequent encounter Social History Tobacco Use Types Packs/Day [...] Sign Reading Time Taken Comments Blood Pressure 132/71 11/15/2022 2:05 PM EDT Pulse 73 11/15/2022 2:05 PM EDT Temperature 36.3 ??C (97.3 ??F) 11/15/2022 2:05 PM ED T Respiratory Rate 17 11/15/2022 2:05 PM EDT Oxygen Saturation 100% 11/15/2022 2:05 PM EDT Inhaled Oxygen Concentration - - Weight 63.9 kg (140 lb 14 oz) 11/15/2022 2:05 PM EDT Height 165.1 cm (5' 5) 11/15/2022 2:05 PM EDT Body Mass Index 23.44 11/15/2022 2:05 PM EDT documented in this encounter Progress Notes * Adrian Duckworth APRN - 11/15/2022 2:20 PM EDT Images from the original note were not included. NEUROSURGERY OFFICE VISIT Name: Belem Macias : 1960 PCP: Sara Luke APRN REF: Sara Luke Date of Service: 11/15/2022 CHIEF COMPLAINT: Traumatic T12 burst fracture HISTORY: Belem Macias is a 62 y.o. female being seen today for follow up regarding her T12 burst fracture. At her last visit she was feel very well and wanted to increase her activity. Patient presents with her to the clinic for follow-up regarding her T12 burst fracture. Shereports that she is unable to go back to work and has been increasing her activity. She has not hadany worsening of pain with the increase in activity. She does still have some aching in her mid lower back but reports that this is much improved from previous appointment. She denies any numbness tingling or weakness. IMAGING & OTHER RESULTS: No new imaging PHYSICAL EXAM: BP 132/71 (BP Location (NBP): Left arm, Patient Position: Sitting, BP Cuff Sizes: Adult (25-34 cm)) Pulse 73 Temp 36.3 ??C (97.3 ??F) (Temporal) Resp 17 Ht 165.1 cm (5' 5) Wt 63.9 kg (140 lb 14 oz) SpO2 100% BMI 23.44 kg/m?? Awake, alert, answers questions appropriately. Motor: Normal muscle bulk and tone. STRENGTH R L REFLEXES R L Shoulder abduction 5 5 Biceps 2 2 Elbow flexion 5 5 Brachiorad. 2 2 Elbow extension 5 5 Triceps 2 2 Wrist dorsiflexion 5 5 Finger abduction 5 5 Patella 2 2 Rn Night 5 5 Ankle 2 2 Hip flexion 5 5 Knee flexion 5 5 PATHOLOGIC Knee extension 5 5 REFLEXES R L Ankle dorsiflexion 5 5 Hdz's Absent Absent Ankle plantarflexion 5 5 Extensor hallucis 5 5 Clonus None None Sensation: Grossly intact to light touch in all four extremities. Gait: Independent and stable. PLAN: Patient's recovery has been following the typical curve. Her pain has been slowly improving and shehas been able to slowly increase her activity. She can now start to lift weight and do more intensive exercises. However, I did recommend avoiding high impact exercises like jumping until approximately 6 months. Patient requested physical therapy which I think is reasonable at this time so it has been ordered. Patient can follow-up as needed with new or worsening symptoms. Adrian Duckworth APRN Nurse Practitioner [facility] Department of Neurosurgery documented in this encounter Plan of Treatment Scheduled Referrals Name Type Priority Associated Diagnoses Orde r Schedule Referral to Physical Therapy Outpatient Referral Routine T12 compression fracture, with routine healing, subsequent encounter Ordered: 11/15/2022 documented as of this encounter Visit Diagnoses Diagnosis T12 compression fracture, with routine healing, subsequent encounter documented in this encounter Care Teams Payroll Consultant Relationship Specialty Start Date End Date Sara Luke APRN [address] [place] [address] PCP - General Family Medicine 03/28/22 documented as of this encounter
--- OUTSIDE RECORDS SUMMARY | 2024-04-08 18:33 | XMS_ITS | Encounter Summary ---
Author Organization [facility] Address [facility] [place] [address] Care Team Providers Care Technical Support Analyst Name Role Phone Sara Luke APRN Primary Care Provider +1- [phone] Encounter Details Date Type Department Care Team (Late st Contact Info) Description 09/21/2022 Telephone Neurosurgery at [facility] [place] [phone] Skye Miranda APRN [facility] [place] [address] Social History Tobacco Use Types Packs/Day Years [...] encounter Miscellaneous Notes * Telephone Encounter - Skye Miranda APRN - 09/21/2022 3:12 PM EST Called Belem and left message on identified voicemail. Have asked Dr. Evans whether diagnostic cerebral angiogram is needed, following Belem's visit with her on 06/14/22. documented in this encounter Plan of Treatment Not on file documented as of this encounter Visit Diagnoses Not on filedocumented in this encounter Care Teams Technical Support Analyst Relationship Specialty Start Date End Date Sara Luke APRN [address] [place] [address] PCP - General Family Medicine 03/28/22 documented as of this encounter
--- OUTSIDE RECORDS SUMMARY | 2024-04-08 18:33 | XMS_ITS | Encounter Summary ---
Author Organization [facility] [place] [address] Care Team Providers Care Chief Arson Division Name Role Phone Denis Hardy MD Primary Care Provider [phone] Encounter Details Date Type Department Care Team (Late st Contact Info) Description 03/27/2022 12:10 AM EDT Ancillary Procedure [place] [phone] Denis Hardy MD [address] [place] [id number] Social History Tobacco Use Types Packs/Day Years [...] LIBRARY STORAGE ONLY CT HEAD Routine 03/27/2022 12:10 AM EDT documented in this encounter Results * Film Library- Storage Only CT Head (03/27/2022 12:10 AM EDT) Narrative [facility] - 03/28/2022 11:32 AM EDT This exam is auto-finalizing. It's purpose is for storage only. Denis Hardy MD G FILM LIBRARY ORD ERABLES [place], [place] documented in this encounter Visit Diagnoses Not on filedocumented in this encounter Care Teams Chief Arson Division Relationship Specialty Start Date End Date Denis Hardy MD [address] [place] [address] [place] [address] PCP - General 06/28/10 03/27/22 documented as of this encounter
--- OUTSIDE RECORDS SUMMARY | 2024-04-08 18:33 | XMS_ITS | Encounter Summary ---
Author Organization Formerly [facility] [place] [address] Care Team Providers Care Clinical Services Director Name Role Phone Saravananadan Sarajodie Beck APRN Primary Care Provider +1- [phone] Reason for Referral * Diagnostic Test (Routine) - Closed Specialty Diagnoses / Procedures Referred By Contac t Referred To Contact Radiology Diagnoses Arteriovenous malformation of brain Procedures MRI Angiogram Head wo Contrast (Generic) Jose Manuel Guerrier MD [facility] [place] [address] [facility] Rad Mri [address] [place] [phone] Referral ID Status Reason Start Date Expiration Date V isits Requested Visits Authorized [id number] Closed Specialty Service Requested 05/28/2023 11/26/2024 1 1 * Consultation (Routine) - Closed Specialty Diagnoses / Procedures Referred By Contac t Referred To Contact Radiation Oncology Diagnoses Arteriovenous malformation of brain Procedures Simulation for Radiation Therapy Planning Jose Manuel Guerrier MD [facility] [place] [address] [facility] [place] [address] Referral ID Status Reason Start Date Expiration Date V isits Requested Visits Authorized [id number] Closed Consult, Test & Treat 06/20/2023 12/19/2023 1 1 Reason for Visit * Consultation (Routine) - Closed Specialty Diagnoses / Procedures Referred By Contchadwick t Referred To Contact Radiation Oncology Diagnoses Arteriovenous malformation of brain Cheyenne Shaw MD [facility] [place] [address] Jose Manuel Guerrier MD [facility] [place] [address] Referral ID Status Reason Start Date Expiration Date V isits Requested Visits Authorized [id number] Closed Consult, Test & Treat 05/17/2023 05/16/2024 1 1 Encounter Details Date Type Department Care Team (Latest Contact Info) Description 05/28/2023 1:30 PM EDT Office Visit Radiation Oncology at [address] [address] Jose Manuel Guerrier MD [facility] [place] [address] Arteriovenous malformation of brain Social History Tobacco [...] place to sleep or slept in a nursing home (including now)? No 05/27/2023 Sex and Gender Information Value Date Recorded Sex Assigned at Not on file Gender Identity Not on file Sexual Orientation Not on file documented as of this encounter Last Filed Vital Signs Vital Sign Reading Time Taken Comments Blood Pressure 138/80 05/28/2023 1:23 PM EDT Pulse 78 05/28/2023 1:23 PM EDT Temperature 36.7 ??C (98.1 ??F) 05/28/2023 1:23 PM ED T Respiratory Rate 18 05/28/2023 1:23 PM EDT Oxygen Saturation 100% 05/28/2023 1:23 PM EDT Inhaled Oxygen Concentration - - Weight 63.2 kg (139 lb 6.4 oz) 05/28/2023 1:23 P M EDT Height - - Body Mass Index 23.2 11/15/2022 2:05 PM EDT documented in this encounter Progress Notes * Hanane Luther RN - 05/28/2023 1:30 PM EDT RADIATION ONCOLOGY NURSING INITIAL NURSING ASSESSMENT IDENTIFICATION: Belem Macias is a 63 y.o. year-old female with history of cerebral hemorrhage,cerebellar arteriovenous malformation. PRESENTING SYMPTOMS/CHIEF COMPLAINT: Here today for NPW. Smoking History: none Drug History: none Alcohol History: occasional Family History of Cancer: Mother with lung, blood and breast cancer. REVIEW OF SYSTEMS: Review of Systems - Oncology 05/27/2023 1:41 PM REVIEW OF SYSTEMS Constitutional Fatigue, lack of energy Ear / nose / throat / mouth None of the above Eyes Dry eyes Respiratory None of the above Cardiovascular None of the above Gastrointestinal Constipation Abdominal pain Feeling bloated Skin, hair None of the above Musculoskeletal None of the above Neurological Numbness, tingling Hematologic / Lymphatic Easy bruising or bleeding Genitourinary Frequent urination IN THE PAST 12 MONTHS HAVE YOU: Fallen more than one time? No Injured yourself as result of the fall? No Experienced difficulty with walking/problems with balance? No Do you use any assistive devices? No Any history of collagen vascular diseases:No Any Implanted Devices/Hardware: No If yes please put alert in ARIA patient summary Prior Radiotherapy: No Prior Chemotherapy: No Prior Hormone Therapy: No LEARNING ASSESSMENT REVIEWED: Yes ADVANCED DIRECTIVE: PAIN ASSESSMENT: 0 out of 10 *eD-H Adult PCS Flow Sheet if 4 or above SOCIAL ASSESSMENT: See EDH social assessment information entered. Support Systems: Here alone today. Lives with spouse. Barriers to treatment: None identified. Referrals/Interventions: CORPORATE DIRECTOR per routine RADIATION SPECIFIC TEACHING: [facility] Radiation Therapy and You Site specific teaching : To be done by nursing on day of simulation. Other: PLAN: Per Dr. Guerrier * Jose Manuel Guerrier MD - 05/28/2023 1:30 PM EDT Images from the original note were not included. [facility] Radiation Oncology Radiation Oncology Consultation Report n Patient identifiers/demographics: Name: Belem Macias Date of : 1960 Referring physician/service: [place] [address] Primary oncologist: N/A Primary care physician: Sara Luke APRN [address] [address] Chief complaint/reason for visit: Cerebellar Arteriovenous Malformation n Clinical history/background: Belem Macias is seen for a in person consultation in the radiation oncology clinic. Belem experience acute onset of severe headache in 03/2022 while driving home from [place], [place]. She describes headache has feeling like a vice was squeezing her head. Two days later she reportedthe symptoms (which had improved) to her PCP who referred her to the local ED. CT scan in the ED showed evidence of a small acute hemorrhage in her cerebellar vermis. She was admitted to the hospitalfor observation for 3 days and eventually discharged home with no physical manifestations of the bleeding event. She had a cerebral angiogram on 04/27/2023 that showed: There is an approximately 9 mm tangle of abnormal vessels in the region of the posterior superior cerebellum supplied primarily via superior cerebellar artery branches. She has no significant past medical history other than life-long history of headaches and pressure feeling behind her left eye. She does not take any anti- platelet agents or anti-coagulants. She lives in [place], [place]. 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 I have personally reviewed the imaging studies referenced above. Review of systems: I reviewed and agree with the nursing review of systems accompanying this encounter. The remainder of the comprehensive review of systems was negative with the exception of the pertinent positives and negatives noted above. Medications/Allergies: Current Outpatient Medications on File Prior to Visit Medication Sig Dispense Refill Bacillus coagulans/inulin (PROBIOTIC WITH PREBIOTIC ORAL) Take by mouth. polyethylene glycoL (Miralax) 17 gram oral powder packet Take 17 g by mouth daily as needed. UNABLE TO FIND Smart Greens chew propylene glycol/peg 400/PF (SYSTANE, PF, OPHT) Apply to eye daily. fluticasone propionate (Flonase) 50 mcg/actuation [place], Suspension by Each Nare route as needed. TURMERIC ORAL Take 1 tablet by mouth daily. ergocalciferol, vitamin D2, (VITAMIN D ORAL) Take 1 tablet by mouth daily. vitamin B complex (VITAMINS B COMPLEX ORAL) Take 1 tablet by mouth daily. buPROPion SR (Wellbutrin SR) 150 mg tablet sustained-release 12 hr Take 150 mg by mouth 2 times daily. omeprazole (PriLOSEC) 20 mg Capsule, Delayed Release(E.C.) Take 20 mg by mouth daily. Sodium Fluoride-Pot Nitrate (Fluoridex Sensitivity Relief) 1.1-5 % Paste BRUSH TEETH AT NIGHT SWISHFOR 30 SECONDS THEN EXPECTORATE [id number] triamcinolone acetonide 0.1% cream Apply topically as needed. Apply to affected area as directed by study team. EVENING PRIMROSE OIL ORAL Take by mouth 2 times daily. GARLIC ORAL Take 1 tablet by mouth daily. No current facility-administered medications on file prior to visit. Allergies Allergen Reactions Amoxicillin Other reaction(s): swelling of face, tongue swollen Bactrim [Sulfamethoxazole-Trimethoprim] Penicillins Sulfa (Sulfonamide Antibiotics) Other reaction(s): pt doesn't remember Physical Exam: Patient Vitals for the past 24 hrs: Temp Pulse Resp BP SpO2 05/28/23 1323 36.7 ??C (98.1 ??F) 78 18 138/80 100 % Comfortable, NAD NCAT PERRL, symmetric face, normal speech Gait/station normal Performance status: KPS 90-100% ECOG 0 Fully active, able to carry on all pre-disease performance without restriction n Summary/Recommendations: Impression: Belem Macias is a 63 y.o. female with with a small cerebellar vermis arteriovenous malformation. The AVM is small (~9 mm diameter), with superficial venous drainage, and in non-eloquent brain: Spetzler-Bennett Gr 1. She has no physical manifestations/consequences from the previous bleeding event in 03/2022. She met with Dr. Shaw re: treatment options, and both open surgical removal and stereotactic radiosurgery (SRS) were offered as treatments. Ms. Kristina Macias is favoring SRS due to lack of need for recovery period and need to miss time at work. Regarding radiosurgery treatment, treatment would be expected to be a single treatment approximately 20Gy. It is expected that there is ~90% chance of nidus obliteration/closure w/in the first 24-36 months after treatment; there could be a need for additional treatment if closure is not complete. The likelihood of acute/transient side effects/complication is relative low and includes headaches and small risk of seizures. Late complications related to scar tissue/brain necrosis is also low. Plan: She is wanting to proceed with SRS for treatment. She has no particular time limitations upcoming and would like to proceed with treatment planning KRYS and defer treatment until after Thanksgiving. Thank you for allowing me to participate in the care of Belem Macias. Jose Manuel Guerrier MD [facility] Radiation Oncology National [employer] [place] (NCI) [facility] [employer] Commission on Cancer (ACS Enrique) Accredited Cancer Program [employer] (ACR) Accredited Radiation Oncology Program documented in this encounter Plan of Treatment Scheduled Orders Name Type Priority Associated Diagnoses Orde r Schedule Simulation for Radiation Therapy Planning Radiation Oncology Routine Arteriovenous malformation of brain Expected: 05/28/2023, Expires: 11/27/2023 documented as of this encounter Results * [...] who have questions please contact the health direct support professional caregiver that requested your imaging first. ? Narrative [...] patients who have questions please contactthe health direct support professional caregiver that requested your imaging first. 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
--- OUTSIDE RECORDS SUMMARY | 2024-04-08 18:33 | XMS_ITS | Encounter Summary ---
Author Organization [facility] Address [facility] [place] [address] Care Team Providers Care Superintendent Track Name Role Phone Saravananadan Sarajodie Beck APRN Primary Care Provider [phone]- [phone] Reason for Visit * Reason Onset Date Comments Appointment 04/24/2022 Encounter Details Date Type Department Care Team (Late st Contact Info) Description 04/24/2022 [place] [id number] Grisel Evans MD [facility] [place] [address] Appointment Social History Tobacco Use Types Packs/Day Years Used Date Smoking Tobacco: Never Assessed Sex and Gender Information Value Date Recorded Sex Assigned at Not on file Gender Identity Not on file Sexual Orientation Not on file documented as of this encounter Miscellaneous Notes * Telephone Encounter - Rocío Love RN - 04/24/2022 4:16 PM EDT Nurse returned call, PCP office will review neurology telehealth consult and ask PCP to order imaging for end may at local facility * Telephone Encounter - Rocío Love RN - 04/24/2022 11:36 AM EDT Call placed to PCP office, awaiting call back from nursing. Will see about having PCP arrange MRI prior to appt * Telephone Encounter - Precious Santillan - 04/24/2022 8:11 AM EDT Copied from [facility] #[id number]. Topic: Specialty Dept CRMs - Generic Call >> Apr 21, 2022 12:14 PM Don Donis wrote: Specialist: Grisel Evans MD Relationship (if other than patient-full name): patient Reason for Call: Patient inquiring if new imaging might be prudent. Patient states that patient does not want to make the trip just for a how are you feeling appointment. Please call to advise. documented in this encounter Plan of Treatment Not on file documented as of this encounter Visit Diagnoses Not on filedocumented in this encounter Care Teams Superintendent Track Relationship Specialty Start Date End Date Sara Luke, BRIGIDO [address] [place] [address] PCP - General Family Medicine 03/28/22 documented as of this encounter
--- OUTSIDE RECORDS SUMMARY | 2024-04-08 18:33 | XMS_ITS | Encounter Summary ---
Author Organization [facility] [place] [address] Care Team Providers Care Pet Caretaker Name Role Phone Sara Luke APRN Primary Care Provider [phone]- [phone] Encounter Details Date Type Department Care Team (Late st Contact Info) Description 03/28/2022 Ancillary Procedure [place] [address] Sara Luke APRN [address] [place] [address] Social History Tobacco Use Types Packs/Day Years [...] FILM LIBRARY STORAGE ONLY MR HEAD Routine 03/28/2022 12:00 AM EDT documented in this encounter Results * Film Library- Storage Only MR Head (03/28/2022 12:00 AM EDT) Narrative [facility] - 03/29/2022 9:10 AM EDT This exam is auto-finalizing. It's purpose is for storage only. Sara Luke CAREGIVERS NON MEDICAL IMG FILM LIBRARY O RDERABLES [facility] RAD [place], [place] documented in this encounter Visit Diagnoses Not on filedocumented in this encounter Care Teams Pet Caretaker Relationship Specialty Start Date End Date Sara Luke APRN [address] [place] [address] PCP - General Family Medicine 03/28/22 documented as of this encounter
--- OUTSIDE RECORDS SUMMARY | 2024-04-08 18:33 | XMS_ITS | Encounter Summary ---
Author Organization [facility] [place] [address] Care Team Providers Care Tumblers Supervisor Name Role Phone Denis Hardy MD Primary Care Provider [phone] Encounter Details Date Type Department Care Team (Late st Contact Info) Description 03/27/2022 Ancillary Procedure [place] [phone] Denis Hardy MD [address] [place] [address] Social History Tobacco Use Types Packs/Day Years [...] FILM LIBRARY STORAGE ONLY MR HEAD Routine 03/27/2022 12:00 AM EDT documented in this encounter Results * Film Library- Storage Only MR Head (03/27/2022 12:00 AM EDT) Narrative [facility] - 03/28/2022 8:47 AM EDT This exam is auto-finalizing. It's purpose is for storage only. Denis Hardy MD IMG FILM LIBRARY ORD ERABLES [place], [place] documented in this encounter Visit Diagnoses Not on filedocumented in this encounter Care Teams Tumblers Supervisor Relationship Specialty Start Date End Date Denis Hardy MD [address] [place] [address] [place] [address] PCP - General 06/28/10 03/27/22 documented as of this encounter
--- OUTSIDE RECORDS SUMMARY | 2024-04-08 18:33 | XMS_ITS | Encounter Summary ---
Author Organization [facility] Address [facility] [place] [address] Care Team Providers Care Lead Vulcanizing Operator Name Role Phone SaravananSara arellano BRIGIDO Primary Care Provider +1- [phone] Encounter Details Date Type Department Care Team (Latest Contact Info) Description 06/18/2023 Travel Social History Tobacco Use Types Packs/Day [...] on filedocumented in this encounter Care Teams Lead Vulcanizing Operator Relationship Specialty Start Date End Date Sara Luke APRN [address] [place] [address] PCP - General Family Medicine 03/28/22 documented as of this encounter
--- OUTSIDE RECORDS SUMMARY | 2024-04-08 18:33 | XMS_ITS | Encounter Summary ---
[place] [address] Care Team Providers Care Director Of Enterprise Strategy Name Role Phone Sara Luke APRN Primary Care Provider [phone]- [phone] Reason for Referral * Consultation (Routine) - Closed Specialty Diagnoses / Procedures Referred By Contac t Referred To Contact Neurosurgery Diagnoses Compression fracture of L1 vertebra, initial encounter Sara Luke APRN [address] [place] [address] [facility] Neurosurgery [address] [place] [phone] Referral ID Status Reason Start Date Expiration Date V isits Requested Visits Authorized [id number] Closed Consult, Test & Treat PCP Updated and/or Approved 09/12/2022 09/12/2023 6 6 Encounter Details Date Type Department Care Team (Late st Contact Info) Description 09/12/2022 Transcribe Orders eDH Incoming Referrals [phone] Sara Luke APRN [address] [place], [place] [id number] Compression fracture of L1 vertebra, initial encounter Social History Tobacco Use Types [...] Referrals Name Type Priority Associated Diagnoses Order Schedule Referral to Neurosurgery Outpatient Referral Routine Compression fracture of L1 vertebra, initial encounter Ordered: 09/12/2022 documented as of this encounter Visit Diagnoses Diagnosis Compression fracture of L1 vertebra, initial encounter documented in this encounter Care Teams Director Of Enterprise Strategy Relationship Specialty Start Date End Date Sara Luke APRN [address] [place] [address] PCP - General Family Medicine 03/28/22 documented as of this encounter
--- OUTSIDE RECORDS SUMMARY | 2024-04-08 18:33 | XMS_ITS | Encounter Summary ---
Author Organization [facility] [place] [address] Care Team Providers Care Electric Meter Tester Name Role Phone Ti Sara Beck APRN Primary Care Provider [phone]- [phone] Encounter Details Date Type Department Care Team (Late st Contact Info) Description 09/21/2022 Telephone Neurosurgery at [facility] [place] [address] Adrian Duckworth APRN [facility] [place] [address] Social History Tobacco Use Types Packs/Day Years [...] * Telephone Encounter - Beba Alfonso - 09/21/2022 9:46 AM EST Called pt and Scheduled for 11/15 with Belem Quezada - 09/20/22 Adrian Duckworth APRN Sent: SunSeptember 20, 2022 ??4:47 PM To: P [facility] Neurosurgery [place] ?? Message Pt needs f/u at 3 months post-accident. Should be in about 2 more months thank yo documented in this encounter Plan of Treatment Not on file documented as of this encounter Visit Diagnoses Not on filedocumented in this encounter Care Teams Electric Meter Tester Relationship Specialty Start Date End Date Sara Luke APRN [address] [place] [address] PCP - General Family Medicine 03/28/22 documented as of this encounter
--- OUTSIDE RECORDS SUMMARY | 2024-04-08 18:33 | XMS_ITS | Encounter Summary ---
Author Organization [facility] Address [facility] [place] [address] Care Team Providers Care Back Winder Name Role Phone SaravananSara arellano BRIGIDO Primary Care Provider +1- [phone] Encounter Details Date Type Department Care Team (Latest Contact Info) Description 06/13/2023 Travel Social History Tobacco Use Types Packs/Day [...] on filedocumented in this encounter Care Teams Back Winder Relationship Specialty Start Date End Date Sara uLke APRN [address] [place] [address] PCP - General Family Medicine 03/28/22 documented as of this encounter
--- OUTSIDE RECORDS SUMMARY | 2024-04-08 18:33 | XMS_ITS | Encounter Summary ---
[place] [address] Care Team Providers Care Sales Consultant Name Role Phone Sara Luke APRN Primary Care Provider [phone] Reason for Referral * Consultation (KRYS) - Duplicate Referral Specialty Diagnoses / Procedures Referred By Contchadwick t Referred To Contact [facility] Diagnoses Other low back pain Sara Luke APRN [address] [place] [address] [facility] [place] [address] Referral ID Status Reason Start Date Expiration Date Visits Requested Visits Authorized [id number] Duplicate Referral Consult, Test & Treat PCP Updated and/or Approved 09/12/2022 09/12/2023 6 6 Encounter Details Date Type Department Care Team (Late st Contact Info) Description 09/12/2022 Transcribe Orders eDH Incoming Referrals [phone] Sara Luke APRN [address] [place], [place] [id number] Other low back pain Social History Tobacco Use Types Packs/Day Years [...] Priority Associated Diagnoses Order Schedule Referral to Pain Management Outpatient Referral Urgent Other low back pain Ordered: 09/12/2022 documented as of this encounter Visit Diagnoses Diagnosis Other low back pain documented in this encounter Care Teams Sales Consultant Relationship Specialty Start Date End Date Sara Luke APRN [address] [place] [id number] PCP - General Family Medicine 03/28/22 documented as of this encounter
--- OUTSIDE RECORDS SUMMARY | 2024-04-08 18:33 | XMS_ITS | Encounter Summary ---
Author Organization [facility] Address [facility] [place] [address] Care Team Providers Care Patternmaker Plaster And Plastic Name Role Phone SaravananSara arellano BRIGIDO Primary Care Provider +1- [phone] Encounter Details Date Type Department Care Team (Late st Contact Info) Description 06/18/2023 Orders Only Radiation Oncology at [facility] [place] [address] Jose Manuel Guerrier MD [facility] [address] [place] [address] Arteriovenous malformation of brain Social History Tobacco [...] place to sleep or slept in a fci (including now)? 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
--- OUTSIDE RECORDS SUMMARY | 2024-04-08 18:33 | XMS_ITS | Encounter Summary ---
Author Organization [facility] [place] [address] Care Team Providers Care Director Epidemiology Name Role Phone Saravananadan Sara Beck APRN Primary Care Provider +1- [phone] Reason for Visit * Reason Comments Simulation * Consultation (Routine) - Closed Specialty Diagnoses / Procedures Referred By Contac t Referred To Contact Radiation Oncology Diagnoses Arteriovenous malformation of brain Procedures Simulation for Radiation Therapy Planning Jose Manuel Guerrier MD [facility] [place] [address] [facility] [place] [address] Referral ID Status Reason Start Date Expiration Date V isits Requested Visits Authorized [id number] Closed Consult, Test & Treat 06/20/2023 12/19/2023 1 1 Encounter Details Date Type Department Care Team (Latest Contact Info) Description 06/20/2023 11:00 AM EST Ancillary Appointment [place] [address] Jose Manuel Guerrier MD [facility] [place] [address] Arteriovenous malformation of brain Social [...] place to sleep or slept in a [facility] (including now)? No 05/27/2023 Sex and Gender Information Value Date Recorded Sex Assigned at Not on file Gender Identity Not on file Sexual Orientation Not on file documented as of this encounter Last Filed Vital Signs Vital Sign Reading Time Taken Comments Blood Pressure 124/64 06/20/2023 9:45 AM EST Pulse 73 06/20/2023 9:45 AM EST Temperature 36.2 ??C (97.1 ??F) 06/20/2023 9:45 AM ES T Respiratory Rate - - Oxygen Saturation 100% 06/20/2023 9:45 AM EST Inhaled Oxygen Concentration - - Weight 61.2 kg (135 lb) 06/20/2023 9:45 AM EST Height - - Body Mass Index 22.47 11/15/2022 2:05 PM EDT documented in this encounter Patient Instructions * Patient Instructions* Jacquelyn Lima RN - 06/20/2023 11:00 AM EST General instructions for Radiation therapy Radiation Oncology Team Radiation Oncologist -The doctor who will direct all aspects of your radiation treatments Nurse Practitioner - They assist your doctor in treating your side effects and with follow up appointments. Registered Nurse - They assist you in learning about your radiation treatments and things you can do to help manage the side effects. Chlorine Plant Operator - They take the doctors radiation prescription and customize it into doses (or days of treatments) specific for you. Physicist - They make sure all the machines are operating correctly and double check calculations for your treatment. Radiation Technologists - They operate the machines which deliver your radiation. You see them daily and they schedule your treatments. Simulation CT/ Planning Session- Your first step after deciding to start radiation treatments is done on a special CT scanner in radiation oncology. The images obtained are used to plan your treatments. This may be scheduled in a separate visit. This usually takes between 30 minutes to one hour. You may need an IV for contrast. Ifso our nurse will let you know that day along with any other special instructions. During this visit we may alissa your skin with a tiny ???tattoos?? , take pictures or make special molds or masks to help us place you in the exact treatment position every day. After this session it takes up to two weeks for your plan to be developed and checked by your doctor, the dosimetrists and the physicist. Skin Care - Your nurse/physician will provide you with the necessary creams and supplies as you need them during your treatments. Please make sure to keep the treatment area clean and dry. Be sure to notice if your clothing rubs or digs into the treatment area and try to wear clothes which are less abrasive, like cotton or loose fitting. Do not use harsh soaps, ointments, deodorants or tapes in the treatment area unless directed by your nurse or doctor. Keep the treatment area out of the sun during treatments. General precautions- DO NOT USE heating pads, hot water bottles, hot poultices, heat lamps, heat in any form, or ice packs to the area of your body being treated. It is common to start feeling fatigue after a few weeks of being treated. You can help minimize this by getting regular exercise or walking and getting plenty of rest. In general a well balanced diet is recommended. The international relations teacher and nurse will inform you of any special diet requirements. Avoid shaving the treatment area with a razor. If you must shave use an electric razor. Your Radiation Oncologist: Jose Manuel Guerrier MD Our Contact numbers Section of Radiation Oncology Our normal business hours are: Sunday - Sunday: 8:00 AM to 5:00 PM [facility]: [facility]: If you have questions about your radiation appointments please ask to speak to one of our secretarystaff. If you have questions for a nurse/doctor about radiation treatments, radiation side effects or you are not feeling well it is best to call early in the day. This allows a nurse to return your call by5 PM the same day. If you call after 4 PM, a nurse will return your call by 5 PM the following day unless it is emergent. If you experience any of the following you need to seek emergency care immediately by calling 911 1. Sudden and unexpected breathing difficulty without any exertion 2. Sudden onset of chest pain 3. Sudden onset of severe pain or uncontrolled pain 4. Sudden onset of severe weakness and/or unable to ambulate 5. Sudden new onset of a seizure 6. Fall resulting in injury A Radiation Oncology doctor is slot floorperson after our normal hours and on weekends. To call for urgent medical issues from radiation treatments that can not wait until normal businesshours: Call for either location and have the venetian blind machine operator page the Radiation Oncologist slot floorperson. documented in this encounter Progress Notes * Jacquelyn Lima RN - 06/20/2023 11:00 AM EST Section of Radiation Oncology Contrast Information Safety Questions 1. Has the patient ever had an x-ray study before which involved injection of a contrast agent or x-ray dye? yes If yes, did the patient have any reaction to the injection? no If yes, please describe the reaction: n/a 2. Is the patient allergic to any foods, medicines, or other substances? yes Allergies Allergen Reactions Amoxicillin Other reaction(s): swelling of face, tongue swollen Bactrim [Sulfamethoxazole-Trimethoprim] Penicillins Sulfa (Sulfonamide Antibiotics) Other reaction(s): pt doesn't remember 3. Has the patient received any contrast within the past 48 hours? no 4. Does the patient have any procedures scheduled in the next 48 hours? no 5. Does the patient have a history of renal/kidney problems or kidney surgery? no 6. Does the patient have diabetes? no 7. Does the patient have high blood pressure? no 8. Is the patient currently being treated for gout? no 9. If the answer to any of the questions #5-8 was yes, has the patient had a creatinine level and eGFR drawn within the past 45 days? yes If no, when will it be drawn? 06/19/23 @ [facility] Creatinine 0.77 A creatinine less than or equal to 1.6 and a eGFR of 45 or greater OK; to proceed with IV contrast. If the creatinine is greater than 1.6 and the eGFR is less than 45, consult with the ordering provider. If an eGFR is less than 30, IV contrast should not be administered and another contrast agent may be ordered by the provider (Visipaque). 10. Is the patient currently taking any of the following medications? (Actoplus Met, Avandamet, Glucovance, Janumet, Jendadueto, Kombiglyze, Metaglip, PrandiMet, Glugophage, Glumetza, Riomet, Metformin) [x} No If yes, when was last dose taken? 9. If patient is on any of the medications in question #10, consult with the ordering provider if the patient needs to stop the medication and if they will require further lab studies. Answers submitted by the patient for this visit: (Submitted on 06/19/2023) Distress: 8 (Submitted on 06/19/2023) Distress - Practical Problems: None of the Above Distress - Emotional Problems: Worry or anxiety, Fear Distress - Physical Problems: Sleep, Fatigue * Jacquelyn Lima RN - 06/20/2023 11:00 AM EST Images from the original note were not included. 06/19/2023 Cancer Distress Distress 8 Distress - money None of the above Distress - emotional Worry or anxiety Fear Distress - symptoms Sleep Fatigue What kind of help I do not need help Contains possible sensitive information. Consider removing from the progress note or alissa the note as sensitive. 06/19/2023 Social Determinants of Health (SDoH v3) What kind of help? I do not need help Patient here for simulation today so she can be treated with SRS for her AVM. Explained the procedure today, s/e of xrt and xrt instructions given to reduce worry and nervousness. Also seen by Dr. Adkins to sign consent. Referrals made today None. Patient declined referral. Jacquelyn Lima RN Answers submitted by the patient for this visit: (Submitted on 06/19/2023) Distress: 8 (Submitted on 06/19/2023) Distress - Practical Problems: None of the Above Distress - Emotional Problems: Worry or anxiety, Fear Distress - Physical Problems: Sleep, Fatigue * Jose Manuel Guerrier MD - 06/20/2023 11:00 AM EST Images from the original note were not included. [facility] Medicine Radiation Oncology Radiation Oncology Simulation/Treatment Planning Note nPatient identifiers/demographics: Name: Belem Macias Date of : 1960 Chief complaint/reason for visit: Cerebellar arteriovenous malformation nProcedure detail: Simulation for SRS (stereotactic radiosurgery; 1 fraction intracranial) planning was performed successfully. Treatment start will be scheduled shortly. 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
--- OUTSIDE RECORDS SUMMARY | 2024-04-08 18:33 | XMS_ITS | Encounter Summary ---
[place] [address] Care Team Providers Care Top Flavor Attendant Name Role Phone Sara Luke APRN Primary Care Provider +1- [phone] Encounter Details Date Type Department Care Team (Latest Contact Info) Description 09/20/2022 Travel Social History Tobacco Use Types Packs/Day [...] on filedocumented in this encounter Care Teams Top Flavor Attendant Relationship Specialty Start Date End Date Sara Luke APRN [address] [facility] [address] PCP - General Family Medicine 03/28/22 documented as of this encounter
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
--- OUTSIDE RECORDS SUMMARY | 2024-04-08 18:33 | XMS_ITS | Encounter Summary ---
[place] [address] Care Team Providers Care Life Care Planner Name Role Phone Sara Luke APRN Primary Care Provider +1- [phone] Encounter Details Date Type Department Care Team (Latest Contact Info) Description 04/20/2023 Travel Social History Tobacco Use Types Packs/Day [...] on filedocumented in this encounter Care Teams Life Care Planner Relationship Specialty Start Date End Date Sara Luke APRN [address] [place] [address] PCP - General Family Medicine 03/28/22 documented as of this encounter
--- OUTSIDE RECORDS SUMMARY | 2024-04-08 18:33 | XMS_ITS | Encounter Summary ---
Author Organization [facility] Address [facility] [place] [address] Care Team Providers Care Pinion Staker Name Role Phone SaravananSara arellano BRIGIDO Primary Care Provider +1- [phone] Encounter Details Date Type Department Care Team (Latest Contact Info) Description 06/30/2023 Travel Social History Tobacco Use Types Packs/Day [...] place to sleep or slept in a residential (including now)? No 05/27/2023 Sex and Gender Information Value Date Recorded Sex Assigned at Not on file Gender Identity Not on file Sexual Orientation Not on file documented as of this encounter Plan of Treatment Not on file documented as of this encounter Visit Diagnoses Not on filedocumented in this encounter Care Teams Pinion Staker Relationship Specialty Start Date End Date Sara Luke APRN [address] [place] [address] PCP - General Family Medicine 03/28/22 documented as of this encounter
--- OUTSIDE RECORDS SUMMARY | 2024-04-08 18:33 | XMS_ITS | Encounter Summary ---
Author Organization [facility] Address [facility] [place] [address] Care Team Providers Care Mortgage Banker Name Role Phone Sara Luke APRN Primary Care Provider +1- [phone] Encounter Details Date Type Department Care Team (Late st Contact Info) Description 01/31/2023 Orders Only Radiology at [facility] [place] [address] Skye Miranda, FIRE SPRINKLER DESIGNER [facility] [place] [address] Social History Tobacco Use Types Packs/Day Years [...] on filedocumented in this encounter Care Teams Mortgage Banker Relationship Specialty Start Date End Date Sara Luke APRN [address] [place] [address] PCP - General Family Medicine 03/28/22 documented as of this encounter
--- OUTSIDE RECORDS SUMMARY | 2024-04-08 18:33 | XMS_ITS | Encounter Summary ---
Author Organization [facility] [place] [place] [address] Care Team Providers Care Distribution Systems Serviceperson Name Role Phone Saravananadan Sara Kiran FOFANA Primary Care Provider +1- [phone] Encounter Details Date Type Department Care Team (Late st Contact Info) Description 09/26/2022 [place] [id number] Kim Rose RN Social History Tobacco Use Types Packs/Day Years [...] encounter Miscellaneous Notes * Telephone Encounter - Kim Rose RN - 09/26/2022 12:21 PM EST Copied from [facility] #[id number]. Topic: Specialty Dept CRMs - Generic Call >> Sep 26, 2022 9:27 AM Олег Haryd wrote: Specialist: Adrian Duckworth APRN Relationship (if other than patient-full name): Belem Macias, patient Reason for Call: Belem Macias, patient, stated she would like to speak with the nurse regarding the diagnostic cerebral angiogram procedure. Patient stated what is the next step or is therea next step? Patient stated she can be reached at [phone] anytime to discuss. documented in this encounter Plan of Treatment Not on file documented as of this encounter Visit Diagnoses Not on filedocumented in this encounter Care Teams Distribution Systems Serviceperson Relationship Specialty Start Date End Date Sara Luke APRN [address] [place] [address] PCP - General Family Medicine 03/28/22 documented as of this encounter
--- OUTSIDE RECORDS SUMMARY | 2024-04-08 18:33 | XMS_ITS | Encounter Summary ---
Author Organization [facility] Address [facility] [place] [address] Care Team Providers Care Environmental Services Attendant Name Role Phone Sara Luke BRIGIDO Primary Care Provider [phone]- [phone] Reason for Visit * Consultation (Urgent) - Closed Specialty Diagnoses / Procedures Referred By Contac t Referred To Contact Neurology Diagnoses Brain bleed ? stroke team Chris Pike MD [address] [place] [address] [place] [address] [facility] Neu[facility] [address] [place] [address] Referral ID Status Reason Start Date Expiration Date V isits Requested Visits Authorized [id number] Closed Consult, Test & Treat PCP Updated and/or Approved 03/28/2022 03/28/2023 6 6 Encounter Details Date Type Department Care Team (Late st Contact Info) Description 06/14/2022 10:30 AM EST Office [place] [id number] Grisel Evans MD [facility] [place] [address] Intracranial bleed Social History Tobacco Use Types [...] Sign Reading Time Taken Comments Blood Pressure 136/83 06/14/2022 10:28 AM EST pt anxious, missed exit thought she would be late Pulse 78 06/14/2022 10:28 AM EST Temperature - - Respiratory Rate - - Oxygen Saturation - - Inhaled Oxygen Concentration - - Weight 59.9 kg (132 lb) 06/14/2022 10:2 8 AM EST Height 165.1 cm (5' 5) 06/14/2022 10:2 8 AM EST Body Mass Index 21.97 06/14/2022 10:28 AM EST documented in this encounter Progress Notes * Grisel Evans MD - 06/14/2022 10:30 AM EST Cerebrovascular Disease and Stroke Program Department of Neurology [place] [id number] t: [phone] / f: [phone] Date of Appointment: 06/14/2022 Patient: Belem Macias PCP: BRIGIDO Clifford MD [address] [place] [place] [address] I have been asked to seeBelem Macias in consultation by Dr. 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 Migraines hysterectomy Interval History: Repeat events or new symptoms: no Hospital readmissions/ED visits since discharge: no Residual deficits: no Ongoing rehab: no See further assessment scales below, completed and reviewed this visit. Assessment Scales and Questionnaires No flowsheet data found. No flowsheet data found. No flowsheet data found. No flowsheet data found. No flowsheet data found. No flowsheet data found. No flowsheet data found. Patient Active Problem List Diagnosis Code ??? History of depression Z86.59 Allergies Allergen Reactions ??? Bactrim [Sulfamethoxazole-Trimethoprim] ??? Penicillins Outpatient Medications Marked as Taking for the 06/14/22 encounter (Office Visit) with Grisel Evans MD Medication Sig Dispense Refill ??? buPROPion SR (Wellbutrin SR) 150 mg tablet sustained-release 12 hr Take 150 mg by mouth 2 timesdaily. ??? omeprazole (PriLOSEC) 20 mg Capsule, Delayed Release(E.C.) Take 20 mg by mouth daily. ??? Sodium Fluoride-Pot Nitrate (Fluoridex Sensitivity Relief) 1.1-5 % Paste BRUSH TEETH AT NIGHT SWISH FOR 30 SECONDS THEN EXPECTORATE EXAM: Vitals: 06/14/22 1028 BP: 136/83 Pulse: 78 Weight: 59.9 kg (132 lb) Height: 165.1 cm (5' 5) Well appearing patient, nontoxic. Higher cortical function, namely attention, concentration, orientation, judgment, fund of knowledge, remote and recent memory was intact as assessed by conversation today. Her speech was fluent/articulate, with no word finding difficulties, no dysarthria or paraphas ic errors. No facial weakness. Strength is symmetric in all extremieites. Gait normal. NIH Stroke Scale: (bold applicable choices) NIH Stroke Scale at Initial Evaluation: 1.a. Level of consciousness: 0-Alert 1-Not alert, but arousable with minimal stimulation 2-Not alert, requires repeat stimulation to attend 3-Coma 1.b. Ask patient the month and their age: 0-Answers both correctly 1-Answers one correctly 2-Both incorrect 1.c. Ask patient to open and close eyes: 0-Obeys both correctly 1-Obeys one correctly 2-Both incorrect 2. Best gaze (horizontal eye movement): 0-Normal 1-Partial gaze palsy 2-Forced deviation 3. Visual field testin-No visual field loss 1-Partial hemianopia 2-Complete hemianopia 3-Bilateral hemianopia (blind including cortical blindness) 4. Facial paresis (Ask patient to show teeth or raise eyebrows and close eyes tightly): 0-Normal symmetrical movement 1-Minor paralysis (flattened nasolabial fold, asymmetry on smiling) 2-Partial paralysis (total or near paralysis of lower face) 3-Complete paralysis of one or both sides (absence of facial movement in the upper and lower face) 5. Motor function right arm: 0-Normal (extends arm 90 degrees for 10 seconds without drift) 1-Drift 2-Some effort against gravity 3-No effort against gravity 4-No movement UT-Untestable (Joint fused or limb amputated) 5. Motor function- left arm: 0-Normal (extends arm 90 degrees for 10 seconds without drift) 1-Drift 2-Some effort against gravity 3-No effort against gravity (but baseline) 4-No movement UT-Untestable (Joint fused or limb amputated) 6. Motor function right le-Normal (extends leg 30 degrees for 5 seconds without drift) 1-Drift 2-Some effort against gravity 3-No effort against gravity 4-No movement UT-Untestable (Joint fused or limb amputated) 6. Motor function-left le-Normal (extends leg 30 degrees for 5 seconds without drift) 1-Drift 2-Some effort against gravity 3-No effort against gravity 4-No movement UT-Untestable (Joint fused or limb amputated) 7. Limb ataxia: 0-No ataxia 1-Present in one limb 2-Present in two limbs 8. Sensory (Use pinprick to test arms, legs, trunk and face compare side to side): 0-Normal 1-Mild to moderate decrease in sensation 2-Severe to total sensory loss 9. Best language (describe picture, name items, read sentences): 0-No aphasia 1-Mild to moderate aphasia 2-Severe aphasia 3-Mute 10. Dysarthria (read several words): 0-Normal articulation 1-Mild to moderate slurring of words 2-Near unintelligible or unable to speak UT-Intubated or other physical barrier 11. Extinction and inattention: 0-Normal 1-Inattention or extinction to bilateral simultaneous in one of the sensory modalities 2-Severe vidhi-inattention or vidhi-inattention to more than one modality TOTAL SCORE: 0 Modified Ravalli Scale (MRS) 0: No symptoms at all 1: No significant disability despite symptoms; able to carry out all usual duties and activities 2: Slight disability; unable to carry out all previous activities, but able to look after own affairs without assistance 3: Moderate disability; requiring some help, but able to walk without assistance 4: Moderate disability; unable to walk without assistance and unable to attend to own bodily needs without assistance 5: Severe disability; bedridden, incontinent and requiring constant nursing care and attention 6: Data and records reviewed: ?? Lipids Lipid Panel ?? Last 3 Hemoglobin A1Cs No results found for: HA1C Clinical Impression and recommendations: Belem Macias is a 62 y.o.female with hx of unprovoked small vermian intraparenchymal bleed. Will review available images with neurointervention and decide on need for further diagnostic testwith DSA. Modifiable Risk Factors in Secondary Stroke Prevention Risk Factor Treatment Goals Hypertension Patients with hypertension: <140/90 mm Hg; 10-mm Hg reduction in systolic BP and 5-mm Hg reduction in diastolic BP from baseline Patients with diabetes mellitus or renal disease: <130/80 mm Hg; 10-mm Hg reduction in systolic BP and 5-mm Hg reduction in diastolic BP from baseline Patients without hypertension: <120/80 mm Hg; 10-mm Hg reduction in systolic BP and 5-mm Hg reduction in diastolic BP from baseline Dyslipidemia Atherosclerotic stroke or TIA: low-density lipoprotein (LDL) cholesterol level <70 mg/dl or 50% reduction in LDL cholesterol level from baseline Nonatherosclerotic stroke or TIA: per National Cholesterol Education Program (NCEP) Adult TreatmentPanel III (ATP-III) goals Diabetes Mellitus HgA1c level <7% Cigarette Smoking Complete cessation Alcohol Consumption Men: two or fewer drinks per day Non woman: one or fewer drinks per day Physical Activity At least 30 minutes of moderate intensity physical exercise 1- 3 times per week Diet Low-fat, low-sodium, and Mediterranean or Dietary Approaches to Stop Hypertension diets (diabetic diet when applicable) Obesity Goal body mass index of 18.5-25 kg/m2 ??? Disposition: Return to clinic in 3 months. Education provided today covered: patient-specific vascular risk factors, cause of the TIA/stroke, prognosis and risk of recurrence, medications for TIA/stroke prevention, potential side effects of these medications, management of modifiable risk factors including heart healthy diet, increased physical activity, maintaining smoke free status, moderation in alcohol, weight management, blood pressure, glucose and cholesterol control, warning signs of stroke, plan to contact EMS in event of recurrent symptoms. Results of diagnostic studies were reviewed. Compliance with treatment and regular follow- up with PCP was emphasized. On the day of this encounter, I the medical provider spent a total of at least 70 minutes providingthis patient's care. This includes time spent [id number] with the patient performing evaluation, examination, and counseling . It also includes non [id number]-[id number] time preparing to see the patient, reviewing the chart, coordinating care, and documenting clinical information in the electronic healthrecord. documented in this encounter Plan of Treatment Not on file documented as of this encounter Visit Diagnoses Diagnosis Intracranial bleed Unspecified intracranial hemorrhage documented in this encounter Care Teams Environmental Services Attendant Relationship Specialty Start Date End Date Sara Luke APRN [address] [place] [address] PCP - General Family Medicine 03/28/22 documented as of this encounter
--- OUTSIDE RECORDS SUMMARY | 2024-04-08 18:33 | XMS_ITS | Encounter Summary ---
[place] [address] Care Team Providers Care Wooden Furniture Polisher Name Role Phone Sara Luke APRN Primary Care Provider [phone]- [phone] Reason for Referral * Diagnostic Test (Routine) - Closed Specialty Diagnoses / Procedures Referred By Rajiv t Referred To Contact Radiology Diagnoses Intracranial bleed Procedures IR Arteriogram Cerebral Skye Miranda APRN [facility] [place] [address] [place] [address] Referral ID Status Reason Start Date Expiration Date V isits Requested Visits Authorized [id number] Closed Specialty Service Requested 01/24/2023 07/26/2024 1 1 Encounter Details Date Type Department Care Team (Late st Contact Info) Description 01/16/2023 [place] [address] Kim Rose RN Social History Tobacco Use [...] Telephone Encounter - Skye Miranda APRN - 01/24/2023 5:15 PM EDT NEURORADIOLOGY BRIEF PRE-PROCEDURE NOTE Name: Belem Macias Date of : 1960 Referring provider: Skye Miranda APRN Indication: idiopathic intracranial hemorrhage Planned Procedure: diagnostic cerebral angiogram Chief Complaint/HPI: Belem Macias is a 62 y.o. female Allergies: Allergies Allergen Reactions ??? Amoxicillin Other reaction(s): swelling of face, tongue swollen ??? Bactrim [Sulfamethoxazole-Trimethoprim] ??? Penicillins ??? Sulfa (Sulfonamide Antibiotics) Other reaction(s): pt doesn't remember Medications: Current Outpatient Medications: ??? fluticasone propionate (Flonase) 50 mcg/actuation [place], Suspension, by Each Nare route as needed., Disp: , Rfl: ??? cinnamon bark 500 mg Capsule, Take 1,000 mg by mouth daily., Disp: , Rfl: ??? cyclobenzaprine (Flexeril) 5 mg Tablet, Take 5 mg by mouth daily., Disp: , Rfl: ??? EVENING PRIMROSE OIL ORAL, Take by mouth 2 times daily., Disp: , Rfl: ??? polyethylene glycoL (Miralax) 17 gram oral powder packet, Take 17 g by mouth daily., Disp: , Rfl: ??? TURMERIC ORAL, Take 1 tablet by mouth daily., Disp: , Rfl: ??? ergocalciferol, vitamin D2, (VITAMIN D ORAL), Take 1 tablet by mouth daily., Disp: , Rfl: ??? GARLIC ORAL, Take 1 tablet by mouth daily., Disp: , Rfl: ??? vitamin B complex (VITAMINS B COMPLEX ORAL), Take 1 tablet by mouth daily., Disp: , Rfl: ??? buPROPion SR (Wellbutrin SR) 150 mg tablet sustained-release 12 hr, Take 150 mg by mouth 2 times daily., Disp: , Rfl: ??? omeprazole (PriLOSEC) 20 mg Capsule, Delayed Release(E.C.), Take 20 mg by mouth daily., Disp: ,Rfl: ??? Sodium Fluoride-Pot Nitrate (Fluoridex Sensitivity Relief) 1.1-5 % Paste, BRUSH TEETH AT NIGHT SWISH FOR 30 SECONDS THEN EXPECTORATE, Disp: , Rfl: Labs: No results found for: PLATELET, CREATININE Imaging: in edh Assessment: 62 y.o. female without contraindication to proceed. Labs to be performed day of procedure: Platelet count Medications to discontinue: none Position: supine Sedation: moderate Additional medications for procedure: Lidocaine 1%, radial access Consent: day of procedure Skye Miranda APRN 01/24/2023 5:15 PM * Telephone Encounter - Kim Rose RN - 01/16/2023 4:45 PM EDT Copied from [facility] #[id number]. Topic: Specialty Dept CRMs - Generic Call >> Jan 16, 2023 3:34 PM Tara Becker wrote: Specialist: Skye Miranda APRN Relationship (if other than patient-full name): Reason for Call: See patient message dated 12.15.22. Patient has decided to go ahead with the cerebral angiogram. Can be reached at [phone]. documented in this encounter Plan of Treatment Not on file documented as of this encounter Results * IR Arteriogram Cerebral [...] who have questions please contact the health critical care unit nurse that requested your imaging first. ? Electronically signed by: Yung Hartman MD, [facility] ([phone]), at 04/27/2023 1:27 PM Narrative 04/27/2023 1:27 PM EDT EXAMINATION: IR [...] mGy; B plane 62 mGy. MATERIALS: 5 Andorran glide sheath slender, Krishna 2 5 Andorran glide catheter, 0.035 inch Glidewire. TECHNIQUE: The patient was brought to the angiography suite. The right wrist was sterilely prepped and draped. With ultrasound guidance, the right radial artery was accessed and the 5 Andorran glide sheath placed, and double flushed. Spasmolytic [...] mGy; B plane 62 mGy. MATERIALS: 5 Andorran glide sheath slender, Krishna 2 5 Andorran glidecatheter, 0.035 inch Glidewire. TECHNIQUE: The patient was brought to the angiography suite. The rightwrist was sterilely prepped and draped. With ultrasound guidance, the right radialartery was accessed and the 5 Andorran glide sheath placed, and double flushed. Spasmolytic [...] patients who have questions please contactthe health critical care unit nurse that requested your imaging first. Electronically signed by: Yung Hartman MD, [facility]([phone]), at 04/27/2023 1:27 PM Skye Miranda APRN IMG IR ORDERABLES documented in this encounter Visit Diagnoses Diagnosis Intracranial bleed Unspecified intracranial hemorrhage Intracranial bleed Unspecified intracranial hemorrhage documented in this encounter Care Teams Wooden Furniture Polisher Relationship Specialty Start Date End Date Sara Luke APRN [address] [place] [address] PCP - General Family Medicine 03/28/22 documented as of this encounter
--- OUTSIDE RECORDS SUMMARY | 2024-04-08 18:33 | XMS_ITS | Encounter Summary ---
Author Organization [facility] Address [facility] [place] [address] Care Team Providers Care Computer Discovery Teacher Name Role Phone SaravananSara arellano BRIGIDO Primary Care Provider +1- [phone] Encounter Details Date Type Department Care Team (Latest Contact Info) Description 05/27/2023 Travel Social History Tobacco Use Types Packs/Day [...] place to sleep or slept in a chcf (including now)? No 05/27/2023 Sex and Gender Information Value Date Recorded Sex Assigned at Not on file Gender Identity Not on file Sexual Orientation Not on file documented as of this encounter Plan of Treatment Not on file documented as of this encounter Visit Diagnoses Not on filedocumented in this encounter Care Teams Computer Discovery Teacher Relationship Specialty Start Date End Date Sara Luke APRN [address] [place] [address] PCP - General Family Medicine 03/28/22 documented as of this encounter
[2024-04-08 19:42] LABS: HCT 37.8 % (36.0-46.0); HGB 12.5 g/dL (11.2-15.7); MCH 28.8 pg (27.0-33.0); MCHC 33.1 % (32.0-36.0); MCV 87 fL (80-95); MPV 9.1 fL (8.0-11.0); Platelet Count 479 10^3/uL (130-400); RBC 4.34 10^6/uL (3.93-5.22); RDW 12.4 % (11.7-14.6); RDW-SD 40.1 fL; WBC 9.08 10^3/uL (4.4-10.8)
[2024-04-08 19:52] LABS: Anion Gap 4.6 mmol/L (3-11); BUN 15 mg/dL (7-18); CO2 29.4 mmol/L (21.0-32.0); CREATININE 0.9 mg/dL (0.55-1.02); Calcium 9.3 mg/dL (8.5-10.1); Chloride 95 mmol/L (98-107); Estimated GFR 71.83 (mL/min/1.73m2); Glucose 79 mg/dL (74-106); Sodium 129 mmol/L (136-145)
== END 2024-04-08 18:28 | disposition home or self-care (01) ==
LOC: NCHCN 18:27
PROVIDERS: PCP Nurse Practitioner Family; Visit Provider Nurse Practitioner Family
DX: K04.1 Necrosis of pulp (principal); E87.1 Hypo-osmolality and hyponatremia
CPT/HCPCS: 80048; 85027

== ENCOUNTER 2024-09-04 15:12 | Outpatient (REF) | payer BC, SELFPAY ==
--- OUTSIDE RECORDS SUMMARY | 2024-09-04 15:15 | XMS_ITS | Continuity of Care Document ---
Author Organization [facility] Address [address] [place] [address] Care Team Providers Care Line Clearance Foreman Name Role Phone Sara Luke Primary Care Physician [phone] Encounter [facility]_[place] Date(s): 09/04/22 - 09/04/22 [facility] [address] [place] [address] Discharge Disposition: Home or Self Care Attending Physician: Sara Luke TELETYPESETTER MONITOR Admitting Physician: Sara Luke TELETYPESETTER MONITOR Referring Physician: Sara Luke TELETYPESETTER MONITOR Allergies, Adverse Reactions, Alerts Substance Reaction Severity Status amoxicillin tongue swollen swelling of face Unknown Active sulfa drugs pt doesn't remember Unknown Active Assessment and Plan Future Appointments Immunizations Given and Recorded Vaccine Date Status Refusal Reason tetanus-diphth toxoids (Td) adult/adol 08/06/00 Re corded rubella virus vaccine 08/06/00 Recorded varicella virus vaccine 08/06/00 Recorded Medications omeprazole 20 mg oral delayed release capsule 20 mg = 1 cap, Oral, Daily, # 30 cap, 0 Refill(s) Start Date: 03/27/22 Status: Ordered Wellbutrin SR 150 mg/12 hours oral tablet, extended release 150 mg = 1 tab, Oral, BID, 0 Refill(s) Start Date: 03/27/22 Status: Ordered Problem List Condition Confirmation Course Effective Dates Status Health St atus Informant GERD without esophagitis Confirmed Active Social History Social History Type Response Tobacco Never tobacco user T obacco Use:. Sex Female Patient Care team information Personnel Name: Sara Luke TELETYPESETTER MONITOR Address: Address: [address] [place] [address]
--- OUTSIDE RECORDS SUMMARY | 2024-09-04 15:15 | XMS_ITS | Continuity of Care Document ---
Author Organization [facility] Address [address] [place] [address] Care Team Providers Care Fretted Instrument Maker Hand Name Role Phone Sara Luke Primary Care Physician Encounter [facility] Date(s): 09/19/22 - 09/19/22 [facility] [address] [place] [address] Discharge Disposition: Home or Self Care Attending Physician: Sara Luke CUT OUT STITCHER Admitting Physician: Sara Luke CUT OUT STITCHER Referring Physician: Sara Luke CUT OUT STITCHER Allergies, Adverse Reactions, Alerts Substance Reaction Severity Status amoxicillin tongue swollen swelling of face Unknown Active sulfa drugs pt doesn't remember Unknown Active Assessment and Plan Future Appointments Immunizations Given and Recorded Vaccine Date Status Refusal Reason tetanus-diphth toxoids (Td) adult/adol 08/06/00 Re corded rubella virus vaccine 08/06/00 Recorded varicella virus vaccine 08/06/00 Recorded Medications Acidophilus Probiotic Blend oral capsule 0 Refill(s) Start Date: 09/06/22 Status: Ordered BuPROPion (Eqv-Wellbutrin SR) 150 mg/12 hours oral tablet, extended release 180 EA, TAKE ONE TABLET BY MOUTH TWICE A DAY, 0 Refill(s) Start Date: 09/06/22 Status: Ordered chromium picolinate 1000 mcg oral tablet 1,000 mcg = 1 tab, Oral, Daily, # 90 tab, 0 Refill(s) Start Date: 09/06/22 Status: Ordered cinnamon 500 mg oral capsule 1,000 mg 2 cap, Oral, BID, # 100 cap, 0 Refill(s) Start Date: 09/06/22 Status: Ordered cyclobenzaprine 5 mg oral tablet 5 mg = 1 tab, Oral, TID, PRN as needed for muscle spasm, # 30 tab, 0 Refill(s) Start Date: 09/08/22 Status: Ordered evening primrose 0 Refill(s) Start Date: 09/06/22 Status: Ordered fluticasone 50 mcg/inh nasal spray 2 sprays, Nasal - Both Sides, BID, PRN allergy symptoms, 16 g, USE 2 SPRAYS INTO BOTH NOSTRILS ONCEDAILY, 0 Refill(s) Start Date: 09/06/22 Status: Ordered garlic oral capsule 0 Refill(s) Start Date: 09/06/22 Status: Ordered omeprazole 20 mg oral delayed release capsule 20 mg = 1 cap, Oral, Daily, # 30 cap, 0 Refill(s) Start Date: 03/27/22 Status: Ordered senna 8.6 mg oral tablet 17.2 mg = 2 tab, Oral, every day at bedtime, PRN as needed for constipation, # 100 tab, 0 Refill(s) Start Date: 09/06/22 Status: Ordered Turmeric 0 Refill(s) Start Date: 09/06/22 Status: Ordered Vitamin B12 0 Refill(s) Start Date: 09/06/22 Status: Ordered Problem List Condition Confirmation Course Effective Dates Status Health St atus Informant Bloating Confirmed Active Actinic keratosis Confirmed Active Cerebellar hemorrhage Confirmed Active Chronic rhinitis Confirmed Active Constipation Confirmed Active Decrease in height Confirmed Active Loss of muscle tone of bladder Confirmed Active GERD without esophagitis Confirmed Active Increased frequency of urination Confirmed Active Intracranial hemorrhage Confirmed Active IBS (irritable bowel syndrome) Confirmed Active Long-term current use of drug therapy Confirmed Active Menopause present Confirmed Active Depression with anxiety Confirmed Active Palpitations Confirmed Active Paresthesia Confirmed Active Raynauds disease Confirmed Active Thyroid disorder screening Confirmed Active Procedures Procedure Date Related Diagnosis Body Site Status Hysterectomy 1 02/11/08 Completed CS - section 08/05/89 Com pleted Tubal ligation 08/05/89 Completed Tonsillectomy 2 Completed 1LAVH,BSO 2Age 9 Results Laboratory List Name Date Basic Metabolic Panel 09/19/22 Most recent to oldest [Reference Range]: 1 BUN [7-18 mg/dL] 22 mg/dL *HI* (09/19/22 3:21 PM) Glucose Level [74-106 mg/dL] 95 mg/dL (09/19/22 3:21 PM) Potassium Level [3.5-5.1 mmol/L] 4.2 mmo l/L (09/19/22 3:21 PM) Sodium Level [136-145 mmol/L] 134 mmol/L *LOW* (09/19/22 3:21 PM) Calcium Level [8.5-10.1 mg/dL] 8.9 mg/dL (09/19/22 3:21 PM) CO2 [21-32 mmol/L] 31 mmol/L (09/19/22 3:21 PM) eGFR Non-AA [>=60] 76 (09/19/22 3:21 PM) eGFR AA [>=60] 76 (09/19/22 3:21 PM) Chloride Level [98-107 mmol/L] 97 mmol/L *LOW* (09/19/22 3:21 PM) Creatinine Level [0.55-1.02 mg/dL] 0.87 mg/dL (09/19/22 3:21 PM) Social History Social History Type Response Tobacco Never tobacco user T obacco Use:. Sex Female Patient Care team information Care Team Personnel Name: Sara Luke CUT OUT STITCHER Position: PowerChart View Only Member Role: Primary Care Physician Address: Address: [address] [place], [place] [id number] [place] [address] Name: Haily Yoon CUT OUT STITCHER Position: Physician Member Role: Nurse Practitioner Address: Address: [address] [place] [address]- Care Team Related Persons Name: KHALIDA WEBB Address: Home Name: BENNY MCGEE Address: Home Name: CHRISTINA BAL Address: Home [address], [phone] Name: DAVE ASHLEY Address: Home [address] [facility], [id number]
--- OUTSIDE RECORDS SUMMARY | 2024-09-04 15:15 | XMS_ITS | Continuity of Care Document ---
Author Organization [facility] Address [address] [place] [address] Care Team Providers Care Roving Teller Name Role Phone Sara Luke Primary Care Physician Encounter [facility] [id number] Date(s): 01/15/23 - 01/15/23 [facility] [address] [place] [address] Discharge Disposition: Home or Self Care Attending Physician: Sara Luke SITE ENGINEER Admitting Physician: Sara Luke SITE ENGINEER Allergies, Adverse Reactions, Alerts Substance Reaction Severity Status amoxicillin tongue swollen swelling of face Unknown Active sulfa drugs pt doesn't remember Unknown Active Assessment and Plan Future Appointments Diagnostic Tests Pending * Clostridium Difficile 01/15/23 * Fecal Bacterial Pathogens by PCR [facility] 01/15/23 * Lactoferrin, Fecal by [facility] 01/15/23 * Ova/Parasite Exam [facility] 01/15/23 Immunizations Given and Recorded Vaccine Date Status [...] Procedure Date Related Diagnosis Body Site Status Colonoscopy 1 10/15/22 Completed Hysterectomy 2 02/11/08 Completed CS - section 08/05/89 Com pleted Tubal ligation 08/05/89 Completed Tonsillectomy 3 Completed 89 yr cb 2LAVH,BSO 3Age 9 Social History Social History Type Response Tobacco Never tobacco user T obacco Use:. Sex Female Patient Care team information Care Team Personnel Name: Sara Luke SITE ENGINEER Position: PowerChart View Only Member Role: Primary Care Physician Address: Address: [address] [place] [address]- Name: Haily Yoon SITE ENGINEER Position: Physician Member Role: Nurse Practitioner Address: Address: [address] [place] [address]- Care Team Related Persons Name: KHALIDA WEBB Address: Home Name: BENNY MCGEE Address: Home Name: CHRISTINA BAL Address: Home [address] [id number]
--- OUTSIDE RECORDS SUMMARY | 2024-09-04 15:15 | XMS_ITS | Continuity of Care Document ---
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 Name Role Phone Sara Luke Primary Care Physician [phone] Encounter [facility] Date(s): 04/12/24 - 04/12/24 [facility] [address] [place] [address] Encounter Diagnosis Headache disorder(Discharge Diagnosis) - 04/12/24 Discharge Disposition: Home or Self Care Attending Physician: Jenae Miles MD Admitting Physician: Jenae Miles MD Allergies, Adverse Reactions, Alerts Substance Criticality Severity Reaction Reaction Severity Status amoxicillin Unable to assess criticality Unknown tongue swollen swelling of face Active Bactrim Unable to assess criticality Unknown Active sulfa drugs Unable to assess criticality Unknown pt doesn't remember Active Assessment and Plan Extracted from: Title:ED Provider Note Author:Ayad Richards MD Date:04/12/24 Assessment/Plan 1.??Headache disorder??R51.9 Ordered: predniSONE 20 mg oral tablet, 40 mg = 2 tab, Oral, Daily, X 5 days, # 10 tab, 0 Refill(s), 04/17/24 19:49:00 EDT, Pharmacy: [id number], 165, cm, 10/16/22 7:11:00 EDT, Height, 64.6, kg, 09/07/22 22:17:00 EST, Weight Dosing Imitrex 50 mg oral tablet, 50 mg = 1 tab, Oral, Daily, PRN as needed for migraine headache, may repeat dose after 2 hours up to a maximum of 200 mg in 24 hours, X 5 days, # 18 tab, 0 Refill(s), 04/17/24 19:49:00 EDT, Pharmacy: [id number], 165, cm, 10/16/22 7:11:00 EDT... Discharge Patient, 04/12/24 19:49:00 EDT, Home Independently, Constant Indicator ?? Orders: Lyme Antibody [facility], Blood, Routine, 04/12/24 19:44:00 EDT, Once, Nurse collect Patient Education General Headache Without Cause Migraine Headache Follow Up With When Contact Information Sara Luke NP In [address] [place] [phone] ?? Additional Instructions: Diagnostic Tests Pending * Lyme Antibody [facility] 04/12/24 Immunizations Given and Recorded Vaccine Date Status [...] 0 Refill(s) Start Date: 09/06/22 Status: Ordered dicyclomine 20 mg oral tablet 20 mg = 1 tab, Oral, QID, # 56 tab, 0 Refill(s), Pharmacy: [id number], 165, cm, 09/07/22 22:17:00 EST, Height/Length Dosing, 64.6, kg, 09/07/22 22:17:00 EST, Weight Dosing Start Date: 05/01/23 Stop Date: 05/15/23 Status: Ordered fluticasone 50 mcg/inh nasal spray 2 sprays, Nasal - Both Sides, BID, PRN allergy symptoms, 16 g, USE 2 SPRAYS INTO BOTH NOSTRILS ONCEDAILY, 0 Refill(s) Start Date: 09/06/22 Status: Ordered Imitrex 50 mg oral tablet 50 mg = 1 tab, Oral, Daily, PRN as needed for migraine headache, may repeat dose after 2 hours up to a maximum of 200 mg in 24 hours, X 5 days, # 18 tab, 0 Refill(s), 04/17/24 6:49:00 PM CDT, Pharmacy: [id number], 165, cm, 10/16/22 7:11:00 EDT, Height, 64.6, kg, 09/07/22 22:17:00 EST, Weight Dosing Start Date: 04/12/24 Stop Date: 04/17/24 Status: Ordered omeprazole 20 mg oral delayed release capsule 20 mg = 1 cap, Oral, Daily, # 30 cap, 0 Refill(s) Start Date: 03/27/22 Status: Ordered predniSONE 20 mg oral tablet 40 mg = 2 tab, Oral, Daily, X 5 days, # 10 tab, 0 Refill(s), 04/17/24 6:49:00 PM CDT, Pharmacy: [id number], 165, cm, 10/16/22 7:11:00 EDT, Height, 64.6, kg, 09/07/22 22:17:00 EST, Weight Dosing Start Date: 04/12/24 Stop Date: 04/17/24 Status: Ordered Turmeric 0 Refill(s) Start Date: 09/06/22 Status: Ordered Problem List Condition Confirmation Course Effective Dates Status Health St atus Informant Bloating Confirmed Active Actinic keratosis Confirmed Active Cerebellar hemorrhage Confirmed Active Chronic rhinitis Confirmed Active Constipation Confirmed Active Decrease in height Confirmed Active Loss of muscle tone of bladder Confirmed Active Abdominal cramping Confirmed Active GERD without esophagitis Confirmed Active [...] Completed 89 yr cb 2LAVH,BSO 3Age 9 Results Laboratory List Name Date C-Reactive Protein (CRP) 04/12/24 CBC w/ Diff 04/12/24 Comprehensive Metabolic Panel 04/12/24 ESR Alcor (Sedimentation Rate) 04/12/24 .Manual Differential ([facility]) 04/12/24 Most recent to oldest [Reference Range]: 1 WBC [5.0-10.0 x10^3/mcL] 9.5 x10^3/mcL (04/12/24 6:01 PM) RBC [4.1-5.3 x10^6/mcL] 4.6 x10^6/mcL (04/12/24 6:01 PM) Segs Man [40-75 %] 85 % *HI* (04/12/24 6:01 PM) Lymph Man [20-50 %] 7 % *LOW* (04/12/24 6:01 PM) [place] Man [2-15 %] 8 % (04/12/24 6:01 PM) Eos Man [1-6 %] 0 % *LOW* (04/12/24 6:01 PM) BUN [7-18 mg/dL] 9 mg/dL (04/12/24 6:01 PM) Glucose Level [74-106 mg/dL] 130 mg/dL *HI* (04/12/24 6:01 PM) Potassium Level [3.5-5.1 mmol/L] 3.4 mmo l/L *LOW* (04/12/24 6:01 PM) MCV [80.0-96.0 fL] 84.3 fL (04/12/24 6:01 PM) RBC Morph Normal (04/12/24 6:01 PM) CRP [<=10.0 mg/L] 37.4 mg/L *HI* (04/12/24 6:01 PM) AST [15-37 unit/L] 15 unit/L (04/12/24 6:01 PM) ALT [14-59 unit/L] 27 unit/L (04/12/24 6:01 PM) MCHC [31.0-35.0 g/dL] 34.8 g/dL (04/12/24 PM) Sodium Level [136-145 mmol/L] 131 mmol/L *LOW* (04/12/24 PM) Hct [37.0-47.0 %] 38.8 % (04/12/24 PM) Calcium Level [8.5-10.1 mg/dL] 9.0 mg/dL (04/12/24 PM) Albumin Level [3.4-5.0 g/dL] 3.4 g/dL (04/12/24 PM) Protein Total [6.4-8.2 g/dL] 7.2 g/dL (04/12/24 PM) MCH [26.0-32.0 pg] 29.3 pg (04/12/24 PM) Bilirubin Total [0.2-1.0 mg/dL] 0.4 mg/d L (04/12/24 PM) Hgb [12.0-16.0 g/dL] 13.5 g/dL (04/12/24 PM) Alk Phos [46-146 unit/L] 124 unit/L (04/12/24 PM) Band Man [0-5 %] 0 % (04/12/24 PM) Platelets [130-450 x10^3/mcL] 502 x10^3/ mcL *HI* (04/12/24 PM) CO2 [21-32 mmol/L] 31 mmol/L (04/12/24 PM) eGFR Non-AA [>=60] 99 (04/12/24: PM) eGFR AA [>=60] 99 (04/12/24: PM) Chloride Level [98-107 mmol/L] 93 mmol/L *LOW* (04/12/24 PM) RDW-CV [11.5-14.5 %] 12.4 % (04/12/24 PM) Slide Review Man Diff (04/12/24 PM) Abs Neut Man 8.1 x10^3/mcL *NA* (04/12/24 PM) Creatinine Level [0.55-1.02 mg/dL] 0.64 mg/dL (04/12/24 6:01 PM) miniiSED ESR [0-30 mm/hr] 39 mm/hr *HI* (04/12/24 6:01 PM) Baso Man [0-1 %] 0 % (04/12/24 6:01 PM) Vital Signs Most recent to oldest [Reference Range]: 1 2 3 Peripheral Pulse Rate [60-100 bpm] 82 bpm (04/12/24:30 PM) 75 bpm (04/12/24 6:13 PM) 96 bpm (04/12/24:05 PM) Respiratory Rate [12-24 br/min] 16 br/min (04/12/24:05 PM) Blood Pressure [90-140/60-90 mmHg] 106/75mmHg (04/12/24:30 PM) 110/82mmHg (04/12/24:13 PM) 124/81mmHg (04/12/24:05 PM) Mean Arterial Pressure, Cuff [65-140 mmHg] 95 mmHg (04/12/24:05 PM) Weight Estimated 59.87 kg (04/12/24 5:05 PM) Body Mass Index Estimated 22.53 kg/m2 (04/12/24 5:05 PM) Height/Length Estimated 163 cm (04/12/24:05 PM) Social History Social History Type Response Tobacco Never tobacco user T obacco Use:. Sex Female Sex Representation Female (finding) Hospital Discharge Instructions Patient Education 04/12/2024 18:48:36 General Headache Without Cause General Headache A headache is pain or discomfort felt around the head or neck area. There are many causes and typesof headaches. A few common types include: ??? Tension headaches. ??? Migraine headaches. ??? Cluster headaches. ??? Chronic daily headaches. Sometimes, the specific cause of a headache may not be found. Follow these instructions at home: Watch your condition for any changes. Let your health care provider know about them. Take these steps to help with your condition: Managing pain ??? Take ebkn-baw-udbnrgp and prescription medicines only as told by your health care provider. Treatment may include medicines for pain that are taken by mouth or applied to the skin. ??? Lie down in a dark, quiet room when you have a headache. ??? Keep lights dim if bright lights bother you or make your headaches worse. ??? If directed, put ice on your head and neck area: ??? Put ice in a plastic bag. ??? Place a towel between your skin and the bag. ??? Leave the ice on for 20 minutes, 2???3 times per day. ??? Remove the ice if your skin turns bright red. This is very important. If you cannot feel pain, heat, or cold, you have a greater risk of damage to the area. ??? If directed, apply heat to the affected area. Use the heat source that your health care provider recommends, such as a moist heat pack or a heating pad. ??? Place a towel between your skin and the heat source. ??? Leave the heat on for 20???30 minutes. ??? Remove the heat if your skin turns bright red. This is especially important if you are unable to feel pain, heat, or cold. You have a greater risk of getting burned. Eating and drinking ??? Eat meals on a regular schedule. ??? If you drink alcohol: ??? Limit how much you have to: ??? 0???1 drink a day for women who are not . ??? 0???2 drinks a day for men. ??? Know how much alcohol is in a drink. In the [place] one drink equals one 12 oz bottle of beer (355 mL), one 5 oz glass of wine (148 mL), or one 1?? oz glass of hard liquor (44 mL). ??? Stop drinking caffeine, or decrease the amount of caffeine you drink. ??? Drink enough fluid to keep your urine pale yellow. General instructions ??? Keep a headache journal to help find out what may trigger your headaches. For example, write down: ??? What you eat and drink. ??? How much sleep you get. ??? Any change to your diet or medicines. ??? Try massage or other relaxation techniques. ??? Limit stress. ??? Sit up straight, and do not tense your muscles. ??? Do not use any products that contain nicotine or tobacco. These products include cigarettes, chewing tobacco, and vaping devices, such as e-cigarettes. If you need help quitting, ask your health care provider. ??? Exercise regularly as told by your health care provider. ??? Sleep on a regular schedule. Get 7???9 hours of sleep each night, or the amount recommended by your health care provider. ??? Keep all follow-up visits. This is important. Contact a health care provider if: ??? Medicine does not help your symptoms. ??? You have a headache that is different from your usual headache. ??? You have nausea or you vomit. ??? You have a fever. Get help right away if: ??? Your headache: ??? Becomes severe quickly. ??? Gets worse after moderate to intense physical activity. ??? You have any of these symptoms: ??? Repeated vomiting. ??? Pain or stiffness in your neck. ??? Changes to your vision. ??? Pain in an eye or ear. ??? Problems with speech. ??? Muscular weakness or loss of muscle control. ??? Loss of balance or coordination. ??? You feel faint or pass out. ??? You have confusion. ??? You have a seizure. These symptoms may represent a serious problem that is an emergency. Do not wait to see if the symptoms will go away. Get medical help right away. Call your local emergency services (911 in the [place] Do not drive yourself to the hospital. Summary ??? A headache is pain or discomfort felt around the head or neck area. ??? There are many causes and types of headaches. In some cases, the cause may not be found. ??? Keep a headache journal to help find out what may trigger your headaches. Watch your condition for any changes. Let your health care provider know about them. ??? Contact a health care provider if you have a headache that is different from the usual headache, or if your symptoms are not helped by medicine. ??? Get help right away if your headache becomes severe, you vomit, you have a loss of vision, you lose your balance, or you have a seizure. This information is not intended to replace advice given to you by your health care provider. Make sure you discuss any questions you have with your health care provider. Document Revised: 12/21/2021 Document Reviewed: 12/21/2021 [employer] Patient Education ?? 2022 [employer] 04/12/2024 18:48:08 Migraine Headache Migraine Headache A migraine headache is an intense, throbbing pain on one side or both sides of the head. Migraine headaches may also cause other symptoms, such as nausea, vomiting, and sensitivity to light and noise. A migraine headache can last from 4 hours to 3 days. Talk with your doctor about what things may bring on (trigger) your migraine headaches. What are the causes? The exact cause of this condition is not known. However, a migraine may be caused when nerves in the brain become irritated and release chemicals that cause inflammation of blood vessels. This inflammation causes pain. This condition may be triggered or caused by: ??? Drinking alcohol. ??? Smoking. ??? Taking medicines, such as: ??? Medicine used to treat chest pain (nitroglycerin). ??? control pills. ??? Estrogen. ??? Certain blood pressure medicines. ??? Eating or drinking products that contain nitrates, glutamate, aspartame, or tyramine. Aged cheeses, chocolate, or caffeine may also be triggers. ??? Doing physical activity. Other things that may trigger a migraine headache include: ??? Menstruation. ??? . ??? Hunger. ??? Stress. ??? Lack of sleep or too much sleep. ??? Weather changes. ??? Fatigue. What increases the risk? The following factors may make you more likely to experience migraine headaches: ??? Being a certain age. This condition is more common in people who are 25???55 years old. ??? Being female. ??? Having a family history of migraine headaches. ??? Being . ??? Having a mental health condition, such as depression or anxiety. ??? Being obese. What are the signs or symptoms? The main symptom of this condition is pulsating or throbbing pain. This pain may: ??? Happen in any area of the head, such as on one side or both sides. ??? Interfere with daily activities. ??? Get worse with physical activity. ??? Get worse with exposure to bright lights or loud noises. Other symptoms may include: ??? Nausea. ??? Vomiting. ??? Dizziness. ??? General sensitivity to bright lights, loud noises, or smells. Before you get a migraine headache, you may get warning signs (an aura). An aura may include: ??? Seeing flashing lights or having blind spots. ??? Seeing bright spots, halos, or zigzag lines. ??? Having tunnel vision or blurred vision. ??? Having numbness or a tingling feeling. ??? Having trouble talking. ??? Having muscle weakness. Some people have symptoms after a migraine headache (postdromal phase), such as: ??? Feeling tired. ??? Difficulty concentrating. How is this diagnosed? A migraine headache can be diagnosed based on: ??? Your symptoms. ??? A physical exam. ??? Tests, such as: ??? CT scan or an MRI of the head. These imaging tests can help rule out other causes of headaches. ??? Taking fluid from the spine (lumbar puncture) and analyzing it (cerebrospinal fluid analysis, or CSF analysis). How is this treated? This condition may be treated with medicines that: ??? Relieve pain. ??? Relieve nausea. ??? Prevent migraine headaches. Treatment for this condition may also include: ??? Acupuncture. ??? Lifestyle changes like avoiding foods that trigger migraine headaches. ??? Biofeedback. ??? Cognitive behavioral therapy. Follow these instructions at home: Medicines ??? Take jwha-mvs-teydtkh and prescription medicines only as told by your health care provider. ??? Ask your health care provider if the medicine prescribed to you: ??? Requires you to avoid driving or using heavy machinery. ??? Can cause constipation. You may need to take these actions to prevent or treat constipation: ??? Drink enough fluid to keep your urine pale yellow. ??? Take xivt-sou-qietzlx or prescription medicines. ??? Eat foods that are high in fiber, such as beans, whole grains, and fresh fruits and vegetables. ??? Limit foods that are high in fat and processed sugars, such as fried or sweet foods. Lifestyle ??? Do not drink alcohol. ??? Do not use any products that contain nicotine or tobacco, such as cigarettes, e-cigarettes, andchewing tobacco. If you need help quitting, ask your health care provider. ??? Get at least 8 hours of sleep every night. ??? Find ways to manage stress, such as meditation, deep breathing, or yoga. General instructions ??? Keep a journal to find out what may trigger your migraine headaches. For example, write down: ??? What you eat and drink. ??? How much sleep you get. ??? Any change to your diet or medicines. ??? If you have a migraine headache: ??? Avoid things that make your symptoms worse, such as bright lights. ??? It may help to lie down in a dark, quiet room. ??? Do not drive or use heavy machinery. ??? Ask your health care provider what activities are safe for you while you are experiencing symptoms. ??? Keep all follow-up visits as told by your health care provider. This is important. Contact a health care provider if: ??? You develop symptoms that are different or more severe than your usual migraine headache symptoms. ??? You have more than 15 headache days in one month. Get help right away if: ??? Your migraine headache becomes severe. ??? Your migraine headache lasts longer than 72 hours. ??? You have a fever. ??? You have a stiff neck. ??? You have vision loss. ??? Your muscles feel weak or like you cannot control them. ??? You start to lose your balance often. ??? You have trouble walking. ??? You faint. ??? You have a seizure. Summary ??? A migraine headache is an intense, throbbing pain on one side or both sides of the head. Migraines may also cause other symptoms, such as nausea, vomiting, and sensitivity to light and noise. ??? This condition may be treated with medicines and lifestyle changes. You may also need to avoid certain things that trigger a migraine headache. ??? Keep a journal to find out what may trigger your migraine headaches. ??? Contact your health care provider if you have more than 15 headache days in a month or you develop symptoms that are different or more severe than your usual migraine headache symptoms. This information is not intended to replace advice given to you by your health care provider. Make sure you discuss any questions you have with your health care provider. Document Revised: 01/04/2023 Document Reviewed: 09/04/2019 [employer] Patient Education ?? 2022 [employer] Follow Up Care 04/12/2024 17:04:48 With:Sara Luke NP Address: [address] [place] [phone] When:Within 3 Day(s) Physician Emergency department Note * Ayad Richards MD: PERFORM Event Display: ED Note Physician Authored Date: GRAYSON ALMODOVAR :1960 Age:64 years Sex:Female Visit Date:04/12/2024 Primary Care Physician: Sara Luke NP Basic Information Time Seen: Ayad Richards MD / 04/12/2024 17:12 Chief Complaint Pt seen in ED recently for ZAPATA, reports feeling worse and now has vomitting and neck pain. Hx of brain bleed, had CT Sunday. History Of Present Illness: 64-year-old female??presents ambulatory to the ER because of a headache.?? Patient reports that shewoke up 6 days ago with a headache??which is constant on both temples??for which??she has tried some Excedrin at home.?? It comes with some nausea and photophobia.?? She has some tenderness at the base of her skull also. ??It is mention neck pain in nurses notes but she points??to the suboccipital area.?? 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 ??Patient is on Wellbutrin and omeprazole. ??She hastaken some Excedrin for her headaches but not today.?? She was here 3 days ago and had a head CT scan and labs??which was unremarkable.?? She was treated with IV fluids??Benadryl Reglan and Compazine??and acetaminophen. ??She reports that did not help much. ??She has continued to have a headache. ??Earlier this week she was at her [facility] and [place] and labs were done notably with a sodium of 129. ??It was 133 here 3 days ago.?? No fever or chills. ??She has been camping she is not sure about any mosquito bites but [place]. ??Recently she had a left lower molar tooth thathas been hurting for which she saw her dentist who put her on an antibiotic. ??That is not hurting anymore.?? No abdominal pain or diarrhea.?? No URI symptoms or documented fever or rash.?? No focal weakness or numbness of any extremities. ??No vision loss but just some photophobia.?? Does not describe any jaw claudication.?? Pain is bilateral.?? Patient??before this week would get??a headache shirin weekly basis??typically for which she takes Excedrin and the pain goes away. ??She feels??this weeks??headache is worse. Review of Systems: Per HPI Physical Exam Vitals & Measurements HR:??82??(Peripheral)?? RR:??16?? BP:??106/75?? SpO2:??93%?? HT:??163??cm?? WT:??59.87??kg??(Estimated)?? BMI:??22.53?? Pain Score:??9?? O2 Therapy:??Room air?? General:??alert,??no acute distress.?? She is not encephalopathic normal mentation??she moves her head freely with no signs of meningeal irritation. ??Does not look septic no respiratory distress. Skin:??warm,??dry. Head:??no??trauma,??normocephalic. Neck:??trachea??midline,??no??adenopathy,??no??tenderness.?? Supple with no meningeal signs. Eye:??normal??conjunctiva, sclera??clear.?? Pupils are equal and reactive, external eye movements are normal. Cardiovascular:??regular??rate and rhythm,??normal??peripheral perfusion. Respiratory: lungs??CTA, respirations??non-labored. Chest wall:??no??deformity. Gastrointestinal:??soft,??non distended,??no??tenderness,??no??guarding. Extremities:??Well-perfused Neurological:??oriented??x 4, LOC??appropriate for age, CN II-XII??intact,?, speech??normal.?? Moves all 4 extremities normally. ??No facial droop. ??External eye movements are normal. ??Speech isnormal. Psychiatric:??cooperative, affect??appropriate for age,??normal??j?? Medical Decision Making: Medical Decision-Making: Clinical lab tests: ordered and reviewed -??Yes Tests in the radiology section of CPT??: ordered and reviewed -??Yes ?? Obtain history from someone other than the patient -??Yes, family Review and summarize past medical records -??Yes ?? Independent visualization of images, tracings, or specimens? Yes ?? Differential diagnosis includes migraine headache, status migrainous, tension headache,??temporal arteritis,??her neck is supple she does not have a fever or white count and she is mentating normallywhich would??make meningitis and encephalitis less likely.?? She has a history of AVM for which shehad radiation treatment, she had an MRI this summer at [facility] which showed??this to be healed over.?? Therefore??I do not think there??is a recurrent bleed. ??She had 2 CT scans this week with no bleed.?? She is not known for any aneurysm.?? Her sed rate is slightly elevated,??she does not appear to have any jaw claudication necessarily or visual change to suggest that this is temporal arteritis??or giant cell arteritis??but eventually symptoms persist she may need a biopsy.?? Here she was given Toradol and Reglan and the pain went from a 10 to a 5/10. ??Afterwards she got Solu-Medrol 125 and 6 mg of subcu??Imitrex and the pain was resolved completely. ?? I had??lengthy discussions with the patient regarding doing a lumbar puncture. ??I explained to herthe rationale noted be that this could help diagnose viral meningitis??or go step further to rule out any??intracranial bleed that can be life-threatening.?? She does not know for a??aneurysm.?? I doubt to Bactrim meningitis because she has had symptoms for almost a week??and she is still mentatingnormally and does not look septic.?? I explained to her the pros notably of??diagnosing??viral meningitis or??going a step further to look for blood and we talked about the cause notably risk of infection and post dural puncture??headache.?? She asked me what I would choose for myself. ??I did respo nd that this was a very personal??decision. ??Ultimately??she elected to defer on the lumbar puncture.?? I will write for prednisone??40 for the next 5 days we will write for some intra Imitrex to take as needed,??she has an upcoming appointment with her PCP in 3 days.?? I told her she can come back anytime between now and then if symptoms??recur or do not improve??and resolve??and I would consider a lumbar puncture.?? Suggest that she recently??quiet dark room tonight. ??She was asymptomatic upon discharge and hungry. ?? Last 24 Hours?? Chemistry ? Event Name?? Event Result?? Date/Time?? Sodium Level 131 mmol/L??Low 04/12/24 18:01:19 Potassium Level 3.4 mmol/L??Low 04/12/24 18:01:19 Chloride Level 93 mmol/L??Low 04/12/24 18:01:19 CO2 31 mmol/L 04/12/24 18:01:19 Alk Phos 124 unit/L 04/12/24 18:01:19 AST 15 unit/L 04/12/24 18:01:19 ALT 27 unit/L 04/12/24 18:01:19 BUN 9 mg/dL 04/12/24 18:01:19 Glucose Level 130 mg/dL??High 04/12/24 18:01:19 Creatinine Level 0.64 mg/dL 04/12/24 18:01:19 eGFR AA 99 04/12/24 18:01:19 eGFR Non-AA 99 04/12/24 18:01:19 Calcium Level 9 mg/dL 04/12/24 18:01:19 Protein Total 7.2 g/dL 04/12/24 18:01:19 Albumin Level 3.4 g/dL 04/12/24 18:01:19 Bilirubin Total 0.4 mg/dL 04/12/24 18:01:19 CRP 37.4 mg/L??High 04/12/24 18:01:19 ? Hematology ? Event Name?? Event Result?? Date/Time?? WBC 9.5 x10^3/mcL 04/12/24 18:01:19 RBC 4.6 x10^6/mcL 04/12/24 18:01:19 Hgb 13.5 g/dL 04/12/24 18:01:19 Hct 38.8 % 04/12/24 18:01:19 MCV 84.3 fL 04/12/24 18:01:19 MCH 29.3 pg 04/12/24 18:01:19 MCHC 34.8 g/dL 04/12/24 18:01:19 RDW-CV 12.4 % 04/12/24 18:01:19 Platelets 502 x10^3/mcL??High 04/12/24 18:01:19 Segs Man 85 %??High 04/12/24 18:01:19 Lymph Man 7 %??Low 04/12/24 18:01:19 [place] Man 8 % 04/12/24 18:01:19 Eos Man 0 %??Low 04/12/24 18:01:19 Baso Man 0 % 04/12/24 18:01:19 Band Man 0 % 04/12/24 18:01:19 Abs Neut Man 8.1 x10^3/mcL 04/12/24 18:01:19 RBC Morph Normal 04/12/24 18:01:19 Slide Review Man Diff 04/12/24 18:01:19 miniiSED ESR 39 mm/hr??High 04/12/24 18:01:19 ? * Final Report * ?? CT Brain/Head w/o Contrast PROCEDURE INFORMATION:?? Exam: CT Head Without Contrast?? Exam date and time: 04/12/2024 5:52 PM?? Age: 64 years old?? Clinical indication: Headache? TECHNIQUE:?? Imaging protocol: Computed tomography of the head without contrast.?? Radiation optimization: All CT scans at this facility use at least?? one of these dose optimization techniques: automated exposure?? control; mA and/or kV adjustment per patient size (includes targeted?? exams where dose is matched to clinical indication); or iterative?? reconstruction.? COMPARISON:?? CT HEAD/BRAIN WO CONTRAST 04/09/2024 4:32 PM? FINDINGS:?? Brain: Cerebral sulci show bilateral symmetry with no supratentorial?? mass or mass effect detected. A few poorly marginated hypodensities?? seen scattered throughout the deep and periventricular white matter?? of both cerebral hemispheres suggest mild underlying microvascular?? ischemic changes with a more discrete chronic lacunar type infarct?? also again seen involving the deep white matter along the lateral?? margin of the anterior body of the left caudate nucleus. Brainstem?? and cerebellum are unremarkable and there is no evidence of acute?? transcortical infarction or recent intracranial hemorrhage.?? Cerebral ventricles: Dilatation of the 3rd and lateral ventricles is?? commensurate with the degree of cerebral atrophy.?? Paranasal sinuses: Grossly clear throughout.?? Mastoid air cells: Grossly clear bilaterally.?? Bones: Bony calvarium and skull base are intact and no acute?? fractures are detected.?? Soft tissues: Unremarkable.? IMPRESSION:?? Suspected mild underlying microvascular ischemic changes with chronic?? lacunar type infarct also again seen along the lateral aspect of the?? left caudate nucleus as above. There is no evidence of acute?? transcortical infarction, recent intracranial hemorrhage or?? hydrocephalus. No acute intracranial process is detected.? Report signed by: Moody Weathers On 04/12/2024 ??18:13:16 ?? [1] Procedure No Qualifying Data Assessment/Plan 1.??Headache disorder??R51.9 Ordered: predniSONE 20 mg oral tablet, 40 mg = 2 tab, Oral, Daily, X 5 days, # 10 tab, 0 Refill(s), 04/17/2419:49:00 EDT, Pharmacy: [id number], 165, cm, 10/16/22 7:11:00 EDT, Height, 64.6, kg, 09/07/22 22:17:00 EST, Weight Dosing Imitrex 50 mg oral tablet, 50 mg = 1 tab, Oral, Daily, PRN as needed for migraine headache, may repeat dose after 2 hours up to a maximum of 200 mg in 24 hours, X 5 days, # 18 tab, 0 Refill(s), 04/17/24 19:49:00 EDT, Pharmacy: [facility], 165, cm, 10/16/22 7:11:00 EDT... Discharge Patient, 04/12/24 19:49:00 EDT, Home Independently, Constant Indicator ?? Orders: Lyme Antibody [facility], Blood, Routine, 04/12/24 19:44:00 EDT, Once, Nurse collect Patient Education General Headache Without Cause Migraine Headache Follow Up With When Contact Information Sara Luke [employer] In 3 days [address] [place] [address]- Additional Instructions: Medication Reconciliation New Prescription predniSONE (predniSONE 20 mg oral tablet)2 tab Oral (given by mouth) every day for 5 Days. Refills:0. ?? SUMAtriptan (Imitrex 50 mg oral tablet)1 tab Oral (given by mouth) every day as needed as needed for migraine headache for 5 Days. may repeat dose after 2 hours up to a maximum of 200 mg in 24 hours.Refills: 0. ?? Unchanged buPROPion (BuPROPion (Eqv-Wellbutrin SR) 150 mg/12 hours oral tablet, extended release)180 EA, TAKEONE TABLET BY MOUTH TWICE A DAY. ?? chromium picolinate (chromium picolinate 1000 mcg oral tablet)1 tab Oral (given by mouth) every day. ?? dicyclomine (dicyclomine 20 mg oral tablet)1 tab Oral (given by mouth) 4 times a day for 14 Days. Refills: 0. ?? fluticasone nasal (fluticasone 50 mcg/inh nasal spray)2 Sprays Nasal (into the nose) 2 times a day as needed allergy symptoms. 16 g, USE 2 SPRAYS INTO BOTH NOSTRILS ONCE DAILY. ?? lactobacillus acidophilus (Acidophilus Probiotic Blend oral capsule) ?? omeprazole (omeprazole 20 mg oral delayed release capsule)1 Capsules Oral (given by mouth) every day. ?? turmeric (Turmeric) Problem List/Past Medical History Ongoing Abdominal cramping Actinic keratosis Bloating Cerebellar hemorrhage Chronic rhinitis Constipation Decrease in height Depression with anxiety GERD without esophagitis IBS (irritable bowel syndrome) Increased frequency of urination Intracranial hemorrhage Long-term current use of drug therapy Loss of muscle tone of bladder Menopause present Palpitations Paresthesia Raynauds disease Thyroid disorder screening Historical No qualifying data Procedure/Surgical History ???Colonoscopy (10/16/2022)???Hysterectomy (02/12/2008)???CS - section (08/06/1989)???Tubal ligation (08/06/1989)???Tonsillectomy Medication Administration Given 0.9% NaCl bolus, 1000 mL, Hydration Bolus Reglan, 5 mg, IV Push SOLU-Medrol, 125 mg, IV Push SUMAtriptan 6 mg/0.5 mL subcutaneous solution, 6 mg, Subcutaneous Toradol, 30 mg, IV Push Allergies Bactrim amoxicillin??(tongue swollen, swelling of face) sulfa drugs??(pt doesn't remember) Social History Alcohol Current, Wine, 1-2 times per month Electronic Cigarette/Vaping Electronic Cigarette Use: Never. Employment/School Employed Home/Environment Lives with Spouse. Living situation: Home/Independent. Substance Use Never Tobacco Never tobacco user Tobacco Use:. Family History Heart disease: Grandfather (P). Hypertension: Father. Lab Results CBC and Differential?? LATEST RESULTS?? HISTORICAL RESULTS?? WBC?? 04/12/24 18:01?? 9.5?? 04/09/24?? 9.0?? RBC?? 04/12/24 18:01?? 4.6?? 04/09/24?? 4.1?? Hgb?? 04/12/24 18:01?? 13.5?? 04/09/24?? 11.9 ??Low?? Hct?? 04/12/24 18:01?? 38.8?? 04/09/24?? 34.5 ??Low?? MCV?? 04/12/24 18:01?? 84.3?? 04/09/24?? 84.6?? MCH?? 04/12/24 18:01?? 29.3?? 04/09/24?? 29.2?? MCHC?? 04/12/24 18:01?? 34.8?? 04/09/24?? 34.5?? RDW-CV?? 04/12/24 18:01?? 12.4?? 04/09/24?? 12.8?? Platelets?? 04/12/24 18:01?? 502 ??High?? 04/09/24?? 441?? Segs Man?? 04/12/24 18:01?? 85 ??High? Lymph Man?? 04/12/24 18:01?? 7 ??Low? [place] Man?? 04/12/24 18:01?? 8? Eos Man?? 04/12/24 18:01?? 0 ??Low? Baso Man?? 04/12/24 18:01?? 0? Band Man?? 04/12/24 18:01?? 0? Abs Neut Man?? 04/12/24 18:01?? 8.1? RBC Morph?? 04/12/24 18:01?? Normal? Slide Review?? 04/12/24 18:01?? Man Diff?? 04/09/24?? Not Indicated? Miscellaneous Hematology?? LATEST RESULTS?? miniiSED ESR?? 04/12/24 18:01?? 39 ??High? Routine Chemistry?? LATEST RESULTS?? HISTORICAL RESULTS?? Sodium Level?? 04/12/24 18:01?? 131 ??Low?? 04/09/24?? 133 ??Low?? Potassium Level?? 04/12/24 18:01?? 3.4 ??Low?? 04/09/24?? 4.1?? Chloride Level?? 04/12/24 18:01?? 93 ??Low?? 04/09/24?? 98?? CO2?? 04/12/24 18:01?? 31?? 04/09/24?? 28?? Alk Phos?? 04/12/24 18:01?? 124? AST?? 04/12/24 18:01?? 15? ALT?? 04/12/24 18:01?? 27? BUN?? 04/12/24 18:01?? 9?? 04/09/24?? 14?? Glucose Level?? 04/12/24 18:01?? 130 ??High?? 04/09/24?? 102?? Creatinine Level?? 04/12/24 18:01?? 0.64?? 04/09/24?? 0.71?? eGFR AA?? 04/12/24 18:01?? 99?? 04/09/24?? 95?? eGFR Non-AA?? 04/12/24 18:01?? 99?? 04/09/24?? 95?? Calcium Level?? 04/12/24 18:01?? 9.0?? 04/09/24?? 8.6?? Protein Total?? 04/12/24 18:01?? 7.2? Albumin Level?? 04/12/24 18:01?? 3.4? Bilirubin Total?? 04/12/24 18:01?? 0.4? CRP?? 04/12/24 18:01?? 37.4 ??High? [1]??CT Brain/Head w/o Contrast; [employer], Generated 04/12/2024 17:52 EDT Electronically Signed on 04/12/2024 19:52 EDT Ayad Richards MD Emergency department Discharge instructions * Ayad Richards MD: PERFORM Event Display: ED Discharge Information Authored Date: [id number] NISHI GRAYSON L :1960 Age:64 years Sex:Female Visit Date:04/12/2024 Primary Care Physician: Sara Luke [employer] Discharge Instructions We would like to thank you for allowing us to assist you with your healthcare needs. The following includes patient education materials and information regarding your injury/illness. Diagnosis from Today's Visit Headache disorder Discharge Vitals Heart Rate??(Peripheral) 82 Respiratory Rate?? 16 Blood Pressure?? 106/75?? SpO2?? 93% Height?? 64.17 in (163 cm) Weight??(Estimated) 132.01 lb (59.87 kg) BMI?? 22.53 Allergies Bactrim amoxicillin??(tongue swollen, swelling of face) sulfa drugs??(pt doesn't remember) What to Do Next Instructions from Your Care Team Rest in a quiet and dark room tonight.?? Eat a bland nonspicy or fatty diet??until??symptoms subside. ??Follow-up with your primary care provider in 3 days as planned, return here anytime??if symptoms??worsen??or any new concerns. ??A prescription for prednisone was sent to your pharmacy as well asfor Imitrex. ??The Imitrex to use as needed??only.?? You can also take some Tylenol as needed or your Excedrin. You Need to Schedule the Following Appointments Follow Up with??Sara Luke [employer] OPERATOR When:??In 3 days Where: [address] [place] [id number] You were treated today on an emergency basis; it may be bustillo to contact your primary care provider to notify them of your visit today. You may have been referred to your regular doctor or a specialist, please follow up as instructed. If your condition worsens or you can't get in to see the doctor, contact the Emergency Department. Medications What How Much When Why Instructions Next Dose New predniSONE (predniSONE 20 mg oral tablet) 2 tab Oral (given by mouth) Every day Headache disorder Duration: 5 Days Pickup at [facility] New SUMAtriptan (Imitrex 50 mg oral tablet) 1 tab Oral (given by mouth) Every day as needed for as needed for migraine headache Headache disorder Duration: 5 Days may repeat dose after 2 hours up to a maximum of 200 mg in 24 hours ?? Pickup at [facility] Unchanged buPROPion (BuPROPion (Eqv-Wellbutrin SR) 150 mg/ 12 hours oral tablet, extended release) 180 EA, TAKE ONE TABLET BY MOUTH TWICE A DAY ?? Unchanged chromium picolinate (chromium picolinate 1000 mcg oral tablet) 1 tab Oral (given by mouth) Every day Unchanged dicyclomine (dicyclomine 20 mg oral tablet) 1 tab Oral (given by mouth) 4 times a day Bloating Duration: 14 Days Unchanged fluticasone nasal (fluticasone 50 mcg/ inh nasal spray) 2 Sprays Nasal (into the nose) 2 times a day as needed for allergy symptoms 16 g, USE 2 SPRAYS INTO BOTH NOSTRILS ONCE DAILY ?? Unchanged lactobacillus acidophilus (Acidophilus Probiotic Blend oral capsule) Unchanged omeprazole (omeprazole 20 mg oral delayed release capsule) 1 Capsules Oral (given by mouth) Every day Unchanged turmeric (Turmeric) Pharmacy Information [facility]: [address] [place], [place] [id number] [phone] Education Materials General Headache A headache is pain or discomfort felt around the head or neck area. There are many causes and typesof headaches. A few common types include: ? Tension headaches. ? Migraine headaches. ? Cluster headaches. ? Chronic daily headaches. Sometimes, the specific cause of a headache may not be found. Follow these instructions at home: Watch your condition for any changes. Let your health care provider know about them. Take these steps to help with your condition: Managing pain ? Take watu-jyb-dvjgbif and prescription medicines only as told by your health care provider. Treatment may include medicines for pain that are taken by mouth or applied to the skin. ? Lie down in a dark, quiet room when you have a headache. ? Keep lights dim if bright lights bother you or make your headaches worse. ? If directed, put ice on your head and neck area: ? Put ice in a plastic bag. ? Place a towel between your skin and the bag. ? Leave the ice on for 20 minutes, 2???3 times per day. ? Remove the ice if your skin turns bright red. This is very important. If you cannot feel pain, heat, or cold, you have a greater risk of damage to the area. ? If directed, apply heat to the affected area. Use the heat source that your health care provider recommends, such as a moist heat pack or a heating pad. ? Place a towel between your skin and the heat source. ? Leave the heat on for 20???30 minutes. ? Remove the heat if your skin turns bright red. This is especially important if you are unable to feel pain, heat, or cold. You have a greater risk of getting burned. Eating and drinking ? Eat meals on a regular schedule. ? If you drink alcohol: ? Limit how much you have to: ? 0???1 drink a day for women who are not . ? 0???2 drinks a day for men. ? Know how much alcohol is in a drink. In the [place] one drink equals one 12 oz bottle of beer (355 mL), one 5 oz glass of wine (148 mL), or one 1?? oz glass of hard liquor (44 mL). ? Stop drinking caffeine, or decrease the amount of caffeine you drink. ? Drink enough fluid to keep your urine pale yellow. General instructions ? Keep a headache journal to help find out what may trigger your headaches. For example, write down: ? What you eat and drink. ? How much sleep you get. ? Any change to your diet or medicines. ? Try massage or other relaxation techniques. ? Limit stress. ? Sit up straight, and do not tense your muscles. ? Do not use any products that contain nicotine or tobacco. These products include cigarettes, chewing tobacco, and vaping devices, such as e-cigarettes. If you need help quitting, ask your health careprovider. ? Exercise regularly as told by your health care provider. ? Sleep on a regular schedule. Get 7???9 hours of sleep each night, or the amount recommended by yourhealth care provider. ? Keep all follow-up visits. This is important. Contact a health care provider if: ? Medicine does not help your symptoms. ? You have a headache that is different from your usual headache. ? You have nausea or you vomit. ? You have a fever. Get help right away if: ? Your headache: ? Becomes severe quickly. ? Gets worse after moderate to intense physical activity. ? You have any of these symptoms: ? Repeated vomiting. ? Pain or stiffness in your neck. ? Changes to your vision. ? Pain in an eye or ear. ? Problems with speech. ? Muscular weakness or loss of muscle control. ? Loss of balance or coordination. ? You feel faint or pass out. ? You have confusion. ? You have a seizure. These symptoms may represent a serious problem that is an emergency. Do not wait to see if the symptoms will go away. Get medical help right away. Call your local emergency services (911 in the [place] Do not drive yourself to the hospital. Summary ? A headache is pain or discomfort felt around the head or neck area. ? There are many causes and types of headaches. In some cases, the cause may not be found. ? Keep a headache journal to help find out what may trigger your headaches. Watch your condition for any changes. Let your health care provider know about them. ? Contact a health care provider if you have a headache that is different from the usual headache, orif your symptoms are not helped by medicine. ? Get help right away if your headache becomes severe, you vomit, you have a loss of vision, you loseyour balance, or you have a seizure. This information is not intended to replace advice given to you by your health care provider. Make sure you discuss any questions you have with your health care provider. Document Revised: 12/21/2021 Document Reviewed: 12/21/2021 [employer] Patient Education ?? 2022 [employer] Migraine Headache A migraine headache is an intense, throbbing pain on one side or both sides of the head. Migraine headaches may also cause other symptoms, such as nausea, vomiting, and sensitivity to light and noise. A migraine headache can last from 4 hours to 3 days. Talk with your doctor about what things may bring on (trigger) your migraine headaches. What are the causes? The exact cause of this condition is not known. However, a migraine may be caused when nerves in the brain become irritated and release chemicals that cause inflammation of blood vessels. This inflammation causes pain. This condition may be triggered or caused by: ? Drinking alcohol. ? Smoking. ? Taking medicines, such as: ? Medicine used to treat chest pain (nitroglycerin). ? control pills. ? Estrogen. ? Certain blood pressure medicines. ? Eating or drinking products that contain nitrates, glutamate, aspartame, or tyramine. Aged cheeses,chocolate, or caffeine may also be triggers. ? Doing physical activity. Other things that may trigger a migraine headache include: ? Menstruation. ? . ? Hunger. ? Stress. ? Lack of sleep or too much sleep. ? Weather changes. ? Fatigue. What increases the risk? The following factors may make you more likely to experience migraine headaches: ? Being a certain age. This condition is more common in people who are 25???55 years old. ? Being female. ? Having a family history of migraine headaches. ? Being . ? Having a mental health condition, such as depression or anxiety. ? Being obese. What are the signs or symptoms? The main symptom of this condition is pulsating or throbbing pain. This pain may: ? Happen in any area of the head, such as on one side or both sides. ? Interfere with daily activities. ? Get worse with physical activity. ? Get worse with exposure to bright lights or loud noises. Other symptoms may include: ? Nausea. ? Vomiting. ? Dizziness. ? General sensitivity to bright lights, loud noises, or smells. Before you get a migraine headache, you may get warning signs (an aura). An aura may include: ? Seeing flashing lights or having blind spots. ? Seeing bright spots, halos, or zigzag lines. ? Having tunnel vision or blurred vision. ? Having numbness or a tingling feeling. ? Having trouble talking. ? Having muscle weakness. Some people have symptoms after a migraine headache (postdromal phase), such as: ? Feeling tired. ? Difficulty concentrating. How is this diagnosed? A migraine headache can be diagnosed based on: ? Your symptoms. ? A physical exam. ? Tests, such as: ? CT scan or an MRI of the head. These imaging tests can help rule out other causes of headaches. ? Taking fluid from the spine (lumbar puncture) and analyzing it (cerebrospinal fluid analysis, or CSF analysis). How is this treated? This condition may be treated with medicines that: ? Relieve pain. ? Relieve nausea. ? Prevent migraine headaches. Treatment for this condition may also include: ? Acupuncture. ? Lifestyle changes like avoiding foods that trigger migraine headaches. ? Biofeedback. ? Cognitive behavioral therapy. Follow these instructions at home: Medicines ? Take ybli-hik-kqhjydx and prescription medicines only as told by your health care provider. ? Ask your health care provider if the medicine prescribed to you: ? Requires you to avoid driving or using heavy machinery. ? Can cause constipation. You may need to take these actions to prevent or treat constipation: ? Drink enough fluid to keep your urine pale yellow. ? Take bici-oyb-vgrdqjk or prescription medicines. ? Eat foods that are high in fiber, such as beans, whole grains, and fresh fruits and vegetables. ? Limit foods that are high in fat and processed sugars, such as fried or sweet foods. Lifestyle ? Do not drink alcohol. ? Do not use any products that contain nicotine or tobacco, such as cigarettes, e- cigarettes, and chewing tobacco. If you need help quitting, ask your health care provider. ? Get at least 8 hours of sleep every night. ? Find ways to manage stress, such as meditation, deep breathing, or yoga. General instructions ? Keep a journal to find out what may trigger your migraine headaches. For example, write down: ? What you eat and drink. ? How much sleep you get. ? Any change to your diet or medicines. ? If you have a migraine headache: ? Avoid things that make your symptoms worse, such as bright lights. ? It may help to lie down in a dark, quiet room. ? Do not drive or use heavy machinery. ? Ask your health care provider what activities are safe for you while you are experiencing symptoms. ? Keep all follow-up visits as told by your health care provider. This is important. Contact a health care provider if: ? You develop symptoms that are different or more severe than your usual migraine headache symptoms. ? You have more than 15 headache days in one month. Get help right away if: ? Your migraine headache becomes severe. ? Your migraine headache lasts longer than 72 hours. ? You have a fever. ? You have a stiff neck. ? You have vision loss. ? Your muscles feel weak or like you cannot control them. ? You start to lose your balance often. ? You have trouble walking. ? You faint. ? You have a seizure. Summary ? A migraine headache is an intense, throbbing pain on one side or both sides of the head. Migraines may also cause other symptoms, such as nausea, vomiting, and sensitivity to light and noise. ? This condition may be treated with medicines and lifestyle changes. You may also need to avoid certain things that trigger a migraine headache. ? Keep a journal to find out what may trigger your migraine headaches. ? Contact your health care provider if you have more than 15 headache days in a month or you develop symptoms that are different or more severe than your usual migraine headache symptoms. This information is not intended to replace advice given to you by your health care provider. Make sure you discuss any questions you have with your health care provider. Document Revised: 01/04/2023 Document Reviewed: 09/04/2019 [employer] Patient Education ?? 2022 [employer] Tests Performed Medications and Immunizations Administered Given 0.9% NaCl bolus, 1000 mL, Hydration Bolus Reglan, 5 mg, IV Push SOLU-Medrol, 125 mg, IV Push SUMAtriptan 6 mg/0.5 mL subcutaneous solution, 6 mg, Subcutaneous Toradol, 30 mg, IV Push Lab Test Name Test Result Date/Time WBC 9.5 x10^3/mcL 04/12/2024 18:01 EDT RBC 4.6 x10^6/mcL 04/12/2024 18:01 EDT Hgb 13.5 g/dL 04/12/2024 18:01 EDT Hct 38.8 % 04/12/2024 18:01 EDT MCV 84.3 fL 04/12/2024 18:01 EDT MCH 29.3 pg 04/12/2024 18:01 EDT MCHC 34.8 g/dL 04/12/2024 18:01 EDT RDW-CV 12.4 % 04/12/2024 18:01 EDT Platelets 502 x10^3/mcL 04/12/2024 18:01 EDT Segs Man 85 % 04/12/2024 18:01 EDT Lymph Man 7 % 04/12/2024 18:01 EDT [place] Man 8 % 04/12/2024 18:01 EDT Eos Man 0 % 04/12/2024 18:01 EDT Baso Man 0 % 04/12/2024 18:01 EDT Band Man 0 % 04/12/2024 18:01 EDT Abs Neut Man 8.1 x10^3/mcL 04/12/2024 18:01 EDT RBC Morph Normal 04/12/2024 18:01 EDT Slide Review Man Diff 04/12/2024 18:01 EDT miniiSED ESR 39 mm/hr 04/12/2024 18:01 EDT Sodium Level 131 mmol/L 04/12/2024 18:01 EDT Potassium Level 3.4 mmol/L 04/12/2024 18:01 EDT Chloride Level 93 mmol/L 04/12/2024 18:01 EDT CO2 31 mmol/L 04/12/2024 18:01 EDT Alk Phos 124 unit/L 04/12/2024 18:01 EDT AST 15 unit/L 04/12/2024 18:01 EDT ALT 27 unit/L 04/12/2024 18:01 EDT BUN 9 mg/dL 04/12/2024 18:01 EDT Glucose Level 130 mg/dL 04/12/2024 18:01 EDT Creatinine Level 0.64 mg/dL 04/12/2024 18:01 EDT eGFR AA 99 04/12/2024 18:01 EDT eGFR Non-AA 99 04/12/2024 18:01 EDT Calcium Level 9.0 mg/dL 04/12/2024 18:01 EDT Protein Total 7.2 g/dL 04/12/2024 18:01 EDT Albumin Level 3.4 g/dL 04/12/2024 18:01 EDT Bilirubin Total 0.4 mg/dL 04/12/2024 18:01 EDT CRP 37.4 mg/L 04/12/2024 18:01 EDT Patient/Casting Machine Operator Signature Patient Name:GRAYSON ALMODOVAR I have received this information and my questions have been answered. Patient/Casting Machine Operator Name: Patient/Casting Machine Operator Signature: Relationship to Patient: Witness Name/Signature: Date: Electronically Signed on: 04/12/2024 19:50 EDTSigned by:MRB Emergency department Note * Gosia Taylor: PERFORM Event Display: ED Notes Authored Date: Patient Care team information Care Team Personnel Name: Saravananadan Sara Beck AUTOMATIC CENTRIFUGAL STATION OPERATOR Position: PowerChart View Only Member Role: Informed Provider Address: [address] [place] [address]- Name: Haily Yoon AUTOMATIC CENTRIFUGAL STATION OPERATOR Position: No Access Member Role: Nurse Practitioner Address: [address] [place] [address]- Care Team Related Persons Name: KHALIDA WEBB Name: SOURAV WEBB Name: CHRISTINA BAL Insurance Providers Guarantor name: GRAYSON [facility] Information #: 1 Payer: [facility] Member Number: [id number] Policy Number: NA Health Plan Information #: 2 Payer: [facility] Member Number: [id number] Policy Number: NA
--- OUTSIDE RECORDS SUMMARY | 2024-09-04 15:15 | XMS_ITS | Continuity of Care Document ---
Author Organization [facility] Address [address] [place] [address] Care Team Providers Care Plumber Assistant Name Role Phone Sara Luke Primary Care Physician [facility] Date(s[facility] 06/19/23 - 06/19/23 [facility] [address] [place] [address] Discharge Disposition: Home or Self Care Attending Physician: Jose Manuel Guerrier MD Admitting Physician: Jose Manuel Guerrier MD Referring Physician: Jose Manuel Guerrier MD Allergies, Adverse Reactions, Alerts Substance Reaction Severity Status amoxicillin tongue swollen swelling of face Unknown Active sulfa drugs pt doesn't remember Unknown Active Immunizations Given and Recorded Vaccine Date Status [...] QID, # 56 tab, 0 Refill(s), Pharmacy: [facility] #58, 165, cm, 09/07/22 22:17:00 EST, Height/Length [...] 0 Refill(s) Start Date: 03/27/22 Status: Ordered Turmeric 0 Refill(s) Start Date: [...] 3Age 9 Results Laboratory List Name Date Creatinine 06/19/23 Most recent to oldest [Reference Range]: 1 eGFR Non-AA [>=60] 87 (06/19/23 3:59 PM) eGFR AA [>=60] 87 (06/19/23 3:59 PM) Creatinine Level [0.55-1.02 mg/dL] 0.77 mg/dL (06/19/23 3:59 PM) Social History Social History Type Response Tobacco Never tobacco user T obacco Use:. Sex Female Patient Care team information Care Team Personnel Name: Sara Luke RING STAMPER Position: PowerChart View Only Member Role: Informed Provider Address: Address: [address] [place] [id number] [place] [address] Name: Haily Yoon RING STAMPER Position: Physician Member Role: Nurse Practitioner Address: Address: [address] [place] [address]- Care Team Related Persons Name: KHALIDA WEBB Name: BENNY MCGEE Name: CHRISTINA BAL Address: Home [address] [id number]
--- OUTSIDE RECORDS SUMMARY | 2024-09-04 15:15 | XMS_ITS | Continuity of Care Document ---
Author Organization [facility] Address [address] [place] [address] Care Team Providers Care Crisis Manager Name Role Phone Sara Luke Primary Care Physician Encounter [facility] Date(s): 04/09/24 - 04/09/[address] [address] Encounter Diagnosis Headache(Discharge Diagnosis) - 04/09/24 Headache, unspecified(Final) - Nausea(Final) - Discharge Disposition: Home or Self Care Attending Physician: Jenae Miles MD Admitting Physician: Jenae Miles MD Allergies, Adverse Reactions, Alerts Substance Criticality Severity Reaction Reaction Severity Status amoxicillin Unable to assess criticality Unknown tongue swollen swelling of face Active sulfa drugs Unable to assess criticality Unknown pt doesn't remember Active Bactrim Unable to assess criticality Unknown Active Assessment and Plan Extracted from: Title:ED Provider Note Author:Jenae Miles Ma, MD Date:04/09/24 Assessment/Plan 1.??Headache??R51.9 Ordered: Discharge Patient, 04/09/24 19:01:00 EDT, Constant Indicator ?? Patient Education Migraine Headache Follow Up With When Contact Information Primary Care Physician Within 1 to 2 weeks Additional Instructions: Immunizations Given and Recorded Vaccine Date Status [...] QID, # 56 tab, 0 Refill(s), Pharmacy: [facility] #58, 165, cm, 09/07/22 22:17:00 EST, Height/Length [...] 3Age 9 Results Laboratory List Name Date SARS-CoV-2 (COVID-19)/Flu/RSV (GeneXpert ) (COVID-19/Flu/RSV (GeneXpert)) 04/09/24 Basic Metabolic Panel 04/09/24 CBC w/ Diff 04/09/24 Automated Diff 04/09/24 Most recent to oldest [Reference Range]: 1 WBC [5.0-10.0 x10^3/mcL] 9.0 x10^3/mcL (04/09/24 4:12 PM) RBC [4.1-5.3 x10^6/mcL] 4.1 x10^6/mcL (04/09/24 4:12 PM) Neutro Auto [40.0-75.0 %] 75.4 % *HI* (04/09/24 4:12 PM) Lymph Auto [20.0-50.0 %] 14.5 % *LOW* (04/09/24 4:12 PM) [place] Auto [2.0-15.0 %] 8.9 % (04/09/24 4:12 PM) Basophil Auto [0.0-1.0 %] 0.2 % (04/09/24 4:12 PM) BUN [7-18 mg/dL] 14 mg/dL (04/09/24 4:12 PM) Glucose Level [74-106 mg/dL] 102 mg/dL (04/09/24 4:12 PM) Potassium Level [3.5-5.1 mmol/L] 4.1 mmo l/L (04/09/24 4:12 PM) MCV [80.0-96.0 fL] 84.6 fL (04/09/24 4:12 PM) MCHC [31.0-35.0 g/dL] 34.5 g/dL (04/09/24 4:12 PM) Sodium Level [136-145 mmol/L] 133 mmol/L *LOW* (04/09/24 4:12 PM) Hct [37.0-47.0 %] 34.5 % *LOW* (04/09/24 4:12 PM) Calcium Level [8.5-10.1 mg/dL] 8.6 mg/dL (04/09/24 4:12 PM) MCH [26.0-32.0 pg] 29.2 pg (04/09/24 4:12 PM) Neutro Absolute 6.8 x10^3/mcL *NA* (04/09/24 4:12 PM) Hgb [12.0-16.0 g/dL] 11.9 g/dL *LOW* (04/09/24 4:12 PM) Platelets [130-450 x10^3/mcL] 441 x10^3/ mcL (04/09/24 4:12 PM) CO2 [21-32 mmol/L] 28 mmol/L (04/09/24 4:12 PM) eGFR Non-AA [>=60] 95 (04/09/24 4:12 PM) eGFR AA [>=60] 95 (04/09/24 4:12 PM) Chloride Level [98-107 mmol/L] 98 mmol/L (04/09/24 4:12 PM) RDW-CV [11.5-14.5 %] 12.8 % (04/09/24 4:12 PM) Imm Gran Auto [0.0-0.9 %] 0.3 % (04/09/24 4:12 PM) Slide Review Not Indicated (04/09/24 4:12 PM) Creatinine Level [0.55-1.02 mg/dL] 0.71 mg/dL (04/09/24 4:12 PM) SARS-CoV-2(Covid19)PCR(GXpert COVFLURSV) [Negative] Negative (04/09/24 5:47 PM) Flu A (GXpert COVFLURSV) [Negative] Nega tive (04/09/24 5:47 PM) RSV (GXpert COVFLURSV) [Negative] Negati ve (04/09/24 5:47 PM) Flu B (GXpert COVFLURSV) [Negative] Nega tive (04/09/24 5:47 PM) Eos, Auto [1.0-6.0 %] 0.7 % *LOW* (04/09/24 4:12 PM) Vital Signs Most recent to oldest [Reference Range]: 1 Temperature Temporal Artery [36-38 Deg C ] 36.1 Deg C (04/09/24 3:35 PM) Peripheral Pulse Rate [60-100 bpm] 92 bp m (04/09/24 3:35 PM) Respiratory Rate [12-24 br/min] 16 br/mi n (04/09/24 3:35 PM) Blood Pressure [90-140/60-90 mmHg] 137/6 9mmHg (04/09/24 3:35 PM) Mean Arterial Pressure, Cuff [65-140 mmH g] 92 mmHg (04/09/24 3:35 PM) Weight Estimated 59.87 kg (04/09/24 3:35 PM) Body Mass Index Estimated 22.81 kg/m2 (04/09/24 3:35 PM) Height/Length Estimated 162 cm (04/09/24 3:35 PM) Social History Social History Type Response Tobacco Never tobacco user T obacco Use:. Sex Female Sex Representation Female (finding) Hospital Discharge Instructions Patient Education 04/09/2024 17:30:24 Migraine Headache Migraine Headache A migraine headache [...] these instructions at home: Medicines ??? Take ryrq-jep-mbbdjzi and prescription medicines only as told by your health care provider. ??? Ask your health care provider if the medicine prescribed to you: ??? Requires you to avoid driving or using heavy machinery. ??? Can cause constipation. You may need to take these actions to prevent or treat constipation: ??? Drink enough fluid to keep your urine pale yellow. ??? Take praz-lgp-rwrdppc or prescription medicines. ??? Eat foods that [...] provider. Document Revised: 01/04/2023 Document Reviewed: 09/04/2019 [employer] Patient Education ?? 2022 [employer]. Follow Up Care 04/09/2024 15:34:05 With:Primary Care Physician Address: When:1 to 2 weeks Physician Emergency department Note * Jenae Miles MD: PERFORM Event Display: ED Note Physician Authored Date: [id number] GRAYSON ALMODOVAR :1960 Age:64 years Sex:Female Visit Date:04/09/2024 Primary Care Physician: Sara Luke NP Basic Information Time Seen: Jenae Miles MD / 04/09/2024 15:35 Chief Complaint Pt states nauseau and ZAPATA starting Sunday morning. Pt had bloodwork yesterday, sodium of 129. Pt also states hx of brain bleed, concerned after 4 days of unresolved ZAPATA not responding to pain med. Recent dental infection, on abx, History Of Present Illness: Pleasant 64 y.o. lady with chart listed h/o anxiety, cerebellar hemorrhage, constipation, gerd,??IBS, paresthesias, who presents to the ED c/o ZAPATA.?? Context is pt developed tooth ache and Lt sided jaw pain last week. Went to her dentist. Was told Xray did not show anything abnormal. She was put on Abx.??After that she developed a ZAPATA, points to b/l temples. ZAPATA is constant rated as 4/10.. Associated with n, no v. Pt says she feels dizzy like something is wrong. No visual changes. No numbness/tingling/weakness or trouble walking.?? Pt saw her pcp yesterday because of these symptoms. PCP ordered blood work, she says her sodium waslow at 129, she drank a lot of water. No ear pain, sore throat, congestion, fever/chills, v/d. No neck pain. Pt says she took 3 Covid tests which were negative. 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 Symptoms were worst ZAPATA of her life. She had a single treatment with radiation, no surgery.? Pt took Ibuprofen without improvement in symptoms. Says Tylenol does not work for her ? Physical Exam Gen: Pleasant, non-toxic appearing, resting comfortably in fully lit room HEENT: NCAT, TMs clear bilaterally without effusions, erythema, or lesions, preauricular, pinna, and external canal skin without lesions. Dentition intact without visible caries. No frontal or maxillary sinus TTP. Temples without TTP bilaterally, equal 2+ temporal artery pulses. No paraspinal posterior neck pain. Neck is supple.?? Resp: CTAB/l Card: RRR GI: NT/ND : Deferred MSK: No visible deformities, strength and tone WNL. Skin: Normal color with no visible lesions.?? Neuro: alert and oriented ?? 3, no facial asymmetry, no gaze preference, no slurring of speech. CN II-III: pupils equal and reactive (->2mm bilaterally); III, IV, : EOMI, V1-V3: sensation to touch bilaterally intact; VII: no facial asymmetry (frown / smile); VIII: no nystagmus; X: phonation intact, uvula midline; XI: trapezius 5/5 bilaterally, XII: tongue midline. Psych: Pleasant and cooperative ? MDM Previous chart, nursing note, and vitals reviewed.?? 64-year-old lady presents to the ED w/ ZAPATA.? Pt is well and non toxic appearing with reassuring VS ? DDx: migraine / tension headache, cluster headache, sentinel bleed/SAH, infection (VICE CHAIRMAN vs ZAPATA secondary to non-VICE CHAIRMAN focal infection), tumor/mass effect, hypertensive encephalopathy, glaucoma or iritis,idiopathic intracranial hypertension, cavernous sinus thrombosis, temporal arteritis. ?? Lab reviewed and interpreted independently - No leukocytosis, Hgb 11.9, renal function at baseline, Na 133, no other electrolyte abnormality on the complete metabolic panel ? Evaluation:?* Migraine / tension headache - suspect a migraine given the location and description of ZAPATA ??* Cluster - doubt cluster headache given the absence of unilateral symptoms, eye watering, swelling, or nasal congestion. ??* [place] bleed/SAH - no evidence by history, exam, or imaging. ??* Infection - Given lack of rash, meningismus, or fever; doubt meningitis. Similarly the history and exam are without evidence of acute otitis media, or sinusitis, *??dental abscesses - Pt reports a possible h/o recent abscess, treated with Abx. Exam is reassuring. CT does not show extension of a possible abscess.?* Mass - given new nature of the patient's headache, CT head was obtained, this was unremarkable. * Hypertensive encephalopathy - BP within the brain's autoregulatory zone. * Glaucoma or iritis - As the patient is without reported vision changes, eye pain,??further evaluation was not pursued. * Idiopathic Intracranial Hypertension - unlikely given the lack of visual symptoms, short durationof symptoms, lack of worsening with valsalva, or more prominent morning symptoms. * Thrombosis - given the lack of identifiable risk factors (fever, and hypercoagulability) as well as an absence of deficits on exam doubt both cavernous and venous sinus thrombosis. * Temporal Arteritis - given b/l headache,no temporal tenderness or decreased temporal artery pulse, absent history of jaw claudication or vision changes; unlikely ? ED Course: 1 L NS, 1 g acetaminophen iv, 10mg Reglan,??10 mg Compazine, 12.5 mg diphenhydramine given for initial symptom management with improvement.? Disposition: discharge with PCP follow-up in 1-2 weeks ? Discharge instructions and return precautions discussed, all questions answered. Physical Exam Vitals & Measurements T:??36.1?C ??(Temporal Artery)?? HR:??92??(Peripheral)?? RR:??16?? BP:??137/69?? SpO2:??99%?? HT:??162??cm?? WT:??59.87??kg??(Estimated)?? BMI:??22.81?? Pain Score:??4?? Procedure No Qualifying Data Assessment/Plan 1.??Headache??R51.9 Ordered: Discharge Patient, 04/09/24 19:01:00 EDT, Constant Indicator ?? Patient Education Migraine Headache Follow Up With When Contact Information Primary Care Physician Within 1 to 2 weeks Additional Instructions: Medication Reconciliation Unchanged buPROPion (BuPROPion (Eqv-Wellbutrin SR) 150 mg/12 [...] 0.9% NaCl bolus, 1000 mL, Hydration Bolus acetaminophen, 1000 mg, IV Piggyback Benadryl, 12.5 mg, IV Piggyback prochlorperazine, 10 mg, IV Push Reglan, 10 mg, IV Push Allergies Bactrim amoxicillin??(tongue swollen, swelling of face) sulfa drugs??(pt doesn't remember) Social History Alcohol Current, Wine, 1-2 times per month Electronic Cigarette/Vaping Electronic Cigarette Use: Never. Employment/School Employed Home/Environment Lives with Spouse. Living situation: Home/Independent. Substance Use Never Tobacco Never tobacco user Tobacco Use:. Family History Heart disease: Grandfather (P). Hypertension: Father. Lab Results CBC and Differential?? LATEST RESULTS?? WBC?? 04/09/24 16:12?? 9.0?? RBC?? 04/09/24 16:12?? 4.1?? Hgb?? 04/09/24 16:12?? 11.9 ??Low?? Hct?? 04/09/24 16:12?? 34.5 ??Low?? MCV?? 04/09/24 16:12?? 84.6?? MCH?? 04/09/24 16:12?? 29.2?? MCHC?? 04/09/24 16:12?? 34.5?? RDW-CV?? 04/09/24 16:12?? 12.8?? Platelets?? 04/09/24 16:12?? 441?? Neutro Auto?? 04/09/24 16:12?? 75.4 ??High?? Lymph Auto?? 04/09/24 16:12?? 14.5 ??Low?? [place] Auto?? 04/09/24 16:12?? 8.9?? Eos, Auto?? 04/09/24 16:12?? 0.7 ??Low?? Basophil Auto?? 04/09/24 16:12?? 0.2?? Imm Gran Auto?? 04/09/24 16:12?? 0.3?? Neutro Absolute?? 04/09/24 16:12?? 6.8?? Slide Review?? 04/09/24 16:12?? Not Indicated? Routine Chemistry?? LATEST RESULTS?? HISTORICAL RESULTS?? Sodium Level?? 04/09/24 16:12?? 133 ??Low? Potassium Level?? 04/09/24 16:12?? 4.1? Chloride Level?? 04/09/24 16:12?? 98? CO2?? 04/09/24 16:12?? 28? BUN?? 04/09/24 16:12?? 14? Glucose Level?? 04/09/24 16:12?? 102? Creatinine Level?? 04/09/24 16:12?? 0.71?? 06/19/23?? 0.77?? eGFR AA?? 04/09/24 16:12?? 95?? 06/19/23?? 87?? eGFR Non-AA?? 04/09/24 16:12?? 95?? 06/19/23?? 87?? Calcium Level?? 04/09/24 16:12?? 8.6? Infectious Disease?? LATEST RESULTS?? SARS-CoV-2(Covid19)PCR(GXpert COVFLURSV)?? 04/09/24 17:47?? Negative?? Flu A (GXpert COVFLURSV)?? 04/09/24 17:47?? Negative?? Flu B (GXpert COVFLURSV)?? 04/09/24 17:47?? Negative?? RSV (GXpert COVFLURSV)?? 04/09/24 17:47?? Negative? Electronically Signed on 04/09/2024 19:21 EDT Jenae Miles MD Emergency department Discharge instructions * Jenae Miles MD: PERFORM Event Display: ED Discharge Information Authored Date: [id number] GRAYSON ALMODOVAR :1960 Age:64 years Sex:Female Visit Date:04/09/2024 Primary Care Physician: Sara Luke EMISSIONS REPAIR TECHNICIAN Discharge Instructions We would like to thank you for allowing us to assist you with your healthcare needs. The following includes patient education materials and information regarding your injury/illness. Diagnosis from Today's Visit Headache Discharge Vitals Temperature??(Temporal Artery) 97.0 ??F (36.1 ??C) Heart Rate??(Peripheral) 92 Respiratory Rate?? 16 Blood Pressure?? 137/69?? SpO2?? 99% Height?? 63.78 in (162 cm) Weight??(Estimated) 132.01 lb (59.87 kg) BMI?? 22.81 Allergies Bactrim amoxicillin??(tongue swollen, swelling of face) sulfa drugs??(pt doesn't remember) What to Do Next Instructions from Your Care Team Please take Tylenol up to 650mg every 8 hours, and/or Ibuprofen up to 400mg every 8 hours for pain.Drink plenty of fluids. Follow up with your primary care provider for reevaluation in 1-2 weeks. Return to the ED for any new or worsening symptoms.?? You Need to Schedule the Following Appointments Follow Up with??Primary Care Physician When:??Within 1 to 2 weeks You were treated today on an emergency [...] How Much When Why Instructions Next Dose Unchanged buPROPion (BuPROPion (Eqv-Wellbutrin SR) 150 mg/ [...] by mouth) Every day Unchanged turmeric (Turmeric) Education Materials Migraine Headache A migraine headache is an [...] these instructions at home: Medicines ? Take nrbp-brx-jqbyqqg and prescription medicines only as told by your health care provider. ? Ask your health care provider if the medicine prescribed to you: ? Requires you to avoid driving or using heavy machinery. ? Can cause constipation. You may need to take these actions to prevent or treat constipation: ? Drink enough fluid to keep your urine pale yellow. ? Take ikvg-nkx-eqgkptl or prescription medicines. ? Eat foods that [...] Reviewed: 09/04/2019 Else[employer] Patient Education ?? 2022 [employer] Tests Performed Medications and Immunizations Administered Given 0.9% NaCl bolus, 1000 mL, Hydration Bolus acetaminophen, 1000 mg, IV Piggyback Benadryl, 12.5 mg, IV Piggyback prochlorperazine, 10 mg, IV Push Reglan, 10 mg, IV Push Lab Test Name Test Result Date/Time WBC 9.0 x10^3/mcL 04/09/2024 16:12 EDT RBC 4.1 x10^6/mcL 04/09/2024 16:12 EDT Hgb 11.9 g/dL 04/09/2024 16:12 EDT Hct 34.5 % 04/09/2024 16:12 EDT MCV 84.6 fL 04/09/2024 16:12 EDT MCH 29.2 pg 04/09/2024 16:12 EDT MCHC 34.5 g/dL 04/09/2024 16:12 EDT RDW-CV 12.8 % 04/09/2024 16:12 EDT Platelets 441 x10^3/mcL 04/09/2024 16:12 EDT Neutro Auto 75.4 % 04/09/2024 16:12 EDT Lymph Auto 14.5 % 04/09/2024 16:12 EDT [place] Auto 8.9 % 04/09/2024 16:12 EDT Eos, Auto 0.7 % 04/09/2024 16:12 EDT Basophil Auto 0.2 % 04/09/2024 16:12 EDT Imm Gran Auto 0.3 % 04/09/2024 16:12 EDT Neutro Absolute 6.8 x10^3/mcL 04/09/2024 16:12 EDT Slide Review Not Indicated 04/09/2024 16:12 EDT Sodium Level 133 mmol/L 04/09/2024 16:12 EDT Potassium Level 4.1 mmol/L 04/09/2024 16:12 EDT Chloride Level 98 mmol/L 04/09/2024 16:12 EDT CO2 28 mmol/L 04/09/2024 16:12 EDT BUN 14 mg/dL 04/09/2024 16:12 EDT Glucose Level 102 mg/dL 04/09/2024 16:12 EDT Creatinine Level 0.71 mg/dL 04/09/2024 16:12 EDT eGFR AA 95 04/09/2024 16:12 EDT eGFR Non-AA 95 04/09/2024 16:12 EDT Calcium Level 8.6 mg/dL 04/09/2024 16:12 EDT SARS-CoV-2(Covid19)PCR(GXpert COVFLURSV) NEGATIVE 04/09/2024 17:47 EDT Flu A (GXpert COVFLURSV) NEGATIVE 04/09/2024 17:47 EDT Flu B (GXpert COVFLURSV) Neg-GeneXPert 04/09/2024 17:47 EDT RSV (GXpert COVFLURSV) Neg-GeneXPert 04/09/2024 17:47 EDT Patient/Apple Turner Signature Patient Name:GRAYSON ALMODOVAR I have received this information and my questions have been answered. Patient/Apple Turner Name: Patient/Apple Turner Signature: Relationship to Patient: Witness Name/Signature: Date: Electronically Signed on: 04/09/2024 19:02 EDTSigned by:MAURA Patient Care team information Care Team Personnel Name: Sara Luke EMISSIONS REPAIR TECHNICIAN Position: PowerChart View Only Member Role: Informed Provider Address: [address] [place] [address]- Name: Haily Yoon EMISSIONS REPAIR TECHNICIAN Position: No Access Member Role: Nurse Practitioner Address: [address] [place] [address]- Care Team Related Persons Name: KHALIDA WEBB Name: BENNY MCGEE Name: CHRISTINA BAL Insurance Providers Guarantor name: GRAYSON ALMODOVAR Health Plan Information #: 1 Payer: [facility] Member Number: [id number] Policy Number: SHELLY Health Plan Information #: 2 Payer: [facility] Member Number: [id number] Policy Number: SHELLY
--- OUTSIDE RECORDS SUMMARY | 2024-09-04 15:15 | XMS_ITS | Continuity of Care Document ---
Author Organization [facility] Address [address] [place] [address] Care Team Providers Care Collet Driller Name Role Phone Sara Luke Primary Care Physician [phone] Encounter [facility] Date(s): 09/25/22 - 09/25/22 [facility] [address] [place] [address] Discharge Disposition: Home or Self Care Attending Physician: Sara Luke BAILER OPERATORS SUPERVISOR Admitting Physician: Sara Luke BAILER OPERATORS SUPERVISOR Referring Physician: Sara Luke BAILER OPERATORS SUPERVISOR Allergies, Adverse Reactions, Alerts Substance Reaction Severity [...] 2Age 9 Results Laboratory List Name Date Osmolality Urine 09/25/22 Sodium Level Urine 09/25/22 Most recent to oldest [Reference Range]: 1 Osmolality Ur [300-1300 mOsm/L] 461 mOsm /L (09/25/22 12:20 PM) U Sodium [20-110 mmol/L] <15 mmol/L *LOW* (09/25/22 12:20 PM) Social History Social History Type Response Tobacco Never tobacco user T obacco Use:. Sex Female Patient Care team information Care Team Personnel Name: Sara Luke BAILER OPERATORS SUPERVISOR Position: PowerChart View Only Member Role: Primary Care Physician Address: Address: [address] [place] [address]- [place] Name: Haily Yoon BAILER OPERATORS SUPERVISOR Position: Physician Member Role: Nurse Practitioner Address: Address: [address] [place] [address]- Care Team Related Persons Name: KHALIDA WEBB Address: Home Name: BENNY MCGEE Address: Home Name: CHRISTINA BAL Address: Home [address], [phone] Name: DAVE ASHLEY Address: Home [address] [facility], [phone]
--- OUTSIDE RECORDS SUMMARY | 2024-09-04 15:16 | XMS_ITS | Continuity of Care Document ---
Author Organization [facility] Address [address] [place] [address] Care Team Providers Care Wire Weaver Cloth Name Role Phone Sara Luke Primary Care Physician Encounter [facility] Date(s): 10/16/22 - 10/16/22 [facility] [address] [place] [address] Discharge Disposition: Home or Self Care Attending Physician: Fred Velázquez MD Admitting Physician: Fred Velázquez MD Allergies, Adverse Reactions, Alerts Substance Reaction [...] Completed Tonsillectomy 2 Completed 1LAVH,BSO 2Age 9 Social History Social History Type Response Tobacco Never tobacco user T obacco Use:. Sex Female Patient Care team information Care Team Personnel Name: Sara Luke MANAGER TRAFFIC Position: PowerChart View Only Member Role: Primary Care Physician Address: Address: [address] [place] [id number] [place] [address] Name: Haily Yoon MANAGER TRAFFIC Position: Physician Member Role: Nurse Practitioner Address: Address: [address] [place] [address]- Care Team Related Persons Name: TRACEYKHALIDA Address: Home Name: BENNY MCGEE Address: Home Name: CHRISTINA BAL Address: Home [address], [phone] Name: DAVE ASHLEY Address: [address], [address] Address: [address] [phone]
--- OUTSIDE RECORDS SUMMARY | 2024-09-04 15:16 | XMS_ITS | Continuity of Care Document ---
Author Organization [facility] Address [address] [place] [address] Care Team Providers Care Accounting Officer Name Role Phone Sara Luke Primary Care Physician Encounter [facility] Date(s): 05/26/24 - 05/26/24 [facility] [address] [place] [address] Discharge Disposition: Home or Self Care Attending Physician: Sara Luke COMPENSATION VICE PRESIDENT Admitting Physician: Sara Luke NP Referring Physician: Sara Luke COMPENSATION VICE PRESIDENT Allergies, Adverse Reactions, Alerts Substance Criticality Severity Reaction Reaction Severity Status amoxicillin Unable to assess criticality Unknown tongue swollen swelling of face Active Bactrim Unable to assess criticality Unknown Active sulfa drugs Unable to assess criticality Unknown pt doesn't remember Active Immunizations Given and Recorded Vaccine Date [...] QID, # 56 tab, 0 Refill(s), Pharmacy: [email or web address], 165, cm, 09/07/22 22:17:00 EST, Height/Length [...] Refill(s) Start Date: 03/27/22 Status: Ordered predniSONE 10 mg oral tablet See Instruction, Oral, Daily, 5 tabs for 3 days, 4 tabs daily x3 days, 3 tabs daily x3 days, 2 tabsdaily x3 days, 1 tab daily x3 days, # 45 cap, 0 Refill(s), Pharmacy: [id number], 165, cm, 10/16/22 7:11:00 EDT, Height, 59.87, kg, 04/19/24 1:38:00 EDT, Weight Dosing Start Date: 04/19/24 Status: Ordered Turmeric 0 Refill(s) Start Date: [...] Use:. Sex Female Sex Representation Female (finding) Patient Care team information Care Team Personnel Name: Sara Luke Kiran COMPENSATION VICE PRESIDENT Position: PowerChart View Only Member Role: Informed Provider Address: [address] [place] [address]- Name: Haily Yoon COMPENSATION VICE PRESIDENT Position: No Access Member Role: Nurse Practitioner Address: [address] Care Team Related Persons Name: KHALIDA WEBB Name: SOURAV WEBB Name: BENNY MCGEE Name: CHRISTINA BAL Insurance Providers Guarantor name: GRAYSON [facility] Information #: 1 Payer: [facility] Member Number: [id number] Policy Number: NA Health Plan Information #: 2 Payer: [facility] Member Number: [id number] Policy Number: NA
--- OUTSIDE RECORDS SUMMARY | 2024-09-04 15:16 | XMS_ITS | Continuity of Care Document ---
Author Organization [facility] Address [address] [place] [address] Care Team Providers Care Shook Machine Operator Name Role Phone Sara Luke Primary Care Physician Encounter [facility] Date(s): 04/19/24 - 04/19/24 [facility] [address] [place] [address] Encounter Diagnosis Headache(Discharge Diagnosis) - 04/19/24 Discharge Disposition: Home or Self Care Attending Physician: Christina Schaefer MD Admitting Physician: Christina Schaefer MD Allergies, Adverse Reactions, Alerts Substance Criticality [...] QID, # 56 tab, 0 Refill(s), Pharmacy: [email or web address], 165, cm, 09/07/22 22:17:00 EST, Height/Length [...] 0 Refill(s) Start Date: 03/27/22 Status: Ordered ondansetron 4 mg oral tablet, disintegrating 4 mg = 1 tab, Oral, TID, # 15 tab, 0 Refill(s), 04/28/24 8:16:00 PM CDT, Pharmacy: [id number], 165, cm, 10/16/22 7:11:00 EDT, Height, 59.87, kg, 04/19/24 1:38:00 EDT, Weight Dosing Start Date: 04/19/24 Stop Date: 04/28/24 Status: Ordered predniSONE 10 mg oral tablet [...] Weight Dosing Start Date: 04/19/24 Status: Ordered topiramate 25 mg oral capsule, extended release 25 mg = 1 cap, Oral, Daily, After 1 week increase to twice a day., X 30 days, # 42 cap, 0 Refill(s), 10/14/24 5:33:00 AM CDT, Pharmacy: [id number], 165, cm, 10/16/22 7:11:00 EDT, Height, 59.87, kg, 04/19/24 1:38:00 EDT, Weight Dosing Start Date: 04/19/24 Stop Date: 05/19/24 Status: Ordered Turmeric 0 Refill(s) Start Date: 09/06/22 Status: Ordered Mental Status 04/19/24 Eye Opening Response Patterson Spontaneous ly Best Verbal Response La Oriented Best Motor Response La Obeys comman ds Patterson Coma Score 15 Problem List Condition Confirmation Course Effective Dates [...] 3Age 9 Results Laboratory List Name Date .Manual Differential ([facility]) 04/19/24 C-Reactive Protein (CRP) 04/19/24 CBC w/ Diff 04/19/24 Comprehensive Metabolic Panel (CMP) 04/19 ESR Alcor 04/19/24 Most recent to oldest [Reference Range]: 1 WBC [5.0-10.0 x10^3/mcL] 13.0 x10^3/mcL *HI* (04/19/24 3:29 PM) RBC [4.1-5.3 x10^6/mcL] 4.4 x10^6/mcL (04/19/24 3:29 PM) Segs Man [40-75 %] 92 % *HI* (04/19/24 3:29 PM) Lymph Man [20-50 %] 4 % *LOW* (04/19/24 3:29 PM) [place] Man [2-15 %] 3 % (04/19/24 3:29 PM) Eos Man [1-6 %] 0 % *LOW* (04/19/24 3: PM) BUN [7-18 mg/dL] 12 mg/dL (04/19/24 3:29 PM) Glucose Level [74-106 mg/dL] 131 mg/dL *HI* (04/19/24 PM) Potassium Level [3.5-5.1 mmol/L] 3.7 mmo l/L (04/19/24 3: PM) MCV [80.0-96.0 fL] 86.0 fL (04/19/24 3: PM) RBC Morph Normal (04/19/24 PM) CRP [<=10.0 mg/L] 11.7 mg/L *HI* (04/19/24 3: PM) AST [15-37 unit/L] 17 unit/L (04/19/24 3: PM) ALT [14-59 unit/L] 34 unit/L (04/19/24 3:29 PM) MCHC [31.0-35.0 g/dL] 34.1 g/dL (04/19/24: PM) Sodium Level [136-145 mmol/L] 134 mmol/L *LOW* (04/19/24 3: PM) Hct [37.0-47.0 %] 38.1 % (04/19/24 3: PM) Calcium Level [8.5-10.1 mg/dL] 9.1 mg/dL (04/19/24 3: PM) Albumin Level [3.4-5.0 g/dL] 3.5 g/dL (04/19/24 3: PM) Protein Total [6.4-8.2 g/dL] 7.0 g/dL (04/19/24 3:29 PM) MCH [26.0-32.0 pg] 29.3 pg (04/19/24 3:29 PM) Bilirubin Total [0.2-1.0 mg/dL] 0.4 mg/d L (04/19/24 3: PM) Hgb [12.0-16.0 g/dL] 13.0 g/dL (04/19/24 3:29 PM) Alk Phos [46-146 unit/L] 116 unit/L (04/19/24 3:29 PM) Band Man [0-5 %] 0 % (04/19/24 3:29 PM) Platelets [130-450 x10^3/mcL] 622 x10^3/ mcL *HI* (04/19/24 3:29 PM) CO2 [21-32 mmol/L] 28 mmol/L (04/19/24 3:29 PM) Hyperseg Rare (04/19/24 3:29 PM) eGFR Non-AA [>=60] 101 (04/19/24 3:29 PM) eGFR AA [>=60] 101 (04/19/24 3:29 PM) Chloride Level [98-107 mmol/L] 98 mmol/L (04/19/24 3:29 PM) RDW-CV [11.5-14.5 %] 13.0 % (04/19/24 3:29 PM) Slide Review Man Diff (04/19/24 3:29 PM) Abs Neut Man 12.0 x10^3/mcL *NA* (04/19/24 3:29 PM) Creatinine Level [0.55-1.02 mg/dL] 0.60 mg/dL (04/19/24 3:29 PM) miniiSED ESR [0-30 mm/hr] 18 mm/hr (04/19/24 3:29 PM) Baso Man [0-1 %] 1 % (04/19/24 3:29 PM) Vital Signs Most recent to oldest [Reference Range]: 1 2 Temperature Temporal Artery [36-38 Deg C ] 36 Deg C (04/19/24 3:20 PM) Heart Rate Monitored [60-100 bpm] 88 bpm (04/19/24 5:41 PM) 93 bpm (04/19/24 3:20 PM) Respiratory Rate [12-24 br/min] 18 br/mi n (04/19/24 5:41 PM) 16 br/min (04/19/24 3:20 PM) Blood Pressure [90-140/60-90 mmHg] 140/8 1mmHg (04/19/24 5:41 PM) 132/79mmHg (04/19/24 3:20 PM) Mean Arterial Pressure, Cuff [65-140 mmH g] 101 mmHg (04/19/24 5:41 PM) 97 mmHg (04/19/24 3:20 PM) Social History Social History Type Response Tobacco Never tobacco user T obacco Use:. Sex Female Sex Representation Female (finding) Hospital Discharge Instructions Follow Up Care 04/19/2024 15:18:27 With:Sara Luke PRODUCTION CORRUGATOR Address: [address] [place] [address]- When:2 to 4 days Telehealth Consult note * Flavia Ang: PERFORM Event Display: Telemedicine Consultation Authored Date: [id number] Emergency department Discharge instructions * George Kumar MD: PERFORM Event Display: ED Discharge Information Authored Date: NISHI GRAYSON L :1960 Age:64 years Sex:Female Visit Date:04/19/2024 Primary Care Physician: Sara Luke PRODUCTION CORRUGATOR Discharge Instructions We would like to thank you for allowing us to assist you with your healthcare needs. The following includes patient education materials and information regarding your injury/illness. Diagnosis from Today's Visit Headache Discharge Vitals Temperature??(Temporal Artery) 96.8 ??F (36 ??C) Heart Rate??(Monitored) 88 Respiratory Rate?? 18 Blood Pressure?? 140/81?? SpO2?? 95% Allergies Bactrim amoxicillin??(tongue swollen, swelling of face) sulfa drugs??(pt doesn't remember) What to Do Next Instructions from Your Care Team You were seen in the emergency department??today.?? The exact reason for your headache is not entirely clear. ??However we will continue to try to investigate causes of your headache by obtaining an MRI as an outpatient.?? A referral was placed to [facility] neurology for follow-up. ??In the meantime you will need to follow-up with your primary care physician for reevaluation. ??Come back to the ER with any significantly worsening symptoms.?? You can take the Zofran as prescribed??as needed for nausea and vomiting. ??Continue to take the topiramate as prescribed during your??last??ER visit. You Need to Schedule the Following Appointments Follow Up with??Sara Luke NP When:??Within 2 to 4 days Where: [address] [place] [address]- You were treated today on an emergency [...] Much When Why Instructions Next Dose New ondansetron (ondansetron 4 mg oral tablet, disintegrating) 1 tab Oral (given by mouth) 3 times a day Headache Pickup at [facility] Unchanged buPROPion (BuPROPion (Eqv-Wellbutrin SR) 150 mg/ [...] Oral (given by mouth) Every day Unchanged predniSONE (predniSONE 10 mg oral tablet) See Instruction Oral (given by mouth) Every day Migraine headache 5 tabs for 3 days, 4 tabs daily x3 days, 3 tabs daily x3 days, 2 tabs daily x3 days, 1 tab daily x3days ?? Unchanged topiramate (topiramate 25 mg oral capsule, extended release) 1 Capsules Oral (given by mouth) Every day Migraine headache Duration: 30 Days After 1 week increase to twice a day. ?? Unchanged turmeric (Turmeric) Pharmacy Information [facility]: [address] [place] [address] [phone] Tests Performed Medications and Immunizations Administered Given 0.9% NaCl bolus, 1000 mL, Hydration Bolus ondansetron, 4 mg, IV Push Reglan, 5 mg, IV Push SUMAtriptan 6 mg/0.5 mL subcutaneous solution, 6 mg, Subcutaneous topiramate, 50 mg, Oral Toradol, 30 mg, IV Push Lab Test Name Test Result Date/Time WBC 13.0 x10^3/mcL 04/19/2024 15:29 EDT RBC 4.4 x10^6/mcL 04/19/2024 15:29 EDT Hgb 13.0 g/dL 04/19/2024 15:29 EDT Hct 38.1 % 04/19/2024 15:29 EDT MCV 86.0 fL 04/19/2024 15:29 EDT MCH 29.3 pg 04/19/2024 15:29 EDT MCHC 34.1 g/dL 04/19/2024 15:29 EDT RDW-CV 13.0 % 04/19/2024 15:29 EDT Platelets 622 x10^3/mcL 04/19/2024 15:29 EDT Segs Man 92 % 04/19/2024 15:29 EDT Lymph Man 4 % 04/19/2024 15:29 EDT [place] Man 3 % 04/19/2024 15:29 EDT Eos Man 0 % 04/19/2024 15:29 EDT Baso Man 1 % 04/19/2024 15:29 EDT Band Man 0 % 04/19/2024 15:29 EDT Abs Neut Man 12.0 x10^3/mcL 04/19/2024 15:29 EDT RBC Morph Normal 04/19/2024 15:29 EDT Hyperseg Rare 04/19/2024 15:29 EDT Slide Review Man Diff 04/19/2024 15:29 EDT miniiSED ESR 18 mm/hr 04/19/2024 15:29 EDT Sodium Level 134 mmol/L 04/19/2024 15:29 EDT Potassium Level 3.7 mmol/L 04/19/2024 15:29 EDT Chloride Level 98 mmol/L 04/19/2024 15:29 EDT CO2 28 mmol/L 04/19/2024 15:29 EDT Alk Phos 116 unit/L 04/19/2024 15:29 EDT AST 17 unit/L 04/19/2024 15:29 EDT ALT 34 unit/L 04/19/2024 15:29 EDT BUN 12 mg/dL 04/19/2024 15:29 EDT Glucose Level 131 mg/dL 04/19/2024 15:29 EDT Creatinine Level 0.60 mg/dL 04/19/2024 15:29 EDT eGFR AA 101 04/19/2024 15:29 EDT eGFR Non-AA 101 04/19/2024 15:29 EDT Calcium Level 9.1 mg/dL 04/19/2024 15:29 EDT Protein Total 7.0 g/dL 04/19/2024 15:29 EDT Albumin Level 3.5 g/dL 04/19/2024 15:29 EDT Bilirubin Total 0.4 mg/dL 04/19/2024 15:29 EDT CRP 11.7 mg/L 04/19/2024 15:29 EDT Patient/Behavioral Health Counselor Signature Patient Name:GRAYSON ALMODOVAR Refugio I have received this information and my questions have been answered. Patient/Behavioral Health Counselor Name: Patient/Behavioral Health Counselor Signature: Relationship to Patient: Witness Name/Signature: Date: Electronically Signed on: 04/19/2024 21:17 EDTSigned by:ROGELIO Emergency department Note * Flavia Ang: PERFORM Event Display: ED Notes Authored Date: * Flavia Ang: PERFORM Event Display: ED Notes Authored Date: Patient Care team information Care Team Personnel Name: Sara Luke PRODUCTION CORRUGATOR Position: PowerChart View Only Member Role: Informed Provider Address: [address] [place], [place] [id number] [place] [address] Name: Haily Yoon PRODUCTION CORRUGATOR Position: No Access Member Role: Nurse Practitioner Address: [address], [place] [address] Care Team Related Persons Name: KHALIDA WEBB Name: SOURAV WEBB Name: CHRISTINA BAL Insurance Providers Guarantor name: GRAYSON FLORESCAFATMATA Health Plan Information #: 1 [facility] Member Number: [id number] Policy Number: NA Health Plan Information #: 2 Payer: [facility] Member Number: [id number] Policy Number: NA
--- OUTSIDE RECORDS SUMMARY | 2024-09-04 15:16 | XMS_ITS | Continuity of Care Document ---
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 Medical History Ongoing ?Actinic keratosis ??Bloating ??Cerebellar hemorrhage ??Chronic rhinitis ??Constipation ??Decrease in height ??Depression with anxiety ??GERD without esophagitis ??IBS (irritable bowel syndrome) ??Increased frequency of urination ??Intracranial hemorrhage ??Long-term current use of drug therapy ??Loss of muscle tone of bladder ??Menopause present ??Palpitations ??Paresthesia ??Raynauds disease ??Thyroid disorder screening Historical ?No qualifying data Procedure/Surgical History ???Hysterectomy (02/12/2008)???CS - section (08/06/1989)???Tubal ligation (08/06/1989)???Tonsillectomy ?? Medications ??Acidophilus Probiotic Blend oral capsule ??BuPROPion (Eqv-Wellbutrin SR) 150 mg/12 hours oral tablet, extended release ??chromium picolinate 1000 mcg oral tablet, 1000 mcg= 1 tab, Oral, Daily ??cinnamon 500 mg oral capsule, 1000 mg= 2 cap, Oral, BID ??cyclobenzaprine 5 mg oral tablet, 5 mg= 1 tab, Oral, TID, PRN ??evening primrose ??fluticasone 50 mcg/inh nasal spray, 2 sprays, Nasal - Both Sides, BID, PRN ??garlic oral capsule ??omeprazole 20 mg oral delayed release capsule, 20 mg= 1 cap, Oral, Daily ??senna 8.6 mg oral tablet, 17.2 mg= 2 tab, Oral, every night at bedtime, PRN ??Turmeric ??Vitamin B12 Allergies amoxicillin??(tongue swollen, swelling of face) sulfa drugs??(pt doesn't remember) Social History Alcohol ??Current, Wine, 1-2 times per month Electronic Cigarette/Vaping ??Electronic Cigarette Use: Never. Employment/School ??Employed Home/Environment ??Lives with Spouse. Living situation: Home/Independent. Substance Use ??Never Tobacco ??Never tobacco user Tobacco Use:. Family History ??Heart disease: Grandfather (P). ??Hypertension: Father. ? Immunizations ??Vaccine ??Date ??Status ??tetanus-diphth toxoids (Td) adult/adol ?? ??Recorded ??rubella virus vaccine ?? ??Recorded ??varicella virus vaccine ?? ??Recorded ?? Lab Results ??Test Name ??Test Result ??Date/Time ??UA Color POCT ??Skye ??10/02/2022 09:08 EST ??UA Specific [place] POCT ??1.025 ??10/02/2022 09:08 EST ??UA Nitrite POCT ??NEGATIVE ??10/02/2022 09:08 EST ??UA Appearance POCT ??Cloudy ??10/02/2022 09:08 EST ??UA Blood POCT ??Moderate ??10/02/2022 09:08 EST ??UA Leukocytes POCT ??Negative ??10/02/2022 09:08 EST ??UA Glucose POCT ??Normal ??10/02/2022 09:08 EST ??UA pH POCT ??5.0 ??10/02/2022 09:08 EST ??UA Bilirubin POCT ??Negative ??10/02/2022 09:08 EST ??UA Protein POCT ??Negative ??10/02/2022 09:08 EST ??UA Ketones POCT ??Negative ??10/02/2022 09:08 EST ??UA Urobilinogen POCT ??0.2 ??10/02/2022 09:08 EST ? Signature Line Electronically Signed on 10/02/22 09:43 AM Michael Flanagan MD ? [1] [1]??Office Visit Note; Michael Flanagan MD 10/02/2022 09:43 EST Electronically Signed on 10/11/22 09:00 AM Pita Watson Patient Care team information Care Team Personnel Name: Sara Luke COTTON BAG CLIPPER Position: PowerChart View Only Member Role: Primary Care Physician Address: Address: [address] [place], [place] [id number] [place] [address] Name: Haily Yoon COTTON BAG CLIPPER Position: Physician Member Role: Nurse Practitioner Address: Address: [address] [place] [id number]- [place] Care Team Related Persons Name: KHALIDA WEBB Address: Home Name: BENNY MCGEE Address: Home Name: CHRISTINA BAL Address: Home [address] [id number] Name: DAVE ASHLEY Address: [address], [address] Address: Home [address] [place] [address], [id number]
--- OUTSIDE RECORDS SUMMARY | 2024-09-04 15:16 | XMS_ITS | Continuity of Care Document ---
Author Organization [facility] Address [address] [place] [address] Care Team Providers Care Computer Hardware Designer Name Role Phone Sara Luke Primary Care Physician [phone] Encounter [facility] Date(s): 04/28/24 - 04/28/[address] [id number] Discharge Disposition: Home or Self Care Attending Physician: Sara Luke HAND SPRAYER Admitting Physician: Sara Luke NP Referring Physician: Sara Luke HAND SPRAYER Allergies, Adverse Reactions, Alerts Substance Criticality Severity Reaction Reaction Severity Status amoxicillin Unable to assess criticality Unknown tongue swollen swelling of face Active sulfa drugs Unable to assess criticality Unknown pt doesn't remember Active Bactrim Unable to assess criticality Unknown Active Immunizations Given and Recorded Vaccine [...] QID, # 56 tab, 0 Refill(s), Pharmacy: [id number], 165, cm, 09/07/22 22:17:00 EST, Height/Length [...] days, # 45 cap, 0 Refill(s), Pharmacy: [id number], 165, cm, 10/16/22 7:11:00 EDT, Height, 59.87, kg, 04/19/24 1:38:00 EDT, Weight Dosing Start Date: 04/19/24 Status: Ordered topiramate 25 mg oral capsule, extended release 25 mg = 1 cap, Oral, Daily, After 1 week increase to twice a day., X 30 days, # 42 cap, 0 Refill(s), 05/19/24 5:33:00 AM CDT, Pharmacy: [id number], 165, cm, 10/16/22 7:11:00 EDT, [...] information Care Team Personnel Name: Sara Luke HAND SPRAYER Position: PowerChart View Only Member Role: Informed Provider Address: [address] Name: Haily Yoon HAND SPRAYER Position: No Access Member Role: Nurse Practitioner Address: [address] Care Team Related Persons Name: KHALIDA WEBB Name: SOURAV WEBB Name: BENNY MCGEE Name: CHRISTINA BAL Insurance Providers Guarantor name: GRAYSON Huff [facility] Information #: 1 Payer: [facility] Member Number: [id number] Policy Number: NA Health Plan Information #: 2 Payer: [facility] Member Number: [id number] Policy Number: NA
--- OUTSIDE RECORDS SUMMARY | 2024-09-04 15:16 | XMS_ITS | Referral Summary ---
Author Organization [facility] Address [address] [place] [address] Care Team Providers Care Production Line Technician Name Role Phone Fidencio Gonsalez Primary Care Provider [phone] Social History Tobacco Use Types Packs/Day Years Used Date Smoking Tobacco: Never Assessed Comments Unknown Sex and Gender Information Value Date Recorded Sex Assigned at Not on file Legal Sex Female 18:12 EST Gender Identity Not on file Sexual Orientation Not on file Plan of Treatment Not on file Insurance [facility] Care Teams Production Line Technician Relationship Specialty Start Date End Date Fidencio Gonsalez PA [address] [place] [id number] PCP - General 11/01/10
--- OUTSIDE RECORDS SUMMARY | 2024-09-04 15:16 | XMS_ITS | Continuity of Care Document ---
Author Organization [facility] Address [address] [place] [address] Care Team Providers Care Rodeo Performer Name Role Phone CHRISTIANOCLAUDIA SARA Primary Care Provider Assessment No assessment recorded. Plan of Treatment Reminders Order Date Submit Date Provider Last Modified By Organization Details Last Modified Time Details Appointments Acute 2024 02:00P M SARA LUKE Not available Not available Not available Follow Up 2024 02:30P M SARA LUKE Not available Not available Not available Lab None recorded . Referral None recorded . Procedures None recorded . Surgeries None recorded . Imaging None recorded . Medication Orders Topamax 50 mg tablet 2023 024 [employer] [id number], [address] [facility], [place], [address], 06/09/2024 14:55:54 Patient TargetsNo targets recorded. Patient Instructions Encounter Date Encounter Id Patient Instructions Last Modified By Organization Details Last Modified Time 06/09/2024 [id number] continue current medication. If you are having breakthrough headaches please let me know Follow up 4 months Not available 06/09/2024 14:52:50 Reason for Referral None Reported. Results Created Date Observation Date Name Description Value Unit Range Abnormal Flag Note LastModifiedBy Organization Detail LastModifiedTime 05/30/20 24 05/26/2024 MRI, brain , w/o contr ast PROCED URE INFORM ATION: Exam: MR Head Withou t Contra st Exam date and time: 2023 2:38 PM Age: 64 years old Clinic al indica tion: Pain; Additi onal info: Headac he TECHNI QUE: Imagin g protoc ol: Magnet ic resona nce imagin g of the head withou t contra st. COMPAR PAULO: CT CTA HEAD/N YADIRA W/ AND/OR WO CONT 024 2:47 AM FINDIN GS: Brain: Scatte red T2 hyperi ntense white matter foci typica l of chroni c white matter microv ascula r diseas e. Remain tobias of the brain is unrema rkable . No eviden ce of an acute infarc tion. No midlin e shift or mass effect . No intrac ranial hemorr diomedes. Cerebr al ventri cles: No ventri culome [place]. Bones: Unrema rkable . Parana kuldeep sinuse s: Clear. No layeri ng fluid. Mastoi d air cells: Trace right mastoi d effusi on. No destru ctive change s or signs of mastoi ditis. Orbits : Unrema rkable . Soft tissue s: Unrema rkable . IMPRES LULY: 1. Mild chroni c white matter change s. 2. Otherw ise unrema rkable brain MRI. No acute findin gs. Report signed by: Isma Marrufo On 2023 11:15: 31 [email or web address] [facility] [address], [place], [address], 06/09/2024 09:10:02 Result Notes None recorded. Problems Name Problem SNOMED Code Status Onset Date Resolution Date Notes Provider Name and Address Organization Details Recorded Time Nocturia 125519471 Active 2024 OUMAR ALICEA [address], [place], [address] , [place] - [facility] 5 14:33:21 Anxiety 78293504 Active 200403/20/20 23 - Comments only - Sara Luke MECHANICAL ENGINEERING TECHNICIAN - Feeling a little bit more down lately, isn't sure if related to returnin g to work or family stressor s. Has been on bupropio n x 15 years. declines referral for counseli ng at this time, will let me know if sx don't improve on return to work. Problem Code: F41.8; Problem Code Type: ICD-10; Not Available [facility] 3 04:32:36 Allergic rhinitis 62226802 Active 2002 Problem Code: J30.9; Problem Code Type: ICD-10; Not Available [facility] 3 04:32:36 Acquired absence of cervix and uterus 741902238 Active 2007 Problem Code: Z90.710; Problem Code Type: ICD-10; Not Available [facility] 3 04:32:36 Acute sinusiti s 62938479 Completed 201401/26/2015 Problem Code: J01.90; Problem Code Type: ICD-10; Not Available [facility] 3 04:32:36 Verruca vulgaris 50559729 Completed 201401/26/2015 Problem Code: B07.9; Problem Code Type: ICD-10; Not Available [facility] 3 04:32:36 Pain 12139840 Completed 201602/19/2017 Problem Code: R52; Problem Code Type: ICD-10; Not Available [facility] 3 04:32:37 Fatigue 47061893 Active 201605/08/20 23 - Comments only - Sara Luke MECHANICAL ENGINEERING TECHNICIAN - s/p episode of signfica nt fatigue [...] R53.83; Problem Code Type: ICD-10; Not Available [facility] 4 05:35:36 Irritabl e bowel syndrome 59446401 Active 201604/20/20 22 - Comments only - Sara Luke MECHANICAL ENGINEERING TECHNICIAN - Chronic, no change, currentl y using probioti c and digestiv e enzymes. Colonosc opy due 07/05/20 23 Problem Code: K58.9; Problem Code Type: ICD-10; Not Available [facility] 3 04:32:37 Acute pharyngi tis 284201755 Completed 201607/20/2017 Problem Code: J02.9; Problem Code Type: ICD-10; Not Available [facility] 3 04:32:37 Disorder of respirat ory system 47556062 Completed 201709/24/2017 09/03/19 18 - Comments only - Kaylyn Wade MECHANICAL ENGINEERING TECHNICIAN - Duration of 12 days. Wheezing /rhonchi . Will rx. Doxy and Proair. Medicati ons reviewed with patient. F/U if not improvin g or if worsenin g. The patient is in good understa nding and agreemen t with the plan of care. Problem Code: J98.8; Problem Code Type: ICD-10; Not Available [facility] 3 04:32:37 Onychomy cosis due to dermatop hyte 669242357 Active 2017 Problem Code: B35.1; Problem Code Type: ICD-10; Not Available [facility] 3 04:32:37 Contact dermatit is 41844804 Completed 201702/04/2018 12/25/19 18 - Comments only - Rolando Graf PA-C - Continue d topical steroids . Recheck as needed. Problem Code: L25.9; Problem Code Type: ICD-10; Not Available [facility] 3 04:32:37 Acute maxillar y sinusiti s 76470068 Completed 201701/31/2018 01/18/20 18 - Comments only - Kaylyn Wade MECHANICAL ENGINEERING TECHNICIAN - Will treat with Z-pack. Given previous [...] J01.00; Problem Code Type: ICD-10; Not Available [facility] 3 04:32:37 Adult health examinat ion Active 2017 Problem Code: Z00.00; Problem Code Type: ICD-10; Not Available [facility] 3 04:32:38 Breast signs and symptoms 287460025 Completed 201707/09/2018 06/18/20 18 - Comments only - Kaylyn Wade MECHANICAL ENGINEERING TECHNICIAN - One episode of breast heavines s [...] N64.59; Problem Code Type: ICD-10; Not Available [facility] 3 04:32:38 Gastroes ophageal reflux disease without esophagi tis 855390868 Active 201708/10/19 23 - Comments only - Sara Luke MECHANICAL ENGINEERING TECHNICIAN - Chronic reflux, unable to d/c her omeprazo le, would likely benefit from upper GI and is due for colonosc opy in 2022. Will refer to Dr. Velázquez or Dr. Álvarez. Problem Code: K21.9; Problem Code Type: ICD-10; Not Available [facility] 3 04:32:38 Raynaud' s disease 886433361 Active 201710/22/19 21 - Comments only - Megan Borja MD - Discusse d manageme nt strategi es. Problem Code: I73.00; Problem Code Type: ICD-10; Not Available [facility] 3 04:32:38 Acute conjunct ivitis of left eye 76806192769 9105 Completed 201810/03/2018 08/26/19 19 - Comments only - Rolando Graf PA-C - Most likely irritant conjunct ivitis from eye makeup. Recommen d 0 therapy. Overall has improved . Follow-u p as needed. No eye/visi on symptoms . Problem Code: H10.32; Problem Code Type: ICD-10; Not Available [facility] 3 04:32:38 Chronic sinusiti s 08160898 Completed 201812/12/2018 11/29/19 19 - Comments only - Kaylyn Wade MECHANICAL ENGINEERING TECHNICIAN - Start antibiot ics. Hold Flonase until noseblee ds resolve, if they do not she may need cautery again. She will let me know. Problem Code: J32.9; Problem Code Type: ICD-10; Not Available [facility] 3 04:32:38 Palpitat ions 59574002 Active 201807/19/20 19 - Comments only - Kaylyn Wade MECHANICAL ENGINEERING TECHNICIAN - Intermit tent, not new, EKG normal today. Check TSH. If persisti ng, will have her wear a holter. Problem Code: R00.2; Problem Code Type: ICD-10; Not Available [facility] 3 04:32:38 Family history of breast cancer 137887321 Active 2019 Problem Code: Z80.3; Problem Code Type: ICD-10; Not Available [facility] 3 04:32:39 Actinic keratosi s 154111183 Active 201906/29/20 20 - Comments only - Kaylyn Wade MECHANICAL ENGINEERING TECHNICIAN - Consent obtained , liquid nitrogen applied in a three freeze thaw fashion. Tolerate d well. If this does not take care of it she can come back and we can treat it again. If it still persists would recommen d excision . Problem Code: L57.0; Problem Code Type: ICD-10; Not Available [facility] 3 04:32:39 Melanocy tic nevus 925097347 Completed 202011/03/2020 10/22/19 21 - Comments only [...] D22.9; Problem Code Type: ICD-10; Not Available [facility] 3 04:32:39 Lymphade nopathy 50455308 Completed 202011/03/2020 10/22/19 21 - Comments only - Megan Borja MD - Nonworri some., possibly mildly enlarged lymph node in posterio r neck region. Advised monitori ng and recheck if it seems to be getting larger Problem Code: R59.9; Problem Code Type: ICD-10; Not Available [facility] 3 04:32:39 Increase d frequenc y of urinatio n 037490072 Active 202004/20/20 22 - Comments only - Sara Chute MECHANICAL ENGINEERING TECHNICIAN - Persists , discusse d Errol and medicati on managmen t for OAB, she declines at this time Problem Code: R35.0; Problem Code Type: ICD-10; Not Available [facility] 3 04:32:39 Chest pain 82339719 Completed 202007/02/2021 Problem Code: R07.89; Problem Code Type: ICD-10; Not Available [facility] 3 04:32:39 Headache 71930913 Active 202006/27/20 21 - Comments only - Sara Chute MECHANICAL ENGINEERING TECHNICIAN - Early am and unilater al left sided headache . Neuro exam intact, will check CT scan to be sure nhot missing another process. Problem Code: R51.9; Problem Code Type: ICD-10; Not Available [facility] 3 04:32:39 Low back pain 054441867 Active 2021 Problem Code: M54.59; Problem Code Type: ICD-10; Not Available [facility] 3 04:32:40 Paresthe thanh 20051296 Active 202101/06/20 22 - Comments only - Sara Chute MECHANICAL ENGINEERING TECHNICIAN - Numbness , tingling under left eye and left side of face. Seems likely to be related to recent extensiv e dental work, less likely trigemin al neuralgi a as no associat ed shock like pain or ZAPATA. Recommen d continue to monitor if no gradual improvem ent or sx increase to RTC Problem Code: R20.2; Problem Code Type: ICD-10; Not Available [facility] 3 04:32:40 Screenin g for malignan t neoplasm of breast Completed 202103/08/2022 Problem Code: Z12.39; Problem Code Type: ICD-10; Not Available [facility] 3 04:32:40 Cerebral hemorrha ge 175975927 Active 202103/20/20 23 - Comments only - Sara Luke MECHANICAL ENGINEERING TECHNICIAN - [facility] WIll be having CT angiogra m as well. No return of sx or signific ant ZAPATA Problem Code: I61.4; Problem Code Type: ICD-10; Not Available [facility] 3 04:32:40 Spontane ous intracra nial hemorrha ge 526912870 Active 2021 Problem Code: I62.9; Problem Code Type: ICD-10; [facility] Available [facility] 3 04:32:40 Screenin g for malignan t neoplasm of colon Active 2022 Problem Code: Z12.11; Problem Code Type: ICD-10; Not Available [facility] 3 04:32:40 Abdomina l pain 25651119 Active 2022 Problem Code: R10.9; Problem Code Type: ICD-10; Not Available [facility] 3 04:32:40 Blood in urine 84727857 Active 202209/14/19 23 - Comments only - Sara Luke MECHANICAL ENGINEERING TECHNICIAN - Hx of complete hysterec berenice. Reports hematuri a in the past that has not ever been evaluate d. Recent CT showed no renal abnormal ities, no calculi. Refer to Dr. Flanagan Problem Code: R31.9; Problem Code Type: ICD-10; Not Available [facility] 3 04:32:41 Closed fracture lumbar vertebra , wedge 099543691 Active 2022 Problem Code: S32.010A ; Problem Code Type: ICD-10; Not Available [facility] 3 04:32:41 Hypo-osm olality and or hyponatr emia 835020849 Active 202203/20/20 23 - Comments only - Sara Luke MECHANICAL ENGINEERING TECHNICIAN - will recheck sodium, bmp Problem Code: E87.1; Problem Code Type: ICD-10; Not Available [facility] 3 04:32:41 Diarrhea 58610283 Active 202203/20/20 23 - Comments only - Sara Luke MECHANICAL ENGINEERING TECHNICIAN - Recurren t persista nt. [place] had [...] R19.7; Problem Code Type: ICD-10; Not Available [facility] 3 04:32:41 Pain of left eye 13952365801 9104 Completed 201904/05/2020 Problem Code: H57.12; Problem Code Type: ICD-10; Not Available [facility] 3 04:32:41 Sleep disorder 11279478 Completed 201609/03/2017 Problem Code: G47.9; Problem Code Type: ICD-10; Not Available [facility] 3 04:32:42 Shoulder joint pain 157172509 Completed 201405/31/2017 Problem Code: M25.519; Problem Code Type: ICD-10; Not Available [facility] 3 04:32:42 Collagen ous colitis 05084082 Completed 200705/31/2017 Not Available [facility] 3 04:32:42 Pain of breast 85832317 Completed 201804/05/2020 Problem Code: N64.4; Problem Code Type: ICD-10; Not Available [facility] 3 04:32:42 Right upper quadrant pain 873225384 Completed 202008/10/2022 Problem Code: R10.11; Problem Code Type: ICD-10; Not Available [facility] 3 04:32:42 Jaw pain 851442374 Completed 201405/31/2017 Problem Code: R68.84; Problem Code Type: ICD-10; Not Available [facility] 3 04:32:42 Acquired absence of cervix and uterus 062853576 Completed 201605/31/2017 Problem Code: Z90.710; Problem Code Type: ICD-10; Not Available [facility] 3 04:32:43 Pain of breast 49470292 Completed 201904/05/2020 Problem Code: N64.4; Problem Code Type: ICD-10; Not Available [facility] 3 04:32:43 Pain of breast 64001441 Completed 201908/10/2022 Problem Code: N64.4; Problem Code Type: ICD-10; Not Available [facility] 3 04:32:43 Ligation of bilatera l fallopia n tubes Completed 200205/31/2017 Not Available [facility] 3 04:32:43 Disorder of nail 15185471 Completed 201706/26/2018 12/25/19 18 - Comments only - Rolando Graf PA-C - Posttrau matic nail abnormal ity left great toe. Referral to podiatry . Patient would like to keep her nail for cosmetic reasons. Problem Code: L60.9; Problem Code Type: ICD-10; Not Available [facility] 3 04:32:43 Bleeding from nose 262529457 Completed 201701/17/2018 Problem Code: R04.0; Problem Code Type: ICD-10; Not Available [facility] 3 04:32:44 Abdomina l pain 28172906 Completed 201501/15/2023 Problem Code: R10.9; Problem Code Type: ICD-10; Not Available [facility] 3 04:32:44 Chronic rhinitis 68062755 Completed 200205/02/202305/31/20 17 - Comments only - Kaylyn Wade MECHANICAL ENGINEERING TECHNICIAN - Refilled Flonase. Patient uses more during season changes and in the winter. Not Available [facility] 3 04:32:44 Dyspareu bakari 44283510 Completed 202008/10/2022 Problem Code: N94.10; Problem Code Type: ICD-10; Not Available [facility] 3 04:32:44 Depressi ve disorder 12960430 Completed 200405/02/2023 Not Available [facility] 3 04:32:44 Elevated blood-pr essure reading without diagnosi s of hyperten luly 812773346 Completed 202004/20/2022 Problem Code: R03.0; Problem Code Type: ICD-10; Not Available [facility] 3 04:32:45 Hyperlip idemia screenin g Completed 202108/10/2022 Problem Code: Z13.220; Problem Code Type: ICD-10; Not Available [facility] 3 04:32:45 Disorder of skin and/or subcutan eous tissue 68398360 Completed 201704/05/2020 Problem Code: L98.8; Problem Code Type: ICD-10; Not Available [facility] 3 04:32:45 Abnormal weight loss 803855808 Completed 202104/20/2022 Problem Code: R63.4; Problem Code Type: ICD-10; Not Available [facility] 3 04:32:45 Adult health examinat ion Completed 201601/17/2018 Problem Code: Z00.00; Problem Code Type: ICD-10; Not Available [facility] 3 04:32:45 Disorder of eye region 262211461 Completed 202004/20/2022 Problem Code: H57.9; Problem Code Type: ICD-10; Not Available [facility] 3 04:32:46 Adult health examinat ion Completed 201808/10/2022 Problem Code: Z00.00; Problem Code Type: ICD-10; Not Available [facility] 3 04:32:46 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 Problem Code: Q27.9; Problem Code Type: ICD-10; Not Available [facility] 4 05:35:36 Lumbar radiculo shukri 022149600 Active [address], [facility] [address] , [facility] 4 14:57:52 Muscle pain 59509446 Active [address], [facility] [address] [place] [address] 4 15:49:36 Infectio n of tooth 619978396 Completed 202306/09/[address], [facility] [address] [place] [address] 14:49:45 Nausea 506954183 Active [address], [facility] [address] , [facility] 4 16:45:47 Pruritic rash 83158272 Active [address], [facility] [address] , [facility] 16:45:03 Notes:*Problem Name: Laparos c.hysterectomy,bso 02/10 *Problem Status: inactive *Comments: *Problem Code: 68.9 *Problem Code Type: ICD-9 *Note Date: 05/08/2008 Problem Notes None recorded. Procedures Surgical History Date Name Laterality Status Provider Name and Address Organization Details Recorded Time 02/04/20 08 Total hysterectomy completed Rebecca Arana [facility] 07/15/2024 16:56:07 Imaging Results None recorded. Procedure Notes None recorded. Medical Equipment None Reported. Allergies Allergen ID Allergen Name Allergen Category Reaction Reaction Severity Criticality Documentation Date Start Date Code Code System Note Provider Name and Address Organization Details Recorded Time 73173 Product containin g penicilli n and antibioti c (product) medicatio n rash Not available Not available 08/17/20232022 44878 05 SNOMED Aller gyCod e: '8340 61'; Aller gyNam e: 'PENI CILLI N'; Aller gyCon ceptT ype: 'RX Norm' ; Aller gyRea ction : 'Rash , Short ness of Breat h,'; Not Available [facility] 4 05:09:59 Medications Name Sig Start Date Stop Date Status Note LastModified by Organization Details LastModified Time Miralax 17 gram/dose oral powder 17 gram by mouth once a day 03/20 completed Not Available Not Available Not Available bupropion HCl SR 150 mg tablet,12 hr sustained -release TAKE ONE TABLET BY MOUTH TWICE A DAY active Not Available Not Available No t Available prednison e 10 mg tablet TAKE 5 TABLETS BY MOUTH ONCE DAILY FOR 3 DAYS THEN 4 ONCE DAILY FOR 3 DAYS THEN 3 ONCE DAILY FOR 3 DAYS THEN 2 ONCE DAILY FOR 3 DAYS THEN 1 ONCE DAILY FOR 3 DAYS 05/07 completed Not Available Not Available Not Available clindamyc in HCl 300 mg capsule TAKE ONE CAPSULE BY MOUTH EVERY 8 HOURS UNTIL GONE FOR 7 DAYS 06/09 completed Not Available Not Available Not Available evening primrose oil 500 mg capsule [...] completed Not Available Not Available Not Available prednison e 20 mg tablet TAKE TWO TABLETS BY MOUTH EVERY DAY FOR 5 DAYS 05/07 completed Not Available Not Available Not Available Pyridium 200 mg tablet 1 TAB TID 10/18 completed Not Available Not Available Not Available sumatript an 50 mg tablet TAKE ONE TABLET BY MOUTH AT ONSET OF HEADACHE , MAY REPEAT IN TWO HOURS IF NECESSAR Y active Not Available Not Available No t Available topiramat e 25 mg tablet TAKE TWO TABLETS BY MOUTH TWICE A DAY 06/09 completed dosage change Not Available Not Available Not Available Wellbutri n SR 100 mg tablet, 12 hr sustained -release Take 1 by mouth twice daily 03/03 completed Not Available Not Available Not Available triamcino lone acetonide 0.1 % topical cream APPLY A SMALL AMOUNT TO AFFECTED AREA(S) ON SCALP TWO TIMES A DAY FOR MAX 14 DAYS 2023 active Not Available Not Available Not Avai lable Aerochamb er MV spacer use with inhaler 10/18 completed Not Available Not Available Not Available garlic 500 mg capsule Take 1 capsule by mouth single dose 01/22 completed Not Available Not Available Not Available estradiol 1 mg tablet Take 1 tab by mouth daily 01/15 completed Not Available Not Available Not Available topiramat e 25 mg sprinkle capsule TAKE ONE CAPSULE BY MOUTH EVERY DAY FOR 7 DAYS AND THEN TAKE ONE CAPSULE BY MOUTH TWICE A DAY 05/07 completed dosage change Not Available Not Available Not Available dicyclomi [...] Available Not Available Nasonex 50 mcg/actua tion [place] 2 sprays each nare daily 2014 active Not Available Not Available Not Avai lable fluocinon jodie 0.05 % topical solution apply bid 06/28 completed Not Available Not Available Not Available sumatript an 20 mg/actuat ion nasal spray INSTILL ONE SPRAY IN NASAL PASSAGE AT FIRST SIGN OF HEADACHE , MAY REPEAT AFTER TWO HOURS IF NO IMPROVEM ENT. USE ONE PREPARAT ION PER 24 HOUR PERIOD 2023 active Not Available Not Available Not Avai lable Cipro 250 mg tablet 1 tab BID 10/19 completed Not Available Not Available Not Available ondansetr on 4 mg disintegr ating tablet Place 1 tablet twice a day by translin gual route as needed, for nausea. active Not Available Not Available No t Available fluticaso ne propionat e 50 mcg/actua [...] completed Not Available Not Available Not Available topiramat e 50 mg tablet TAKE ONE TABLET BY MOUTH TWICE A DAY active Not Available Not Available No t Available Cinnamon 500 mg capsule Take 2 [...] Not Available Not Available Not Available Multivita min-Bureau als 1TAB daily 08/12 completed Not Available [...] Not Available Not Available Not Avai lable Myrbetriq 25 mg tablet,ex tended release Take 1 tablet every day by oral route. active Not Available Not Available No t Available Linzess 145 mcg capsule take 1 tablet [...] and Address Organization Details Last Updated DateTime 157.48 cm 24.2 kg/m2 47604.9 1 g 96 % 96 % 91 /min 134 mm[Hg] 74 mm[Hg] ELENI MADDOX MA [facility] 14:30:39 Social History Question Answer Notes LastModified by Organizat ion Details LastModified Time Tobacco Smoking Status Never Smoker ELENI MADDOX MA [facility], [facility] 08/29/2023 14:38:07 What Was The Date Of Your Most Recent Tobacco Screening? 05/07/2024 [email or web address] Information not available 05/07/2024 Sex: Female Functional Status None recorded. Mental Status None recorded. Family History Relationship Description Onset Age of this Age Resolved Age Notes LastModified by Organization Details LastModified Time Brother Family history of Hypertension [email or web address] Not available 05/2023 03:58:37 Brother Family history of diabetes mellitus type 1 [email or web address] Not available 2022 03:58:38 Father Family history of Hypertension [email or web address] Not available 05/2023 03:58:38 Father Family history of heart failure [email or web address] Not available 2022 03:58:38 Mother Family history of hyperthyroid ism [email or web address] Not available 2022 03:58:38 Mother Family history of breast cancer 1 gene mutation [email or web address] Not available 2022 03:58:38 Notes:*Problem: FAMILY HX: M other and father [...] 0 0 Immunizations Vaccine Type Date Status Note Provider Nam e and Address Organization Details Recorded Time Td (adult), 2 Lf tetanus toxoid, preservative free, adsorbed 8 completed Not Available [facility] 06/15/2023 06:16:36 Tdap 8 completed Not Available [facility] 06/15/2023 06:16:36 Td(adult) unspecified formulation 9 completed Not Available [facility] 06/15/2023 06:16:36 Influenza, split virus, quadrivalent, PF 5 completed Not Available [facility] 06/15/2023 06:16:36 Influenza, split virus, quadrivalent, preservative 8 completed Not Available [facility] 06/15/2023 06:16:36 Influenza, split virus, quadrivalent, preservative 7 completed Not Available [facility] 06/15/2023 06:16:36 zoster recombinant 8 completed Not Available [facility] 06/15/2023 06:16:36 zoster recombinant 8 completed Not Available [facility] 06/15/2023 06:16:37 COVID-19, mRNA, LNP-S, PF, 100 mcg/0.5mL dose or 50 mcg/0.25mL dose 1 completed Not Available [facility] 06/15/2023 06:16:37 SARS-COV-2 (COVID-19) vaccine, UNSPECIFIED 1 completed Not Available [facility] 06/15/2023 06:16:37 Hep B, unspecified formulation 2 completed Not Available [facility] 06/15/2023 06:16:37 Hep B, unspecified formulation 1 completed Not Available [facility] 06/15/2023 06:16:37 Hep B, unspecified formulation 1 completed Not Available [facility] 06/15/2023 06:16:37 influenza, unspecified formulation 0 completed Not Available [facility] 06/15/2023 06:16:37 influenza, unspecified formulation 6 completed Not Available [facility] 06/15/2023 06:16:37 influenza, unspecified formulation 9 completed Not Available [facility] 06/15/2023 06:16:37 influenza, unspecified formulation 1 completed Not Available [facility] 06/15/2023 06:16:37 Influenza, split virus, quadrivalent, PF 3 completed Not Available [facility] 08/17/2023 05:33:20 COVID-19, mRNA, LNP-S, PF, 50 mcg/0.5 mL 4 completed SETH LONG LPN [facility] 05/30/2024 14:33:25 Past Encounters Encounter ID Performer Location Encounter Start Date Encounter Closed Date Diagnosis/Indication Diagnosis SNOMED-CT Code Diagnosis ICD10 Code Diagnosis Note [id number] SARA LUKE [facility] [address] [place] [address] 06/09/2024 14:21:18 06/09/2024 14:58:24 Headache 43189606 R51.9 Feeling better with up titration of Topamax. Will continue current dose but change to 50 mg tablets for less pill burden. She has imitrex to take as needed. Has not yet heard from neuro referral.F ollow up for chronic issues 3-4 months Health Concerns Section Related Observation LastModified by Organization Afshan guevara LastModified Time None Recorded Concern Status LastModified by Organization Details LastModified Time None Recorded Payers Encounter Date Sequence Insurance Name Policy Number Policy Robles Covered Member ID Robles Member ID Guarantor Name 06/09/2024 1 [employer]: [facility] [id number] Belem Huff Kristina Macias [id number] Belem Huff Shanel vang Notes Date Note Type Note Provider Name and Address Organization Details Recorded Time 06/09/2024 text/html cc follow up headaches Headaches - improved after about a week on the Topamax 50 mg BID. Currently no headaches. no significant side effects, does have fatigue but doesn't feel that was related to the increased dose of topamax. Has not needed her imitrex, last dose was more then a few weeks ago. has both oral and nasal availableNever head from neuroFeels regulated. SARA LUKE, OUMAR [address], [place], [id number], [facility], [facility]. 06/09/2024 15:08:28 OBGyn Episode No OBEpisode recorded.
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
--- OUTSIDE RECORDS SUMMARY | 2024-09-04 15:16 | XMS_ITS | Encounter Summary ---
Author Organization [facility] Address [address] [place] [address] Care Team Providers Care Private Branch Exchange Operator Name Role Phone Fidencio Gonsalez Primary Care Provider Encounter Details Date Type Department Care Team (Late st Contact Info) Description 04/12/2024 Lab Requisition [facility] Pathology & Laboratory Medicine - [facility] [address] [place], [place] [id number] Outr Resulting Lab, Provider Social History Tobacco [...] Procedure Name Priority Date/Time Associated Diagnosis Comments LYME AB Routine 04/12/2024 18:01 EDT documented in this encounter Results * LYME AB (04/12/2024 18:01 EDT) Lyme Ab Negative Negative 04/14/2024 11:04 EDT [facility] Blood VENOUS BLOOD / Unknown 04/12/2024 18:01 EDT 04/13/2024 16:11 EDT us Provider Outr Resulting Lab IMMUNOLOGY AND SEROL OGY ORDERABLES Final Result [facility] [address] [place] [address] documented in this encounter Visit Diagnoses Not on filedocumented in this encounter Care Teams Private Branch Exchange Operator Relationship Specialty Start Date End Date Fidencio Gonsalez PA [address] [place] [address] PCP - General 11/01/10 documented as of this encounter
--- OUTSIDE RECORDS SUMMARY | 2024-09-04 15:16 | XMS_ITS | Clinical Summary ---
Author Organization [facility] Address [address] [place] [address] Care Team Providers Care Clinical Appeals Auditor Name Role Phone Fidencio Gonsalez Primary Care Provider [phone] Social History Tobacco Use Types Packs/Day Years Used Date Smoking Tobacco: Never Assessed Comments Unknown Sex and Gender Information Value Date Recorded Sex Assigned at Not on file Legal Sex Female 18:12 EST Gender Identity Not on file Sexual Orientation Not on file Plan of Treatment Health Maintenance Due Date Last Done Comments Hepatitis C Screen 1960 COVID-19 Vaccine (2023-25 season) 2024 RSV Immunization ( o r 60+ Years) (1 - 1-dose 75+ series) 2036 Insurance [facility] Care Teams Clinical Appeals Auditor Relationship Specialty Start Date End Date Fidencio Gonsalez PA [address] [place] [id number] PCP - General 11/01/10
--- OUTSIDE RECORDS SUMMARY | 2024-09-04 15:16 | XMS_ITS | Continuity of Care Document ---
Author Organization [facility] Address [address] [place] [address] Care Team Providers Care Geomorphologist Name Role Phone Sara Luke Primary Care Physician [phone] Encounter NCTY_MS Date(s): 04/17/23 - 04/17/23 [facility] [address] [place] [address] Discharge Disposition: Home or Self Care Attending Physician: Sara Luke MERCHANDISE DISTRIBUTOR Admitting Physician: Sara Luke MERCHANDISE DISTRIBUTOR Referring Physician: Sara Luke MERCHANDISE DISTRIBUTOR Allergies, Adverse Reactions, Alerts Substance Reaction Severity [...] information Care Team Personnel Name: Sara Luke MERCHANDISE DISTRIBUTOR Position: PowerChart View Only Member Role: Primary Care Physician Address: Address: [address] [place] [address]- Name: Haily Yoon MERCHANDISE DISTRIBUTOR Position: Physician Member Role: Nurse Practitioner Address: Address: [address] [place] [address]- Care Team Related Persons Name: KHALIDA WEBB Name: BENNY MCGEE Name: CHRISTINA BAL Address: Home [address] [id number]
--- OUTSIDE RECORDS SUMMARY | 2024-09-04 15:16 | XMS_ITS | Encounter Summary ---
Author Organization [facility] Address [address] [place] [address] Care Team Providers Care Citrus Fruit Colorer Name Role Phone Fidencio Gonsalez Primary Care Provider [phone] Encounter Details Date Type Department Care Team (Late st Contact Info) Description 01/15/2023 Lab Requisition [facility] Pathology & Laboratory Medicine - [facility] [address] [place], [place] [id number] Outr Resulting Lab, Provider Social History Tobacco [...] ova and parasites seen. 01/17/2023 12:03 EDT [facility] Feces SPECIMEN FROM RECTUM / Unknown 01/15/2023 17:30 EDT 01/16/2023 22:39 EDT Narrative [facility] - 01/17/2023 12:03 EDT (If Cryptosporidium, Cyclospora, or Microsporidium are suspected, specific tests must be requested.) Single negative specimen does not rule out the possibility of a parasitic infection. us Provider Outr Resulting Lab MICROBIOLOGY - GENER AL ORDERABLES Final Result Performing Organization Address [facility] de Phone Number [facility] [address] [place] [address] * FECAL BACTERIAL PATHOGENS BY PCR (01/15/2023 17:30 EDT) Salmonella PCR Negative Negative 01/17/2023 11:52 EDT [facility] Shigella/Enteroin vasive E. coli Negative Negative 01/17/2023 11:52 EDT [facility] HN LAB CAMPYLOBACTER PCR Negative Negative 01/17/2023 11:52 EDT [facility] Shiga Toxin PCR Negative Negative 11:52 EDT [facility] Feces SPECIMEN FROM RECTUM / Unknown 01/15/2023 17:30 EDT 01/16/2023 22:39 EDT us Provider Outr Resulting Lab MICROBIOLOGY - GENER AL ORDERABLES Final Result Performing Organization Address [facility] de Phone Number [facility] [address] [place] [address] documented in this encounter Visit Diagnoses Not on filedocumented in this encounter Care Teams Citrus Fruit Colorer Relationship Specialty Start Date End Date Fidencio Gonsalez PA [address] [place] [id number] PCP - General 11/01/10 documented as of this encounter
--- OUTSIDE RECORDS SUMMARY | 2024-09-04 15:16 | XMS_ITS | Continuity of Care Document ---
Author Organization [facility] Address [address] [place] [address] Care Team Providers Care Clerk Operator Name Role Phone Sara Luke Primary Care Physician [phone] Encounter [facility] Date(s): 04/19/24 - 04/19/24 [facility] [address] [place] [address] us Encounter Diagnosis Migraine headache(Discharge Diagnosis) - 04/19/24 Status migrainosus(Discharge Diagnosis) - 04/19/24 Discharge Disposition: Home or Self Care Attending Physician: Ayad Richards MD Admitting Physician: Ayad Richards MD Allergies, Adverse Reactions, Alerts Substance Criticality Severity Reaction Reaction Severity Status amoxicillin Unable to assess criticality Unknown tongue swollen swelling of face Active Bactrim Unable to assess criticality Unknown Active sulfa drugs Unable to assess criticality Unknown pt doesn't remember Active Assessment and Plan Extracted from: Title:Clinical Document Author:Loretta Gandhi te:04/19/24 Diagnosis: 1. Migraine heada leticia Comment: Diagnosis: 2. Status migrainosus Comment: Diagnosis: Headache Comment: Extracted from: Title:ED Provider Note Author:Ayad Richards MD Date:04/19/24 Assessment/Plan 1.??Migraine headache??G43.909 Ordered: predniSONE 10 mg oral tablet, See Instruction, Oral, Daily, 5 tabs for 3 days, 4 tabs daily x3 days, 3 tabs daily x3 days, 2 tabs daily x3 days, 1 tab daily x3 days, # 45 cap, 0 Refill(s), Pharmacy: [id number], 165, cm, 10/16/22 7:11:00 EDT, Height, 59.87, kg, 04/19/24... topiramate 25 mg oral capsule, extended release, 25 mg = 1 cap, Oral, Daily, After 1 week increase to twice a day., X 30 days, # 42 cap, 0 Refill(s), 05/19/24 6:33:00 EDT, Pharmacy: [id number], 165, cm, 10/16/22 7:11:00 EDT, Height, 59.87, kg, 04/19/24 1:38:00 EDT, Weight Dosing Discharge Patient, 04/19/24 6:24:00 EDT, Home Independently, Constant Indicator ?? 2.??Status migrainosus??G43.901 ?? Orders: Cerebrospinal Fluid Culture, Cerebrospinal Fluid, Stat collect, ST - Stat, 04/19/24 4:26:00 EDT, Once, Nurse collect Equine Encephalitis Abs IgG/IgM CSF [place], Cerebrospinal Fluid, Stat Collect, 04/19/24 4:27:00 EDT, Once, Nurse collect, Print Label West Nile Virus Ab, IgG & IgM, CSF [place], Cerebrospinal Fluid, Stat Collect, 04/19/24 4:26:00 EDT, Once, Nurse collect, Print Label Patient Education Chronic Migraine Headache Follow Up With When Contact Information Sara Luke FEATHER BALER Within [address] [place] [phone] ?? Additional Instructions: Diagnostic Tests Pending * Equine Encephalitis Abs IgG/IgM CSF [place] 04/19/24 * West Nile Virus Ab, IgG & IgM, CSF [place] 04/19/24 Immunizations Given and Recorded Vaccine Date Status [...] QID, # 56 tab, 0 Refill(s), Pharmacy: [id number], 165, cm, 09/07/22 22:17:00 EST, Height/Length [...] days, # 45 cap, 0 Refill(s), Pharmacy: [id number], 165, cm, 10/16/22 7:11:00 EDT, Height, 59.87, kg, 04/19/24 1:38:00 EDT, Weight Dosing Start Date: 04/19/24 Status: Ordered topiramate 25 mg oral capsule, extended release 25 mg = 1 cap, Oral, Daily, After 1 week increase to twice a day., X 30 days, # 42 cap, 0 Refill(s), 05/19/24 5:33:00 AM CDT, Pharmacy: [id number], 165, cm, 10/16/22 7:11:00 EDT, Height, 59.87, kg, 04/19/24 1:38:00 EDT, Weight Dosing Start Date: 04/19/24 Stop Date: 05/19/24 Status: Ordered Turmeric 0 Refill(s) Start Date: 09/06/22 Status: Ordered Mental Status 04/19/24 Eye Opening Response [place] Spontaneous ly Best Verbal Response La Oriented Best Motor Response La Obeys comman ds [place] Coma Score 15 Problem List Condition Confirmation [...] 3Age 9 Results Laboratory List Name Date Cell Count w/ Diff CSF 04/19/24 Glucose CSF 04/19/24 Meningitis Panel ([employer]) 04/19/24 Protein CSF 04/19/24 Basic Metabolic Panel 04/19/24 CBC w/ Diff 04/19/24 ESR Alcor (Sedimentation Rate) 04/19/24 Automated Diff 04/19/24 Most recent to oldest [Reference Range]: 1 WBC [5.0-10.0 x10^3/mcL] 11.7 x10^3/mcL *HI* (04/19/24 2:10 AM) RBC [4.1-5.3 x10^6/mcL] 4.2 x10^6/mcL (04/19/24 2:10 AM) Neutro Auto [40.0-75.0 %] 61.6 % (04/19/24 2:10 AM) Lymph Auto [20.0-50.0 %] 25.7 % (04/19/24 2:10 AM) [place] Auto [2.0-15.0 %] 9.9 % (04/19/24 2:10 AM) Basophil Auto [0.0-1.0 %] 0.3 % (04/19/24 2:10 AM) BUN [7-18 mg/dL] 18 mg/dL (04/19/24 2:10 AM) Glucose Level [74-106 mg/dL] 93 mg/dL (04/19/24 2:10 AM) Potassium Level [3.5-5.1 mmol/L] 3.9 mmo l/L (04/19/24 2:10 AM) Glucose CSF [40-70 mg/dL] 55 mg/dL (04/19/24 4:11 AM) MCV [80.0-96.0 fL] 86.2 fL (04/19/24 2:10 AM) MCHC [31.0-35.0 g/dL] 33.1 g/dL (04/19/24 2:10 AM) WBC CSF <0.003 x10^3/mcL *NA* (04/19/24 4:11 AM) Sodium Level [136-145 mmol/L] 136 mmol/L (04/19/24 2:10 AM) Hct [37.0-47.0 %] 36.2 % *LOW* (04/19/24 2:10 AM) Xanthochromia CSF [Absent] Absent (04/19/24 4:11 AM) Calcium Level [8.5-10.1 mg/dL] 8.9 mg/dL (04/19/24 2:10 AM) MCH [26.0-32.0 pg] 28.6 pg (04/19/24 2:10 AM) Neutro Absolute 7.2 x10^3/mcL *NA* (04/19/24 2:10 AM) Hgb [12.0-16.0 g/dL] 12.0 g/dL (04/19/24 2:10 AM) RBC CSF 1.000 x10^6/mcL *NA* (04/19/24 4:11 AM) Platelets [130-450 x10^3/mcL] 568 x10^3/ mcL *HI* (04/19/24 2:10 AM) Protein CSF [15-45 mg/dL] 49 mg/dL *HI* (04/19/24 4:11 AM) CO2 [21-32 mmol/L] 33 mmol/L *HI* (04/19/24 2:10 AM) Clarity CSF [Clear] Clear (04/19/24 4:11 AM) eGFR Non-AA [>=60] 99 (04/19/24 2:10 AM) eGFR AA [>=60] 99 (04/19/24 2:10 AM) Chloride Level [98-107 mmol/L] 98 mmol/L (04/19/24 2:10 AM) RDW-CV [11.5-14.5 %] 12.8 % (04/19/24 2:10 AM) Imm Gran Auto [0.0-0.9 %] 0.6 % (04/19/24 2:10 AM) Human herpes virus 6 MengP-BFire [Not De tected] Not Detected (04/19/24 4:11 AM) S. agalactiae (grp B) MengP-BFire [Not D etected] Not Detected (04/19/24 4:11 AM) Varicella zoster virus MengP-BFire [Not Detected] Not Detected (04/19/24 4:11 AM) L. monocytogenes MengP-BFire [Not Detect ed] Not Detected (04/19/24 4:11 AM) Human parechovirus MengP-BFire [Not Dete cted] Not Detected (04/19/24 4:11 AM) Enterovirus MengP-BFire [Not Detected] N ot Detected (04/19/24 4:11 AM) Neisseria meningitidis MengP-BFire [Not Detected] Not Detected (04/19/24 4:11 AM) H. influenzae MengP-BFire [Not Detected] Not Detected (04/19/24 4:11 AM) C. neoformans/ирина MengP-BFire [Not Det ected] Not Detected (04/19/24 4:11 AM) E. coli K1 MengP-BFire [Not Detected] No t Detected (04/19/24 4:11 AM) S. pneumoniae MengP-BFire [Not Detected] Not Detected (04/19/24 4:11 AM) Cytomegalovirus MengP-BFire [Not Detecte d] Not Detected (04/19/24 4:11 AM) Herpes simplex virus 2 MengP-BFire [Not Detected] Not Detected (04/19/24 4:11 AM) Herpex simplex virus 1 MengP-BFire [Not Detected] Not Detected (04/19/24 4:11 AM) Creatinine Level [0.55-1.02 mg/dL] 0.64 mg/dL (04/19/24 2:10 AM) miniiSED ESR [0-30 mm/hr] 9 mm/hr (04/19/24 2:10 AM) Eos, Auto [1.0-6.0 %] 1.9 % (04/19/24 2:10 AM) Orders for Microbiology Reports Name Date Cerebrospinal Fluid Culture (Culture CSF ) 04/19/24 Microbiology Reports TEST:Cerebrospinal Fluid Culture STATUS:Order in Progress BODY SITE: SOURCE:Cerebrospinal Fluid COLLECTED DATE/TIME:04/19/24 4:11 AM STAIN REPORT No organisms seen. Vital Signs Most recent to oldest [Reference Range]: 1 Temperature Tympanic [36.6-38.1 Deg C] 3 6.5 Deg C *LOW* (04/19/24 1:35 AM) Heart Rate Monitored [60-100 bpm] 79 bpm (04/19/24 1:35 AM) Respiratory Rate [12-24 br/min] 20 br/mi n (04/19/24 1:35 AM) Blood Pressure [90-140/60-90 mmHg] 145/7 7mmHg *HI* (04/19/24 1:35 AM) Mean Arterial Pressure, Cuff [65-140 mmH g] 100 mmHg (04/19/24 1:35 AM) Weight 59.87 kg (04/19/24 1:35 AM) Weight Dosing 59.870 kg (04/19/24 1:35 AM) Social History Social History Type Response Tobacco Never tobacco user T obacco Use:. Sex Female Sex Representation Female (finding) Hospital Discharge Instructions Patient Education 04/19/2024 05:27:51 Chronic Migraine Headache Chronic Migraine Headache A migraine is a type of headache that is usually stronger and more sudden than other headaches. Migraines are characterized by an intense pulsing, throbbing pain that is usually only present on one side of the head. Migraine pain usually gets worse with activity. Migraines can cause nausea, vomiting, sensitivity to light and sound, and vision changes. Migrainesthat keep coming back are called recurrent migraines. A migraine is called a chronic migraine if ithappens at least 15 days in a month for more than 3 months. Talk with your health care provider about what things may bring on (trigger) your migraines. What are the causes? The exact cause of this condition is not known. However, a migraine may be caused when nerves in the brain become irritated and release chemicals that cause inflammation of blood vessels. The inflammation of the blood vessels causes pain. Migraines may be triggered or caused by: ??? Smoking. ??? Certain foods and drinks, such as: ??? Aged cheese. ??? Chocolate. ??? Alcohol. ??? Caffeine. ??? Foods or drinks that contain nitrates, glutamate, aspartame, MSG, or tyramine. ??? Medicines, such as control pills or some blood pressure medicines. Other things that may trigger a migraine include: ??? Menstruation. ??? Emotional stress. ??? Lack of sleep or too much sleep. ??? Tiredness (fatigue). ??? Bright lights or loud noises. ??? Odors. ??? Weather changes and high altitude. What increases the risk? The following factors may make you more likely to experience chronic migraine: ??? Having migraines or a family history of migraines. ??? Having a mental health condition, such as depression or anxiety. ??? Having to take a lot of pain medicine. ??? Having sleep problems. ??? Having heart disease, diabetes, or obesity. What are the signs or symptoms? Symptoms of a migraine vary for each person and may include: ??? Pulsating or throbbing pain. ??? Pain that is usually only present on one side of the head. In some cases, the pain may be on both sides of the head or around the head or neck. ??? Severe pain that prevents you from doing daily activities. ??? Pain that gets worse with physical activity. ??? Nausea, vomiting, or both. ??? Pain with exposure to bright lights, loud noises, or activity. ??? General sensitivity to bright lights, loud noises, or smells. ??? Dizziness. A sign that a migraine is becoming chronic is an increasing number of migraine episodes. It is considered chronic if the migraine happens at least 15 days in a month for more than 3 months. How is this diagnosed? This condition is often diagnosed based on: ??? Your symptoms and medical history. ??? A physical exam. You may also have tests, including: ??? A CT scan or an MRI of your brain. These imaging tests cannot diagnose migraines, but they can help to rule out other causes of headaches. ??? Taking fluid from the spine (lumbar puncture) and analyzing it (cerebrospinal fluid analysis, or CSF analysis). ??? Blood tests. How is this treated? This condition is treated with: ??? Medicines. These help to: ??? Lessen pain and nausea. ??? Prevent migraines. ??? Lifestyle changes, such as changes to your diet or sleeping patterns. ??? Behavior therapy. This may include: ??? Relaxation training. ??? Biofeedback. This is a treatment that teaches you to relax and use your brain to lower your heart rate and control your breathing. ??? Cognitive behavioral therapy (CBT). This is a form of talk therapy. This therapy helps you set goals and follow up on the changes that you make. ??? Acupuncture. ??? Using a device that provides electrical stimulation to your nerves, which can relieve pain (neuromodulation therapy). ??? Surgery, if the other treatments are not working. Follow these instructions at home: Medicines ??? Take hitx-sps-xawiand and prescription medicines only as told by your health care provider. ??? Ask your health care provider if the medicine prescribed to you requires you to avoid driving or using machinery. Lifestyle ??? Do not use any products that contain nicotine or tobacco, such as cigarettes, e-cigarettes, andchewing tobacco. If you need help quitting, ask your health care provider. ??? Do not drink alcohol. ??? Get 7???9 hours of sleep each night, or the amount of sleep recommended by your health care provider. ??? Find ways to manage stress, such as meditation, deep breathing, or yoga. ??? Maintain a healthy weight. If you need help losing weight, ask your health care provider. ??? Exercise regularly. Aim for 150 minutes of moderate-intensity exercise, such as walking, biking, or yoga, or 75 minutes of vigorous exercise each week. Vigorous exercise includes running, circuittraining, and swimming. General instructions ??? Keep a journal to find out what triggers your migraines so you can avoid these triggers. For example, write down: ??? What you eat and drink. ??? How much sleep you get. ??? Any change to your diet or medicines. ??? Lie down in a dark, quiet room when you have a migraine. ??? Try placing a cool towel over your head when you have a migraine. ??? Keep lights dim, if bright lights bother you or make your migraines worse. ??? Keep all follow-up visits as told by your health care provider. This is important. Where to find more information ??? Coalition for Headache and Migraine Patients (CHAMP): headachemigraine.org ??? English Migraine Foundation: americanmigrainefoundation.org ??? National Headache Foundation: headaches.org Contact a health care provider if: ??? Your pain does not improve, even with medicine. ??? Your migraines continue to return, even with medicine. Get help right away if: ??? Your migraine becomes severe and medicine does not help. ??? You have a stiff neck and fever. ??? You have a loss of vision. ??? You have muscle weakness or loss of muscle control. ??? You start losing your balance, or you have trouble walking. ??? You feel like you may faint, or you faint. ??? You start having sudden and unexpected, severe headaches. ??? You have a seizure. Summary ??? Migraine headaches are usually stronger and more sudden than other headaches. Migraines are characterized by an intense pulsing, throbbing pain that is usually only present on one side of the head. ??? Migraines that keep coming back are called recurrent migraines. A migraine is called a chronic migraine if it happens 15 days in a month for more than 3 months. ??? Certain things may trigger migraines, such as lack of sleep or too much sleep, smoking, certainfoods, alcohol, stress, and certain medicines. ??? Your treatment plan may include medicines, lifestyle changes, and behavior therapy. This information is not intended to replace advice given to you by your health care provider. Make sure you discuss any questions you have with your health care provider. Document Revised: 01/04/2023 Document Reviewed: 09/08/2020 Elsevier Patient Education ?? 2022 [employer]. Follow Up Care 04/19/2024 01:33:04 With:Sara Luke NP Address: [address] [place] [phone]- When:1 week Physician Emergency department Note * Ayad Richards MD: PERFORM Event Display: ED Note Physician Authored Date: [id number] GRAYSON ALMODOVAR :1960 Age:64 years Sex:Female Visit Date:04/19/2024 Primary Care Physician: Sara Luke NP Basic Information Time Seen: Ayad Richards MD / 04/19/2024 01:35 Chief Complaint Migraine x2 weeks. Seen 1 week ago for same. Prescribed Imitrex and Prednisone with minimal improvement. History Of Present Illness: The patient??presents with??headache??that has??returned in the last day.?? She has some pain at the base of her skull but somewhat more diffuse with some nausea and photophobia.?? 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 She this summer had??MRI[facility]at [facility] that showed??no residual AVM.?? In the last week she has had??2 CT scans that were normal. ??She was seen in the ER here,??last time she was here she had resolution of symptoms after??Toradol Reglan??ultimately with steroids and Imitrex.?? She was put on a prednisone taper and she was able to go to work with this. ??She has used the sumatriptan on a daily basis.?? She has seen her primary care provider and she has a referral to neurology??that was sent.?? She is doing quite well but she stopped the steroids yesterday.?? Otherwise?I reviewed the history is taken by CHAYITO Kelsey.No reported fever. Review of Systems: Per Cheo Cevallos's note Physical Exam Vitals & Measurements T:??36.5?C ??(Tympanic)?? HR:??79??(Monitored)?? RR:??20?? BP:??145/77?? SpO2:??97%?? WT:??59.87??kg?? Pain Score:??9?? On my exam the patient is alert she is not encephalopathic does not look toxic her neck is supple.?? Voice is normal no focal weakness. Medical Decision Making: Here the patient had improvement of symptoms here again with Toradol Reglan steroids and??sumatriptan hand. ??Had a long discussion once again regarding lumbar puncture to rule out other??conditions and she wished to proceed.?? She signed a consent we talked about risks such as postdural puncture??headaches and infection and??nerve injury.?? The procedure was quite uneventful and I accessed the CSF on first pass.?? The fluid did not appear to be under pressure and it was clear. ??There was no white cells there was 1 red cell??and no??xanthochromia.?? Glucose was normal.?? Protein was slightlyabove the cutoff of normal. ??Culture will be done.?? Viral??panel for eastern equine encephalitis and West Nile also will be sent.?? Here the patient felt better after??meds provided.?? She got someToradol Reglan??Solu-Medrol sumatriptan and??and IV acetaminophen with a second dose of 5 mg of Reglan and Benadryl.?? I offered to reach out to teleneurology??to get further guidance on medication and treatment at this time.?? The patient prefers to defer as she has a outpatient appointment scheduled.?? We talked about other meds for chronic headaches and eventual put her on topiramate??25 for the first week then up to 25 twice a day. ??Will put her on a given a prednisone taper which seems tohave helped.?? She has her sumatriptan at home also. ??She is discharged in improved condition??differential diagnosis includes status migrainosus,??no intracranial bleed no signs of meningitis or other structural anomalies noted. ?? Medical Decision-Making: Clinical lab tests: ordered and reviewed -??Yes Tests in the radiology section of CPT??: ordered and reviewed -??Yes ?? Review and summarize past medical records -??Yes ?? Independent visualization of images, tracings, or specimens? Yes ?? Last 24 Hours?? Chemistry ? Event Name?? Event Result?? Date/Time?? Sodium Level 136 mmol/L 04/19/24 02:10:00 Potassium Level 3.9 mmol/L 04/19/24 02:10:00 Chloride Level 98 mmol/L 04/19/24 02:10:00 CO2 33 mmol/L??High 04/19/24 02:10:00 BUN 18 mg/dL 04/19/24 02:10:00 Glucose Level 93 mg/dL 04/19/24 02:10:00 Creatinine Level 0.64 mg/dL 04/19/24 02:10:00 eGFR AA 99 04/19/24 02:10:00 eGFR Non-AA 99 04/19/24 02:10:00 Calcium Level 8.9 mg/dL 04/19/24 02:10:00 ? Hematology ? Event Name?? Event Result?? Date/Time?? WBC 11.7 x10^3/mcL??High 04/19/24 02:10:00 RBC 4.2 x10^6/mcL 04/19/24 02:10:00 Hgb 12 g/dL 04/19/24 02:10:00 Hct 36.2 %??Low 04/19/24 02:10:00 MCV 86.2 fL 04/19/24 02:10:00 MCH 28.6 pg 04/19/24 02:10:00 MCHC 33.1 g/dL 04/19/24 02:10:00 RDW-CV 12.8 % 04/19/24 02:10:00 Platelets 568 x10^3/mcL??High 04/19/24 02:10:00 Neutro Auto 61.6 % 04/19/24 02:10:00 Lymph Auto 25.7 % 04/19/24 02:10:00 [place] Auto 9.9 % 04/19/24 02:10:00 Eos, Auto 1.9 % 04/19/24 02:10:00 Basophil Auto 0.3 % 04/19/24 02:10:00 Imm Gran Auto 0.6 % 04/19/24 02:10:00 Neutro Absolute 7.2 x10^3/mcL 04/19/24 02:10:00 miniiSED ESR 9 mm/hr 04/19/24 02:10:00 ? All Other Results ? Event Name?? Event Result?? Date/Time?? C. neoformans/ирина MengP-BFire Not Detected BF 04/19/24 04:11:00 Cytomegalovirus MengP-BFire Not Detected 04/19/24 04:11:00 E. coli K1 MengP-BFire Not Detected BF 04/19/24 04:11:00 Enterovirus MengP-BFire Not Detected BF 04/19/24 04:11:00 H. influenzae MengP-BFire Not Detected 04/19/24 04:11:00 Herpes simplex virus 2 MengP-BFire Not Detected 04/19/24 04:11:00 Herpex simplex virus 1 MengP-BFire Not Detected 04/19/24 04:11:00 Human herpes virus 6 MengP-BFire Not Detected 04/19/24 04:11:00 Human parechovirus MengP-BFire Not Detected 04/19/24 04:11:00 L. monocytogenes MengP-BFire Not Detected 04/19/24 04:11:00 Neisseria meningitidis MengP-BFire Not Detected 04/19/24 04:11:00 S. agalactiae (grp B) MengP-BFire Not Detected 04/19/24 04:11:00 S. pneumoniae MengP-BFire Not Detected 04/19/24 04:11:00 Varicella zoster virus MengP-BFire Not Detected 04/19/24 04:11:00 Clarity CSF Clear 04/19/24 04:11:00 WBC CSF <0.003 04/19/24 04:11:00 RBC CSF 1 x10^6/mcL 04/19/24 04:11:00 Xanthochromia CSF Absent 04/19/24 04:11:00 Protein CSF 49 mg/dL??High 04/19/24 04:11:00 Glucose CSF 55 mg/dL 04/19/24 04:11:00 ?* Final Report * ? URL This document has an image ?? CT Brain/Head w/o Contrast PROCEDURE INFORMATION:?? Exam: CT Head Without Contrast?? Exam date and time: 04/19/2024 2:45 AM?? Age: 64 years old?? Clinical indication: Headache? TECHNIQUE:?? Imaging protocol: Computed tomography of the head without contrast.?? Radiation optimization: All CT scans at this facility use at least?? one of these dose optimization techniques: automated exposure?? control; mA and/or kV adjustment per patient size (includes targeted?? exams where dose is matched to clinical indication); or iterative?? reconstruction.? COMPARISON:?? 1. ?? CT HEAD/BRAIN WO CONTRAST 04/12/2024 5:52 PM?? 2. ?? CT HEAD/BRAIN WO CONTRAST 04/09/2024 4:32 PM? FINDINGS:?? Brain: Sulci are normal in size for patient's age. There is no?? intracranial hemorrhage, extra-axial collection, mass effect, or?? midline shift. Again noted is a small chronic lacunar infarct just?? lateral to the anterior body of the left caudate nucleus. Unchanged?? mild patchy hypoattenuation in the periventricular and deep white?? matter is most likely the sequela of mild chronic microangiopathy.?? Cerebral ventricles: Normal in size for patient's age.?? Paranasal sinuses: Visualized paranasal sinuses are clear.?? Mastoid air cells: The mastoid air cells are clear bilaterally.?? Bones: Unremarkable. ?? Soft tissues: Extracranial soft tissues are unremarkable.? IMPRESSION:?? 1. ?? No acute intracranial abnormality.?? 2. ?? Stable chronic findings as above.? Report signed by: Annel Dick On 04/19/2024 ??04:42:49 [1] * Final Report * ?? CT Angio Brain and Neck PROCEDURE INFORMATION:?? Exam: CTA Head With Contrast, Arteriography?? Exam date and time: 04/19/2024 2:47 AM?? Age: 64 years old?? Clinical indication: Headache? TECHNIQUE:?? Imaging protocol: Computed tomographic angiography of the head with?? contrast. Exam focused on the arteries.?? 3D rendering (Not supervised by radiologist): MIP and/or 3D?? reconstructed images were created by the technologist.?? Radiation optimization: All CT scans at this facility use at least?? one of these dose optimization techniques: automated exposure?? control; mA and/or kV adjustment per patient size (includes targeted?? exams where dose is matched to clinical indication); or iterative?? reconstruction.?? Contrast material: OMNI 350; Contrast volume: 100 ml; Contrast route:?? INTRAVENOUS (IV); ? COMPARISON:?? MR MRV HEAD ANGIO WO CONTRAST 03/27/2022 3:37 PM? FINDINGS:? ANTERIOR CIRCULATION:?? Right internal carotid artery: Intracranial segment is patent with no?? significant stenosis. No aneurysm.?? Right middle cerebral artery: No occlusion or significant stenosis.?? No aneurysm. ?? Right anterior cerebral artery: No occlusion or significant stenosis.?? No aneurysm. ? Left internal carotid artery: Intracranial segment is patent with no?? significant stenosis. No aneurysm.?? Left middle cerebral artery: No occlusion or significant stenosis. No?? aneurysm. ?? Left anterior cerebral artery: No occlusion or significant stenosis.?? No aneurysm. ? POSTERIOR CIRCULATION:?? Right vertebral artery: No occlusion or significant stenosis. No?? aneurysm. ?? Left vertebral artery: No occlusion or significant stenosis. No?? aneurysm. ?? Basilar artery: No occlusion or significant stenosis. No aneurysm.?? Right posterior cerebral artery: No occlusion or significant?? stenosis. No aneurysm. ?? Left posterior cerebral artery: No occlusion or significant stenosis.?? No aneurysm. ? Brain: No definite mass, mass effect, or midline shift. ??No abnormal?? intracranial enhancement. Cerebral ventricles: No ventriculomegaly.?? Bones/joints: Unremarkable. No acute fracture.?? Soft tissues: Unremarkable.? IMPRESSION:?? No large vessel stenosis or occlusion.? PROCEDURE INFORMATION:?? Exam: CTA Neck With Contrast?? Exam date and time: 04/19/2024 2:47 AM?? Age: 64 years old?? Clinical indication: Headache? TECHNIQUE:?? Imaging protocol: Computed tomographic angiography of the neck with?? contrast. Exam focused on the cervical segments of the vasculature.?? 3D rendering (Not supervised by radiologist): MIP and/or 3D?? reconstructed images were created by the technologist.?? Radiation optimization: All CT scans at this facility use at least?? one of these dose optimization techniques: automated exposure?? control; mA and/or kV adjustment per patient size (includes targeted?? exams where dose is matched to clinical indication); or iterative?? reconstruction.?? Contrast material: OMNI 350; Contrast volume: 100 ml; Contrast route:?? INTRAVENOUS (IV); ? COMPARISON:?? CT CTA HEAD/NECK W/ AND/OR WO CONT 03/27/2022 11:03 AM? FINDINGS:?? Right common carotid artery: No stenosis. No dissection or occlusion.?? Right internal carotid artery: No stenosis of the extracranial?? segment. No dissection or occlusion.?? Right external carotid artery: No occlusion or stenosis of the?? origin. ? Left common carotid artery: No stenosis. No dissection or occlusion.?? Left internal carotid artery: No stenosis of the extracranial?? segment. No dissection or occlusion.?? Left external carotid artery: No occlusion or stenosis of the origin.? Right vertebral artery: No stenosis. No dissection or occlusion.?? Left vertebral artery: No stenosis. No dissection or occlusion.? Soft tissues: Normal. No significant soft tissue swelling.? Bones/joints: No acute fracture.? IMPRESSION:?? No stenosis or occlusion.? REFERENCES:?? NASCET CRITERIA. The degree of stenosis in the cervical segment of?? the internal carotid artery is based on NASCET criteria. Normal is no?? stenosis. Mild is less than 50% stenosis. Moderate is 50-69%?? stenosis. Severe is 70% to 99% stenosis. Total occlusion is no?? detectable patent lumen.? Report signed by: Ernestina Gutierrez On 04/19/2024 ??05:00:05 ? URL [2] Procedure PROCEDURE NOTE: Lumbar Puncture Performed by: Self Indication:??Headache? Consent:??Consent was obtained prior to the procedure. Indications, risks, and benefits were explained at length.? [place] Protocol: Time out was performed. Patient, side, site and procedure was verified. ? The patient was placed in??sitting bending forward??position and was prepped and draped in sterile fashion. The surrounding area was anesthetized with??1% lidocaine??local.??A??20??gauge spinal needle was then inserted into the interspace at??the level of the superior iliac spine.??Clear??cerebral spinal fluid was obtained?The fluid was sent to the lab for appropriate studies. The patient tolerated the procedure well and there were no apparent complications. No Qualifying Data Assessment/Plan 1.??Migraine headache??G43.909 Ordered: predniSONE 10 mg oral tablet, See Instruction, Oral, Daily, 5 tabs for 3 days, 4 tabs daily x3 days, 3 tabs daily x3 days, 2 tabs daily x3 days, 1 tab daily x3 days, # 45 cap, 0 Refill(s), Pharmacy: [id number], 165, cm, 10/16/22 7:11:00 EDT, Height, 59.87, kg, 04/19/24... topiramate 25 mg oral capsule, extended release, 25 mg = 1 cap, Oral, Daily, After 1 week increase to twice a day., X 30 days, # 42 cap, 0 Refill(s), 05/19/24 6:33:00 EDT, Pharmacy: [id number], 165, cm, 10/16/22 7:11:00 EDT, Height, 59.87, kg, 04/19/24 1:38:00 EDT, Weight Dosing Discharge Patient, 04/19/24 6:24:00 EDT, Home Independently, Constant Indicator ?? 2.??Status migrainosus??G43.901 ?? Orders: Cerebrospinal Fluid Culture, Cerebrospinal Fluid, Stat collect, ST - Stat, 04/19/24 4:26:00 EDT, Once, Nurse collect Equine Encephalitis Abs IgG/IgM CSF PENG, Cerebrospinal Fluid, Stat Collect, 04/19/24 4:27:00 EDT, Once, Nurse collect, Print Label West Nile Virus Ab, IgG & IgM, CSF PENG, Cerebrospinal Fluid, Stat Collect, 04/19/24 4:26:00 EDT, Once, Nurse collect, Print Label Patient Education Chronic Migraine Headache Follow Up With When Contact Information Sara Luke NP Within [address] [place] [id number]- Additional Instructions: Medication Reconciliation New Prescription predniSONE (predniSONE 10 mg oral tablet)See Instruction Oral (given by mouth) every day. 5 tabs for 3 days, 4 tabs daily x3 days, 3 tabs daily x3 days, 2 tabs daily x3 days, 1 tab daily x3 days. Refills: 0. ?? topiramate (topiramate 25 mg oral capsule, extended release)1 Capsules Oral (given by mouth) every day for 30 Days. After 1 week increase to twice a day.. Refills: 0. ?? Unchanged buPROPion (BuPROPion (Eqv-Wellbutrin SR) [...] 0.9% NaCl bolus, 1000 mL, Hydration Bolus 0.9% NaCl bolus, 1000 mL, Hydration Bolus acetaminophen, 1000 mg, IV Piggyback Benadryl, 25 mg, IV Push Reglan, 5 mg, IV Push Reglan, 5 mg, IV Push SOLU-Medrol, 125 mg, IV Push SUMAtriptan 6 mg/0.5 mL subcutaneous solution, 6 mg, Subcutaneous Topamax, 25 mg, Oral Toradol, 30 mg, IV Push Allergies Bactrim [...] and Differential?? LATEST RESULTS?? HISTORICAL RESULTS?? WBC?? 04/19/24 02:10?? 11.7 ??High?? 04/12/24?? 9.5?? RBC?? 04/19/24 02:10?? 4.2?? 04/12/24?? 4.6?? Hgb?? 04/19/24 02:10?? 12.0?? 04/12/24?? 13.5?? Hct?? 04/19/24 02:10?? 36.2 ??Low?? 04/12/24?? 38.8?? MCV?? 04/19/24 02:10?? 86.2?? 04/12/24?? 84.3?? MCH?? 04/19/24 02:10?? 28.6?? 04/12/24?? 29.3?? MCHC?? 04/19/24 02:10?? 33.1?? 04/12/24?? 34.8?? RDW-CV?? 04/19/24 02:10?? 12.8?? 04/12/24?? 12.4?? Platelets?? 04/19/24 02:10?? 568 ??High?? 04/12/24?? 502 ??High?? Neutro Auto?? 04/19/24 02:10?? 61.6?? 04/09/24?? 75.4 ??High?? Lymph Auto?? 04/19/24 02:10?? 25.7?? 04/09/24?? 14.5 ??Low?? [place] Auto?? 04/19/24 02:10?? 9.9?? 04/09/24?? 8.9?? Eos, Auto?? 04/19/24 02:10?? 1.9?? 04/09/24?? 0.7 ??Low?? Basophil Auto?? 04/19/24 02:10?? 0.3?? 04/09/24?? 0.2?? Imm Gran Auto?? 04/19/24 02:10?? 0.6?? 04/09/24?? 0.3?? Neutro Absolute?? 04/19/24 02:10?? 7.2?? 04/09/24?? 6.8? Miscellaneous Hematology?? LATEST RESULTS?? HISTORICAL RESULTS?? miniiSED ESR?? 04/19/24 02:10?? 9?? 04/12/24?? 39 ??High? Routine Chemistry?? LATEST RESULTS?? HISTORICAL RESULTS?? Sodium Level?? 04/19/24 02:10?? 136?? 04/12/24?? 131 ??Low?? Potassium Level?? 04/19/24 02:10?? 3.9?? 04/12/24?? 3.4 ??Low?? Chloride Level?? 04/19/24 02:10?? 98?? 04/12/24?? 93 ??Low?? CO2?? 04/19/24 02:10?? 33 ??High?? 04/12/24?? 31?? BUN?? 04/19/24 02:10?? 18?? 04/12/24?? 9?? Glucose Level?? 04/19/24 02:10?? 93?? 04/12/24?? 130 ??High?? Creatinine Level?? 04/19/24 02:10?? 0.64?? 04/12/24?? 0.64?? eGFR AA?? 04/19/24 02:10?? 99?? 04/12/24?? 99?? eGFR Non-AA?? 04/19/24 02:10?? 99?? 04/12/24?? 99?? Calcium Level?? 04/19/24 02:10?? 8.9?? 04/12/24?? 9.0? Infectious Disease?? LATEST RESULTS?? C. neoformans/ирина MengP-BFire?? 04/19/24 04:11?? Not Detected?? Cytomegalovirus MengP-BFire?? 04/19/24 04:11?? Not Detected?? E. coli K1 MengP-BFire?? 04/19/24 04:11?? Not Detected?? Enterovirus MengP-BFire?? 04/19/24 04:11?? Not Detected?? H. influenzae MengP-BFire?? 04/19/24 04:11?? Not Detected?? Herpes simplex virus 2 MengP-BFire?? 04/19/24 04:11?? Not Detected?? Herpex simplex virus 1 MengP-BFire?? 04/19/24 04:11?? Not Detected?? Human herpes virus 6 MengP-BFire?? 04/19/24 04:11?? Not Detected?? Human parechovirus MengP-BFire?? 04/19/24 04:11?? Not Detected?? L. monocytogenes MengP-BFire?? 04/19/24 04:11?? Not Detected?? Neisseria meningitidis MengP-BFire?? 04/19/24 04:11?? Not Detected?? S. agalactiae (grp B) MengP-BFire?? 04/19/24 04:11?? Not Detected?? S. pneumoniae MengP-BFire?? 04/19/24 04:11?? Not Detected?? Varicella zoster virus MengP-BFire?? 04/19/24 04:11?? Not Detected? CSF?? LATEST RESULTS?? Clarity CSF?? 04/19/24 04:11?? Clear?? WBC CSF?? 04/19/24 04:11?? <0.003?? RBC CSF?? 04/19/24 04:11?? 1.000?? Xanthochromia CSF?? 04/19/24 04:11?? Absent?? Protein CSF?? 04/19/24 04:11?? 49 ??High?? Glucose CSF?? 04/19/24 04:11?? 55? [1]??CT Brain/Head w/o Contrast; [employer], Generated 04/19/2024 02:45 EDT [2]??CT Angio Brain and Neck; [employer], Generated 04/19/2024 02:47 EDT Electronically Signed on 04/19/2024 06:38 EDT Ayad Richards MD * Cheo Cevallos PA-C: PERFORM Event Display: ED Note Physician Authored Date: [id number] GRAYSON ALMODOVAR :1960 Age:64 years Sex:Female Visit Date:04/19/2024 Primary Care Physician: Sara Luke NP Basic Information Time Seen: Ayad Richards MD / 04/19/2024 01:35 Chief Complaint Migraine x2 weeks. Seen 1 week ago for same. Prescribed Imitrex and Prednisone with minimal improvement. History Of Present Illness: This is a 64 year old female patient who presented to the emergency department this morning with her for evaluation of migraine. Patient reported she was seen in the ED here one week ago on 04/12/24 for the same symptoms and was prescribed Imitrex and prednisone and was discharged??home.?? She reported??she did have relief??initially with??this medication regimen??and was able??to??go to work??and??function??better than??she??had the??week??before.??She reported??her prednisone??ended??yesterday??and ever??since then??her??migraine came creeping back and gradually??got worse and worse??to the point??where??she could??not??take??it??any longer??and??presented??to the ED today. She reported the nature of her migraine is very similar in nature to the last time she was here however is different this time. She reported that the pain is constant in bilateral temporal area and also at the base of her skull, however this time the pain is more prominent and severe in the back of her headand the left side of her neck. She reported associated nausea although has not vomited. She also rep orted associated photophobia. She reported she took Simitrex??at around 2100 and Excedrin at 1800.?? 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 She denied fever, chills, blurry vision, double vision, jaw claudication, no focal weakness or numbness, no facial droop, no rashes, no chest pain, shortness ofbreath, abdominal pain, dysuria, or hematuria.?? Review of Systems: Constitutional:?No??fevers,?No??chills,?No??sweats Eye:?No??recent visual problems ENT:?No??ear pain,?No??nasal congestion,?No??sore throat Respiratory:?No??shortness of breath,?No??cough Cardiovascular:?No??Chest pain,?No??palpitations,?No??syncope Gastrointestinal:?Nonausea,?No??vomiting,?No??diarrhea Genitourinary:?No??hematuria Andrew/Lymph:?No??bruising tendency,?No??swollen lymph glands Endocrine:?No??excessive thirst,??No??excessive hunger Musculoskeletal:??No??back pain,??Positive for??neck pain, only on the left side?No??joint pain,??No??muscle pain,??No??decreased range of motion Integumentary:?No??rash,?No??pruritus,?No??abrasions Neurologic: Alert & oriented X 4 Psychiatric:?No??anxiety,?No??depression Physical Exam Vitals & Measurements T:??36.5?C ??(Tympanic)?? HR:??79??(Monitored)?? RR:??20?? BP:??145/77?? SpO2:??97%?? WT:??59.87??kg?? Pain Score:??9?? General:??alert,??no acute distress.?? Normal mentation, moves her head freely with no signs of meningeal irritation. ??Does not look septic no respiratory distress. Skin:??warm,??dry. Head:??no??trauma,??normocephalic. Neck:??trachea??midline,??no??adenopathy,??no??tenderness.?? Supple with no meningeal signs. Eye:??normal??conjunctiva, sclera??clear.?? Pupils are equal and reactive, external eye movements are normal. Cardiovascular:??regular??rate and rhythm,??normal??peripheral perfusion. Respiratory:??lungs??CTA, respirations??non-labored. Chest wall:??no??deformity. Gastrointestinal:??soft,??non distended,??no??tenderness,??no??guarding. Extremities:??Well-perfused Neurological:??oriented??x 4, LOC??appropriate for age, CN II-XII??intact,?, speech??normal.?? Moves all 4 extremities normally. ??No facial droop. ??External eye movements are normal. ??Speech isnormal. Psychiatric:??cooperative, affect??appropriate for age Medical Decision Makin64 year old female presenting for evaluation of migraine. Patient recently seen in the emergency dept on 04/12 and was discharged with prescription for prednisone 40 mg x5 days and Imitrex to take as needed for continued migraine headaches. Patient presenting back today for similar symptoms with bilateral temporal headache, as well as posterior headache, with pain on the left side of the neck. No fever, no chills. No meningeal irritation on physical exam. Given her history of AVM for which she had radiation treatment for discussed repeat CT imaging with patient. Patient did have CT of head and brain when she was here on 04/12 which was negative for any acute findings. Decision was made with shared decision making to obtain repeat CT head and brain as well as CT angio head/neck today to rule out any acute findings given her history. This is reasonable given her story.?Findings of imaging studies revealed .... Lab work was obtained today and found no significant findings, other than minimally elevated white blood cell count at 11.7 however this is likely in the setting of recent steroid use vs infection especially since patient has not experienced any fever or chills at home.?? Sed rate was rechecked as last visit??temporal arteritis was on the differential and today during this visit sed rate was within normal??limits at 9 in comparison to 39 at her last visit.?? In the emergency dept initially she received 1 liter bolus of normal saline, sumatriptan 6mg SQ, solumedrol 125mg IV, toradol 30mg IV, and reglan 5mg IV. This was successful in treating patients migraine headache and reduced pain from a 9/10 to a 2/10. Patient appeared to be much more comfortable in bed after these medications were administered.?? At this time shared decision making again took place with patient in regards to lumbar puncture which was discussed during her last visit, to rule out conditions such as viral meningitis or intracranial bleed which would be life threatening. Patient expressed that she would like to proceed further with lumbar puncture especially for reassurance that nothing more serious is going on as she continues to have these severe migraines that continue to bring her back to the emergency department. Case was discussed with Dr. Richards and he was in agreement with proceeding with lumbar puncture and he performed procedure after consent and signout.??Procedure was successful with clear CSF in all four t ubes.?? After lumbar puncture was completed patient reported that her headache was starting to creep up in severity and was requesting for more medication to stay on top of the pain. At this time another bolus of normal saline was ordered as well as 1000mg IV tylenol, 5mg??of IV reglan??and 25 mg of IV benadryl.?? Procedure No Qualifying Data Assessment/Plan 1.??Migraine headache??G43.909 Medication Reconciliation Unchanged buPROPion (BuPROPion (Eqv-Wellbutrin SR) [...] 0.9% NaCl bolus, 1000 mL, Hydration Bolus 0.9% NaCl bolus, 1000 mL, Hydration Bolus acetaminophen, 1000 mg, IV Piggyback Benadryl, 25 mg, IV Push Reglan, 5 mg, IV Push Reglan, 5 mg, IV Push SOLU-Medrol, 125 [...] and Differential?? LATEST RESULTS?? HISTORICAL RESULTS?? WBC?? 04/19/24 02:10?? 11.7 ??High?? 04/12/24?? 9.5?? RBC?? 04/19/24 02:10?? 4.2?? 04/12/24?? 4.6?? Hgb?? 04/19/24 02:10?? 12.0?? 04/12/24?? 13.5?? Hct?? 04/19/24 02:10?? 36.2 ??Low?? 04/12/24?? 38.8?? MCV?? 04/19/24 02:10?? 86.2?? 04/12/24?? 84.3?? MCH?? 04/19/24 02:10?? 28.6?? 04/12/24?? 29.3?? MCHC?? 04/19/24 02:10?? 33.1?? 04/12/24?? 34.8?? RDW-CV?? 04/19/24 02:10?? 12.8?? 04/12/24?? 12.4?? Platelets?? 04/19/24 02:10?? 568 ??High?? 04/12/24?? 502 ??High?? Neutro Auto?? 04/19/24 02:10?? 61.6?? 04/09/24?? 75.4 ??High?? Lymph Auto?? 04/19/24 02:10?? 25.7?? 04/09/24?? 14.5 ??Low?? [place] Auto?? 04/19/24 02:10?? 9.9?? 04/09/24?? 8.9?? Eos, Auto?? 04/19/24 02:10?? 1.9?? 04/09/24?? 0.7 ??Low?? Basophil Auto?? 04/19/24 02:10?? 0.3?? 04/09/24?? 0.2?? Imm Gran Auto?? 04/19/24 02:10?? 0.6?? 04/09/24?? 0.3?? Neutro Absolute?? 04/19/24 02:10?? 7.2?? 04/09/24?? 6.8? Miscellaneous Hematology?? LATEST RESULTS?? HISTORICAL RESULTS?? miniiSED ESR?? 04/19/24 02:10?? 9?? 04/12/24?? 39 ??High? Routine Chemistry?? LATEST RESULTS?? HISTORICAL RESULTS?? Sodium Level?? 04/19/24 02:10?? 136?? 04/12/24?? 131 ??Low?? Potassium Level?? 04/19/24 02:10?? 3.9?? 04/12/24?? 3.4 ??Low?? Chloride Level?? 04/19/24 02:10?? 98?? 04/12/24?? 93 ??Low?? CO2?? 04/19/24 02:10?? 33 ??High?? 04/12/24?? 31?? BUN?? 04/19/24 02:10?? 18?? 04/12/24?? 9?? Glucose Level?? 04/19/24 02:10?? 93?? 04/12/24?? 130 ??High?? Creatinine Level?? 04/19/24 02:10?? 0.64?? 04/12/24?? 0.64?? eGFR AA?? 04/19/24 02:10?? 99?? 04/12/24?? 99?? eGFR Non-AA?? 04/19/24 02:10?? 99?? 04/12/24?? 99?? Calcium Level?? 04/19/24 02:10?? 8.9?? 04/12/24?? 9.0? Electronically Signed on 04/19/2024 04:47 EDT Cheo Cevallos-Bo Ayad Richards MD Emergency department Discharge instructions * Ayad Richards MD: PERFORM Event Display: ED Discharge Information Authored Date: [id number] GRAYSON ALMODOVAR :1960 Age:64 years Sex:Female Visit Date:04/19/2024 Primary Care Physician: Sara Luke FEATHER BALER Discharge Instructions We would like to thank you for allowing us to assist you with your healthcare needs. The following includes patient education materials and information regarding your injury/illness. Diagnosis from Today's Visit Migraine headache Status migrainosus Discharge Vitals Temperature??(Tympanic) 97.7 ??F (36.5 ??C) Heart Rate??(Monitored) 79 Respiratory Rate?? 20 Blood Pressure?? 145/77?? SpO2?? 97% Weight?? 132.01 lb (59.87 kg) Allergies Bactrim amoxicillin??(tongue swollen, swelling of face) sulfa drugs??(pt doesn't remember) What to Do Next Instructions from Your Care Team A prescription for topiramate also called Topamax to treat her chronic headache??was sent to your pharmacy. ??You take 1 tablet daily for the first week then increase to twice a day.?? A prescriptionfor prednisone taper??also sent to your pharmacy. ??You can use your sumatriptan as needed.?? Follow-up with your neurologist as soon as possible. ??You can follow-up with your primary care provider on Sunday in 2 days to help expedite that appointment. You Need to Schedule the Following Appointments Follow Up with??Sara Luke FEATHER BALER When:??Within 1 week Where: [address] [place] [id number] You were treated today on an emergency [...] Why Instructions Next Dose New predniSONE (predniSONE 10 mg oral tablet) See Instruction Oral (given by mouth) Every day Migraine headache 5 tabs for 3 days, 4 tabs daily x3 days, 3 tabs daily x3 days, 2 tabs daily x3 days, 1 tab daily x3days ?? Pickup at [facility] New topiramate (topiramate 25 mg oral capsule, extended release) 1 Capsules Oral (given by mouth) Every day Migraine headache Duration: 30 Days After 1 week increase to twice a day. ?? Pickup at [facility] Unchanged buPROPion (BuPROPion (Eqv-Wellbutrin SR) 150 [...] Every day Unchanged turmeric (Turmeric) Pharmacy Information [facility]: [address], [place] [id number] [phone] Education Materials Chronic Migraine Headache A migraine is a type of headache that is usually stronger and more sudden than other headaches. Migraines are characterized by an intense pulsing, throbbing pain that is usually only present on one side of the head. Migraine pain usually gets worse with activity. Migraines can cause nausea, vomiting, sensitivity to light and sound, and vision changes. Migrainesthat keep coming back are called recurrent migraines. A migraine is called a chronic migraine if ithappens at least 15 days in a month for more than 3 months. Talk with your health care provider about what things may bring on (trigger) your migraines. What are the causes? The exact cause of this condition is not known. However, a migraine may be caused when nerves in the brain become irritated and release chemicals that cause inflammation of blood vessels. The inflammation of the blood vessels causes pain. Migraines may be triggered or caused by: ? Smoking. ? Certain foods and drinks, such as: ? Aged cheese. ? Chocolate. ? Alcohol. ? Caffeine. ? Foods or drinks that contain nitrates, glutamate, aspartame, MSG, or tyramine. ? Medicines, such as control pills or some blood pressure medicines. Other things that may trigger a migraine include: ? Menstruation. ? Emotional stress. ? Lack of sleep or too much sleep. ? Tiredness (fatigue). ? Bright lights or loud noises. ? Odors. ? Weather changes and high altitude. What increases the risk? The following factors may make you more likely to experience chronic migraine: ? Having migraines or a family history of migraines. ? Having a mental health condition, such as depression or anxiety. ? Having to take a lot of pain medicine. ? Having sleep problems. ? Having heart disease, diabetes, or obesity. What are the signs or symptoms? Symptoms of a migraine vary for each person and may include: ? Pulsating or throbbing pain. ? Pain that is usually only present on one side of the head. In some cases, the pain may be on both sides of the head or around the head or neck. ? Severe pain that prevents you from doing daily activities. ? Pain that gets worse with physical activity. ? Nausea, vomiting, or both. ? Pain with exposure to bright lights, loud noises, or activity. ? General sensitivity to bright lights, loud noises, or smells. ? Dizziness. A sign that a migraine is becoming chronic is an increasing number of migraine episodes. It is considered chronic if the migraine happens at least 15 days in a month for more than 3 months. How is this diagnosed? This condition is often diagnosed based on: ? Your symptoms and medical history. ? A physical exam. You may also have tests, including: ? A CT scan or an MRI of your brain. These imaging tests cannot diagnose migraines, but they can helpto rule out other causes of headaches. ? Taking fluid from the spine (lumbar puncture) and analyzing it (cerebrospinal fluid analysis, or CSF analysis). ? Blood tests. How is this treated? This condition is treated with: ? Medicines. These help to: ? Lessen pain and nausea. ? Prevent migraines. ? Lifestyle changes, such as changes to your diet or sleeping patterns. ? Behavior therapy. This may include: ? Relaxation training. ? Biofeedback. This is a treatment that teaches you to relax and use your brain to lower your heart rate and control your breathing. ? Cognitive behavioral therapy (CBT). This is a form of talk therapy. This therapy helps you set goals and follow up on the changes that you make. ? Acupuncture. ? Using a device that provides electrical stimulation to your nerves, which can relieve pain (neuromodulation therapy). ? Surgery, if the other treatments are not working. Follow these instructions at home: Medicines ? Take [id number] and prescription medicines only as told by your health care provider. ? Ask your health care provider if the medicine prescribed to you requires you to avoid driving or using machinery. Lifestyle ? Do not use any products that contain nicotine or tobacco, such as cigarettes, e- cigarettes, and chewing tobacco. If you need help quitting, ask your health care provider. ? Do not drink alcohol. ? Get 7???9 hours of sleep each night, or the amount of sleep recommended by your health care provider. ? Find ways to manage stress, such as meditation, deep breathing, or yoga. ? Maintain a healthy weight. If you need help losing weight, ask your health care provider. ? Exercise regularly. Aim for 150 minutes of moderate-intensity exercise, such as walking, biking, oryoga, or 75 minutes of vigorous exercise each week. Vigorous exercise includes running, circuit training, and swimming. General instructions ? Keep a journal to find out what triggers your migraines so you can avoid these triggers. For example, write down: ? What you eat and drink. ? How much sleep you get. ? Any change to your diet or medicines. ? Lie down in a dark, quiet room when you have a migraine. ? Try placing a cool towel over your head when you have a migraine. ? Keep lights dim, if bright lights bother you or make your migraines worse. ? Keep all follow-up visits as told by your health care provider. This is important. Where to find more information ? Coalition for Headache and Migraine Patients (CHAMP): headachemigraine.org ? [employer] Migraine Foundation: americanmigrainefoundation.org ? National Headache Foundation: headaches.org Contact a health care provider if: ? Your pain does not improve, even with medicine. ? Your migraines continue to return, even with medicine. Get help right away if: ? Your migraine becomes severe and medicine does not help. ? You have a stiff neck and fever. ? You have a loss of vision. ? You have muscle weakness or loss of muscle control. ? You start losing your balance, or you have trouble walking. ? You feel like you may faint, or you faint. ? You start having sudden and unexpected, severe headaches. ? You have a seizure. Summary ? Migraine headaches are usually stronger and more sudden than other headaches. Migraines are characterized by an intense pulsing, throbbing pain that is usually only present on one side of the head. ? Migraines that keep coming back are called recurrent migraines. A migraine is called a chronic migraine if it happens 15 days in a month for more than 3 months. ? Certain things may trigger migraines, such as lack of sleep or too much sleep, smoking, certain foods, alcohol, stress, and certain medicines. ? Your treatment plan may include medicines, lifestyle changes, and behavior therapy. This information is not intended to replace advice given to you by your health care provider. Make sure you discuss any questions you have with your health care provider. Document Revised: 01/04/2023 Document Reviewed: 09/08/2020 Elsevier Patient Education ?? 2022 [employer] Tests Performed Medications and Immunizations Administered Given 0.9% NaCl bolus, 1000 mL, Hydration Bolus 0.9% NaCl bolus, 1000 mL, Hydration Bolus acetaminophen, 1000 mg, IV Piggyback Benadryl, 25 mg, IV Push Reglan, 5 mg, IV Push Reglan, 5 mg, IV Push SOLU-Medrol, 125 mg, IV Push SUMAtriptan 6 mg/0.5 mL subcutaneous solution, 6 mg, Subcutaneous Toradol, 30 mg, IV Push Lab Test Name Test Result Date/Time WBC 11.7 x10^3/mcL 04/19/2024 02:10 EDT RBC 4.2 x10^6/mcL 04/19/2024 02:10 EDT Hgb 12.0 g/dL 04/19/2024 02:10 EDT Hct 36.2 % 04/19/2024 02:10 EDT MCV 86.2 fL 04/19/2024 02:10 EDT MCH 28.6 pg 04/19/2024 02:10 EDT MCHC 33.1 g/dL 04/19/2024 02:10 EDT RDW-CV 12.8 % 04/19/2024 02:10 EDT Platelets 568 x10^3/mcL 04/19/2024 02:10 EDT Neutro Auto 61.6 % 04/19/2024 02:10 EDT Lymph Auto 25.7 % 04/19/2024 02:10 EDT [place] Auto 9.9 % 04/19/2024 02:10 EDT Eos, Auto 1.9 % 04/19/2024 02:10 EDT Basophil Auto 0.3 % 04/19/2024 02:10 EDT Imm Gran Auto 0.6 % 04/19/2024 02:10 EDT Neutro Absolute 7.2 x10^3/mcL 04/19/2024 02:10 EDT miniiSED ESR 9 mm/hr 04/19/2024 02:10 EDT Sodium Level 136 mmol/L 04/19/2024 02:10 EDT Potassium Level 3.9 mmol/L 04/19/2024 02:10 EDT Chloride Level 98 mmol/L 04/19/2024 02:10 EDT CO2 33 mmol/L 04/19/2024 02:10 EDT BUN 18 mg/dL 04/19/2024 02:10 EDT Glucose Level 93 mg/dL 04/19/2024 02:10 EDT Creatinine Level 0.64 mg/dL 04/19/2024 02:10 EDT eGFR AA 99 04/19/2024 02:10 EDT eGFR Non-AA 99 04/19/2024 02:10 EDT Calcium Level 8.9 mg/dL 04/19/2024 02:10 EDT C. neoformans/ирина MengP-BFire Not Detected BF 04/19/2024 04:11 EDT Cytomegalovirus MengP-BFire Not Detected BF 04/19/2024 04:11 EDT E. coli K1 MengP-BF[facility] Not Detected BF 04/19/2024 04:11 EDT Enterovirus [facility]engP-BF[facility] Not Detected BF 04/19/2024 04:11 EDT H. influenzae MengP-BF[facility] Not Detected BF 04/19/2024 04:11 EDT Herpes simplex virus 2 MengP-BF[facility] Not Detected BF 04/19/2024 04:11 EDT Herpex simplex virus 1 MengP-BF[facility] Not Detected BF 04/19/2024 04:11 EDT Human herpes virus 6 MengP-BFire Not Detected BF 04/19/2024 04:11 EDT Human parechovirus MengP-BF[facility] Not Detected BF 04/19/2024 04:11 EDT L. monocytogenes MengP-BF[facility] Not Detected BF 04/19/2024 04:11 EDT Neisseria meningitidis MengP-BF[facility] Not Detected BF 04/19/2024 04:11 EDT S. agalactiae (grp B) [facility]engP-BF[facility] Not Detected BF 04/19/2024 04:11 EDT S. pneumoniae MengP-BFire Not Detected BF 04/19/2024 04:11 EDT Varicella zoster virus MengP-BF[facility] Not Detected BF 04/19/2024 04:11 EDT Clarity CSF Clear 04/19/2024 04:11 EDT WBC CSF <0.003 x10^3/mcL 04/19/2024 04:11 EDT RBC CSF 1.000 x10^6/mcL 04/19/2024 04:11 EDT Xanthochromia CSF Absent 04/19/2024 04:11 EDT Protein CSF 49 mg/dL 04/19/2024 04:11 EDT Glucose CSF 55 mg/dL 04/19/2024 04:11 EDT Patient/Manufacturers Representative Signature Patient Name:GRAYSON ALMODOVAR I have received this information and my questions have been answered. Patient/Manufacturers Representative Name: Patient/Manufacturers Representative Signature: Relationship to Patient: Witness Name/Signature: Date: Electronically Signed on: 04/19/2024 06:28 EDTSigned by:KASSIE Emergency department Note * Loretta Gandhi: PERFORM Event Display: ED Notes Authored Date: Discharge summary * Loretta Gandhi: PERFORM Event Display: Discharge Note Authored Date: * Loretta Gandhi: PERFORM Event Display: Discharge Note Authored Date: Diagnosis: 1. Migraine headache Comment: Diagnosis: 2. Status migrainosus Comment: Diagnosis: Headache Comment: Electronically Signed on 04/19/2024 07:08 EDT Loretta Gandhi Patient Care team information Care Team Personnel Name: Sara Luke FEATHER BALER Position: PowerChart View Only Member Role: Informed Provider Address: [address] Name: Haily Yoon FEATHER BALER Position: No Access Member Role: Nurse Practitioner Address: [address] [place] [address] Care Team Related Persons Name: KHALIDA WEBB Name: SOURAV WEBB Name: CHRISTINA BAL Insurance Providers Guarantor name: GRAYSON Refugio [facility] Information #: 1 [facility] Member Number: [id number] Policy Number: NA Health Plan Information #: 2 Payer: [facility] Member Number: [id number] Policy Number: NA
--- OUTSIDE RECORDS SUMMARY | 2024-09-04 15:16 | XMS_ITS | Data Portability ---
Author Organization [facility], [facility] [place] [address] Care Team Providers Care Deck Mate Name Role Phone SARA LUKE Primary Care Provider Assessment Encounter Date Assessment Date Assessment LastModified by Organization Details LastModified Time 04/15/2024 04/15/2024 The total time devoted to today's encounter, including both the ivgm-av-vjkx time with the patient and/or family/caregi jacob and kqd-hqtx-ir-f magdaleno time I personally spent is 30 minutes. Not available 04/15/2024 15:55:54 05/07/2024 05/07/2024 The total time devoted to today's encounter, including both the benf-oh-wgss time with the patient and/or family/caregi jacob and tsw-vibj-pg-f magdaleno time I personally spent is 30 minutes. Not available 05/07/2024 17:04:55 Plan of Treatment Reminders Order Date Submit Date Provider Last Modified By Organization Details Last Modified Time Details Appointments Acute 2024 02:00P M SARA LUKE Not available Not available Not available Follow Up 2024 02:30P M SARA LUKE Not available Not available Not available Lab None recorded. Referral None recorded. Procedures None recorded. Surgeries None recorded. Imaging MRI, brain, w/o contrast 2023 024 [email or web address] [email or web address] [facility], [address], [place], [address], 06/09/2024 09:10:03 Medication Orders Imitrex 50 mg tablet [address] [facility], [address] [place], [address], 04/17/2024 14:21:34 triamcino lone acetonide 0.1 % topical cream 2023 [facility], [address] [place], [address], 05/07/2024 16:46:48 ondansetr on 4 mg disintegr ating tablet 2023 024 [facility], [address] [place], [address], 05/07/2024 16:40:02 [facility] 25 mg tablet [facility] [address] [place], [address], 06/09/2024 14:44:57 Imitrex 50 mg tablet 2023 024 [facility] [place], [address], 05/07/2024 16:40:02 Topamax 50 mg tablet 2023 024 [facility] [place], [address], 06/09/2024 14:55:54 Patient TargetsNo targets recorded. Patient Instructions Encounter Date Encounter Id Patient Instructions Last Modified By Organization Details Last Modified Time 04/15/2024 [id number] Finish prednisone, stay away from all NSAIDS while on prednisone. be sure to take the prednisone with food. Ok to use the Imitrex as needed. If no significant improvement by Sunday, please call and we will get you in. Will need to consider neuro referral, or temporal biopsy Glad you are feeling better glenys Not available 04/15/2024 15:39:14 04/23/2024 [id number] When you have th e MRI done please let me know and I will look for results. Be sure you are taking the prednisone with food So glad you are feeling a tiny bit better follow up as scheduled Not available 04/23/2024 14:59:12 05/07/2024 [id number] I ordered MRI of your brain you should be hearing from [facility] to have that scheduled Flu Vaccine and COVID booster when able. I increased your topamax goal is to make these headaches go away. Let me know if you don't hear from neuro Not available 05/07/2024 16:48:48 06/09/2024 [id number] continue current medication. If you are having breakthrough headaches please let me know Follow up 4 months Not available 06/09/2024 14:52:50 Reason for Referral None Reported. Results Created Date Observation Date Name Description Value Unit Range Abnormal Flag Note LastModifiedBy Organization Detail LastModifiedTime 04/08/2004/08/2024 COMPL ETE BLOOD COUNT NO DIFF WBC 9.08 10_3/ uL 4.4-10 .8 normal Not Available [address] [place], [address] 04/08/2024 19:52:44 04/08/2004/08/2024 COMPL ETE BLOOD COUNT NO DIFF RBC 4.34 10_6/ uL 3.93-5 .22 normal Not Available [address] [place], [address] 04/08/2024 19:52:44 04/08/2004/08/2024 COMPL ETE BLOOD COUNT NO DIFF HGB 12.5 g/dL 11.2-1 5.7 normal Not Available [address] [place], [address] 04/08/2024 19:52:44 04/08/2004/08/2024 COMPL ETE BLOOD COUNT NO DIFF HCT 37.8 % 36.0-4 6.0 normal Not Available [address] [place], [address] 04/08/2024 19:52:44 04/08/2004/08/2024 COMPL ETE BLOOD COUNT NO DIFF MCV 87 fL 80-95 normal Not Available Yesika foreman [address] [place], [address] 04/08/2024 19:52:44 04/08/20 24 04/08/2024 COMPL ETE BLOOD COUNT NO DIFF MCH 28.8 pg 27.0-3 3.0 normal Not Available [address] [place], [address] 04/08/2024 19:52:44 04/08/20 24 04/08/2024 COMPL ETE BLOOD COUNT NO DIFF MCHC 33.1 % 32.0-3 6.0 normal Not Available [address] [place], [address] 04/08/2024 19:52:44 04/08/20 24 04/08/2024 COMPL ETE BLOOD COUNT NO DIFF RDW 12.4 % 11.7-1 4.6 normal Not Available [address] [place], [address] 04/08/2024 19:52:44 04/08/20 24 04/08/2024 COMPL ETE BLOOD COUNT NO DIFF platelet count 479 10_3/ uL 130-40 0 high Not Available [address] [place], [address] 04/08/2024 19:52:44 04/08/20 24 04/08/2024 COMPL ETE BLOOD COUNT NO DIFF MPV 9.1 fL 8.0-11 .0 normal Not Available [address] [place], [address] 04/08/2024 19:52:44 04/08/20 24 04/08/2024 BASIC METAB OLIC PANEL calcium 9.3 mg/dL 8.5-10 .1 normal Not Available [address] [place], [address] 04/08/2024 19:56:46 04/08/20 24 04/08/2024 BASIC METAB OLIC PANEL glucose 79 mg/dL 74-106 normal Not Available Yesika foreman [address] [place], [address] 04/08/2024 19:56:46 04/08/20 24 04/08/2024 BASIC METAB OLIC PANEL BUN 15 mg/dL 7-18 normal Not Available Yesika foreman [address] [place], [address] 04/08/2024 19:56:46 04/08/20 24 04/08/2024 BASIC METAB OLIC PANEL creatinine 0.9 mg/dL 0.55-1 .02 normal Not Available [address] [place], [address] 04/08/2024 19:56:46 04/08/20 24 04/08/2024 BASIC METAB OLIC PANEL estimated GFR 71.83 mL/min /1.73m 2 The eGFR is calcu lated from a serum creat inine using the CKD-E PI 2020 equat ion. Other varia bles requi red for the equat ion are gende r and age; this equat ion does not inclu de a race coeff icien t. This equat ion has simil ar overa ll perfo rmanc e to previ ous equat ions excep t value s may diffe r, in parti cular , in patie nts with highe r value s of eGFR and young er-ag ed adult s. Not Available [address] [place], [address] 04/08/2024 19:56:46 04/08/20 24 04/08/2024 BASIC METAB OLIC PANEL sodium 129 mmol/ L 136-14 5 low Not Available [address] [place], [address] 04/08/2024 19:56:46 04/08/20 24 04/08/2024 BASIC METAB OLIC PANEL potassium 4.0 mmol/ L 3.5-5. 1 normal Not Available [address] [place], [address] 04/08/2024 19:56:46 04/08/20 24 04/08/2024 BASIC METAB OLIC PANEL chloride 95 mmol/ L 98-107 low Not Available [address] [place], [address] 04/08/2024 19:56:46 04/08/20 24 04/08/2024 BASIC METAB OLIC PANEL CO2 29.4 mmol/ L 21.0-3 2.0 normal Not Available [facility] [address] [facility] [place], [address] 04/08/2024 19:56:46 04/08/20 24 04/08/2024 BASIC METAB OLIC PANEL anion gap 4.6 mmol/ L 3-11 normal Not Available [facility] [address] [facility] [place], [address] 04/08/2024 19:56:46 04/09/20 24 04/09/2024 CT, head + brain , w/o contr ast ABNORM AL FINDIN G PROCED URE INFORM ATION: Exam: CT Head Withou t Contra st Exam date and time: 04/09/20 24 4:32 PM Age: 64 years old Clinic al indica tion: [place] TECHNI QUE: Imagin g protoc ol: Comput ed tomogr aphy of the head withou t contra st. Radiat ion optimi zation : All CT scans at this facili ty use at least one of these dose optimi zation techni ques: automa manny exposu re contro l; mA and/or kV adjust ment per patien t size (inclu monroe target ed exams where dose is matche d to clinic al indica tion); or iterat eddie recons tructi on. COMPAR PAULO: CT HEAD/B RAIN WO CONTRA ST 022 7:48 AM FINDIN GS: Brain: No intrac ranial hemorr diomedes. There is global parenc hymal volume loss. Perive ntricu lar white matter hypoat tenuat ion is nonspe cific but most likely due to small vessel diseas e. No eviden ce of acute territ orial infarc t or cerebr al edema. No mass effect or midlin e shift. Nonacu te lacuna r infarc t left basal gangli a. Cerebr al ventri cles: Promin ent ventri cles likely second sarita to volume loss. Parana kuldeep sinuse s: Visual ized sinuse s are unrema rkable . No fluid levels . Mastoi d air cells: Visual ized mastoi d air cells are well aerate d. Bones: Unrema rkable . No acute fractu re. Soft tissue s: Unrema rkable . IMPRES LULY: No acute intrac ranial findin gs. Report signed by: Amari subramanian On 2023 16:49: [address], [place], [address], 04/10/2024 08:55:05 04/12/20 24 04/12/2024 CT, head + brain , w/o contr ast ABNORM AL FINDIN G PROCED URE INFORM ATION: Exam: CT Head Withou t Contra st Exam date and time: 04/12/20 24 5:52 PM Age: 64 years old Clinic al indica tion: Headac he TECHNI QUE: Imagin g protoc ol: Comput ed tomogr aphy of the head withou t contra st. Radiat ion optimi zation : All CT scans at this facili ty use at least one of these dose optimi zation techni ques: automa manny exposu re contro l; mA and/or kV adjust ment per patien t size (inclu monroe target ed exams where dose is matche d to clinic al indica tion); or iterat eddie recons tructi on. COMPAR PAULO: CT HEAD/B RAIN WO CONTRA ST 04/09/20 24 4:32 PM FINDIN GS: Brain: Cerebr al sulci show bilate ral symmet ry with no suprat entori al mass or mass effect detect ed. A few poorly margin ated hypode nsitie s seen scatte red throug hout the deep and perive ntricu lar white matter of both cerebr al hemisp heres sugges t mild underl sammy microv ascula r ischem ic change s with a more discre te chroni c lacuna r type infarc t also again seen involv ing the deep white matter along the latera l margin of the anteri or body of the left caudat e nucleu s. Brains tem and cerebe llum are unrema rkable and there is no eviden ce of acute transc ortica l infarc tion or recent intrac ranial hemorr diomedes. Cerebr al ventri cles: Dilata tion of the 3rd and latera l ventri cles is commen surate with the degree of cerebr al atroph y. Parana kuldeep sinuse s: Grossl y clear throug hout. Mastoi d air cells: Grossl y clear bilate rally. Bones: Bony calvar ium and skull base are intact and no acute fractu res are detect ed. Soft tissue s: Unrema rkable . IMPRES LULY: Suspec manny mild underl sammy microv ascula r ischem ic change s with chroni c lacuna r type infarc t also again seen along the latera l aspect of the left caudat e nucleu s as above. There is no eviden ce of acute transc ortica l infarc tion, recent intrac ranial hemorr diomedes or hydroc ephalu s. No acute intrac ranial proces s is detect ed. Report signed by: Jaiden Weathers On 2023 18:13: [address] [place] [address], [place], [address], 04/13/2024 18:20:52 04/19/20 24 04/19/2024 CT brain /head w/o contr ast PROCED URE INFORM ATION: Exam: CT Head Withou t Contra st Exam date and time: 024 2:45 AM Age: 64 years old Clinic al indica tion: Headac he TECHNI QUE: Imagin g protoc ol: Comput ed tomogr aphy of the head withou t contra st. Radiat ion optimi zation : All CT scans at this facili ty use at least one of these dose optimi zation techni ques: automa manny exposu re contro l; mA and/or kV adjust ment per patien t size (inclu monroe target ed exams where dose is matche d to clinic al indica tion); or iterat eddie recons tructi on. COMPAR PAULO: 1. CT HEAD/B RAIN WO CONTRA ST 04/12/20 24 5:[address] HEAD/B RAIN WO CONTRA ST 04/09/20 24 4:32 PM FINDIN GS: Brain: Sulci are normal in size for patien t's age. There is no intrac ranial hemorr diomedes, extra- axial collec tion, mass effect , or midlin e shift. Again noted is a small chroni c lacuna r infarc t just latera l to the anteri or body of the left caudat e nucleu s. Unchan ged mild patchy hypoat tenuat ion in the perive ntricu lar and deep white matter is most likely the sequel a of mild chroni c microa ngiopa thy. Cerebr al ventri cles: Normal in size for patien t's age. Parana kuldeep sinuse s: Visual ized parana kuldeep sinuse s are clear. Mastoi d air cells: The mastoi d air cells are clear bilate rally. Bones: Unrema rkable . Soft tissue s: Extrac ranial soft tissue s are unrema rkable . IMPRES LULY: 1. No acute intrac ranial abnorm ality. 2. Stable chroni c findin gs as above. Report signed by: Annel Dick On 2023 04:42: [address] , [place], [address], 04/19/2024 04:44:57 04/19/20 24 04/19/2024 CT angio brain and neck PROCED URE INFORM ATION: Exam: CTA Head With Contra st, Arteri ograph y Exam date and time: 024 2:47 AM Age: 64 years old Clinic al indica tion: Headac he TECHNI QUE: Imagin g protoc ol: Comput ed tomogr aphic angiog kalyan of the head with contra st. Exam focuse d on the arteri es. 3D render ing (Not superv ised by radiol ogist) : MIP and/or 3D recons tructe d images were create d by the techno logist . Radiat ion optimi zation : All CT scans at this facili ty use at least one of these dose optimi zation techni ques: automa manny exposu re contro l; mA and/or kV adjust ment per patien t size (inclu monroe target ed exams where dose is matche d to clinic al indica tion); or iterat eddie recons tructi on. Contra st materi al: OMNI 350; Contra st volume : 100 ml; Contra st route: INTRAV ENOUS (IV); COMPAR PAULO: MR MRV HEAD ANGIO WO CONTRA ST 8/22/2 022 3:37 PM FINDIN GS: ANTERI OR CIRCUL ATION: Right pharmacy intern al caroti d artery : Intrac ranial segmen t is patent with no signif icant stenos is. No aneury sm. Right middle cerebr al artery : No occlus ion or signif icant stenos is. No aneury sm. Right anteri or cerebr al artery : No occlus ion or signif icant stenos is. No aneury sm. Left pharmacy intern al caroti d artery : Intrac ranial segmen t is patent with no signif icant stenos is. No aneury sm. Left middle cerebr al artery : No occlus ion or signif icant stenos is. No aneury sm. Left anteri or cerebr al artery : No occlus ion or signif icant stenos is. No aneury sm. MAIL PROCESSING EQUIPMENT MECHANIC IOR CIRCUL ATION: Right verteb ral artery : No occlus ion or signif icant stenos is. No aneury sm. Left verteb ral artery : No occlus ion or signif icant stenos is. No aneury sm. Basila r artery : No occlus ion or signif icant stenos is. No aneury sm. Right neuropsychology director ior cerebr al artery : No occlus ion or signif icant stenos is. No aneury sm. Left neuropsychology director ior cerebr al artery : No occlus ion or signif icant stenos is. No aneury sm. Brain: No defini te mass, mass effect , or midlin e shift. No abnorm al intrac ranial enhanc ement. Cerebr al ventri cles: No ventri culome [place]. Bones/ joints : Unrema rkable . No acute fractu re. Soft tissue s: Unrema rkable . IMPRES LULY: No large vessel stenos is or occlus ion. ====== ====== ====== ====== = PROCED URE INFORM ATION: Exam: CTA Neck With Contra st Exam date and time: 024 2:47 AM Age: 64 years old Clinic al indica tion: Headac he TECHNI QUE: Imagin g protoc ol: Comput ed tomogr aphic angiog kalyan of the neck with contra st. Exam focuse d on the cervic al segmen ts of the vascul ature. 3D render ing (Not superv ised by radiol ogist) : MIP and/or 3D recons tructe d images were create d by the techno logist . Radiat ion optimi zation : All CT scans at this facili ty use at least one of these dose optimi zation techni ques: automa manny exposu re contro l; mA and/or kV adjust ment per patien t size (inclu monroe target ed exams where dose is matche d to clinic al indica tion); or iterat eddie recons tructi on. Contra st materi al: OMNI 350; Contra st volume : 100 ml; Contra st route: INTRAV ENOUS (IV); COMPAR PAULO: CT CTA HEAD/N YADIRA W/ AND/OR WO CONT 022 11:03 AM FINDIN GS: Right common caroti d artery : No stenos is. No dissec tion or occlus ion. Right pharmacy intern al caroti d artery : No stenos is of the extrac ranial segmen t. No dissec tion or occlus ion. Right superintendent water and sewer systems al caroti d artery : No occlus ion or stenos is of the origin . Left common caroti d artery : No stenos is. No dissec tion or occlus ion. Left pharmacy intern al caroti d artery : No stenos is of the extrac ranial segmen t. No dissec tion or occlus ion. Left superintendent water and sewer systems al caroti d artery : No occlus ion or stenos is of the origin . Right verteb ral artery : No stenos is. No dissec tion or occlus ion. Left verteb ral artery : No stenos is. No dissec tion or occlus ion. Soft tissue s: Normal . No signif icant soft tissue swelli ng. Bones/ joints : No acute fractu re. IMPRES LULY: No stenos is or occlus ion. REFERE NCES: NASCET CRITER IA. The degree of stenos is in the cervic al segmen t of the pharmacy intern al caroti d artery is based on NASCET criter ia. Normal is no stenos is. Mild is less than 50% stenos is. Modera te is 50-69% stenos is. Severe is 70% to 99% stenos is. Total occlus ion is no detect able patent lumen. Report signed by: Randall Gutierrez On 2023 05:00: 05 [place] [address], [place], [address], 04/19/2024 05:01:58 04/21/20 24 06/16/2019 US, abhijit holcomb, limit ed No observ ation record ed. Not Available 04/21 07:03:22 04/21/20 24 04/06/2020 , abhijit holcomb, limit ed No observ ation record ed. Not Available 04/21 07:03:23 04/21/20 24 04/06/2020 MAMMO , diagn ostic , tomos ynthe sis, bilat eral No observ ation record ed. Not Available 04/21 07:03:24 04/21/20 24 04/08/2021 MAMMO , scree daja, tomos ynthe sis, bilat eral No observ ation record ed. Not Available 04/21 07:03:25 04/21/20 24 09/04/2022 XR, thora cic spine , 3 view No observ ation record ed. Not Available 04/21 07:03:27 04/21/20 24 09/08/2022 MRI, spine No observ ation record ed. Not Available 04/21 07:03:28 04/21/20 24 03/27/2022 imagi ng/di agnos tic resul t No observ ation record ed. Not Available 04/21 07:03:30 04/21/20 24 04/27/2023 imagi ng/di agnos tic resul t No observ ation record ed. Not Available 04/21 07:03:31 04/21/20 24 07/21/2021 imagi ng/di agnos tic resul t No observ ation record ed. Not Available 04/21 07:03:32 04/21/20 24 09/04/2022 XR, thora cic spine No observ ation record ed. Not Available 04/21 07:03:33 04/21/20 24 03/29/2022 CT, head or brain No observ ation record ed. Not Available 04/21 07:03:34 04/21/20 24 09/04/2022 XR, spine No observ ation record ed. Not Available 04/21 07:03:35 04/21/20 24 09/07/2022 XR, spine No observ ation record ed. Not Available 04/21 07:03:36 04/21/20 24 05/26/2022 imagi ng/di agnos tic resul t No observ ation record ed. Not Available 04/21 07:03:40 04/21/20 24 09/20/2022 imagi ng/di agnos tic resul t No observ ation record ed. Not Available 04/21 07:03:45 04/21/20 24 09/07/2022 imagi ng/di agnos tic resul t No observ ation record ed. Not Available 04/21 07:03:46 04/21/20 24 09/07/2022 imagi ng/di agnos tic resul t No observ ation record ed. Not Available 04/21 07:03:47 04/21/20 24 06/27/2021 imagi ng/di agnos tic resul t No observ ation record ed. Not Available 04/21 07:05:49 04/21/20 24 06/27/2021 imagi ng/di agnos tic resul t No observ ation record ed. Not Available 04/21 07:05:51 04/21/20 24 07/10/2019 imagi ng/di agnos tic resul t No observ ation record ed. Not Available 04/21 07:05:57 04/21/20 24 11/05/2020 US, abdom en, limit ed No observ ation record ed. Not Available 04/21 07:05:59 04/21/20 24 07/21/2021 CT, head or brain No observ ation record ed. Not Available 04/21 07:06:06 04/21/20 24 03/28/2022 CT, head or brain No observ ation record ed. Not Available 04/21 07:06:07 04/21/20 24 04/17/2023 MAMMO , tomos ynthe sis, bilat eral No observ ation record ed. Not Available 04/21 07:06:09 04/21/20 24 04/08/2019 MAMMO , tomos ynthe sis, bilat eral No observ ation record ed. Not Available 04/21 07:06:12 04/21/20 24 04/14/2022 MAMMO , tomos ynthe sis, bilat eral No observ ation record ed. Not Available 04/21 07:06:14 04/21/20 24 04/17/2023 MAMMO , diagn ostic No observ ation record ed. Not Available 04/21 07:06:17 04/21/20 24 04/14/2022 MAMMO , diagn ostic No observ ation record ed. Not Available 04/21 07:06:19 04/28/20 24 04/28/2024 MAMMO , scree daja, bilat eral HISTOR Y: Keyana holcomb is 64 years old and is being seen for screen ing. The keyana holcomb has no person al histor y of cancer . The keyana holcomb has the follow ing family histor y of breast cancer : mother , at age 76, breast cancer . FILMS COMPAR ED: The preschuck holcomb examin atwang has been compar ed to prior imagin g studie s perfor med at [facility] on 2021 and 2022. MAMMOG ERIC FINDIN GS: The follow ing mammog raphic views were obtain ed: bilate ral cranio caudal , bilate ral cranio caudal with tomosy nthesi s, bilate ral mediol ateral obliqu e, bilate ral mediol ateral obliqu e with tomosy nthesi s. The breast s are almost entire ly fatty. No suspic ious masses , calcif icatio ns or other abnorm alitie s are seen. IMPRES LULY: There is no mammog raphic eviden ce of malign tayo. Routin e follow -up mammog eric in 1 year is recomm ended. BI-RAD S CATEGO RY: 1 Negati ve This examin ation underw ent CAD evalua tion utiliz ing R2 Versio n 2.4.0. 12. Report Signed by: XIN HARDIN M.D. on 2023 15:59: [email or web address] , [place], [address], 05/02/2024 10:29:20 05/30/20 24 05/26/2024 MRI, brain , w/o [...] Isma Marrufo On 2023 11:15: 31 [email or web address] [facility] [address], [place], [address], 06/09/2024 09:10:02 Result Notes None recorded. Problems Name Problem SNOMED Code Status Onset Date Resolution Date Notes Provider Name and Address Organization Details Recorded Time Nocturia 422810903 Active 2024 OUMAR ALICEA [address], [place], [address] , [place] - [facility] 5 14:33:21 Anxiety 97672621 Active 200403/20/20 23 - Comments only - Sara Luke LEGAL RECEPTIONIST - Feeling a little bit more down lately, isn't sure if related to returnin g to work or family stressor s. Has been on bupropio n x 15 years. declines referral for counseli ng at this time, will let me know if sx don't improve on return to work. Problem Code: F41.8; Problem Code Type: ICD-10; Not Available [facility] 3 04:32:36 Allergic rhinitis 34587167 Active 2002 Problem Code: J30.9; Problem Code Type: ICD-10; Not Available [facility] 3 04:32:36 Acquired absence of cervix and uterus 687742535 Active 2007 Problem Code: Z90.710; Problem Code Type: ICD-10; Not Available [facility] 04:32:36 Acute sinusiti s 88796027 Completed 201401/26/2015 Problem Code: J01.90; Problem Code Type: ICD-10; Not Available [facility] 3 04:32:36 Verruca vulgaris 77987151 Completed 201401/26/2015 Problem Code: B07.9; Problem Code Type: ICD-10; Not Available [facility] 3 04:32:36 Pain 50364790 Completed 201602/19/2017 Problem Code: R52; Problem Code Type: ICD-10; Not Available [facility] 3 04:32:37 Fatigue 64486536 Active 201605/08/20 23 - Comments only - Saraeddie Luke LEGAL RECEPTIONIST - s/p episode of signfica nt fatigue [...] R53.83; Problem Code Type: ICD-10; Not Available [facility] 4 05:35:36 Irritabl e bowel syndrome 01582424 Active 201604/20/20 22 - Comments only - Sarazayra Luke LEGAL RECEPTIONIST - Chronic, no change, currentl y using probioti c and digestiv e enzymes. Colonosc opy due 07/05/20 Problem Code: K58.9; Problem Code Type: ICD-10; Not Available [facility] 3 04:32:37 Acute pharyngi tis 063200728 Completed 201607/20/2017 Problem Code: J02.9; Problem Code Type: ICD-10; Not Available [facility] 3 04:32:37 Disorder of respirat ory system 36244055 Completed 201709/24/2017 09/03/19 18 - Comments only - Kaylyn Wade LEGAL RECEPTIONIST - Duration of 12 days. Wheezing /rhonchi . Will rx. Doxy and Proair. Medicati ons reviewed with patient. F/U if not improvin g or if worsenin g. The patient is in good understa nding and agreemen t with the plan of care. Problem Code: J98.8; Problem Code Type: ICD-10; Not Available [facility] 3 04:32:37 Onychomy cosis due to dermatop hyte 991256052 Active 2017 Problem Code: B35.1; Problem Code Type: ICD-10; Not Available [facility] 3 04:32:37 Contact dermatit is 06906782 Completed 201702/04/2018 12/25/19 18 - Comments only - Rolando Graf PA-C - Continue d topical steroids . Recheck as needed. Problem Code: L25.9; Problem Code Type: ICD-10; Not Available [facility] 3 04:32:37 Acute maxillar y sinusiti s 31224883 Completed 201701/31/2018 01/18/20 18 - Comments only - Kaylyn Wade LEGAL RECEPTIONIST - Will treat with Z-pack. Given previous [...] J01.00; Problem Code Type: ICD-10; Not Available [facility] 3 04:32:37 Adult health examinat ion Active 2017 Problem Code: Z00.00; Problem Code Type: ICD-10; Not Available [facility] 3 04:32:38 Breast signs and symptoms 449913231 Completed 201707/09/2018 06/18/20 18 - Comments only -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 Belem Ugarte r 04/23/2024 1 [place] [employer] [id number] Belem Macias [id number] Belem Ugarte r 05/07/2024 1 [place] [employer] [id number] Belem Macias [id number] Belem Ugarte r 06/09/2024 1 [place] [employer] [id number] Belem Macias [id number] Belem Ugarte r Notes Date Note Type Note Provider Name and Address Organization Details Recorded Time 04/15/2024 text/html cc follow up ER visit x two, headache, n/v Got much worse after her visit here last week, did go to the ER x two, once on 04/09, then again on 04/12. Was having nausea and headache, just feeling much worse.. The first visit, the thought was migraine and tx not particularly helpful, then second time, she was given IV prednisone, shot of imitrex, toradol and felt much better. ? giant cell arteritis, Viral meningitis, has had no vision loss or jaw cludication and pain is bilateral Currently on Prednisone 40 mg for two more days, she has also taken one imitrex every day. Has not had return of the terrible headache, no vision changes, sensitivity to light is better. Hasn't been back to work due to lack of sleep, wants to try to go back tomorrow. Had a root canal yesterday because she was feeling better, that is not complete, it is currently packed full of medication and she returns in two weeks. SARA LUKE, ASSEMBLY PRESS OPERATOR [address], [place], [address], [facility]. 04/15/2024 15:56:07 04/23/2024 text/html cc follow up Headache Managed to make it through work yesterday, didn't feel the best but made it. Did have pressure on the back of her head, went and picked up the Nasal Imitrex which she feels helped.She has been taking the topiramate, today took two tylenol mid morning, took two additional tylenol, has taken no imitrex today, feels medium, but not worse, has been taking zofran yesterday and today.. decreased her prednisone to 40 mg daily yesterday, has had trouble sleeping due to the prednisone.Has not yet heard from neuro, she is still waiting to hear from about scheduling her MRI at [facility] Having constipation has started miralax Also restarted her clindamycin for her tooth as she hsa been having weird feeling there, root canal will be finished next sunday [address], [place], [address], [facility], [facility]. 04/23/2024 17:11:36 05/07/2024 text/html cc migraines Migraines - Continues on topamax 25 mg one capsule twice daily. Has been taking imitrex orally about every day. Finished her prednisone taper on Sunday. Has taken 3 excedrin today. Headaches move around now, sometimes in the back of her head, sometimes bilateral temples, feels dull today in the back of her head. Has been taking tylenol PM to help with sleep.Never had her MRI as insurance denied and has not been scheduled to see neuro though she has called to move that forwardHas had nausea ? due to topamax but no vomiting Has been going to work every day, doesn't feel great but is better, has not been back to the ER. Tooth is all taken care of [address], [place], [address], [facility], [facility]. 05/07/2024 17:05:07 06/09/2024 text/html cc follow up headaches Headaches [...] and nasal availableNever head from neuroFeels regulated. [address], [place], [address], [facility], [facility]. 06/09/2024 15:08:28 OBGyn Episode No OBEpisode recorded.
--- OUTSIDE RECORDS SUMMARY | 2024-09-04 15:17 | XMS_ITS | Encounter Summary ---
Author Organization [facility] Address [facility] [place] [address] Care Team Providers Care Filenet Admin Name Role Phone Ti Sara Beck APRN Primary Care Provider +1- [phone] Encounter Details Date Type Department Care Team (Late st Contact Info) Description 04/30/[address] [facility] [place] [id number] Skye Miranda NUCLEAR FUELS RECLAMATION ENGINEER [facility] [place] [address] Social History Tobacco Use Types Packs/Day Years [...] place to sleep or slept in a halfway (including now)? No 05/27/2023 Sex and Gender [...] April 28, 2023 8:56 AM To: P [facility] [place] Message Can you please set up a new patient consult (telehealth would be best unless patient prefers other)with AM to discuss treatment of cerebellar AVM? Thanks! documented in this encounter Plan of Treatment Not on file documented as of this encounter Visit Diagnoses Not on filedocumented in this encounter Care Teams Filenet Admin Relationship Specialty Start Date End Date Sara Luke APRN [address] [place] [address] PCP - General Family Medicine 03/28/22 documented as of this encounter
--- OUTSIDE RECORDS SUMMARY | 2024-09-04 15:17 | XMS_ITS | Encounter Summary ---
[place] [address] Care Team Providers Care Infantry Senior Sergeant Name Role Phone Sara Luke BRIGIDO Primary Care Provider +1- [phone] Encounter Details Date Type Department Care Team (Latest Contact Info) Description 04/27/2023 8:05 AM EDT Laboratory Appointment Lab [address] [place] [id number] Intracranial bleed Social History Tobacco Use Types [...] Platelet 469(H) 145 - 357 x10(3)/mc L [facility] Immature Plt % 1.7 0.0 - 7.4 % [facility] Comment: Limitation of the Immature Platelet Fraction (IPF)-May be less reliable when the platelet count is less than 88p892/uL due to statistical imprecision. The IPF value [...] in a decreased state of production. References: [employer] The Clinical Value of the Immature Platelet Fraction (IPF) in Cell Recovery Document Number 10-1143 01/2011 [employer] The Role of the Immature Platelet Fraction (IPF) in the Differential Diagnosis of Thrombocytopenia, Document MKT-10-1209 V05 P012/17 Blood 04/27/2023 8:04 AM EDT 04/27/2023 8:44 AM EDT Narrative Resulting Agency Comment Spec In Lab Skye Miranda GENERAL REPAIRER [place] [address] documented in this encounter Visit Diagnoses Diagnosis Intracranial bleed Unspecified intracranial hemorrhage documented in this encounter Care Teams Infantry Senior Sergeant Relationship Specialty Start Date End Date Sara Luke APRN [address] [place] [address] PCP - General Family Medicine 03/28/22 documented as of this encounter
--- OUTSIDE RECORDS SUMMARY | 2024-09-04 15:17 | XMS_ITS | Encounter Summary ---
Author Organization [facility] Address [facility] [place] [address] Care Team Providers Care Radio Assembler Name Role Phone SaravananSara arellano Kiran FOFANA Primary Care Provider +1- [phone] Reason for Referral * Diagnostic Test (Routine) - Closed Specialty Diagnoses / Procedures Referred By Contac t Referred To Contact Radiology Diagnoses Arteriovenous malformation of brain Procedures MRI Angiogram Head wo Contrast (Generic) MRI Angiogram Head wwo Contrast Jose Manuel Guerrier MD [facility] [place] [address] [place] [address] Referral ID Status Reason Start Date Expiration Date V isits Requested Visits Authorized [id number] Closed Specialty Service Requested 07/06/2023 01/04/2025 1 1 Reason for Visit * Reason Comments Procedure SRS Encounter Details Date Type Department Care Team (Latest Contact Info) Description 07/06/2023 3:15 PM EST Procedure visit [place] [address] Jose Manuel Guerrier MD [facility] [place] [address] Arteriovenous malformation of brain Social [...] [facility] Radiation Oncology Radiation Oncology Stereotactic Radiosurgery [...] in the meantime Jose Manuel Guerrier MD [facility] Radiation Oncology National [facility] [place] (NCI) [facility] [employer] Commission on Cancer (ACS Enrique) Accredited Cancer Program [employer] [place] [employer] (ACR) Accredited Radiation Oncology Program documented in this encounter Plan of Treatment Not on file documented as of this encounter Results * MRI Angiogram Head wo Contrast (Generic) (01/17/2024 2:35 PM EDT) Cozy Signature WORKSTATION ID [id number] RAD Anatomical Region Laterality Modality Head Magnetic Resonan ce Impressions 01/18/2024 4:34 PM EDT Normal study. No specific evidence for AVM. Thank you for letting us participate in the care of this patient. ??If you are a health care provider and have any questions regarding this report, please contact the number below. ??For patients who have questions please contact the health rn long term care that requested your imaging first. ? Electronically signed by: Subhash Mitchell MD, [facility] ([phone]), at 01/18/2024 4:34 PM Narrative 01/18/2024 4:34 [...] who have questions please contactthe health rn long term care that requested your imaging first. Electronically signed by: Subhash Mitchell MD, [facility]([phone]), at 01/18/2024 4:34 PM Jose Manuel Guerrier [...] mg documented in this encounter Care Teams Radio Assembler Relationship Specialty Start Date End Date Sara Luke APRN [address] [place] [address] PCP - General Family Medicine 03/28/22 documented as of this encounter
--- OUTSIDE RECORDS SUMMARY | 2024-09-04 15:17 | XMS_ITS | Encounter Summary ---
[place] [address] Care Team Providers Care Sales And Service Specialist Name Role Phone Sara Luke APRN Primary Care Provider +1- [phone] Reason for Referral * Diagnostic Test (Routine) - Closed Specialty Diagnoses / Procedures Referred By Contac t Referred To Contact Radiology Diagnoses Intracranial bleed Procedures IR Arteriogram Cerebral Skye Miranda [facility] [place] [address] [place] [address] Referral ID Status Reason Start Date Expiration Date V isits Requested Visits Authorized [id number] Closed Specialty Service Requested 01/24/2023 07/26/2024 1 1 Reason for Visit * Diagnostic Test (Routine) - Closed Specialty Diagnoses / Procedures Referred By Contac t Referred To Contact Radiology Diagnoses Intracranial bleed Procedures IR Arteriogram Cerebral Skye Miranda [facility] [place] [address] [place] [address] Referral ID Status Reason Start Date Expiration Date V isits Requested Visits Authorized [id number] Closed Specialty Service Requested 01/24/2023 07/26/2024 1 1 Encounter Details Date Type Department Care Team (Latest Contact Info) Description 04/27/2023 8:12 AM EDT - 04/27/2023 11:59 PM EDT Hospital Encounter Radiology at [facility] [place] [address] Skye Miranda APRN [facility] [place] [address] Intracranial bleed Discharge Disposition: Home Social History [...] hoildays, clint and ask for the Radiologyresident vocational horticulture instructor. OR Peripheral IV site -- slight redness, or tenderness is normal, you can use a warm compress. If tenderness and redness increases or foul drainage occurs, please contact your M. D. Revised 05/22/19 documented in this encounter Medications at Time of Discharge Medication Sig Dispensed Refills Start Date End Date fluticasone propionate (Flonase) 50 mcg/actuation [place], Suspension by Each Nare route as needed. [...] of : 1960 AGE: 63 y.o. Address: [address] [address] (home) Mobile: Telephone Information: Referring Provider: Skye Miranda REASON FOR VISIT: Order Questions Answers Where will study be performed? [facility] Radiology [120] Is the patient on anticoagulant [...] Outpatient Medications: fluticasone propionate (Flonase) 50 mcg/actuation [place], Suspension, by Each Nare route as needed.,Disp: [...] Role Yung Hartman MD Attending Zac Tobar headend technician Nurse Jaswant Miner, headend technician Nurse Mary Ann Martell Restaurant Operations Manager Post-operative diagnosis/Indication: Intracranial bleed Name of Procedure [...] have questions please contact the health career counselor that requested your imaging first. ? Narrative [...] mGy; B plane 62 mGy. MATERIALS: 5 Malagasy glide sheath slender, Krishna 2 5 Malagasy glide catheter, 0.035 inch Glidewire. TECHNIQUE: The patient was brought to the angiography suite. The right wrist was sterilely prepped and draped. With ultrasound guidance, the right radial artery was accessed and the 5 Malagasy glide sheath placed, and double flushed. Spasmolytic [...] mGy; B plane 62 mGy. MATERIALS: 5 Malagasy glide sheath slender, Krishna 2 5 Malagasy glidecatheter, 0.035 inch Glidewire. TECHNIQUE: The patient was brought to the angiography suite. The rightwrist was sterilely prepped and draped. With ultrasound guidance, the right radialartery was accessed and the 5 Malagasy glide sheath placed, and double flushed. Spasmolytic [...] who have questions please contactthe health career counselor that requested your imaging first. Skye Miranda CASH ACCOUNTANT IMG IR ORDERABLES documented in this encounter [...] L/hr documented in this encounter Care Teams Sales And Service Specialist Relationship Specialty Start Date End Date Sara Luke, CASH ACCOUNTANT [address] [address] PCP - General Family Medicine 03/28/22 documented as of this encounter
--- OUTSIDE RECORDS SUMMARY | 2024-09-04 15:17 | XMS_ITS | Encounter Summary ---
Author Organization [facility] Address [address] [place] [address] Care Team Providers Care Looper Fixer Name Role Phone Fidencio Gonsalez Primary Care Provider [phone] Reason for Visit * (Routine/Next Available) - Receiving Office to Obtain Authorization Specialty Diagnoses / Procedures Referred By Rajiv t Referred To Contact Procedures CT OUTSIDE IMAGES NEURO Unknown, Provider, MD Referral ID Status Reason Start Date Expiration Date Visits Requested Visits Authorized [id number] Receiving Office to Obtain Authorization 03/27/2022 1 1 Encounter Details Date Type Department Care Team (Latest Contact Info) Description 03/27/2022 14:51 EDT Hospital Encounter [facility] Secondary Reads [place] Discharge Disposition: Home or [...] 14:51 EDT This is a non-reportable exam. us Provider Unknown MD CERVANTES OTHER IMAGING ORDERABLES Final Result documented in this encounter Visit Diagnoses Not on filedocumented in this encounter Care Teams Looper Fixer Relationship Specialty Start Date End Date Fidencio Gonsalez PA [address] [place] [address] PCP - General 11/01/10 documented as of this encounter
--- OUTSIDE RECORDS SUMMARY | 2024-09-04 15:17 | XMS_ITS | Encounter Summary ---
Author Organization [facility] Address [address] [place] [address] Care Team Providers Care Records Analysis Manager Name Role Phone Unavailable Primary Care Provider Unavailabl e Encounter Details Date Type Department Care Team (Late st Contact Info) Description 10/27/2010 Results Only [facility] ([facility]) [address] [place], [place] [id number] Jonathan Gonsalez PA [address] [place], [place] [id number] Social History Tobacco Use Types Packs/Day Years [...] reading/interpreti ng unformatted reports. ? Name: ? BELEM HOLLIDAY ? Accession #: ? [id number] ? : ? 1960 (Age: 50) ??F [...] RADHA OROURKE 10/27/2010 10/31/2010 10: 06 EDT us Jonathan [facility]TON PATHOLOGY ORDERABLES Final Resu lt [facility] [address] [place] [address] documented in this encounter Visit Diagnoses Not on filedocumented in this encounter
--- OUTSIDE RECORDS SUMMARY | 2024-09-04 15:17 | XMS_ITS | Encounter Summary ---
Author Organization [facility] [place] [address] Care Team Providers Care Cigarette Packer Name Role Phone Sara Luke BRIGIDO Primary Care Provider [phone]- [phone] Reason for Visit * Reason Onset Date Comments Appointment 05/17/2023 Encounter Details Date Type Department Care Team (Late st Contact Info) Description 05/17/2023 Telephone [place] [address] Beba Alfonso Appointment Social History Tobacco Use [...] Beba ~~~~~~~~~~~~~~~~~~~~~~~~~~~~~~~~~~ Source Subject Topic Belem Azar [[id number]] (Patient) Belem Azar [[id number]] (Patient) Specialty Dept CRMs - Generic [...] on filedocumented in this encounter Care Teams Cigarette Packer Relationship Specialty Start Date End Date Sara Luke, BRIGIDO [address] [place] [address] PCP - General Family Medicine 03/28/22 documented as of this encounter
--- OUTSIDE RECORDS SUMMARY | 2024-09-04 15:17 | XMS_ITS | Encounter Summary ---
Author Organization [facility] Address [facility] [place] [address] Care Team Providers Care Wash Rack Operator Name Role Phone SaravananSara arellano BRIGIDO Primary Care Provider +1- [phone] Encounter Details Date Type Department Care Team [...] place to sleep or slept in a [place] health care facility (including now)? No 05/27/2023 Sex and Gender Information Value Date Recorded Sex Assigned at Not on file Gender Identity Not on file Sexual Orientation Not on file documented as of this encounter Plan of Treatment Not on file documented as of this encounter Visit Diagnoses Not on filedocumented in this encounter Care Teams Wash Rack Operator Relationship Specialty Start Date End Date Sara Luke APRN [address] [place] [address] PCP - General Family Medicine 03/28/22 documented as of this encounter
--- OUTSIDE RECORDS SUMMARY | 2024-09-04 15:17 | XMS_ITS | Encounter Summary ---
Author Organization [facility] Address [facility] [place] [address] Care Team Providers Care Product Support Analyst Name Role Phone SaravananSara arellano Kiran FOFANA Primary Care Provider +1- [phone] Encounter Details Date Type Department Care Team [...] on filedocumented in this encounter Care Teams Product Support Analyst Relationship Specialty Start Date End Date Sara Luke APRN [address] [place] [address] PCP - General Family Medicine 03/28/22 documented as of this encounter
--- OUTSIDE RECORDS SUMMARY | 2024-09-04 15:17 | XMS_ITS | Clinical Summary ---
Author Organization [facility] Address [facility] [place] [address] Care Team Providers Care Corporate Pilot Name Role Phone Ti Sara Beck APRN Primary Care Provider +1- [phone] Allergies Active Allergy Reactions Criticality Noted Date [...] 01/20/2022 Active fluticasone propionate (Flonase) 50 mcg/actuation [place], Suspension by Each Nare route as needed. [...] g by mouth daily as needed. Active [id number] triamcinolone acetonide 0.1% cream Apply topically as needed. Apply to affected area as directed by study team. Active UNABLE TO FIND Smart Greens chew Act eddie propylene glycol/peg 400/PF (SYSTANE, PF, OPHT) Apply to eye daily. Activ e Active Problems Problem Noted Date Diagnosed Date Arteriovenous malformation of brain 05/10/2023 History of depression 06/27/2022 Intracranial bleed 06/27/2022 Social History Tobacco Use Types Packs/Day Years [...] place to sleep or slept in a prison (including now)? No 05/27/2023 Sex and Gender [...] HIV screen 1979 Hepatitis C Screening 1979 Tetanus/Diphtheria/Pertussis Vaccines (1 - Tdap) 03/09 HPV test 1991 PAP Smear 1991 Breast Cancer Share Decision Needed 2001 Breast Cancer screening 2001 Pneumoccocal Vaccine: 50+ (1 of 1 - PCV) 2011 Zoster vaccine (1 of 2) 2011 Advance Directive 2016 Covid-19 Vaccine (1 - season) 2024 Influenza (Flu) vaccine (1 o f 1 - Influenza standard series) 04/06/2024 Advance Directives * Attempt Cardiopulmonary Resuscitation - Inpatient (Latest Code Status on File) Date Activated Date Inactivated Comments 04/27/2023 9:00 AM 04/28/2023 4:34 AM Question Answer Comments Code Status decision made by: Patient Care Teams Corporate Pilot Relationship Specialty Start Date End Date Sara Luke APRN [address] [place] [address] PCP - General Family Medicine 03/28/22
--- OUTSIDE RECORDS SUMMARY | 2024-09-04 15:17 | XMS_ITS | Encounter Summary ---
Author Organization [facility] Address [address] [place] [address] Care Team Providers Care Application Development Specialist Name Role Phone Fidencio Gonsalez Primary Care Provider [phone] Encounter Details Date Type Department Care Team (Late st Contact Info) Description 04/06/2020 Lab Requisition [facility] Pathology & Laboratory Medicine - [address] [id number] Outr Resulting Lab, Provider Social History Tobacco [...] 0.83 See Note mg/L 04/06/2020 17:50 EDT [facility] Comment: Reference Range: ??Source: The [employer] Clinical Practice Recommendations, 2003 ??Low Risk: ? <1.0 mg/L ??Average Risk: ?? 1.0 - 3.0 mg/L ??High Risk: ?>3.0 mg/L ??Indeterminate*: >10.0 mg/L ??*May be an indication of another source of inflammation or infection Blood VENOUS BLOOD / Unknown 04/05/2020 16:30 EDT 04/06/2020 17:33 EDT us Provider Outr Resulting Lab CHEMISTRY & BLOOD GA S ORDERABLES Final Result [facility] [address] [place] [address] documented in this encounter Visit Diagnoses Not on filedocumented in this encounter Care Teams Application Development Specialist Relationship Specialty Start Date End Date Fidencio Gonsalez PA [address] [place] [address] PCP - General 11/01/10 documented as of this encounter
--- OUTSIDE RECORDS SUMMARY | 2024-09-04 15:17 | XMS_ITS | Encounter Summary ---
Author Organization [facility] [place] [address] Care Team Providers Care Manager Fleet Name Role Phone Ti Sara Beck APRN Primary Care Provider [phone]- [phone] Encounter Details Date Type Department Care Team (Late st Contact Info) Description 09/21/2022 Telephone Neurosurgery at [facility] [place] [address] Adrian Duckworth [place] [address] Social History Tobacco Use Types Packs/Day Years [...] SunSeptember 20, 2022 ??4:47 PM To: P [facility] Ski Lift Mechanic ?? Message Pt needs f/u at 3 months post-accident. Should be in about 2 more months thank yo documented in this encounter Plan of Treatment Not on file documented as of this encounter Visit Diagnoses Not on filedocumented in this encounter Care Teams Manager Fleet Relationship Specialty Start Date End Date Sara Luke APRN [address] [place] [address] PCP - General Family Medicine 03/28/22 documented as of this encounter
--- OUTSIDE RECORDS SUMMARY | 2024-09-04 15:17 | XMS_ITS | Encounter Summary ---
Author Organization [facility] Address [address] [place] [address] Care Team Providers Care Case Hardener Name Role Phone Unavailable Primary Care Provider Unavailabl e Encounter Details Date Type Department Care Team (Late st Contact Info) Description 11/30/2005 Results Only [facility] - Maple conversion [address] [place] [address] Nubia Ramirez, RETAIL CUSTOMER SERVICE SPECIALIST Social History Tobacco Use Types Packs/Day Years [...] ? BELEM HOLLIDAY ? Accession #: ? [id number] : ? 1960 (Age: 45) ??F ?Collect Date: ? 11/30/2005 Location: ? [facility] ? Receive Date: ? 12/04/2005 Provider: ?NUBIA RAMIREZ APRN Copy to: ? Specimen/Source: ?ThinPrep Pap Test, Cervix/Endocervix, processed on [employer] ThinPrep Imaging System, with manual evaluation Last [...] End of Report [facility] 11/30/2005 12/04/2005 us Nubia Ramirez APRN PATHOLOGY ORDERABLES Fi nal Result Performing Organization Address City/State/[facility] Co de Phone Number [facility] [address] [place] [address] documented in this encounter Visit Diagnoses Not on filedocumented in this encounter
--- OUTSIDE RECORDS SUMMARY | 2024-09-04 15:17 | XMS_ITS | Encounter Summary ---
Author Organization [facility] Address [facility] [place] [address] Care Team Providers Care Face Worker Name Role Phone Sara Luke APRN Primary Care Provider [phone]- [phone] Encounter Details Date Type Department Care Team (Late st Contact Info) Description 09/21/2022 Telephone Neurosurgery at [facility] [place] [phone] Skye Miranda APRN [facility] [place] [address] Social History Tobacco Use Types Packs/Day Years [...] on filedocumented in this encounter Care Teams Face Worker Relationship Specialty Start Date End Date Sara Luke APRN [address] [place] [address] PCP - General Family Medicine 03/28/22 documented as of this encounter
--- OUTSIDE RECORDS SUMMARY | 2024-09-04 15:17 | XMS_ITS | Encounter Summary ---
Author Organization [facility] Address [facility] [place] [address] Care Team Providers Care Pigment And Lacquer Mixer Name Role Phone SaravananSara arellano Kiran FOFANA Primary Care Provider [phone]- [phone] Encounter Details Date Type Department Care Team [...] on filedocumented in this encounter Care Teams Pigment And Lacquer Mixer Relationship Specialty Start Date End Date Sara Luke APRN [address] [place] [address] PCP - General Family Medicine 03/28/22 documented as of this encounter
--- OUTSIDE RECORDS SUMMARY | 2024-09-04 15:17 | XMS_ITS | Encounter Summary ---
Author Organization [facility] Address [facility] [place] [address] Care Team Providers Care Distribution Tech Name Role Phone Sara Luke APRN Primary Care Provider [phone]- [phone] Encounter Details Date Type Department Care Team (Late st Contact Info) Description 01/31/2023 Orders Only Radiology at [facility] [place] [address] Skye Miranda, ROUTER SETTER [facility] [place] [address] Social History Tobacco Use Types Packs/Day Years [...] filedocumented in this encounter Care Teams Distribution Tech Relationship Specialty Start Date End Date Sara Luke APRN [address] [place] [address] PCP - General Family Medicine 03/28/22 documented as of this encounter
--- OUTSIDE RECORDS SUMMARY | 2024-09-04 15:17 | XMS_ITS | Encounter Summary ---
Author Organization [facility] Address [address] [place] [address] Care Team Providers Care Literacy Tutor Name Role Phone Unavailable Primary Care Provider Unavailabl e Encounter Details Date Type Department Care Team (Late st Contact Info) Description 12/25/2006 Results Only [facility] - Maple conversion [address] [place] [address] Clinton Covington MD Social History Tobacco Use [...] 52, 56, 58, 59, and 68. [facility] Report Status Final [id number] [facility] 12/25/2006 22:4 1 EDT 01/01/2007 22:41 EDT us Clinton Covington MD MICROBIOLOGY - GENERAL ORDERAB LES Final Result [facility] [address] [place] [address] documented in this encounter Visit Diagnoses Not on filedocumented in this encounter
--- OUTSIDE RECORDS SUMMARY | 2024-09-04 15:17 | XMS_ITS | Encounter Summary ---
Author Organization [facility] [place] [address] Care Team Providers Care Applied Psychology Chair Name Role Phone Ti Sara Beck APRN Primary Care Provider +1- [phone] Reason for Visit * Reason Onset Date Comments Referral 11/16/2022 Encounter Details Date Type Department Care Team (Late st Contact Info) Description 11/16/2022 Telephone Neurosurgery at [facility] [place] [phone] Adrian Duckworth GUEST SERVICES ASSOCIATE [facility] [place] [address] Referral Social History Tobacco Use Types Packs/Day [...] 3:33 PM EDT Sent PT referral to [facility] through eD Closing encounter * Telephone Encounter - Don Donis - 11/16/2022 3:19 PM EDT Patient returned call. Patient provided new facility contact information. [facility] Physical Therapy * Telephone Encounter - Beba Alfonso - 11/16/2022 8:40 AM EDT LMOM for patient asking where she would like her Physical Therapy referral faxed to then Fax referral and most recent office note. Called [facility] and they are no longer offering Physical Therapy they had to close this service down on 10/04. Belem Azar - 11/15/22 Adrian Duckworth APRN Sent: SunNovember 15, 2022 ??2:50 PM To: P [facility] [place] ?? Message Please fax PT order [facility] in [place], [place] documented in this encounter Plan of Treatment Not on file documented as of this encounter Visit Diagnoses Not on filedocumented in this encounter Care Teams Applied Psychology Chair Relationship Specialty Start Date End Date Sara Luke, GUEST SERVICES ASSOCIATE [address] [place] [address] PCP - General Family Medicine 03/28/22 documented as of this encounter
--- OUTSIDE RECORDS SUMMARY | 2024-09-04 15:17 | XMS_ITS | Encounter Summary ---
Author Organization [facility] [place] [address] Care Team Providers Care Ginger Farmer Name Role Phone Saravananadan Sarajodie Beck APRN Primary Care Provider +1- [phone] Reason for Referral * Diagnostic Test (Routine) - Closed Specialty Diagnoses / Procedures Referred By Contac t Referred To Contact Radiology Diagnoses Arteriovenous malformation of brain Procedures MRI Angiogram Head wo Contrast (Generic) Jose Manuel Guerrier MD [facility] [address] [facility] Rad Mri [address] [place] [address] Referral ID Status Reason Start Date Expiration Date V isits Requested Visits Authorized [id number] Closed Specialty Service Requested 05/28/2023 11/26/2024 1 1 * Consultation (Routine) - Closed Specialty Diagnoses / Procedures Referred By Contac t Referred To Contact Radiation Oncology Diagnoses Arteriovenous malformation of brain Procedures Simulation for Radiation Therapy Planning Jose Manuel Guerrier MD [facility] [address] [facility] [place] [address] Referral ID Status Reason Start Date Expiration Date V isits Requested Visits Authorized [id number] Closed Consult, Test & Treat 06/20/2023 12/19/2023 1 1 Reason for Visit * Consultation (Routine) - Closed Specialty Diagnoses / Procedures Referred By Contchadwick t Referred To Contact Radiation Oncology Diagnoses Arteriovenous malformation of brain Cheyenne Shaw MD [facility] [place] [address] Jose Manuel Guerrier MD [facility] [place] [address] Referral ID Status Reason Start Date Expiration Date V isits Requested Visits Authorized [id number] Closed Consult, Test & Treat 05/17/2023 05/16/2024 1 1 Encounter Details Date Type Department Care Team (Latest Contact Info) Description 05/28/2023 1:30 PM EDT Office Visit Radiation Oncology at [address] [address] Jose Manuel Guerrier MD [facility] [place] [address] Arteriovenous malformation of brain Social History Tobacco [...] place to sleep or slept in a mcc (including now)? No 05/27/2023 Sex and Gender [...] spouse. Barriers to treatment: None identified. Referrals/Interventions: FUR SORTER per routine RADIATION SPECIFIC TEACHING: [facility] Radiation Therapy and You Site specific teaching : To be done by nursing on day of simulation. Other: PLAN: Per Dr. Guerrier * Jose Manuel Guerrier MD - 05/28/2023 1:30 PM EDT Images from the original note were not included. [facility] Medicine Radiation Oncology Radiation Oncology Consultation Report n Patient identifiers/demographics: Name: Belem Macias Date of : 1960 Referring physician/service: [place] [address] Primary oncologist: N/A Primary care physician: Sara Luke APRN [address] [address] Chief complaint/reason for visit: Cerebellar Arteriovenous Malformation n Clinical history/background: Belem Macias is seen for a in person consultation in the radiation oncology clinic. Belem experience acute onset of severe headache in 03/[address] driving home from [place], [place]. She describes headache has feeling like [...] platelet agents or anti-coagulants. She lives in [place], [place]. 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 I have personally reviewed [...] eye daily. fluticasone propionate (Flonase) 50 mcg/actuation [place], Suspension by Each Nare route as needed. [...] AT NIGHT SWISHFOR 30 SECONDS THEN EXPECTORATE [id number] triamcinolone acetonide 0.1% cream Apply topically as [...] of Belem Macias. Jose Manuel Guerrier MD [facility] Cancer Center Radiation Oncology National Cancer Wat[employer] (NCI) Comprehensive Cancer Center [employer] Commission on Cancer (ACS Enrique) Accredited Cancer Program [employer] (ACR) Accredited Radiation Oncology [...] have questions please contact the health career advisor that requested your imaging first. ? Electronically signed by: Isaiah Orozco MD, [facility] ([phone]), at 06/21/2023 9:24 AM Narrative 06/21/2023 9:24 AM EST EXAMINATION: MRI [...] who have questions please contactthe health career advisor that requested your imaging first. 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
--- OUTSIDE RECORDS SUMMARY | 2024-09-04 15:17 | XMS_ITS | Encounter Summary ---
Author Organization [facility] Address [facility] [place] [address] Care Team Providers Care Test Engine Mechanic Name Role Phone Saravananadan Sara Beck APRN Primary Care Provider +1- [phone] Encounter Details Date Type Department Care Team (Late st Contact Info) Description 04/19/2024 5:20 PM EDT Telehealth notes only TeleHealth [facility] [place] [address] Telehealth, Neurology None Social History Tobacco Use [...] on filedocumented in this encounter Care Teams Test Engine Mechanic Relationship Specialty Start Date End Date Sara Luke APRN [address] [place] [address] PCP - General Family Medicine 03/28/22 documented as of this encounter
--- OUTSIDE RECORDS SUMMARY | 2024-09-04 15:17 | XMS_ITS | Encounter Summary ---
Author Organization [facility] [place] [address] Care Team Providers Care Food Production Manager Name Role Phone SaravananSara arellano BRIGIDO Primary Care Provider +1- [phone] Encounter Details Date Type Department Care Team (Late st Contact Info) Description 04/17/2023 Notes Only Neurosurgery at [facility] [place] [address] Skye Miranda APRN [facility] [place] [address] Social History Tobacco Use Types Packs/Day Years [...] Outpatient Medications: fluticasone propionate (Flonase) 50 mcg/actuation [place], Suspension, by Each Nare route as needed.,Disp: [...] Lidocaine 1% Consent: day of procedure Skye Miarnda APRN 04/17/2023 9:11 AM documented in this encounter Plan of Treatment Not on file documented as of this encounter Results * (ABNORMAL) Platelet count (04/27/2023 8:04 AM EDT) Platelet 469(H) 145 - 357 x10(3)/mc L [facility] Immature Plt % 1.7 0.0 - 7.4 % [facility] Comment: Limitation of the Immature Platelet Fraction (IPF)-May be less reliable when the platelet count is less than 63x849/uL due to statistical imprecision. The IPF value [...] in a decreased state of production. References: [employer] The Clinical Value of the Immature Platelet Fraction (IPF) in Cell Recovery Document Number 10-1143 01/2011 [employer] The Role of the Immature Platelet Fraction (IPF) in the Differential Diagnosis of Thrombocytopenia, Document MKT-[id number] V05/07/19 P05/14 Blood 04/27/2023 8:04 AM EDT 04/27/2023 8:44 AM EDT Narrative Resulting Agency Comment Spec In Lab Skye Miranda VALET MANAGER HEMATOLOGY ORDERABLE S Performing Organization Address City/State/[facility] Co de Phone Number [facility] [place] [address] documented in this encounter Visit Diagnoses Diagnosis Intracranial bleed Unspecified intracranial hemorrhage documented in this encounter Care Teams Food Production Manager Relationship Specialty Start Date End Date Sara Luke APRN [address] [place] [address] PCP - General Family Medicine 03/28/22 documented as of this encounter
--- OUTSIDE RECORDS SUMMARY | 2024-09-04 15:17 | XMS_ITS | Encounter Summary ---
Author Organization [facility] Address [address] [place] [address] Care Team Providers Care Rheumatology Specialist Name Role Phone Unavailable Primary Care Provider Unavailabl e Encounter Details Date Type Department Care Team (Late st Contact Info) Description 12/24/2006 Results Only [facility] - Maple conversion [address] [place] [address] MD Social History Tobacco Use [...] ? BELEM HOLLIDAY ? Accession #: ? [id number] : ? 1960 (Age: 46) ??F ?Collect Date: ? 12/24/2006 Location: ? [facility] ? Receive Date: ? 12/26/2006 Provider: ?CLINTON WAY MD Copy to: ? Specimen/Source: ?ThinPrep Pap Test, Cervix/Endocervix, processed on [employer] ThinPrep Imaging System, with manual evaluation Last [...] End of Report [facility] 12/24/2006 12/26/[address] MD PATHOLOGY ORDERABLES Final Res ult [facility] [address] [place] [address] documented in this encounter Visit Diagnoses Not on filedocumented in this encounter
--- OUTSIDE RECORDS SUMMARY | 2024-09-04 15:17 | XMS_ITS | Encounter Summary ---
Author Organization [facility] Address [address] [place] [address] Care Team Providers Care Transistor Tester Name Role Phone Fidencio Gonsalez Primary Care Provider [phone] Encounter Details Date Type Department Care Team (Late st Contact Info) Description 10/16/2022 Lab Requisition [facility] Pathology & Laboratory Medicine - [facility] [address] [place] [address] Michael Flanagan MD [address] [place] [address] Encounter for other general examination Social History [...] Name Priority Date/Time Associated Diagnosis Comments NON WATER COMMISSIONER/FNA CYTOLOGY Today 10/16/2022 8:50 EDT documented in this encounter Results * NON WATER COMMISSIONER/FNA CYTOLOGY (10/16/2022 8:50 EDT) Note to Patient The following pathology results have been interpreted by your pathologist and may be available to you before your health provider has had the opportunity to review them. Please allow time for your provider to receive these results and explore management options, if applicable. 10/18/2022 16:44 EDT [facility] Final Diagnosis URINE, BARBOTAGE, CYTOLOGIC EVALUATION: - Negative for high grade urothelial carcinoma. - Urothelial cells with reactive and degenerative changes and inflammatory cells present. 10/18/2022 16:44 EDT [facility] Attestation By the signature below, the attending physician certifies that they have personally conducted a gross and/or microscopic examination of the described specimens and rendered or confirmed the above diagnosis. 10/18/2022 16:44 EDT [facility] at 1644 Clinical History Chronic microcopic hematuria; negative cystoscopy. 10/18/2022 16:44 EDT [facility] Gross Description A. 100cc's of clear pale yellow fluid (cytoly added) were received and processed by selective cellular enhancement technique. 10/18/2022 16:44 EDT [facility] Performing Lab [facility] 10/18/2022 16:44 T [facility] Scanned Images 10/18/2022 16:44 EDT [facility] ZZUNK URINE SPECIMEN / Unknown 10/16/2022 8:50 EDT 10/17/2022 6:27 EDT us Michael Flanagan MD PATHOLOGY ORDERABLES Final R esult Performing Organization Address City/State/[facility] Co de Phone Number [facility] [address] [place] [address] documented in this encounter Visit Diagnoses Diagnosis Encounter for other general examination documented in this encounter Care Teams Transistor Tester Relationship Specialty Start Date End Date Fidencio Gonsalez PA [address] [place] [address] PCP - General 11/01/10 documented as of this encounter
--- OUTSIDE RECORDS SUMMARY | 2024-09-04 15:17 | XMS_ITS | Encounter Summary ---
Author Organization [facility] Address [facility] [place] [address] Care Team Providers Care Compound Specialist Name Role Phone Sara Luke APRN Primary Care Provider +1- [phone] Reason for Referral * Physical Therapy (Routine) - Closed Specialty Diagnoses / Procedures Referred By Contac t Referred To Contact Diagnoses T12 compression fracture, with routine healing, subsequent encounter Adrian Duckworth APRN [facility] [place] [address] Rehab, [address] [place] [address] Referral ID Status Reason Start Date Expiration Date V isits Requested Visits Authorized [id number] Closed Evaluate and Treat 11/15/2022 05/14/2023 12 12 Encounter Details Date Type Department Care Team (Late st Contact Info) Description 11/15/2022 2:20 PM EDT [place] [address] Adrian Duckworth NETWORK PRICING CONSULTANT [facility] [place] [address] T12 compression fracture, with routine healing, subsequent [...] Finger abduction 5 5 Patella 2 2 Girls Tennis Coach 5 5 Ankle 2 2 Hip flexion [...] worsening symptoms. Adrian Duckworth APRN Nurse Practitioner [facility] Department of Neurosurgery documented in this encounter Plan of Treatment Scheduled Referrals Name Type Priority Associated Diagnoses Orde r Schedule Referral to Physical Therapy Outpatient Referral Routine T12 compression fracture, with routine healing, subsequent encounter Ordered: 11/15/2022 documented as of this encounter Visit Diagnoses Diagnosis T12 compression fracture, with routine healing, subsequent encounter documented in this encounter Care Teams Compound Specialist Relationship Specialty Start Date End Date Sara Luke APRN [address] [place] [address] PCP - General Family Medicine 03/28/22 documented as of this encounter
--- OUTSIDE RECORDS SUMMARY | 2024-09-04 15:17 | XMS_ITS | Encounter Summary ---
Author Organization [facility] Address [facility] [place] [address] Care Team Providers Care Home Energy Consultant Supervisor Name Role Phone Saravananadan Sara Kiran FOFANA Primary Care Provider +1- [phone] Reason for Referral * Consultation (Routine) - Closed Specialty Diagnoses / Procedures Referred By Contac t Referred To Contact Radiation Oncology Diagnoses Arteriovenous malformation of brain Cheyenne Shaw MD [facility] [place] [address] Jose Manuel Guerrier MD [facility] [place] [address] Referral ID Status Reason Start Date Expiration Date V isits Requested Visits Authorized [id number] Closed Consult, Test & Treat 05/17/2023 05/16/2024 1 1 Encounter Details Date Type Department Care Team (Late st Contact Info) Description 05/10/2023 10:00 AM EDT TH Visit (TeleHealth) [place] [address] Cheyenne Shaw MD [facility] [place] [address] Arteriovenous malformation of brain Social History Tobacco [...] IR Arteriogram Cerebral 04/27/2023 Yung Hartman MD [facility] INTERVENTIONL RAD RELEVANT FINDINGS ON TELE-NEUROLOGIC EXAMINATION: [...] Section of Neurosurgery Department of Surgery [facility] Please note that due to the virtual [...] system documented in this encounter Care Teams Home Energy Consultant Supervisor Relationship Specialty Start Date End Date Sara Luke APRN [address] [place] [address] PCP - General Family Medicine 03/28/22 documented as of this encounter
--- OUTSIDE RECORDS SUMMARY | 2024-09-04 15:17 | XMS_ITS | Encounter Summary ---
Author Organization [facility] Address [facility] [place] [address] Care Team Providers Care Airport Shuttle Driver Name Role Phone Saravananadan Sara Beck APRN Primary Care Provider +1- [phone] Reason for Visit * Reason Comments Simulation * Consultation (Routine) - Closed Specialty Diagnoses / Procedures Referred By Contac t Referred To Contact Radiation Oncology Diagnoses Arteriovenous malformation of brain Procedures Simulation for Radiation Therapy Planning Jose Manuel Guerrier MD [facility] [place] [address] [facility] [place] [address] Referral ID Status Reason Start Date Expiration Date V isits Requested Visits Authorized [id number] Closed Consult, Test & Treat 06/20/2023 12/19/2023 1 1 Encounter Details Date Type Department Care Team (Latest Contact Info) Description 06/20/2023 11:00 AM EST Ancillary Appointment [place] [address] Jose Manuel Guerrier MD [facility] [place] [address] Arteriovenous malformation of brain Social [...] do to help manage the side effects. Glue Clamp Operator - They take the doctors radiation [...] a well balanced diet is recommended. The comparative sociology professor and nurse will inform you of any special diet requirements. Avoid shaving the treatment area with a razor. If you must shave use an electric razor. Your Radiation Oncologist: Jose Manuel Guerrier MD Our Contact numbers Section of Radiation Oncology Our normal business hours are: Sunday - Sunday: 8:00 AM to 5:00 PM [facility]: [facility]: If you have questions about your [...] in injury A Radiation Oncology doctor is oracle fusion middleware developer after our normal hours and on weekends. To call for urgent medical issues from radiation treatments that can not wait until normal businesshours: Call for either location and have the pack room operator page the Radiation Oncologist oracle fusion middleware developer. documented in this encounter Progress Notes * [...] when will it be drawn? 06/19/23 @ [facility] Creatinine 0.77 A creatinine less [...] from the original note were not included. [facility] Medicine Radiation Oncology Radiation Oncology Simulation/Treatment Planning Note nPatient identifiers/demographics: Name: Belem Macias Date of : 1960 Chief complaint/reason for visit: Cerebellar arteriovenous malformation nProcedure detail: Simulation for SRS (stereotactic radiosurgery; 1 fraction intracranial) planning was performed successfully. Treatment start will be scheduled shortly. 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
--- OUTSIDE RECORDS SUMMARY | 2024-09-04 15:17 | XMS_ITS | Encounter Summary ---
Author Organization [facility] [place] [address] Care Team Providers Care Pattern Wheel Maker Name Role Phone Saravananadan Sara Kiran FOFANA Primary Care Provider +1- [phone] Encounter Details Date Type Department Care Team (Late st Contact Info) Description 09/26/2022 [place] [id number] Kim Rose RN Social History Tobacco Use [...] - 09/26/2022 12:21 PM EST Copied from [facility] #[id number]. Topic: Specialty Dept CRMs - Generic Call >> Sep 26, 2022 9:27 AM Олег Hardy wrote: Specialist: Adrian Duckworth APRN Relationship (if other than patient-full name): Belem Macias, patient Reason for Call: Belem Macias, patient, stated she would like to speak with the nurse regarding the diagnostic cerebral angiogram procedure. Patient stated what is the next step or is therea next step? Patient stated she can be reached at [phone] anytime to discuss. documented in this encounter Plan of Treatment Not on file documented as of this encounter Visit Diagnoses Not on filedocumented in this encounter Care Teams Pattern Wheel Maker Relationship Specialty Start Date End Date Sara Luke APRN [address] [place] [address] PCP - General Family Medicine 03/28/22 documented as of this encounter
--- OUTSIDE RECORDS SUMMARY | 2024-09-04 15:17 | XMS_ITS | Encounter Summary ---
Author Organization [facility] Address [facility] [place] [address] Care Team Providers Care Cement Mason Helper Name Role Phone Saravananadan Sarajodie Beck APRN Primary Care Provider +1- [phone] Encounter Details Date Type Department Care Team (Latest Contact Info) Description 06/20/2023 11:00 AM EST Ancillary Procedure [place] [address] Jose Manuel Guerrier MD [facility] [place] [address] Arteriovenous malformation of precerebral vessels Social History [...] place to sleep or slept in a correction (including now)? No 05/27/2023 Sex and Gender [...] Arm documented in this encounter Care Teams Cement Mason Helper Relationship Specialty Start Date End Date Sara Luke APRN [address] [place] [address] PCP - General Family Medicine 03/28/22 documented as of this encounter
--- OUTSIDE RECORDS SUMMARY | 2024-09-04 15:17 | XMS_ITS | Encounter Summary ---
Author Organization [facility] Address [facility] [place] [address] Care Team Providers Care Trolley Car Operator Name Role Phone Sara Luke APRN Primary Care Provider +1- [phone] Encounter Details Date Type Department Care Team (Late st Contact Info) Description 12/13/2022 Notes Only Radiology [facility] [place] [place] [address] Skye Miranda APRN [facility] [place] [address] Social History Tobacco Use Types Packs/Day Years [...] on filedocumented in this encounter Care Teams Trolley Car Operator Relationship Specialty Start Date End Date Sara Luke APRN [address] [place], [place] [address] PCP - General Family Medicine 03/28/22 documented as of this encounter
--- OUTSIDE RECORDS SUMMARY | 2024-09-04 15:17 | XMS_ITS | Encounter Summary ---
Author Organization [facility] Address [address] [place] [address] Care Team Providers Care Cut In Worker Name Role Phone Fidencio Gonsalez Primary Care Provider [phone] Reason for Visit * (Routine/Next Available) - Receiving Office to Obtain Authorization Specialty Diagnoses / Procedures Referred By Rajiv t Referred To Contact Procedures CT OUTSIDE IMAGES NEURO Unknown, Provider, MD Referral ID Status Reason Start Date Expiration Date Visits Requested Visits Authorized [id number] Receiving Office to Obtain Authorization 03/27/2022 1 1 Encounter Details Date Type Department Care Team (Latest Contact Info) Description 03/27/2022 14:52 EDT - 03/27/2022 23:59 EDT Hospital Encounter [facility] Secondary Reads [place] Discharge Disposition: Home [...] 14:52 EDT This is a non-reportable exam. us Provider Unknown MD CERVANTES OTHER IMAGING ORDERABLES Final Result documented in this encounter Visit Diagnoses Not on filedocumented in this encounter Care Teams Cut In Worker Relationship Specialty Start Date End Date Fidencio Gonsalez PA [address] [place] [address] PCP - General 11/01/10 documented as of this encounter
--- OUTSIDE RECORDS SUMMARY | 2024-09-04 15:17 | XMS_ITS | Encounter Summary ---
Author Organization [facility] Address [address] [place] [address] Care Team Providers Care Watchmaker Apprentice Name Role Phone Unavailable Primary Care Provider Unavailabl e Encounter Details Date Type Department Care Team (Late st Contact Info) Description 11/22/2004 Results Only [facility] - Maple conversion [address] [place] [address] Nubia Ramirez, PACKER Social History Tobacco Use Types Packs/Day Years [...] ? BELEM HOLLIDAY ? Accession #: ? [id number] : ? 1960 (Age: 44) ??F ?Collect Date: ? 11/22/2004 Location: ? [facility] ? Receive Date: ? 11/24/2004 Provider: ?NUBIA RAMIREZ PACKER Copy to: ? Specimen/Source: ?ThinPrep Pap Test, [...] End of Report [facility] 11/22/2004 11/24/2004 us Nubia Ramirez APRN PATHOLOGY ORDERABLES Fi nal Result Performing Organization Address City/State/[facility] Co de Phone Number [facility] [address] [place] [address] documented in this encounter Visit Diagnoses Not on filedocumented in this encounter
--- OUTSIDE RECORDS SUMMARY | 2024-09-04 15:17 | XMS_ITS | Encounter Summary ---
Author Organization [facility] Address [address] [place] [address] Care Team Providers Care Air Force Senior Officer Name Role Phone Unavailable Primary Care Provider Unavailabl e Encounter Details Date Type Department Care Team (Late st Contact Info) Description 10/22/2002 Results Only [facility] - Maple conversion [address] [place] [address] Nubia Ramirez, COMMUNICATION INSTRUCTOR Social History Tobacco Use Types Packs/Day Years [...] ? BELEM HOLLIDAY ? Accession #: ? [id number] : ? 1960 (Age: 42) ??F ?Collect Date: ? 10/22/2002 Location: ? [facility] ? Receive Date: ? 10/24/2002 Provider: ?NUBIA RAMIREZ COMMUNICATION INSTRUCTOR Copy to: ? Specimen/Source: ?ThinPrep Pap Test, [...] End of Report [facility] 10/22/2002 10/24/2002 us Nubia Ramirez COMMUNICATION INSTRUCTOR PATHOLOGY ORDERABLES Fi nal Result [facility] [address] [place] [address] documented in this encounter Visit Diagnoses Not on filedocumented in this encounter
--- OUTSIDE RECORDS SUMMARY | 2024-09-04 15:17 | XMS_ITS | Encounter Summary ---
Author Organization [facility] Address [address] [place] [address] Care Team Providers Care Sales Marketing Manager Name Role Phone Fidencio Gonsalez Primary Care Provider [phone] Encounter Details Date Type Department Care Team (Late st Contact Info) Description 10/16/2022 Lab Requisition [facility] [address] [place] [address] Fred Velázquez MD [address] [place] [address] [id number] Encounter for other general examination Social History [...] management options, if applicable. 10/20/2022 13:00 EDT [facility] Final Diagnosis A. STOMACH, BIOPSY: - Hyperplastic / inflammatory polyp - Mild focal reactive inflammatory atypia - Negative for dysplasia 10/20/2022 13:00 T [facility] Diagnosis Comment This case was seen in consultation with Dr. Flako Aadms who concurs. 10/20/2022 13:00 [facility] Attestation By the signature below, the attending physician certifies that they have 1) personally conducted a gross and/or microscopic examination of the described specimen(s), and/or personally interpreted the results of laboratory testing of the described specimen(s), and 2) personally rendered or confirmed the above diagnosis. 10/20/2022 13:00 [facility] at 1300 Clinical History GERD, colon screening; gastric polyps, internal hemorrhoids 10/20/2022 13:00 T [facility] Gross Description A. Received in formalin labelled with proper patient identification (initials B, J) and gastric polyp biopsy are 2 last tissue fragments (0.5 x 0.2 x 0.1 cm in aggregate). Entirely submitted in A1. CHAYITO LEVIN(ASCP) 10/17/2022 9:14 10/20/2022 13:00 [facility] Performing Lab [facility] 10/20/2022 13:00 T [facility] Scanned Images 10/20/2022 13:00 [facility] Tissue SPECIMEN FROM STOMACH OBTAINED BY TOTAL GASTRECTOMY / Unknown 10/16/2022 8:43 EDT 10/17/2022 8:08 EDT us Fred Velázquez MD PATHOLOGY ORDERABLES Fin al Result [facility] [address] [place] [address] documented in this encounter Visit Diagnoses Diagnosis Encounter for other general examination documented in this encounter Care Teams Sales Marketing Manager Relationship Specialty Start Date End Date Fidencio Gonsalez PA [address] [place] [address] PCP - General 11/01/10 documented as of this encounter
--- OUTSIDE RECORDS SUMMARY | 2024-09-04 15:17 | XMS_ITS | Encounter Summary ---
Author Organization [facility] Address [facility] [place] [address] Care Team Providers Care Janitorial Assistant Name Role Phone SaravananSara arellano Kiran FOFANA Primary Care Provider [phone]- [phone] Reason for Referral * Diagnostic Test (Routine) - Closed Specialty Diagnoses / Procedures Referred By Contac t Referred To Contact Radiology Diagnoses Arteriovenous malformation of brain Procedures MRI Angiogram Head wo Contrast (Generic) Jose Manuel Guerrier MD [facility] [place] [address] [facility] Rad Mri [address] [place] [address] Referral ID Status Reason Start Date Expiration Date V isits Requested Visits Authorized [id number] Closed Specialty Service Requested 05/28/2023 11/26/2024 1 1 Reason for Visit * Diagnostic Test (Routine) - Closed Specialty Diagnoses / Procedures Referred By Contac t Referred To Contact Radiology Diagnoses Arteriovenous malformation of brain Procedures MRI Angiogram Head wo Contrast (Generic) Jose Manuel Guerrier MD [facility] [place] [address] [facility] Rad Mri [address] [place] [address] Referral ID Status Reason Start Date Expiration Date V isits Requested Visits Authorized [id number] Closed Specialty Service Requested 05/28/2023 11/26/2024 1 1 Encounter Details Date Type Department Care Team (Latest Contact Info) Description 06/20/2023 12:42 PM EST - 06/20/2023 11:59 PM EST Hospital Encounter Radiology MRI at [facility] [address] Jose Manuel Guerrier MD [facility] [place] [address] Arteriovenous malformation of brain Discharge Disposition: Home [...] 17 g by mouth daily as needed. [id number] triamcinolone acetonide 0.1% cream Apply topically as needed. Apply to affected area as directed by study team. UNABLE TO FIND Smart Greens chew propylene glycol/peg 400/PF (SYSTANE, PF, OPHT) Apply to eye daily. fluticasone propionate (Flonase) 50 mcg/actuation [place], Suspension by Each Nare route as needed. [...] who have questions please contact the health residential caregiver that requested your imaging first. ? Electronically signed by: Isaiah Orozco MD, [facility] ([phone]), at 06/21/2023 9:24 AM Narrative 06/21/2023 9:24 [...] patients who have questions please contactthe health residential caregiver that requested your imaging first. 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
--- OUTSIDE RECORDS SUMMARY | 2024-09-04 15:17 | XMS_ITS | Encounter Summary ---
Author Organization [facility] Address [address] [place] [address] Care Team Providers Care Mill Oiler Name Role Phone Unavailable Primary Care Provider Unavailabl e Encounter Details Date Type Department Care Team (Late st Contact Info) Description 11/04/2003 Results Only [facility] - Maple conversion [address] [place] [address] Nubia Ramirez, KNITTING MACHINE MECHANIC Social History Tobacco Use Types Packs/Day Years [...] ? BELEM HOLLIDAY ? Accession #: ? [id number] : ? 1960 (Age: 43) ??F ?Collect Date: ? 11/04/2003 Location: ? [facility] ? Receive Date: ? 11/09/2003 Provider: ?NUBIA RAMIREZ KNITTING MACHINE MECHANIC Copy to: ? Specimen/Source: ?ThinPrep Pap Test, [...] End of Report [facility] 11/04/2003 11/09/2003 us Nubia Ramirez APRN PATHOLOGY ORDERABLES Fi nal Result [facility] [address] [place] [address] documented in this encounter Visit Diagnoses Not on filedocumented in this encounter
--- OUTSIDE RECORDS SUMMARY | 2024-09-04 15:17 | XMS_ITS | Encounter Summary ---
Author Organization [facility] Address [facility] [place] [address] Care Team Providers Care Corporate Legal Manager Name Role Phone SaravananSara arellano Kiran FOFANA Primary Care Provider +1- [phone] Encounter Details Date Type Department Care Team [...] on filedocumented in this encounter Care Teams Corporate Legal Manager Relationship Specialty Start Date End Date Sara Luke APRN [address] [place] [address] PCP - General Family Medicine 03/28/22 documented as of this encounter
--- OUTSIDE RECORDS SUMMARY | 2024-09-04 15:17 | XMS_ITS | Encounter Summary ---
Author Organization [facility] Address [facility] [place] [address] Care Team Providers Care Supervisor Patching Name Role Phone SaravananSara arellano BRIGIDO Primary Care Provider +1- [phone] Encounter Details Date Type Department Care Team [...] on filedocumented in this encounter Care Teams Supervisor Patching Relationship Specialty Start Date End Date Sara Luke APRN [address] [place] [address] PCP - General Family Medicine 03/28/22 documented as of this encounter
--- OUTSIDE RECORDS SUMMARY | 2024-09-04 15:17 | XMS_ITS | Encounter Summary ---
Author Organization [facility] Address [address] [place] [address] Care Team Providers Care Order Schedule Clerk Name Role Phone Unavailable Primary Care Provider Unavailabl e Encounter Details Date Type Department Care Team (Late st Contact Info) Description 09/11/2001 Results Only [facility] - Maple conversion [address] [place] [address] Baylee Ren MD [address] [place] [address] [address] [place], [place] [id number] Social History Tobacco Use Types Packs/Day Years [...] ? BELEM HOLLIDAY ? Accession #: ? [id number] : ? 1960 (Age: 41) ??F ?Collect Date: ? 09/11/2001 Location: ? [facility] ? Receive Date: ? 09/13/2001 Provider: ?BAYLEE REN MD Copy to: ? Specimen/Source: ?ThinPrep Pap Test, Cervix/Endocervix Last Menstrual Period: ? 09/03/01 Hormonal/Contracep tive Status: ? Yes Other: ? Client ID#: [id number] ? SPECIMEN ADEQUACY ? Satisfactory for Evaluation - transformation zone component present GENERAL CATEGORIZATION ? Negative for Intraepithelial Lesion or Malignancy ? Document reviewed and electronically signed by: ? SANTANA Thakkar(ASCP) ? Report Date: ??09/16/2001 14:52 End of Report [facility] 09/11/2001 09/13/2001 us Baylee Ren MD PATHOLOGY ORDERABLES Final Resul t [facility] [address] [place] [address] documented in this encounter Visit Diagnoses Not on filedocumented in this encounter
--- OUTSIDE RECORDS SUMMARY | 2024-09-04 15:17 | XMS_ITS | Encounter Summary ---
Author Organization [facility] Address [facility] [place] [address] Care Team Providers Care Lead Portfolio Manager Name Role Phone Ti Sara Beck APRN Primary Care Provider +1- [phone] Reason for Referral * Diagnostic Test (Routine) - New Request Specialty Diagnoses / Procedures Referred By Rajiv holcomb Referred To Contact Radiology Diagnoses Arteriovenous malformation of brain Procedures CT Angiogram [place] Jose Manuel Guerrier MD [facility] [place] [address] Referral ID Status Reason Start Date Expiration Date Visits Requested Visits Authorized [id number] New Request Specialty Service Requested 01/24/2024 07/25/2025 1 1 Encounter Details Date Type Department Care Team (Latest Contact Info) Description 01/17/2024 4:30 PM EDT Office Visit Radiation Oncology at [place] [phone] Jose Manuel Guerrier MD [facility] [place] [address] Arteriovenous malformation of brain Social History Tobacco [...] place to sleep or slept in a assisted (including now)? No 05/27/2023 Sex and Gender [facility] Radiation Oncology Follow-Up Report [...] mouth daily as needed., Disp: , Rfl: [id number] triamcinolone acetonide 0.1% cream, Apply topically as needed. Apply to affected area as directed by study team., Disp: , Rfl: UNABLE TO FIND, Smart Greens chew, Disp: , Rfl: propylene glycol/peg 400/PF (SYSTANE, PF, OPHT), Apply to eye daily., Disp: , Rfl: fluticasone propionate (Flonase) 50 mcg/actuation [place], Suspension, by Each Nare route as needed.,Disp: [...] with Dr. Shaw. Jose Manuel Guerrier MD [facility] Radiation Oncology National Cancer [place] (NCI) Comprehensive Cancer Center [employer] Commission on Cancer (ACS Enrique) Accredited Cancer Program [employer] (ACR) Accredited Radiation Oncology Program documented in this encounter Plan of Treatment Scheduled Orders Name Type Priority Associated Diagnoses Orde r Schedule CT Angiogram [place] Imaging Routine Arteriovenous malformation of brain Expected: 01/23/2025, Expires: 07/25/2025 documented as of this encounter Visit Diagnoses Diagnosis 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
--- OUTSIDE RECORDS SUMMARY | 2024-09-04 15:17 | XMS_ITS | Encounter Summary ---
[place] [address] Care Team Providers Care Internet Marketing Specialist Name Role Phone Sara Luke APRN Primary Care Provider +1- [phone] Reason for Referral * Diagnostic Test (Routine) - Closed Specialty Diagnoses / Procedures Referred By Rajiv t Referred To Contact Radiology Diagnoses Intracranial bleed Procedures IR Arteriogram Cerebral Skye Miranda APRN [facility] [place] [address] [place] [address] Referral ID Status Reason Start Date Expiration Date V isits Requested Visits Authorized [id number] Closed Specialty Service Requested 01/24/2023 07/26/2024 1 1 Encounter Details Date Type Department Care Team (Late st Contact Info) Description 01/16/2023 [place] [address] Kim Rose RN Social History [...] Medications: ??? fluticasone propionate (Flonase) 50 mcg/actuation [place], Suspension, by Each Nare route as needed., [...] - 01/16/2023 4:45 PM EDT Copied from [facility] #[id number]. Topic: Specialty Dept CRMs - Generic Call >> Jan 16, 2023 3:34 PM Tara Becker wrote: Specialist: Skye Miranda APRN Relationship (if other than patient-full name): Reason for Call: See patient message dated 12.15.22. Patient has decided to go ahead with the cerebral angiogram. Can be reached at [phone]. documented in this encounter Plan of Treatment [...] who have questions please contact the health pharmacy customer care specialist that requested your imaging first. ? Electronically signed by: Yung Hartman MD, [facility] ([phone]), at 04/27/2023 1:27 PM Narrative 04/27/2023 1:27 [...] mGy; B plane 62 mGy. MATERIALS: 5 Marshallese glide sheath slender, Krishna 2 5 Marshallese glide catheter, 0.035 inch Glidewire. TECHNIQUE: The patient was brought to the angiography suite. The right wrist was sterilely prepped and draped. With ultrasound guidance, the right radial artery was accessed and the 5 Marshallese glide sheath placed, and double flushed. Spasmolytic [...] mGy; B plane 62 mGy. MATERIALS: 5 Marshallese glide sheath slender, Krishna 2 5 Marshallese glidecatheter, 0.035 inch Glidewire. TECHNIQUE: The patient was brought to the angiography suite. The rightwrist was sterilely prepped and draped. With ultrasound guidance, the right radialartery was accessed and the 5 Marshallese glide sheath placed, and double flushed. Spasmolytic [...] patients who have questions please contactthe health pharmacy customer care specialist that requested your imaging first. Electronically signed by: Yung Hartman MD, [facility]([phone]), at 04/27/2023 1:27 PM Skye Miranda APRN IMG IR ORDERABLES documented in this encounter Visit Diagnoses Diagnosis Intracranial bleed Unspecified intracranial hemorrhage Intracranial bleed Unspecified intracranial hemorrhage documented in this encounter Care Teams Internet Marketing Specialist Relationship Specialty Start Date End Date Sara Luke APRN [address] [place] [address] PCP - General Family Medicine 03/28/22 documented as of this encounter
--- OUTSIDE RECORDS SUMMARY | 2024-09-04 15:17 | XMS_ITS | Encounter Summary ---
Author Organization [facility] Address [address] [place] [address] Care Team Providers Care Claim Service Representative Name Role Phone Unavailable Primary Care Provider Unavailabl e Encounter Details Date Type Department Care Team (Late st Contact Info) Description 09/07/2000 Results Only [facility] [address] [place] [address] Baylee Ren MD [address] [place] [address] [address] [place] [address] Social History Tobacco Use Types Packs/Day Years [...] ? BELEM HOLLIDAY ? Accession #: ? [id number] : ? 1960 (Age: 40) ??F ?Collect [...] End of Report [facility] 09/07/2000 09/11/2000 us Baylee Ren MD PATHOLOGY ORDERABLES Final Resul t [facility] [address] [place] [address] documented in this encounter Visit Diagnoses Not on filedocumented in this encounter
--- OUTSIDE RECORDS SUMMARY | 2024-09-04 15:17 | XMS_ITS | Encounter Summary ---
Author Organization [facility] Address [facility] [place] [address] Care Team Providers Care Optical Technician Name Role Phone SaravananSara arellano BRIGIDO Primary Care Provider +1- [phone] Encounter Details Date Type Department Care Team (Late st Contact Info) Description 06/18/2023 Orders Only Radiation Oncology at [facility] [place] [address] oJse Manuel Guerrier MD [facility] [place] [address] Arteriovenous malformation of brain Social History Tobacco [...] system documented in this encounter Care Teams Optical Technician Relationship Specialty Start Date End Date Sara Luke APRN [address] [place] [address] PCP - General Family Medicine 03/28/22 documented as of this encounter
--- OUTSIDE RECORDS SUMMARY | 2024-09-04 15:17 | XMS_ITS | Encounter Summary ---
Author Organization [facility] Address [facility] [place] [address] Care Team Providers Care E Learning Coordinator Name Role Phone SaravananSara arellano BRIGIDO Primary Care Provider +1- [phone] Encounter Details Date Type Department Care Team [...] on filedocumented in this encounter Care Teams E Learning Coordinator Relationship Specialty Start Date End Date Sara Luke APRN [address] [place] [address] PCP - General Family Medicine 03/28/22 documented as of this encounter
--- OUTSIDE RECORDS SUMMARY | 2024-09-04 15:17 | XMS_ITS | Encounter Summary ---
Author Organization [facility] Address [facility] [place] [address] Care Team Providers Care Od Grinder Operator Name Role Phone Saravananadan Sara Beck APRN Primary Care Provider +1- [phone] Reason for Referral * Diagnostic Test (Routine) - Closed Specialty Diagnoses / Procedures Referred By Rajiv t Referred To Contact Radiology Diagnoses Arteriovenous malformation of brain Procedures MRI Venogram Head W Contrast Jose Manuel Guerrier MD [facility] [place] [address] [place] [address] Referral ID Status Reason Start Date Expiration Date V isits Requested Visits Authorized [id number] Closed Specialty Service Requested 01/06/2024 07/07/2025 1 1 * Diagnostic Test (Routine) - Closed Specialty Diagnoses / Procedures Referred By Contac t Referred To Contact Radiology Diagnoses Arteriovenous malformation of brain Procedures MRI Angiogram Head wo Contrast (Generic) MRI Angiogram Head wwo Contrast Jose Manuel Guerrier MD [facility] [place] [address] [place] [address] Referral ID Status Reason Start Date Expiration Date V isits Requested Visits Authorized [id number] Closed Specialty Service Requested 07/06/2023 01/04/2025 1 1 Reason for Visit * Diagnostic Test (Routine) - Closed Specialty Diagnoses / Procedures Referred By Contac t Referred To Contact Radiology Diagnoses Arteriovenous malformation of brain Procedures MRI Angiogram Head wo Contrast (Generic) MRI Angiogram Head wwo Contrast Jose Manuel Guerrier MD [facility] [place] [address] [facility] [place] [address] Referral ID Status Reason Start Date Expiration Date V isits Requested Visits Authorized [id number] Closed Specialty Service Requested 07/06/2023 01/04/2025 1 1 Encounter Details Date Type Department Care Team (Latest Contact Info) Description 01/17/2024 1:21 PM EDT - 01/17/2024 11:59 PM EDT Hospital En[place] [address] Jose Manuel Guerrier MD [facility] [place] [address] Arteriovenous malformation of brain Discharge [...] 17 g by mouth daily as needed. [id number] triamcinolone acetonide 0.1% cream Apply topically as needed. Apply to affected area as directed by study team. UNABLE TO FIND Smart Greens chew propylene glycol/peg 400/PF (SYSTANE, PF, OPHT) Apply to eye daily. fluticasone propionate (Flonase) 50 mcg/actuation [place], Suspension by Each Nare route as needed. [...] Contrast (01/17/2024 2:35 PM EDT) WORKSTATION ID [id number] RAD Anatomical Region Laterality Modality Head Magnetic Resonan ce Impressions 01/18/2024 4:52 PM EDT No evidence of arterial venous malformation. Thank you for letting us participate in the care of this patient. ??If you are a health care provider and have any questions regarding this report, please contact the number below. ??For patients who have questions please contact the health childcare director that requested your imaging first. ? Electronically signed by: Subhash Mitchell MD, [facility] ([phone]), at 01/18/2024 4:52 PM Narrative 01/18/2024 4:52 [...] patients who have questions please contactthe health childcare director that requested your imaging first. Electronically signed by: Subhash Mitchell MD, [facility]([phone]), at 01/18/2024 4:52 PM Jose Manuel Guerrier MD IMG MRI ORDERABLES * MRI Angiogram Head wo Contrast (Generic) (01/17/2024 2:35 PM EDT) [employer] WORKSTATION ID [id number] RAD Anatomical Region Laterality Modality Head Magnetic Resonan ce Impressions 01/18/2024 4:34 PM EDT Normal study. No specific evidence for AVM. Thank you for letting us participate in the care of this patient. ??If you are a health care provider and have any questions regarding this report, please contact the number below. ??For patients who have questions please contact the health childcare director that requested your imaging first. ? Electronically signed by: Subhash Mitchell MD, [facility] ([phone]), at 01/18/2024 4:34 PM Narrative 01/18/2024 4:34 [...] patients who have questions please contactthe health childcare director that requested your imaging first. Electronically signed by: Subhahs Mitchell MD, [facility]([phone]), at 01/18/2024 4:34 PM Jose Manuel Guerrier [...] mLs documented in this encounter Care Teams Od Grinder Operator Relationship Specialty Start Date End Date Sara Luke APRN [address] [place] [address] PCP - General Family Medicine 03/28/22 documented as of this encounter
--- OUTSIDE RECORDS SUMMARY | 2024-09-04 15:17 | XMS_ITS | Encounter Summary ---
[place] [address] Care Team Providers Care Forming Press Operator Name Role Phone Sara Luke APRN Primary Care Provider +1- [phone] Encounter Details Date Type Department Care Team [...] on filedocumented in this encounter Care Teams Forming Press Operator Relationship Specialty Start Date End Date Sara Luke APRN [address] [place] [address] PCP - General Family Medicine 03/28/22 documented as of this encounter
--- OUTSIDE RECORDS SUMMARY | 2024-09-04 15:17 | XMS_ITS | Encounter Summary ---
Author Organization [facility] Address [facility] [place] [address] Care Team Providers Care Block Splitter Operator Name Role Phone SaravananSara arellano Kiran FOFANA Primary Care Provider +1- [phone] Encounter Details Date Type Department Care Team [...] on filedocumented in this encounter Care Teams Block Splitter Operator Relationship Specialty Start Date End Date Sara Luke APRN [address] [place] [address] PCP - General Family Medicine 03/28/22 documented as of this encounter
--- OUTSIDE RECORDS SUMMARY | 2024-09-04 15:17 | XMS_ITS | Encounter Summary ---
[place] [address] Care Team Providers Care Top Inventory Control Executive Name Role Phone Sara Luke APRN Primary Care Provider +1- [phone] Reason for Referral * Consultation (Routine) - Closed Specialty Diagnoses / Procedures Referred By Contchadwick t Referred To Contact Neurology Diagnoses Nonintractable headache, unspecified chronicity pattern, unspecified headache type Sara Luke APRN [address] [place] [address] [facility] [address] [place] [address] Referral ID Status Reason Start Date Expiration Date V isits Requested Visits Authorized [id number] Closed Consult, Test & Treat PCP Updated and/or Approved 04/19/2024 04/19/2025 1 1 Encounter Details Date Type Department Care Team (Latest Contact Info) Description 04/19/2024 Transcribe Orders eDH Incoming Referrals [phone] Sara Luke APRN [address] [place] [phone] Nonintractable headache, unspecified chronicity pattern, unspecified headache type Social History Tobacco Use Types Packs/Day Years [...] r Schedule Referral to Neurology Outpatient Referral Routine Nonintractable headache, unspecified chronicity pattern, unspecified headache type Ordered: 04/19/2024 documented as of this encounter Visit Diagnoses Diagnosis Nonintractable headache, unspecified chronicity pattern, unspecified headache type documented in this encounter Care Teams Top Inventory Control Executive Relationship Specialty Start Date End Date Sara Luke APRN [address] [place] [address] PCP - General Family Medicine 03/28/22 documented as of this encounter
--- OUTSIDE RECORDS SUMMARY | 2024-09-04 15:17 | XMS_ITS | Encounter Summary ---
Author Organization [facility] Address [facility] [place] [address] Care Team Providers Care Local Az Truck Driver Name Role Phone SaravananSara arellano Kiran FOFANA Primary Care Provider +1- [phone] Encounter Details Date Type Department Care Team [...] on filedocumented in this encounter Care Teams Local Az Truck Driver Relationship Specialty Start Date End Date Sara Luke APRN [address] [place] [address] PCP - General Family Medicine 03/28/22 documented as of this encounter
--- OUTSIDE RECORDS SUMMARY | 2024-09-04 15:17 | XMS_ITS | Encounter Summary ---
[place] [address] Care Team Providers Care Clinical Trials Assistant Name Role Phone Sara Luke APRN Primary Care Provider +1- [phone] Encounter Details Date Type Department Care Team [...] on filedocumented in this encounter Care Teams Clinical Trials Assistant Relationship Specialty Start Date End Date Sara Luke APRN [address] [place] [address] PCP - General Family Medicine 03/28/22 documented as of this encounter
--- OUTSIDE RECORDS SUMMARY | 2024-09-04 15:18 | XMS_ITS | Encounter Summary ---
Author Organization [facility] Address [facility] [place] [address] Care Team Providers Care Client Relationship Manager Name Role Phone Sara Luke APRN Primary Care Provider +1- [phone] Encounter Details Date Type Department Care Team (Late st Contact Info) Description 05/26/2022 Ancillary Procedure Radiology Library at [facility] [place] [address] Grisel Evans MD [facility] [place] [address] Social History Tobacco Use Types Packs/Day Years [...] MR Head (05/26/2022 12:00 AM EDT) Narrative [facility] - 05/30/2022 7:14 AM EDT This exam is auto-finalizing. It's purpose is for storage only. Grisel Evans MD IMG FILM LIBRARY O RDERABLES [facility] [place] documented in this encounter Visit Diagnoses Not on filedocumented in this encounter Care Teams Client Relationship Manager Relationship Specialty Start Date End Date Sara Luke APRN [address] [place] [address] PCP - General Family Medicine 03/28/22 documented as of this encounter
--- OUTSIDE RECORDS SUMMARY | 2024-09-04 15:18 | XMS_ITS | Encounter Summary ---
Author Organization [facility] [place] [address] Care Team Providers Care Forestry Worker Name Role Phone Sara Luke APRN Primary Care Provider +1- [phone] Encounter Details Date Type Department Care Team (Late st Contact Info) Description 03/29/2022 1:45 PM EDT Telehealth [place] [address] Telehealth, Neurology None Social History Tobacco Use [...] on filedocumented in this encounter Care Teams Forestry Worker Relationship Specialty Start Date End Date Sara Luke APRN [address] [place] [address] PCP - General Family Medicine 03/28/22 documented as of this encounter
--- OUTSIDE RECORDS SUMMARY | 2024-09-04 15:18 | XMS_ITS | Encounter Summary ---
[place] [address] Care Team Providers Care Automobile Lights Assembler Name Role Phone Sara Luke BRIGIDO Primary Care Provider +1- [phone] Reason for Referral * Consultation (Urgent) - Closed Specialty Diagnoses / Procedures Referred By Contchadwick t Referred To Contact Neurology Diagnoses Brain bleed ? stroke team Chris Pike MD [address] [place] [address] [facility] [address] [place] [phone] Referral ID Status Reason Start Date Expiration Date V isits Requested Visits Authorized [id number] Closed Consult, Test & Treat PCP Updated and/or Approved 03/28/2022 03/28/2023 6 6 Encounter Details Date Type Department Care Team (Late st Contact Info) Description 03/28/2022 Transcribe Orders eDH Incoming Referrals [phone] Chris Pike MD [address] [place] [address] Brain bleed Social History Tobacco Use [...] hemorrhage documented in this encounter Care Teams Automobile Lights Assembler Relationship Specialty Start Date End Date Sara Luke, BRIGIDO [address] [place] [address] PCP - General Family Medicine 03/28/22 documented as of this encounter
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
--- OUTSIDE RECORDS SUMMARY | 2024-09-04 15:18 | XMS_ITS | Encounter Summary ---
Author Organization [facility] [place] [address] Care Team Providers Care Production Estimator Name Role Phone Sara Luke APRN Primary Care Provider +1- [phone] Encounter Details Date Type Department Care Team (Late st Contact Info) Description 03/28/2022 12:55 PM EDT Telehealth notes [place] [address] Telehealth, Neurology None Social History Tobacco Use [...] on filedocumented in this encounter Care Teams Production Estimator Relationship Specialty Start Date End Date Sara Luke APRN [address] [facility] [place] [address] PCP - General Family Medicine 03/28/22 documented as of this encounter
--- OUTSIDE RECORDS SUMMARY | 2024-09-04 15:18 | XMS_ITS | Encounter Summary ---
Author Organization [facility] [place] [address] Care Team Providers Care Produce Field Merchandiser Name Role Phone Denis Hardy MD Primary Care Provider [phone] Encounter Details Date Type Department Care Team (Late st Contact Info) Description 03/27/2022 12:05 AM EDT Ancillary Procedure Radiology Library at [facility] [place] [id number] Denis Hardy MD [address] [place] [address] [place] [address] Social History Tobacco Use Types Packs/Day Years [...] CT Head (03/27/2022 12:05 AM EDT) Narrative [facility] - 03/28/2022 11:31 AM EDT This exam is auto-finalizing. It's purpose is for storage only. Denis Hardy MD IMG FILM LIBRARY ORD ERABLES [facility] [place] documented in this encounter Visit Diagnoses Not on filedocumented in this encounter Care Teams Produce Field Merchandiser Relationship Specialty Start Date End Date Denis Hardy MD [address] [place] [address] [place] [address] PCP - General 06/28/10 03/27/22 documented as of this encounter
--- OUTSIDE RECORDS SUMMARY | 2024-09-04 15:18 | XMS_ITS | Encounter Summary ---
Author Organization [facility] [place] [address] Care Team Providers Care Show Dog Trainer Name Role Phone Sara Luke APRN Primary Care Provider +1- [phone] Encounter Details Date Type Department Care Team (Late st Contact Info) Description 03/29/2022 9:15 AM EDT Ancillary Procedure Radiology Library at [facility] [place] [address] Sara Luke APRN [address] [place] [address] Social History Tobacco Use Types Packs/Day Years [...] CT Head (03/29/2022 9:10 AM EDT) Narrative [facility] - 03/29/2022 9:10 AM EDT This exam is auto-finalizing. It's purpose is for storage only. Sara Luke ACID CONDITIONING WORKER IMG FILM LIBRARY O RDERABLES [facility] [place] documented in this encounter Visit Diagnoses Not on filedocumented in this encounter Care Teams Show Dog Trainer Relationship Specialty Start Date End Date Sara Luke APRN [address] [place] [address] PCP - General Family Medicine 03/28/22 documented as of this encounter
--- OUTSIDE RECORDS SUMMARY | 2024-09-04 15:18 | XMS_ITS | Encounter Summary ---
[facility] Organization [facility] [place] [address] Care Team Providers Care Spaghetti Machine Operator Name Role Phone Sara Luke APRN Primary Care Provider +1- [phone] Reason for Visit * Consultation (Routine) - Closed Specialty Diagnoses / Procedures Referred By Contac t Referred To Contact Neurosurgery Diagnoses Compression fracture of L1 vertebra, initial encounter Sara Luke APRN [address] [place] [address] [facility] [address] [place] [phone] Referral ID Status Reason Start Date Expiration Date V isits Requested Visits Authorized [id number] Closed Consult, Test & Treat PCP Updated and/or Approved 09/12/2022 09/12/2023 6 6 Encounter Details Date Type Department Care Team (Late st Contact Info) Description 09/20/2022 2:00 PM EST Office [place] [address] Adrian Duckworth APRN [facility] [place] [address] T12 compression fracture, initial encounter [...] Note 09/20/2022 Sara Luke APRN [address] [place] [address] RE: Belem Macias : [address] Luke: Thank you for referring your patient Belem Macias to the Neurosurgery Clinic at [facility] for evaluation of T12 burst fracture obtained [...] MEDICATIONS: ??? fluticasone propionate (Flonase) 50 mcg/actuation [place], Suspension ??? cinnamon bark 500 mg Capsule [...] dorsiflexion 5 5 Finger abduction 5 5 Fisher Weir 5 5 Hip flexion 5 5 Knee [...] questions. Sincerely, Adrian Duckworth APRN Nurse Practitioner [facility] Department of Neurosurgery [address] [place] [address] CC: Sraa Luke APRN CC: Sara Luke APRN [address] [address] This message is confidential, intended only for [...] encounter documented in this encounter Care Teams Spaghetti Machine Operator Relationship Specialty Start Date End Date Sara Luke APRN [address] [place] [address] PCP - General Family Medicine 03/28/22 documented as of this encounter
--- OUTSIDE RECORDS SUMMARY | 2024-09-04 15:18 | XMS_ITS | Encounter Summary ---
Author Organization [facility] [place] [address] Care Team Providers Care Concrete Batcher Name Role Phone Denis Hardy MD Primary Care Provider [phone] Encounter Details Date Type Department Care Team (Late st Contact Info) Description 03/27/2022 Ancillary Procedure Radiology Library at [facility] [place] [id number] Denis Hardy MD [address] [place] [address] [place] [address] Social History Tobacco Use Types Packs/Day Years [...] MR Head (03/27/2022 12:00 AM EDT) Narrative RAD - 03/28/2022 8:47 AM EDT This exam is auto-finalizing. It's purpose is for storage only. Denis Hardy MD IMG FILM LIBRARY ORD ERABLES [place], [place] documented in this encounter Visit Diagnoses Not on filedocumented in this encounter Care Teams Concrete Batcher Relationship Specialty Start Date End Date Denis Hardy MD [address] [place] [address] [place] [address] PCP - General 06/28/10 03/27/22 documented as of this encounter
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
--- OUTSIDE RECORDS SUMMARY | 2024-09-04 15:18 | XMS_ITS | Encounter Summary ---
Author Organization [facility] [address] Care Team Providers Care Rda Name Role Phone Sara Luke APRN Primary Care Provider [phone]- [phone] Encounter Details Date Type Department Care Team (Late st Contact Info) Description 09/07/2022 9:10 PM EST Ancillary Procedure Radiology Library at [facility] [place] [address] Sara Luke APRN [address] [place] [address] Social History Tobacco Use Types Packs/Day Years [...] CT Spine (09/07/2022 9:03 PM EST) Narrative [facility] - 09/07/2022 9:03 PM EST This exam is auto-finalizing. It's purpose is for storage only. Sara Luke APRN IMG FILM LIBRARY O RDERABLES DH [place], [place] documented in this encounter Visit Diagnoses Not on filedocumented in this encounter Care Teams Rda Relationship Specialty Start Date End Date Sara Luke, SOIL TECHNICIAN [address] [place] [address] PCP - General Family Medicine 03/28/22 documented as of this encounter
--- OUTSIDE RECORDS SUMMARY | 2024-09-04 15:18 | XMS_ITS | Encounter Summary ---
Author Organization [facility] Address [facility] [place] [address] Care Team Providers Care Pediatric Lpn Name Role Phone Saravananadan Sarajodie Beck APRN Primary Care Provider +1- [phone] Reason for Visit * Reason Onset Date Comments Appointment 04/24/2022 Encounter Details Date Type Department Care Team (Late st Contact Info) Description 04/24/2022 Telephone [place] [phone] Grisel Evans MD [facility] [place] [address] Appointment Social History Tobacco Use Types Packs/Day [...] - 04/24/2022 8:11 AM EDT Copied from [facility] #[id number]. Topic: Specialty Dept CRMs - Generic Call [...] on filedocumented in this encounter Care Teams Pediatric Lpn Relationship Specialty Start Date End Date Sara Luke, BRIGIDO [address] [place] [address] PCP - General Family Medicine 03/28/22 documented as of this encounter
--- OUTSIDE RECORDS SUMMARY | 2024-09-04 15:18 | XMS_ITS | Encounter Summary ---
Author [place] [address] Care Team Providers Care Supervisor Pre Wave Name Role Phone Sara Luke APRN Primary Care Provider +1- [phone] Encounter Details Date Type Department Care Team [...] filedocumented in this encounter Care Teams Supervisor Pre Wave Relationship Specialty Start Date End Date Sara Luke APRN [address] [place] [address] PCP - General Family Medicine 03/28/22 documented as of this encounter
--- OUTSIDE RECORDS SUMMARY | 2024-09-04 15:18 | XMS_ITS | Encounter Summary ---
[place] [address] Care Team Providers Care Process Specialist Name Role Phone Sara Luke APRN Primary Care Provider +1- [phone] Encounter Details Date Type Department Care Team [...] on filedocumented in this encounter Care Teams Process Specialist Relationship Specialty Start Date End Date Sara Luke APRN [address] [place] [address] PCP - General Family Medicine 03/28/22 documented as of this encounter
--- OUTSIDE RECORDS SUMMARY | 2024-09-04 15:18 | XMS_ITS | Encounter Summary ---
Author Organization [facility] [place] [address] Care Team Providers Care Carbon Rod Inserter Name Role Phone Sara Luke APRN Primary Care Provider +1- [phone] Encounter Details Date Type Department Care Team (Late st Contact Info) Description 03/28/2022 11:35 AM EDT Ancillary Procedure Radiology Library at [facility] [place] [phone] Denis Hardy MD [address] [place] [address] [place] [address] Social History Tobacco Use Types Packs/Day Years [...] CT Head (03/28/2022 11:30 AM EDT) Narrative [facility] - 03/28/2022 11:30 AM EDT This exam is auto-finalizing. It's purpose is for storage only. Denis Hardy MD G FILM LIBRARY ORD ERABLES [facility] [place], [place] documented in this encounter Visit Diagnoses Not on filedocumented in this encounter Care Teams Carbon Rod Inserter Relationship Specialty Start Date End Date Sara Luke APRN [address] [place] [address] PCP - General Family Medicine 03/28/22 documented as of this encounter
--- OUTSIDE RECORDS SUMMARY | 2024-09-04 15:18 | XMS_ITS | Encounter Summary ---
Author Organization [facility] Address [facility] [place] [address] Care Team Providers Care Map And Chart Mounter Name Role Phone Sara Luke APRN Primary Care Provider +1- [phone] Encounter Details Date Type Department Care Team (Late st Contact Info) Description 09/08/2022 Ancillary Procedure Radiology Library at [facility] [place] [address] Sara Luke APRN [address] [place] [address] Social History Tobacco Use Types Packs/Day Years [...] MR Spine (09/08/2022 12:00 AM EST) Narrative [facility] - 09/11/2022 2:59 PM EST This exam is auto-finalizing. It's purpose is for storage only. Sara Luke APRN IMG FILM LIBRARY O RDERABLES DH RAD [place], [place] documented in this encounter Visit Diagnoses Not on filedocumented in this encounter Care Teams Map And Chart Mounter Relationship Specialty Start Date End Date Sara Luke APRN [address] [place] [address] PCP - General Family Medicine 03/28/22 documented as of this encounter
--- OUTSIDE RECORDS SUMMARY | 2024-09-04 15:18 | XMS_ITS | Encounter Summary ---
Author Organization [facility] [place] [address] Care Team Providers Care Inking Machine Tender Name Role Phone Sara Luke APRN Primary Care Provider +1- [phone] Encounter Details Date Type Department Care Team (Late st Contact Info) Description 09/07/2022 9:05 PM EST Ancillary Procedure Radiology Library at [facility] [place] [address] Sara Luke APRN [address] [place] [address] Social History Tobacco Use Types Packs/Day Years [...] & Pelvis (09/07/2022 9:03 PM EST) Narrative [facility] - 09/07/2022 9:03 PM EST This exam is auto-finalizing. It's purpose is for storage only. Sara Luke APRN IMG FILM LIBRARY O RDERABLES [facility] RAD [place], [place] documented in this encounter Visit Diagnoses Not on filedocumented in this encounter Care Teams Inking Machine Tender Relationship Specialty Start Date End Date Sara Luke APRN [address] [place] [address] PCP - General Family Medicine 03/28/22 documented as of this encounter
--- OUTSIDE RECORDS SUMMARY | 2024-09-04 15:18 | XMS_ITS | Encounter Summary ---
Author Organization [facility] Address [facility] [place] [address] Care Team Providers Care Mortgage Field Inspector Name Role Phone Sara Luke BRIGIDO Primary Care Provider +1- [phone] Reason for Visit * Consultation (Urgent) - Closed Specialty Diagnoses / Procedures Referred By Contac t Referred To Contact Neurology Diagnoses Brain bleed ? stroke team Chris Pike MD [address] [place] [address] [place] [address] [facility] [address] [place] [address] Referral ID Status Reason Start Date Expiration Date V isits Requested Visits Authorized [id number] Closed Consult, Test & Treat PCP Updated and/or Approved 03/28/2022 03/28/2023 6 6 Encounter Details Date Type Department Care Team (Late st Contact Info) Description 06/14/2022 10:30 AM EST Office [place] [address] Grisel Evans MD [facility] [place] [address] Intracranial bleed Social History Tobacco [...] Disease and Stroke Program Department of Neurology [place] [id number] t: [phone] / f: [phone] Date of Appointment: 06/14/2022 Patient: Belem Macias PCP: BRIGIDO Clifford MD [address] [place] [address] I have been asked to seeBelem Macias in consultation by Dr. Pike for her hx of a [facility] intraparenchymal bleed in my capacity [...] than one modality TOTAL SCORE: 0 Modified Winnie Scale (MRS) 0: No symptoms at all [...] providingthis patient's care. This includes time spent hbzz-re-lggy with the patient performing evaluation, examination, and counseling . It also includes non ruww-rr-ldxj time preparing to see the patient, reviewing the chart, coordinating care, and documenting clinical information in the electronic healthrecord. documented in this encounter Plan of Treatment Not on file documented as of this encounter Visit Diagnoses Diagnosis Intracranial bleed Unspecified intracranial hemorrhage documented in this encounter Care Teams Mortgage Field Inspector Relationship Specialty Start Date End Date Sara Luke APRN [address] [place] [address] PCP - General Family Medicine 03/28/22 documented as of this encounter
--- OUTSIDE RECORDS SUMMARY | 2024-09-04 15:18 | XMS_ITS | Encounter Summary ---
[place] [address] Care Team Providers Care Felt Hat Pouncing Operator Hand Name Role Phone Sara Luke APRN Primary Care Provider +1- [phone] Reason for Referral * Consultation (KRYS) - Duplicate Referral Specialty Diagnoses / Procedures Referred By Contchadwick t Referred To Contact [facility] Diagnoses Other low back pain Sara Luke APRN [address] [place] [address] [facility] [place] [address] Referral ID Status Reason Start Date Expiration Date Visits Requested Visits Authorized [id number] Duplicate Referral Consult, Test & Treat PCP Updated and/or Approved 09/12/2022 09/12/2023 6 6 Encounter Details Date Type Department Care Team (Late st Contact Info) Description 09/12/2022 Transcribe Orders eDH Incoming Referrals [phone] Sara Luke APRN [address] [place], [place] [id number] Other low back pain Social History Tobacco [...] pain documented in this encounter Care Teams Felt Hat Pouncing Operator Hand Relationship Specialty Start Date End Date Sara Luke APRN [address] [place] [address] PCP - General Family Medicine 03/28/22 documented as of this encounter
--- OUTSIDE RECORDS SUMMARY | 2024-09-04 15:18 | XMS_ITS | Encounter Summary ---
Author Organization [facility] Address [facility] [place] [address] Care Team Providers Care Dividing Machine Operator Name Role Phone Sara Luke APRN Primary Care Provider +1- [phone] Encounter Details Date Type Department Care Team (Late st Contact Info) Description 09/07/2022 Ancillary Procedure Radiology Library at [facility] [place] [address] Sara Luke APRN [address] [place] [address] Social History Tobacco Use Types Packs/Day Years [...] DX Spine (09/07/2022 12:00 AM EST) Narrative [facility] - 09/11/2022 3:00 PM EST This exam is auto-finalizing. It's purpose is for storage only. Sara Luke APRN IMG FILM LIBRARY O RDERABLES DH RAD [place], [place] documented in this encounter Visit Diagnoses Not on filedocumented in this encounter Care Teams Dividing Machine Operator Relationship Specialty Start Date End Date Sara Luke APRN [address] [place] [address] PCP - General Family Medicine 03/28/22 documented as of this encounter
--- OUTSIDE RECORDS SUMMARY | 2024-09-04 15:18 | XMS_ITS | Encounter Summary ---
Author Organization [facility] [place] [address] Care Team Providers Care Beam Dyer Operator Name Role Phone Denis Hardy MD Primary Care Provider [phone] Encounter Details Date Type Department Care Team (Late st Contact Info) Description 03/27/2022 12:10 AM EDT Ancillary Procedure Radiology Library [place] [address] Denis Hardy MD [address] [place] [address] [place] [address] Social History Tobacco Use Types Packs/Day Years [...] CT Head (03/27/2022 12:10 AM EDT) Narrative [facility] - 03/28/2022 11:32 AM EDT This exam is auto-finalizing. It's purpose is for storage only. Denis Hardy MD IMG FILM LIBRARY ORD ERABLES [facility] [place] documented in this encounter Visit Diagnoses Not on filedocumented in this encounter Care Teams Beam Dyer Operator Relationship Specialty Start Date End Date Denis Hardy MD [address] [place] [address] [place] [address] PCP - General 06/28/10 03/27/22 documented as of this encounter
--- OUTSIDE RECORDS SUMMARY | 2024-09-04 15:18 | XMS_ITS | Encounter Summary ---
Author Organization [facility] [place] [address] Care Team Providers Care Worm Farm Laborer Name Role Phone Sara Luke APRN Primary Care Provider +1- [phone] Encounter Details Date Type Department Care Team (Late st Contact Info) Description 03/28/2022 Ancillary Procedure Radiology Library at [facility] [place] [address] Sara Luke APRN [address] [place] [address] Social History Tobacco Use Types Packs/Day Years [...] MR Head (03/28/2022 12:00 AM EDT) Narrative [facility] - 03/29/2022 9:10 AM EDT This exam is auto-finalizing. It's purpose is for storage only. Sara Luke POLICE SERVICE TECHNICIAN IMG FILM LIBRARY O RDERABLES [facility] [place] documented in this encounter Visit Diagnoses Not on filedocumented in this encounter Care Teams Worm Farm Laborer Relationship Specialty Start Date End Date Sara Luke APRN [address] [place] [address] PCP - General Family Medicine 03/28/22 documented as of this encounter
--- OUTSIDE RECORDS SUMMARY | 2024-09-04 15:18 | XMS_ITS | Encounter Summary ---
[place] [address] Care Team Providers Care Thresher Broomcorn Name Role Phone Sara Luke APRN Primary Care Provider +1- [phone] Reason for Referral * Consultation (Routine) - Closed Specialty Diagnoses / Procedures Referred By Contac t Referred To Contact Neurosurgery Diagnoses Compression fracture of L1 vertebra, initial encounter Sara Luke APRN [address] [place] [address] [facility] [address] [place] [phone] Referral ID Status Reason Start Date Expiration Date V isits Requested Visits Authorized [id number] Closed Consult, Test & Treat PCP Updated and/or Approved 09/12/2022 09/12/2023 6 6 Encounter Details Date Type Department Care Team (Late st Contact Info) Description 09/12/2022 Transcribe Orders eDH Incoming Referrals [phone] Sara Luke APRN [address] [place], [place] [id number] Compression fracture of L1 vertebra, initial encounter [...] encounter documented in this encounter Care Teams Thresher Broomcorn Relationship Specialty Start Date End Date Sara Luke APRN [address] [place] [address] PCP - General Family Medicine 03/28/22 documented as of this encounter
--- OUTSIDE RECORDS SUMMARY | 2024-09-04 15:18 | XMS_ITS | Encounter Summary ---
Author Organization [place] [address] Care Team Providers Care Director Of Software Engineering Name Role Phone Denis Hardy MD Primary Care Provider [phone] Encounter Details Date Type Department Care Team (Late st Contact Info) Description 03/27/2022 11:35 AM EDT Telehealth [place] [phone] Telehealth, Neurology None Social History Tobacco Use [...] in this encounter Care Teams Director Of Software Engineering Relationship Specialty Start Date End Date Denis Hardy MD [address] [place] [address] [place] [address] PCP - General 06/28/10 03/27/22 documented as of this encounter
--- OUTSIDE RECORDS SUMMARY | 2024-09-04 15:18 | XMS_ITS | Encounter Summary ---
Author Organization [facility] [place] [address] Care Team Providers Care Secondary English Teacher Name Role Phone Sara Luke APRN Primary Care Provider +1- [phone] Encounter Details Date Type Department Care Team (Late st Contact Info) Description 09/04/2022 Ancillary Procedure Radiology Library at [facility] [place] [address] Sara Luke APRN [address] [place] [address] Social History Tobacco Use Types Packs/Day Years [...] DX Spine (09/04/2022 12:00 AM EST) Narrative [facility] - 09/11/2022 3:00 PM EST This exam is auto-finalizing. It's purpose is for storage only. Sara Luke APRN IMG FILM LIBRARY O RDERABLES DH RAD [place], [place] documented in this encounter Visit Diagnoses Not on filedocumented in this encounter Care Teams Secondary English Teacher Relationship Specialty Start Date End Date Sara Luke APRN [address] [place] [address] PCP - General Family Medicine 03/28/22 documented as of this encounter
[2024-09-04 19:40] LABS: Bacteria Negative HPF (Negative); C & S Indicated? No; Casts Negative LPF (Negative); Crystals Negative HPF (Negative); Epithelial Cells Rare HPF (Negative); Mucus Negative (Negative); RBC 0-2 HPF (0-2); WBC Negative HPF (0-5)
== END 2024-09-04 15:13 | disposition home or self-care (01) ==
LOC: NCHCN 15:12
PROVIDERS: PCP Nurse Practitioner Family; Visit Provider Nurse Practitioner Family
DX: R35.1 Nocturia (principal)
CPT/HCPCS: 81015

== ENCOUNTER 2024-12-24 13:38 | Outpatient (REF) | payer BC, SELFPAY ==
[2024-12-24 20:25] LABS: Bilirubin Negative (Negative); Blood Trace-intact (Negative); Clarity Clear (Clear); Glucose Negative (Negative); Ketones Negative (Negative); Leukocyte Esterase Negative (Negative); Nitrite Negative (Negative); Specific Gravity 1.015 (1.005-1.025); Urobilinogen 0.2 mg/dL (Up to 0.2)
[2024-12-24 20:45] LABS: Bacteria Negative HPF (Negative); C & S Indicated? No; Casts Negative LPF (Negative); Crystals Few Calcium Oxalate HPF (Negative); Epithelial Cells Rare HPF (Negative); Mucus Negative (Negative); RBC 0-2 HPF (0-2); WBC Negative HPF (0-5)
== END 2024-12-24 13:39 | disposition home or self-care (01) ==
LOC: NCHCN 13:38
PROVIDERS: PCP Nurse Practitioner Family; Visit Provider Nurse Practitioner Family
DX: R30.0 Dysuria (principal)
CPT/HCPCS: 81003; 81015

== ENCOUNTER 2025-02-11 16:19 | Outpatient (REF) | payer BC, SELFPAY ==
[2025-02-11 20:25] LABS: Abs Immature Grans 0.01 10^3/uL (0.0-0.06); HCT 37.8 % (36.0-46.0); HGB 12.2 g/dL (11.2-15.7); Immature Grans % 0.2 %; MCH 28.2 pg (27.0-33.0); MCHC 32.3 % (32.0-36.0); MCV 88 fL (80-95); MPV 9.7 fL (8.0-11.0); Platelet Count 399 10^3/uL (130-400); RBC 4.32 10^6/uL (3.93-5.22); RDW 13.0 % (11.7-14.6); RDW-SD 41.6 fL; WBC 6.00 10^3/uL (4.4-10.8)
[2025-02-11 20:45] LABS: TSH 0.73 uIU/mL (0.36-3.74)
== END 2025-02-11 16:20 | disposition home or self-care (01) ==
LOC: NCHCN 16:19
PROVIDERS: PCP Nurse Practitioner Family; Visit Provider Nurse Practitioner Family
DX: R53.83 Other fatigue (principal)
CPT/HCPCS: 84443; 85025